=== PATIENT | male | born 1940 | race Caucasian/White ===

== ENCOUNTER → 2016-12-12 | Outpatient (CLI) | payer MEDICARE, OTHER ==
[~2016-12-12] MED LIST: ACET500C PO; AMLO5TAB2 PO; ANUS2.5C2 TOP; ATOR1TAB19 PO; BETA0.0543 EXT; BETA0.0543 TOP; CARV12.5 PO; COUM1TAB17 PO; DIGO0.12 PO; DOCU10CA PO; DOXA1TAB41 PO; FAMO40TA3 PO; FOSI1TAB8 PO; FURO40TA2 PO; GABA-279 PO; ICAPTAB PO; ISOS30TA4 PO; LEVA250T PO; LIDO5DIS36 TD; MAG 64 PO; METF1000 PO; MILKSUS PO; NYST100024 TOP; PERC5TAB6 PO; SITA50TAB PO; SPIR25TA2 PO; TYLE325T5 PO; VESI10TA PO; VESI5TAB PO; WARF-20 PO; ZYLO300T4 PO
--- NOTE | 2016-12-12 13:23 | REP ---
Clinical: Right hip pain. Technique: Axial noncontrast images through the right hip with coronal and sagittal re-formations. Impression: Advanced osteoarthritic degenerative changes include joint space narrowing most pronounced along the superior weightbearing portion of the hip joint with underlying sclerosis and subchondral heterogeneity and cystic changes involving both the acetabulum and femoral head as well as osteophytosis primarily involving the superior margin of the acetabulum. Enthesopathy along the visualized pelvic bones and greater tuberosity of the proximal femur is appreciated. There is no evidence for acute fracture or dislocation and no obvious healed fracture. The surrounding musculotendinous and ligamentous structures demonstrate age-related changes no obvious tendinous calcifications are identified and no obvious bursitis or significant fluid collection noted. Impression: Early advanced osteoarthritic degenerative changes noted. Signed by Brad Padilla MD 12/12/2016 01:15 P
== END ==
LOC: M RAD 12:28
PROVIDERS: ATTEND Orthopaedic Surgery
DX: M16.11 Unilateral primary osteoarthritis, right hip (principal)

== ENCOUNTER → 2017-01-30 | Outpatient (CLI) | payer MEDICARE, OTHER ==
--- NOTE | 2017-01-30 15:01 | REP ---
URINARY TRACT SONOGRAPHY: HISTORY: Followup cyst. Comparison sonography October 20, 2014. 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 Comparison CT study of the abdomen and pelvis is from July 20, 2015. FINDINGS: Scanning at the level of the urinary bladder shows that it is largely empty but otherwise intact. Renal cortical echogenicity pattern is normal bilaterally. There is no evidence of hydronephrosis on either side. The right kidney measures 13.4 x 6.2 x 5.4 cm. Left renal dimensions are 14.2 x 5.6 x 5.9 cm. There is focal cortical thinning at the mid pole level of the right kidney as seen on CT study and prior sonography July 20, 2016 with an area of increased echogenicity representing intervening perinephric fat. This area is unchanged. There is a cyst in the lower pole of the left kidney also noted and also unchanged. This measures 2.1 x 2.1 by 1.7 cm. There are smaller cysts in the cortex of the right kidney as well. There is a left renal cyst at the upper pole measuring 2.0 x 2.0 x 1.5 cm. This is unchanged as well from July 20, 2015. No renal mass lesion is evident on either side. No calculus is seen. IMPRESSION: Bilateral renal cysts, unchanged. Small area of focal cortical scarring right mid kidney, unchanged. Signed by Herbie Torres MD 01/30/2017 05:23 P
== END ==
LOC: M SMT 12:40
PROVIDERS: ATTEND Urology
DX: Q61.00 Congenital renal cyst, unspecified (principal)

== ENCOUNTER → 2018-02-10 | Outpatient (CLI) | payer MEDICARE, OTHER | LOC: M SMT 10:13 | DX: Q61.00 Congenital renal cyst, unspecified (principal); N18.9 Chronic kidney disease, unspecified | CPT/HCPCS: 76770 ==

== ENCOUNTER → 2019-02-04 | Outpatient (CLI) | payer MEDICARE, OTHER ==
[~2019-02-04] MED LIST changes: -AMLO5TAB2 PO; +AMLO5TAB6 PO; -FOSI1TAB8 PO; +FOSI20TA3 PO; +GABA-1171 PO; -GABA-279 PO; -LEVA250T PO; +LEVA250T13 PO; -LIDO5DIS36 TD; +LIDO5DIS41 TD; -METF1000 PO; +METF10004 PO; +MILK120011 PO; -MILKSUS PO; -NYST100024 TOP; +NYST1POW9 TOP; +PERC5TAB12 PO; -PERC5TAB6 PO; +SPIR-10 PO; -SPIR25TA2 PO; -VESI10TA PO; +VESI10TA2 PO; -VESI5TAB PO; +VESI5TAB2 PO; -ZYLO300T4 PO; +ZYLO300T6 PO
--- NOTE | 2019-02-04 16:00 | REP ---
Renal ultrasound: History: Complex renal cyst. Comparison sonography February 10, 2018. Comparison CT study July 20, 2015. Findings: Scanning at the level urinary bladder shows emptying ureteral jets bilaterally on color Doppler interrogation. Visualized bladder bhat are smooth. Calculated bladder volume is 106 mL. Renal cortical echogenicity pattern is increased somewhat bilaterally consistent with chronic medical renal disease. No hydronephrosis is seen. No renal mass lesion is observed. Multiple cysts are noted in each kidney. On the right there are upper and lower pole cysts measuring 1.9, 2.0, 1.1 cm in greatest diameter. The largest cyst on the left measures 3.3 cm in greatest diameter. This is a little larger than on the previous sonogram. There is a focal area of cortical scarring as before in the right mid kidney. Impression: Multiple bilateral renal cysts. Increased echogenicity in the cortex of the kidneys bilaterally consistent with chronic medical renal disease. Focal cortical scarring on the right again noted. Electronically Signed by Herbie Torres MD 02/04/2019 05:15 P
== END ==
LOC: M SMT 10:52
PROVIDERS: ATTEND Nurse Practitioner Family
DX: Q61.00 Congenital renal cyst, unspecified (principal)

== ENCOUNTER → 2020-09-06 | Outpatient (CLI) | payer MEDICARE, OTHER ==
[~2020-09-06] MED LIST changes: +AMLO1TAB24 PO; -AMLO5TAB6 PO; -FOSI20TA3 PO; +FOSI20TA60 PO
[2020-09-06 13:48] LABS: BLOOD UREA NITROGEN 24 MG/DL (7-18); CALCIUM LEVEL 9.3 MG/DL (8.8-10.2); CARBON DIOXIDE LEVEL 26 MEQ/L (21-32); CHLORIDE LEVEL 107 MEQ/L (98-107); CREATININE FOR GFR 1.01 MG/DL (0.70-1.30); GLOMERULAR FILTRATION RATE > 60.0 (>35); GLUCOSE, FASTING 113 MG/DL (70-100); MAGNESIUM LEVEL 1.8 MG/DL (1.8-2.4); SODIUM LEVEL 139 MEQ/L (136-145)
== END ==
LOC: M WUC 10:03
PROVIDERS: ATTEND Physician Assistant
DX: I50.42 Chronic combined systolic (congestive) and diastolic (congestive) heart failure (principal); I48.21 Permanent atrial fibrillation; Z79.01 Long term (current) use of anticoagulants

== ENCOUNTER → 2020-12-07 | Outpatient (CLI) | payer MEDICARE, OTHER ==
[2020-12-07 13:26] LABS: HEMATOCRIT 41.6 % (42.0-52.0); MEAN CORPUSCULAR HEMOGLOBIN 31.7 pg (27.0-33.0); MEAN CORPUSCULAR HGB CONC 31.3 g/dl (32.0-36.5); MEAN CORPUSCULAR VOLUME 101.5 fl (80.0-96.0); PLATELET COUNT, AUTOMATED 160 10^3/uL (150-450); WHITE BLOOD COUNT 8.3 10^3/uL (4.0-10.0)
[2020-12-07 13:56] LABS: ALBUMIN 3.5 GM/DL (3.2-5.2); ALT/SGPT 18 U/L (12-78); BILIRUBIN,TOTAL 0.9 MG/DL (0.2-1.0); BLOOD UREA NITROGEN 21 MG/DL (7-18); CALCIUM LEVEL 9.8 MG/DL (8.8-10.2); CARBON DIOXIDE LEVEL 26 MEQ/L (21-32); CHLORIDE LEVEL 109 MEQ/L (98-107); CHOLESTEROL LEVEL 206 MG/DL (<200); CHOLESTEROL RISK RATIO 3.961 (<5); CREATININE FOR GFR 1.02 MG/DL (0.70-1.30); GLOMERULAR FILTRATION RATE > 60.0 (>35); GLUCOSE, FASTING 144 MG/DL (70-100); HDL CHOLESTEROL 52 MG/DL (>40); LDL CHOLESTEROL 136 MG/DL (<100); MAGNESIUM LEVEL 2.2 MG/DL (1.8-2.4); NON-HDL-C 154 MG/DL; POTASSIUM SERUM 4.3 MEQ/L (3.5-5.1); SODIUM LEVEL 139 MEQ/L (136-145); TOTAL PROTEIN 7.1 GM/DL (6.4-8.2); TRIGLYCERIDES LEVEL 92 MG/DL (<150)
== END ==
LOC: M PLALAB 10:08
PROVIDERS: ATTEND Physician Assistant
DX: E78.2 Mixed hyperlipidemia (principal); I50.42 Chronic combined systolic (congestive) and diastolic (congestive) heart failure; I48.21 Permanent atrial fibrillation

== ENCOUNTER 2021-03-04 17:21 | Emergency (ER) | payer MEDICARE, OTHER ==
[~2021-03-04] VITALS: Ht 182.9 cm; Wt 109.1 kg
[~2021-03-04 17:21] MED LIST changes: +ISOS1TAB35 PO; -ISOS30TA4 PO
[2021-03-04 18:29] LABS: BASO % 0.4 % (0.0-1.0); EOS # 0.2 10^3/uL (0.0-0.5); EOS % 2.2 % (0.0-3.0); HEMATOCRIT 40.8 % (42.0-52.0); HEMOGLOBIN 13.1 g/dl (13.5-17.5); LYMPH # 1.2 10^3/uL (1.5-5.0); LYMPH % 11.9 % (24.0-44.0); MEAN CORPUSCULAR HEMOGLOBIN 31.6 pg (27.0-33.0); MEAN CORPUSCULAR HGB CONC 32.1 g/dl (32.0-36.5); MEAN CORPUSCULAR VOLUME 98.3 fl (80.0-96.0); MONO # 1.4 10^3/uL (0.0-0.8); MONO % 14.1 % (2.0-8.0); NEUTROPHILS # 7.2 10^3/uL (1.5-8.5); NEUTROPHILS % 70.8 % (36.0-66.0); PLATELET COUNT, AUTOMATED 187 10^3/uL (150-450); RED BLOOD COUNT 4.15 10^6/uL (4.30-6.10); WHITE BLOOD COUNT 10.1 10^3/uL (4.0-10.0)
[2021-03-04 18:39] LABS: INR 1.65; PROTHROMBIN TIME 19.9 SECONDS (12.5-14.3)
--- NOTE | 2021-03-04 19:06 | REP ---
INDICATION: abdl pain. COMPARISON: PA and lateral chest dated 01/06/2018. TECHNIQUE: Portable AP chest with the patient upright. FINDINGS: The lung lange are clear. Cardiac size is enlarged and has increased from the prior study. There is a single lead pacemaker, unchanged.. The lynn, mediastinum and skeletal structures are unremarkable. IMPRESSION: Cardiomegaly. Lung lange are clear. Pacemaker. <Electronically signed by Jose M Quijano > 03/04/21 [id number]
[2021-03-04 19:09] LABS: ALBUMIN 3.9 GM/DL (3.2-5.2); ALT/SGPT 18 U/L (12-78); AMYLASE 49 U/L (25-115); BILIRUBIN,DIRECT 0.3 MG/DL (0.0-0.2); BILIRUBIN,TOTAL 0.9 MG/DL (0.2-1.0); BLOOD UREA NITROGEN 36 MG/DL (7-18); CALCIUM LEVEL 9.7 MG/DL (8.8-10.2); CARBON DIOXIDE LEVEL 22 MEQ/L (21-32); CHLORIDE LEVEL 107 MEQ/L (98-107); CK-MB VALUE MASS 5.4 NG/ML (<3.6); CPK CREATINE PHOSPHOKINASE 110 U/L (39-308); CREATININE FOR GFR 1.21 MG/DL (0.70-1.30); DIGOXIN LEVEL 0.9 NG/ML (0.5-2.0); GLOMERULAR FILTRATION RATE > 60.0 (>35); GLUCOSE, FASTING 141 MG/DL (70-100); LIPASE 140 U/L (73-393); MB/CK RELATIVE INDEX 4.91 (< OR =4); NT-PRO BNP 2265 PG/ML (<450); POTASSIUM SERUM 4.3 MEQ/L (3.5-5.1); SODIUM LEVEL 138 MEQ/L (136-145); TOTAL PROTEIN 8.2 GM/DL (6.4-8.2); TROPONIN I 0.03 NG/ML (< 0.10)
[2021-03-04] MEDS ORDERED: ACETAMINOPHEN TAB 650MG DOSE (2X325MG) PO ONE (19:30)
--- NOTE | 2021-03-04 19:49 | REPVR ---
PROCEDURE INFORMATION: Exam: US Scrotum Exam date and time: 03/04/2021 7:08 PM Age: 80 years old Clinical indication: Swelling, testicles or scrotum; Additional info: Testicular swelling TECHNIQUE: Imaging protocol: Real-time ultrasound of the scrotum and contents with color Doppler and image documentation. COMPARISON: No relevant prior studies available. FINDINGS: Right testicle: Right testicle measures 4.7 x 2.1 x 3.3 cm. Microlithiasis. Normal flow. Left testicle: Left testis measures 4.2 x 2 x 2.7 cm. Microlithiasis. Normal flow. Epididymides: Normal. Scrotum: Moderate right varicocele. Other findings: Bilateral non reducible inguinal hernias. IMPRESSION: 1. Moderate right varicocele. 2. Testicular microlithiasis. 3. Bilateral non reducible inguinal hernias. Electronically signed by: Juve Oates On 03/04/2021 19:48:55 PM
[2021-03-04] MEDS ORDERED: BACTRIM 80MG/400MG TAB PO SCH (21:00)
[2021-03-04 21:30] VITALS: BP 155/79
[2021-03-04] MEDS ORDERED: EQ A1CRE3 TOP (21:56)
[2021-03-04] MEDS ORDERED: BACT800T5 PO (21:56)
[2021-03-04] MEDS ORDERED: FURO20TA2 PO (21:56)
--- NOTE | 2021-03-05 06:38 | ECGEPIP ---
[facility] - ED Test Date: 2021-03-04 Pat Name: GABRIEL ALDRICH Department: Room: - Gender: Male Speech Language Assistant: quin : 1940 Requested By: Lane Chambers Order Number: [id number] Reading MD: Lane Chambers Measurements Intervals [place] Rate: 73 P: OR: QRS: 19 QRSD: 108 T: 215 QT: 400 QTc: 440 Interpretive Statements atrial fibrillation Low voltage QRS Cannot rule out Anterior infarct , age undetermined Nonspecific ST T wave changes No prior ECG for comparison Electronically Signed on 03-05-2021 6:37:[address]
--- NOTE | 2021-03-05 06:49 | ED PDOC ---
Post-Departure Follow-Up dr huddleston faxed fomral report of scrotal us for fu meekg Lane Chambers MD Mar 05, 2021 06:49
[2021-03-05] MEDS ORDERED: BACTRIM 80MG/400MG TAB PO ONE (09:00)
== END 2021-03-04 22:23 | disposition home or self-care (01) ==
LOC: M ED 17:21
DX: N39.0 Urinary tract infection, site not specified (principal); L30.4 Erythema intertrigo; R60.9 Edema, unspecified; N49.2 Inflammatory disorders of scrotum; N30.90 Cystitis, unspecified without hematuria; I48.91 Unspecified atrial fibrillation; I51.7 Cardiomegaly; Z95.0 Presence of cardiac pacemaker; I86.1 Scrotal varices; N50.89 Other specified disorders of the male genital organs; K40.20 Bilateral inguinal hernia, without obstruction or gangrene, not specified as recurrent; Z79.899 Other long term (current) drug therapy; Z88.0 Allergy status to penicillin

== ENCOUNTER → 2021-03-21 | Outpatient (CLI) | payer MEDICARE, OTHER ==
[~2021-03-21] MED LIST changes: +BACT800T5 PO; +EQ A1CRE3 TOP; +FURO20TA2 PO; +ISOVUE-300 61% 50ML VIAL As Ordered ONE; +LIDOCAINE 1% MDV 20ML VIAL As Ordered ONE; +TRIAMCINOLONE ACETONIDE SUSP 40 MG/ML VIAL (J3301) As Ordered ONE
--- NOTE | 2021-03-21 16:42 | REP ---
INDICATION: RT HIP OA W/ PAIN. COMPARISON: None. TECHNIQUE: The procedure was performed under the direct supervision of Dr. Torres. The benefits and risks including but not limited to pain infection bleeding and anaphylaxis were explained the patient and informed consent was obtained. The right femoral neck was localized using fluoroscopic guidance. The skin was prepped and draped in a sterile fashion. 1% lidocaine was used as a local anesthetic. Using fluoroscopic guidance a 22 gauge spinal needle was inserted and advanced to the femoral neck. 1 cc of Isovue-300 was injected to verify placement. 6 cc of a solution containing 5 cc of 1% lidocaine and 1 cc of Kenalog 40 mg was injected. The needle was then removed. The patient tolerated the procedure well and there were no immediate complications. Less than 6 seconds of fluoroscopy time was utilized for this procedure. FINDINGS: None IMPRESSION: Fluoro guidance for right hip injection. <Electronically signed by Pj Malone > 03/21/21 [id number] <Electronically signed by Uli Torres > 03/21/21 [id number]
== END ==
LOC: M RADPRO 10:45
PROVIDERS: ATTEND Physician Assistant
DX: M16.11 Unilateral primary osteoarthritis, right hip (principal)
CPT/HCPCS: 20610; 77002; J3301; Q9967

== ENCOUNTER 2021-07-25 12:15 | Inpatient (IN) | payer MEDICARE, OTHER ==
[~2021-07-25] VITALS: Ht 182.9 cm; Wt 99.1 kg
[~2021-07-25 12:15] MED LIST changes: -ISOVUE-300 61% 50ML VIAL As Ordered ONE; -LIDOCAINE 1% MDV 20ML VIAL As Ordered ONE; -TRIAMCINOLONE ACETONIDE SUSP 40 MG/ML VIAL (J3301) As Ordered ONE
[2021-07-25 13:12] LABS: BASO % 0.2 % (0.0-1.0); EOS # 0.2 10^3/uL (0.0-0.5); EOS % 1.4 % (0.0-3.0); HEMATOCRIT 28.2 % (42.0-52.0); HEMOGLOBIN 9.1 g/dl (13.5-17.5); LYMPH % 8.6 % (24.0-44.0); MEAN CORPUSCULAR HEMOGLOBIN 32.3 pg (27.0-33.0); MEAN CORPUSCULAR HGB CONC 32.3 g/dl (32.0-36.5); MONO # 1.3 10^3/uL (0.0-0.8); MONO % 11.7 % (2.0-8.0); NEUTROPHILS # 8.8 10^3/uL (1.5-8.5); NEUTROPHILS % 77.2 % (36.0-66.0); PLATELET COUNT, AUTOMATED 170 10^3/uL (150-450); RED BLOOD COUNT 2.82 10^6/uL (4.30-6.10); WHITE BLOOD COUNT 11.4 10^3/uL (4.0-10.0)
[2021-07-25 13:31] LABS: PROTHROMBIN TIME 62.7 SECONDS (12.7-14.5)
[2021-07-25 13:33] LABS: PARTIAL THROMBOPLASTIN TIME 100.4 SECONDS (25.9-37.0)
[2021-07-25] MEDS ORDERED: NS 1,000 ML IV ONE ×2 (13:40→15:20)
[2021-07-25 13:51] LABS: INR 7.41
[2021-07-25 13:57] LABS: BILIRUBIN,DIRECT 0.5 MG/DL (0.0-0.2); BILIRUBIN,TOTAL 2.1 MG/DL (0.2-1.0); TOTAL PROTEIN 6.8 GM/DL (6.4-8.2)
--- NOTE | 2021-07-25 14:05 | REP ---
INDICATION: left foot pain/bruising. COMPARISON: None. TECHNIQUE: Four views FINDINGS: The bones appear markedly demineralized. Degenerative changes seen throughout the foot. There is a periosteal reaction seen along the mid-diaphysis of the 4th metatarsal. IMPRESSION: The bones are demineralized and there are degenerative changes to such a degree that a subtle fracture could easily be obscured. A periosteal reaction is seen involving the diaphysis of the 4th metatarsal in the etiology of this is uncertain. It might represent healing stress related phenomena. Consider CT. <Electronically signed by Dion Barakat > 07/25/21 [id number]
[2021-07-25] MEDS ORDERED: ISOVUE-370 76% 100ML VIAL As Ordered ONE (14:38)
[2021-07-25 15:11] LABS: CK-MB VALUE MASS 23.6 NG/ML (<3.6); MB/CK RELATIVE INDEX 1.09 (< OR =4); TROPONIN I 0.15 NG/ML (< 0.10)
[2021-07-25] MEDS ORDERED: CIPROFLOXACIN 400 MG in IV 1 EA IV ONE (15:30)
--- NOTE | 2021-07-25 15:51 | REP ---
INDICATION: fall injury; ?head injury; AMS; left chest bruising COMPARISON: 05/27/2015 TECHNIQUE: Axial noncontrast images from the skull base to the thoracic inlet with coronal reformations. This CT examination was performed using the following dose reduction techniques: Automated exposure control, adjustment of mA and/or kv according to the patient's size, and use of iterative reconstruction technique. FINDINGS: Atrophy with periventricular leukomalacia and microvascular ischemic changes are appreciated. The ventricles and sulci are symmetric. Jenkins-white differentiation is maintained. There is no evidence for acute intracranial hemorrhage, mass/mass effect, pathology or infarction. No extra-axial fluid collection. Calvarium is intact. Paranasal sinuses demonstrate suspected chronic opacification involving right frontal, ethmoid, and maxillary sinuses. IMPRESSION: Atrophy and microvascular ischemic changes. No acute intracranial hemorrhage, infarction, or mass/mass effect. Opacification of the right paranasal sinuses. <Electronically signed by Brad Padilla > 07/25/21 [id number]
--- NOTE | 2021-07-25 15:54 | REP ---
INDICATION: fall injury; ?head injury; AMS; left chest bruising COMPARISON: 05/27/2015 TECHNIQUE: Axial noncontrast images from the skull base to the thoracic inlet with coronal and sagittal re-formations This CT examination was performed using the following dose reduction techniques: Automated exposure control, adjustment of mA and/or kv according to the patient's size, and use of iterative reconstruction technique. FINDINGS: Prior anterior fixation at C3-4 again noted. Advanced progressive osteopenia and multilevel degenerative changes include osteophytosis, endplate sclerosis, disc space narrowing, facet hypertrophy as well as partial calcification to the posterior longitudinal ligaments. No acute fracture/compression injury or subluxation identified. Posterior elements and spinous processes appear intact. IMPRESSION: Osteopenia and advanced progressive multilevel degenerative changes. Stable anterior fixation at C3-4. No acute fracture/compression injury or subluxation. <Electronically signed by Brad Padilla > 07/25/21 [id number]
--- NOTE | 2021-07-25 16:00 | REP ---
INDICATION: fall injury; ?head injury; AMS; left chest bruising COMPARISON: None TECHNIQUE: Axial contrast enhanced images from the thoracic inlet to the upper abdomen with coronal and sagittal reformations using 75 ml Isovue 370 intravenous contrast material. This CT examination was performed using the following dose reduction techniques: Automated exposure control, adjustment of mA and/or kv according to the patient's size, and use of iterative reconstruction technique. FINDINGS: Lung lange demonstrate COPD/emphysematous changes and chronic scattered interstitial changes primarily lower lobes. No acute consolidation/contusion, effusion, or pneumothorax. Tracheobronchial tree is patent. No obvious adenopathy. Further evaluation of the mediastinum demonstrates atherosclerotic changes to the thoracic aorta and coronary arteries along with cardiomegaly. No aortic aneurysm/dissection. No pericardial effusion. No mediastinal fluid collection or hematoma to suggest injury. Pacemaker. Osseous structures demonstrate considerable osteopenia and degenerative changes along with old healed left rib fractures. IMPRESSION: Chronic pleuroparenchymal changes. Cardiomegaly. No acute mediastinal or pleuroparenchymal process or trauma/injury <Electronically signed by Brad Padilla > 07/25/21 [id number]
--- NOTE | 2021-07-25 16:08 | REP ---
INDICATION: fall injury; ?head injury; AMS; left chest bruising. COMPARISON: 03/10/2019, 07/20/2015 TECHNIQUE: Axial contrast-enhanced images from the lung bases to the pubic symphysis using 100 cc Isovue 370 intravenous contrast material. Coronal and sagittal reformations obtained. This CT examination was performed using the following dose reduction techniques: Automated exposure control, adjustment of mA and/or kv according to the patient's size, and the use of iterative reconstruction technique. FINDINGS: There is no evidence for solid organ injury. Liver, spleen, pancreas, gallbladder, and bilateral adrenal glands are normal. Kidneys demonstrate age-related cortical atrophic changes, elements of cortical scarring, and simple cysts along with suspected proteinaceous complex cysts. There is a 5 cm complex cyst versus mass in the anterior aspect of the left kidney The enteric system is without obstruction or acute inflammatory process. Sigmoid diverticulosis noted without acute diverticulitis. Moderate fat containing right inguinal hernia noted. Evaluation of the pelvis is limited due to beam hardening artifact from left hip prosthesis although visualized portions of the bladder and prostate gland appear relatively normal/stable. No ascites. No free air. No intraperitoneal or retroperitoneal adenopathy. Abdominal aorta and vasculature appear normal. Musculoskeletal structures are intact and without acute osseous abnormality. IMPRESSION: 1. No evidence for acute trauma/injury. 2. 5 cm suspicious lesion in the left kidney may represent complex cyst versus mass and further investigation is recommended. Consider renal ultrasound. 3. Nonacute findings as noted above. <Electronically signed by Brad Padilla > 07/25/21 [id number]
[2021-07-25] MEDS ORDERED: cefTRIAXone SOD 1 GM in D5W MINI-BAG PLUS 50 ML IV ONE (16:10)
[2021-07-25] MEDS ORDERED: PHYTONADIONE 10MG/ML INJECTION (J3430) SQ ONE (16:10)
[2021-07-25 17:29] LABS: RSV AMPLIFICATION NEGATIVE (NEGATIVE)
[2021-07-25] MEDS ORDERED: SOLI5TAB PO (17:29)
[2021-07-25] MEDS ORDERED: LISI2.5T9 PO (17:29)
[2021-07-25] MEDS ORDERED: CARV3.12 PO (17:29)
[2021-07-25] MEDS ORDERED: AMLO1TAB25 PO (17:29)
[2021-07-25] MEDS ORDERED: ALLO300T2 PO (17:29)
[2021-07-25] MEDS ORDERED: TORS20TA2 PO (17:29)
[2021-07-25] MEDS ORDERED: SPIR-10 PO (17:29)
[2021-07-25] MEDS ORDERED: WARF-23 PO (17:29)
[2021-07-25] MEDS ORDERED: ISOS1TAB35 PO (17:29)
[2021-07-25] MEDS ORDERED: DIGO0.123 PO (17:29)
[2021-07-25] MEDS ORDERED: DOXA2TAB3 PO (17:29)
[2021-07-25] MEDS ORDERED: SITA50TAB PO (17:29)
[2021-07-25] MEDS: HumaLOG INSULIN (NovoLOG) PER UNIT SC SCH ×2 (17:30→21:00)
[2021-07-25] MEDS ORDERED: MED REC COMMENT (17:30)
[2021-07-25] MEDS ORDERED: HOME MED LIST COMPLETE! XX SCH (17:30)
[2021-07-25] MEDS ORDERED: GLUCOSE 4GM CHEW TABLET PO PRN (17:35)
[2021-07-25] MEDS ORDERED: GLUCAGON INJ 1MG VIAL SC PRN (17:35)
[2021-07-25] MEDS ORDERED: DEXTROSE 50% 50 ML SYRINGE IV PRN (17:35)
--- NOTE | 2021-07-25 18:10 | HPEPDOC ---
General Date of Admission 07/25/21 Date of Service: Jul 25, 2021 Chief Complaint The patient is a 81-year-old male admitted with a reason for visit of Syncope. Source: Patient Exam Limitations: No limitations History of Present Illness Patient is 81 years old male with past medical history of chronic kidney disease, hypertension, type 2 diabetes, hyperlipidemia, hypothyroidism, atrial fibrillation, pacemaker presented to hospital with altered mental status. According to his daughter patient was found on the kitchen floor by his neighbor, patient was on the floor for about 2 days. Of note patient was recently treated for UTI 1 month ago in [facility]. His daughter stated when patient had UTI usually he has altered mental status. Also his daughter stated that patient had multiple falls in the past and family decided to stop anticoagulation. In ER patient was found to have supratherapeutic INR of 7.4, he received vitamin K, white blood count of 11.4, hemoglobin 9.1, CPK 2157. UA shows pyuria. Left foot x-ray showed A periosteal reaction is seen involving the diaphysis of the 4th metatarsal in the etiology of this is uncer tain. CT head negative for stroke or bleed. CT abdomen pelvis showed 5 cm suspicious lesion in the left kidney may represent complex cyst versus mass and further investigation is recommended. Consider renal ultrasound. Home Medications Scheduled Amlodipine Besylate (Amlodipine Besylate) 10 Mg Tablet, 10 MG PO DAILY, (Reported) Carvedilol (Carvedilol) 3.125 Mg Tablet, 3.125 MG PO BID, (Reported) Digoxin (Digoxin) 125 Mcg Tablet, 125 MCG PO DAILY, (Reported) Doxazosin Mesylate (Doxazosin) 2 Mg Tablet, 2 MG PO DAILY, (Reported) Isosorbide Mononitrate (Isosorbide Mononitrate ER) 30 Mg Tab.er.24h, 30 MG PO DAILY, (Reported) Lisinopril (Lisinopril) 2.5 Mg Tablet, 2.5 MG PO DAILY, (Reported) Sitagliptin (Januvia) 50 Mg Tablet, 50 MG PO DAILY, (Reported) Solifenacin Succinate (Solifenacin Succinate) 5 Mg Tablet, 5 MG PO DAILY, (Reported) Spironolactone (Spironolactone) 25 Mg Tablet, 12.5 MG PO DAILY, (Reported) Torsemide (Torsemide) 20 Mg Tablet, 30 MG PO DAILY, (Reported) Warfarin Sodium (Warfarin Sodium) 5 Mg Tablet, 2.5 MG PO QPM, (Reported) allopurinoL (allopurinoL) 300 Mg Tablet, 300 MG PO DAILY, (Reported) Miscellaneous Medications [Med Rec Comment] , (Reported) LIST OBTAINED FROM EXTERNAL MED HISTORY, UNABLE TO VERIFY WITH PATIENT Allergies Coded Allergies: Penicillins (Verified Allergy, Unknown, 03/04/21) anaph Past Medical History Medical History CHRONIC KIDNEY DISSEASE HYPERTENSION DIABETES HYPERLIPIDEMIA HYPOTHYROIDISM ATRIAL FIBRILLATION WITH SUPRATHERAPEUTIC INR GOUT UTI 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 GERD DIVERTICULAR DISEASE DEGENERATIVE JOINT DISEASE Depression CONGESTIVE HEART FAILURE, COMPENSATED 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, INTERNAL 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 POLE ANGIOMYLIPOME VERSUS MALIGNANT LESIONS, NEEDS FURTHER FOLLOW UP IMAGING FOOT DROP IN LEFT FOOT = BRACE Surgical History Pacemaker placement Social History * Smoker: Denies Alcohol: Denies Drugs: denies A-FIB/CHADSVASC A-FIB History Current/History of A-Fib/PAF?: Yes Current PO Anticoag Therapy: No Treatment Reason Anticoagulant not given: Supratherapeutic Warfarin Review of Systems Constitutional: Denies: Chills, Fever Eyes: Denies: Pain, Vision change ENT: Denies: Head Aches Skin: Denies: Rash Pulmonary: Denies: Dyspnea Cardiovascular: Denies: Chest Pain Gastrointestinal: Denies: Nausea, Vomiting Genitourinary: Reports: Dysuria Hematologic: Denies: Bruising Endocrine: Denies: Polydipsia, Polyphagia Musculoskeletal: Denies: Neck Pain Neurological: Reports: Confusion; Denies: Weakness, Numbness Psych: Reports: Mood Normal Physical Examination General Exam: Positive: Mild Distress Eye Exam: Positive: PERRLA ENT Exam: Positive: Tongue Midline Neck Exam: Positive: Supple; Negative: JVD Chest Exam: Positive: Clear to auscultation Heart Exam: Positive: Irregular Rhythm Telemetry: Positive: Atrial fibrillation Abdomen Exam: Positive: Normal bowel sounds Extremity Exam: Negative: Clubbing, Cyanosis Skin Exam: Positive: Other skin issue (Multiple bruises and petechiae all over his body) Neuro Exam: Positive: Cranial Nerves 3-12 NL Psych Exam: Negative: Mental status NL Vital Signs Vital Signs Date Time Temp Pulse Resp B/P (MAP) Pulse Ox O2 Delivery O2 Flow Rate FiO2 07/25/21 16:45 98.2 07/25/21 14:52 75 20 150/76 (100) 99 Room Air Laboratory Data Labs 24H Laboratory Tests 2 07/25/21 12:45: Immature Granulocyte % (Auto) 0.9, Neutrophils (%) (Auto) 77.2H, Lymphocytes (%) (Auto) 8.6L, Monocytes (%) (Auto) 11.7H, Eosinophils (%) (Auto) 1.4, Basophils (%) (Auto) 0.2, Neutrophils # (Auto) 8.8H, Lymphocytes # (Auto) 1.0L, Monocytes # (Auto) 1.3H, Eosinophils # (Auto) 0.2, Basophils # (Auto) 0.0, Nucleated Red Blood Cells % (auto) 0.0, Prothrombin Time 62.7H, Prothromb Time International Ratio 7.41*H, Activated Partial Thromboplast Time 100.4H, Total Bilirubin 2.1H, Direct Bilirubin 0.5H, Aspartate Amino Transf (AST/SGOT) 79H, Alanine Aminotransferase (ALT/SGPT) 30, Alkaline Phosphatase 96, Total Creatine Kinase 2157H, Creatine Kinase MB 23.6H, Creatine Kinase MB Relative Index 1.09, Troponin I 0.15H, Total Protein 6.8, Albumin 3.0L, Albumin/Globulin Ratio 0.8 07/25/21 12:48: Digoxin Level 1.4 07/25/21 14:23: Urine Color YELLOW, Urine Appearance CLOUDYH, Urine pH 5.0, Urine Specific [place] 1.013, Urine Protein NEGATIVE, Urine Glucose (UA) NEGATIVE, Urine Ketones NEGATIVE, Urine Blood 1+H, Urine Nitrite NEGATIVE, Urine Bilirubin NEGATIVE, Urine Urobilinogen 0.2, Urine Leukocyte Esterase 3+H, Urine WBC (Auto) TNTCH, Urine RBC (Auto) 2, Urine Hyaline Casts (Auto) 0, Urine Bacteria (Auto) 2+H, Urine Squamous Epithelial Cells 2, Urine Mucus (Auto) SMALL, Urine Sperm (Auto) 07/25/21 16:23: Coronavirus (COVID-19)(PCR) NEGATIVE, Influenza Type A (RT-PCR) NEGATIVE, Influenza Type B (RT-PCR) NEGATIVE, Respiratory Syncytial Virus (PCR) NEGATIVE CBC/BMP Laboratory Tests 07/25/21 12:45 Microbiology Microbiology 07/25/21 Urine Culture, Received Pending Assessment/Plan Patient is 81 years old male with past medical history of chronic kidney disease, hypertension, type 2 diabetes, hyperlipidemia, hypothyroidism, atrial fibrillation, pacemaker presented to hospital with altered mental status. According to his daughter patient was found on the kitchen floor by his neigh bor, patient was on the floor for about 2 days. Of note patient was recently treated for UTI 1 month ago in [facility]. His daughter stated when patient had UTI usually he has altered mental status. Also his daughter stated that patient had multiple falls in the past and family decided to stop anticoagulation. In ER patient was found to have supratherapeutic INR of 7.4, he received vitamin K, white blood count of 11.4, hemoglobin 9.1, CPK 2157. UA shows pyuria. Left foot x-ray showed A periosteal reaction is seen involving the diaphysis of the 4th metatarsal in the etiology of this is uncertain. CT head negative for stroke or bleed. CT abdomen pelvis showed 5 cm suspicious lesion in the left kidney may represent complex cyst versus mass and further investigation is recommended. Consider renal ultrasound. Problems (1) Supratherapeutic INR Status: Acute Problem Text: Secondary to Coumadin His daughter stated that family does not want anticoagulation anymore given multiple history of falls and noncompliance Continue to monitor INR Patient received vitamin K in ER (2) Rhabdomyolysis Status: Acute Problem Text: Secondary to fall Continue IV hydration Continue monitor CPK (3) UTI (urinary tract infection) Status: Acute Problem Text: UA shows pyuria We will start ceftriaxone Await UA (4) Dehydration Status: Acute Problem Text: Continue IV hydration (5) Afib Status: Chronic Problem Text: Anticoagulation therapy stopped Heart rate under control (6) DM (diabetes mellitus) Status: Chronic Problem Text: Diabetes diet Insulin sliding scale (7) HTN (hypertension) Status: Chronic Problem Text: Continue home meds (8) Hypothyroidism Status: Chronic Problem Text: Continue levothyroxine (9) Metabolic encephalopathy Status: Acute Problem Text: secondary to UTI Continue antibiotic treatment (10) Right kidney mass Status: Chronic Problem Text: According to his daughter patient was diagnosed with kidney cancer in [facility] 1 month ago. Due to multiple comorbidities patient was not a candidate for surgery. His daughter stated that family does not want any diagnostic investigation or treatment for kidney cancer Plan / VTE VTE Prophylaxis Ordered?: No VTE Exclusion Pharmacological: Bleeding Risk GILBERTO PEDROZA DO Jul 25, 2021 18:10
[2021-07-25 18:28] LABS: CALCIUM LEVEL 9.5 MG/DL (8.8-10.2); CREATININE FOR GFR 1.52 MG/DL (0.70-1.30); GLOMERULAR FILTRATION RATE 47.1 (>35); POTASSIUM SERUM 4.4 MEQ/L (3.5-5.1)
--- NOTE | 2021-07-25 19:13 | REPVR ---
PROCEDURE INFORMATION: Exam: CT Left Lower Extremity Without Contrast, Foot Exam date and time: 07/25/2021 6:33 PM Age: 81 years old Clinical indication: Fracture. TECHNIQUE: Imaging protocol: CT of the Left lower extremity without contrast was performed. Exam focused on the foot. Radiation optimization: All CT scans at this facility use at least one of these dose optimization techniques: automated exposure control; mA and/or kV adjustment per patient size (includes targeted exams where dose is matched to clinical indication); or iterative reconstruction. COMPARISON: CR Foot, complete LEFT 07/25/2021 1:43 PM (The report from this study was not available for review at the time of this interpretation.) FINDINGS: Limitations: Motion artifact degrades the image quality. Bones/joints: No fracture or dislocation of the left foot is identified allowing for motion artifact. No bony destructive changes are noted. Soft tissues: There is a posterior calcaneal spur at the insertion of the Achilles tendon, which is compatible with a left Achilles enthesopathy. There is fatty atrophy of the muscles of the left foot. Vasculature: There are atherosclerotic calcifications. IMPRESSION: No fracture or dislocation of the left foot identified allowing for motion artifact. Electronically signed by: Bao Grossman On 07/25/2021 19:13:26 PM
[2021-07-25 20:35] VITALS: BP 122/60
[2021-07-25] MEDS: CARVedilol 3.125 MG TAB PO SCH (20:43)
[2021-07-25] MEDS: NS 1,000 ML IV SCH (20:44)
--- NOTE | 2021-07-25 20:54 | ECGEPIP ---
[facility] - ED Test Date: 2021-07-25 Pat Name: GABRIEL ALDRICH Department: Room: - Gender: Male Medical Records Clerk: : 1940 Requested By: HARINDER ESCAMILLA Order Number: [id number] Reading MD: Harinder Verduzco Measurements Intervals [place] Rate: 81 P: 20 CO: 368 QRS: 7 QRSD: 118 T: 220 QT: 364 QTc: 422 Interpretive Statements atrial fibrillation Low voltage QRS Cannot rule out Anterior infarct , age undetermined ST & T wave abnormality, consider inferolateral ischemia Similar to tracing done 03-04-21 Electronically Signed on 07-25-2021 20:54:06 EDT by Harinder Verduzco
[2021-07-26 04:00] VITALS: BP 112/58
[2021-07-26] MEDS: NS 1,000 ML IV SCH (04:35)
[2021-07-26] MEDS: cefTRIAXone SOD 2 GM in D5W MINI-BAG PLUS 50 ML IV SCH (05:38)
[2021-07-26 07:30] VITALS: BP 91/51
[2021-07-26] MEDS: HumaLOG INSULIN (NovoLOG) PER UNIT SC SCH ×4 (07:30→21:00)
[2021-07-26 08:38] LABS: HEMATOCRIT 23.3 % (42.0-52.0); HEMOGLOBIN 7.4 g/dl (13.5-17.5); MEAN CORPUSCULAR HEMOGLOBIN 32.6 pg (27.0-33.0); MEAN CORPUSCULAR HGB CONC 31.8 g/dl (32.0-36.5); MEAN CORPUSCULAR VOLUME 102.6 fl (80.0-96.0); PLATELET COUNT, AUTOMATED 133 10^3/uL (150-450); RED BLOOD COUNT 2.27 10^6/uL (4.30-6.10); WHITE BLOOD COUNT 9.4 10^3/uL (4.0-10.0)
[2021-07-26] MEDS: CARVedilol 3.125 MG TAB PO SCH ×2 (09:00→21:12)
[2021-07-26] MEDS: ISOSORBIDE MON. (IMDUR) 30 MG XR TAB PO SCH (09:00)
[2021-07-26] MEDS: DIGOXIN 0.125 MG TAB PO SCH (09:00)
[2021-07-26] MEDS ORDERED: LISINOPRIL *2.5 MG* TAB PO SCH (09:00)
[2021-07-26 09:21] LABS: ALBUMIN 2.2 GM/DL (3.2-5.2); ALT/SGPT 25 U/L (12-78); BILIRUBIN,TOTAL 1.3 MG/DL (0.2-1.0); BLOOD UREA NITROGEN 47 MG/DL (7-18); CALCIUM LEVEL 8.6 MG/DL (8.8-10.2); CARBON DIOXIDE LEVEL 22 MEQ/L (21-32); CHLORIDE LEVEL 116 MEQ/L (98-107); CPK CREATINE PHOSPHOKINASE 1046 U/L (39-308); CREATININE FOR GFR 0.94 MG/DL (0.70-1.30); GLOMERULAR FILTRATION RATE > 60.0 (>35); GLUCOSE, FASTING 99 MG/DL (70-100); MAGNESIUM LEVEL 2.1 MG/DL (1.8-2.4); POTASSIUM SERUM 3.8 MEQ/L (3.5-5.1); SODIUM LEVEL 140 MEQ/L (136-145); TOTAL PROTEIN 5.8 GM/DL (6.4-8.2); TROPONIN I 0.12 NG/ML (< 0.10)
[2021-07-26 10:35] LABS: PROTHROMBIN TIME 56.1 SECONDS (12.7-14.5)
[2021-07-26 10:37] LABS: INR 6.4
--- NOTE | 2021-07-26 15:39 | IPNPDOC ---
Text Note Date of Service The patient was seen on 07/26/21. NOTE Subjective: No any acute events overnight. Patient stated that he feels better today. He is alert, awake and oriented Objective: GENERAL APPEARANCE: NAD HEENT: no scleral icterus, no JVD, EOMI CARDIOVASCULAR: Irregularly irregular LUNGS: CTA ABDOMEN: soft & not tender w palpation MUSCULOSKELETAL: no cyanosis, no swelling INTEGUMENT: no generalized pallor NEUROLOGICAL: cranial nerve function from 2-12 intact, follows commands, speech not dysarthric Assessment/Plan Patient is 81 years old male with past medical history of chronic kidney disease, hypertension, type 2 diabetes, hyperlipidemia, hypothyroidism, atrial fibrillation, pacemaker presented to hospital with altered mental status. According to his daughter patient was found on the kitchen floor by his neighbor, patient was on the floor for about 2 days. Of note patient was recently treated for UTI 1 month ago in [facility]. His daughter stated when patient had UTI usually he has altered mental status. Also his daughter stated that patient had multiple falls in the past and family decided to stop anticoagulation. In ER patient was found to have supratherapeutic INR of 7.4, he received vitamin K, white blood count of 11.4, hemoglobin 9.1, CPK 2157. UA shows pyuria. Left foot x-ray showed A periosteal reaction is seen involving the diaphysis of the 4th metatarsal in the etiology of this is uncertain. CT head negative for stroke or bleed. CT abdomen pelvis showed 5 cm suspicious lesion in the left kidney may represent complex cyst versus mass and further investigation is recommended. Consider renal ultrasound. Problems (1) Supratherapeutic INR Secondary to Coumadin His daughter stated that family does not want anticoagulation anymore given multiple history of falls and noncompliance INR 6.4 today Patient received 1 dose of vitamin K in ER Continue to monitor (2) Rhabdomyolysis Secondary to fall CPK trended down today (3) UTI (urinary tract infection) UA shows pyuria Continue ceftriaxone day 1 Await UA (4) Dehydration Patient euvolemic. IV fluids stopped (5) Afib Anticoagulation therapy stopped. Family requested to stop anticoagulation indefinitely Heart rate under control (6) DM (diabetes mellitus) Diabetes diet Insulin sliding scale (7) HTN (hypertension) Continue home meds (8) Hypothyroidism Continue levothyroxine (9) Metabolic encephalopathy secondary to UTI Continue antibiotic treatment (10) Right kidney mass According to his daughter patient was diagnosed with kidney cancer in [facility] 1 month ago. Due to multiple comorbidities patient was not a candidate for surgery. His daughter stated that family does not want any diagnostic investigation or treatment for kidney cancer Macrocytic anemia We will check B12, folate, iron panel and stool for occult blood VS,Fishbone, I+O VS, Fishbone, I+O Laboratory Tests 07/26/21 08:18 Vital Signs Date Time Temp Pulse Resp B/P (MAP) Pulse Ox O2 Delivery O2 Flow Rate FiO2 07/26/21 09:00 60 07/26/21 09:00 91/51 07/26/21 07:30 97.6 18 98 Room Air I&O- Last 24 Hours up to 6 AM 07/26/21 06:00 Intake Total 5060 ml Output Total 675 ml Balance 4385 ml GILBERTO PEDROZA DO Jul 26, 2021 15:39
[2021-07-26 16:00] VITALS: BP 105/52
[2021-07-26 16:59] LABS: IRON (FE) 69 UG/DL (65-175); PERCENT SATURATION 56.1 % (19.7-50.0); TOTAL IRON BINDING CAPACITY 123 UG/DL (250-450)
[2021-07-26 17:10] LABS: VITAMIN B12 LEVEL 347 PG/ML
[2021-07-26 17:11] LABS: FOLATE 4.6 NG/ML
[2021-07-26 20:00] VITALS: BP 125/60
[2021-07-27] VITALS: BP 108/53
[2021-07-27 04:00] VITALS: BP 104/56
[2021-07-27] MEDS: cefTRIAXone SOD 2 GM in D5W MINI-BAG PLUS 50 ML IV SCH (05:37)
[2021-07-27 06:48] LABS: INR 2.87; PROTHROMBIN TIME 30.4 SECONDS (12.7-14.5)
[2021-07-27] MEDS: HumaLOG INSULIN (NovoLOG) PER UNIT SC SCH ×4 (07:30→20:51)
[2021-07-27 07:47] LABS: ALBUMIN 2.2 GM/DL (3.2-5.2); ALT/SGPT 26 U/L (12-78); BILIRUBIN,TOTAL 0.9 MG/DL (0.2-1.0); BLOOD UREA NITROGEN 41 MG/DL (7-18); CALCIUM LEVEL 8.3 MG/DL (8.8-10.2); CARBON DIOXIDE LEVEL 22 MEQ/L (21-32); CHLORIDE LEVEL 115 MEQ/L (98-107); CPK CREATINE PHOSPHOKINASE 476 U/L (39-308); CREATININE FOR GFR 0.87 MG/DL (0.70-1.30); GLOMERULAR FILTRATION RATE > 60.0 (>35); GLUCOSE, FASTING 135 MG/DL (70-100); POTASSIUM SERUM 4.3 MEQ/L (3.5-5.1); SODIUM LEVEL 142 MEQ/L (136-145); TOTAL PROTEIN 5.5 GM/DL (6.4-8.2)
[2021-07-27 08:23] VITALS: BP 117/57
[2021-07-27 09:17] LABS: BASO % 0.2 % (0.0-1.0); EOS # 0.3 10^3/uL (0.0-0.5); EOS % 3.7 % (0.0-3.0); HEMATOCRIT 24.5 % (42.0-52.0); HEMOGLOBIN 7.7 g/dl (13.5-17.5); LYMPH % 10.5 % (24.0-44.0); MEAN CORPUSCULAR HEMOGLOBIN 32.2 pg (27.0-33.0); MEAN CORPUSCULAR HGB CONC 31.4 g/dl (32.0-36.5); MEAN CORPUSCULAR VOLUME 102.5 fl (80.0-96.0); MONO # 1.3 10^3/uL (0.0-0.8); MONO % 14.4 % (2.0-8.0); NEUTROPHILS # 6.5 10^3/uL (1.5-8.5); NEUTROPHILS % 70.1 % (36.0-66.0); PLATELET COUNT, AUTOMATED 158 10^3/uL (150-450); RED BLOOD COUNT 2.39 10^6/uL (4.30-6.10); WHITE BLOOD COUNT 9.2 10^3/uL (4.0-10.0)
[2021-07-27] MEDS: ISOSORBIDE MON. (IMDUR) 30 MG XR TAB PO SCH (10:02)
[2021-07-27] MEDS: DIGOXIN 0.125 MG TAB PO SCH (10:03)
[2021-07-27] MEDS: CARVedilol 3.125 MG TAB PO SCH ×2 (10:03→21:00)
[2021-07-27] MEDS ORDERED: SLF 3 ML SYR IV PRN (13:45)
--- NOTE | 2021-07-27 14:02 | IPNPDOC ---
Text Note Date of Service The patient was seen on 07/27/21. NOTE Subjective: No any acute events overnight. Patient told me that he lives alone and he scared to be at home alone Objective: GENERAL APPEARANCE: NAD HEENT: no scleral icterus, no JVD, EOMI CARDIOVASCULAR: Irregularly irregular LUNGS: CTA ABDOMEN: soft & not tender w palpation MUSCULOSKELETAL: no cyanosis, no swelling INTEGUMENT: no generalized pallor NEUROLOGICAL: cranial nerve function from 2-12 intact, follows commands, speech not dysarthric Assessment/Plan Patient is 81 years old male with past medical history of chronic kidney disease, hypertension, type 2 diabetes, hyperlipidemia, hypothyroidism, atrial fibrillation, pacemaker presented to hospital with altered mental status. According to his daughter patient was found on the kitchen floor by his neighbor, patient was on the floor for about 2 days. Of note patient was recently treated for UTI 1 month ago in [facility]. His daughter stated when patient had UTI usually he has altered mental status. Also his daughter stated that patient had multiple falls in the past and family decided to stop anticoagulation. In ER patient was found to have supratherapeutic INR of 7.4, he received vitamin K, white blood count of 11.4, hemoglobin 9.1, CPK 2157. UA shows pyuria. Left foot x-ray showed A periosteal reaction is seen involving the diaphysis of the 4th metatarsal in the etiology of this is uncertain. CT head negative for stroke or bleed. CT abdomen pelvis showed 5 cm suspicious lesion in the left kidney may represent complex cyst versus mass and further investigation is recommended. Consider renal ultrasound. Problems (1) Supratherapeutic INR Secondary to Coumadin His daughter stated that family does not want anticoagulation anymore given multiple history of falls and noncompliance INR 2.8 today Patient received 1 dose of vitamin K in ER Continue to monitor (2) Rhabdomyolysis Secondary to fall CPK trended down today (3) UTI (urinary tract infection) UA shows pyuria. Positive for Klebsiella oxytoca sensitive to ceftriaxone Continue ceftriaxone day 2 (4) Dehydration Patient euvolemic. IV fluids stopped (5) Afib Anticoagulation therapy stopped. Family requested to stop anticoagulation indefinitely Heart rate under control (6) DM (diabetes mellitus) Diabetes diet Insulin sliding scale (7) HTN (hypertension) Continue home meds (8) Hypothyroidism Continue levothyroxine (9) Metabolic encephalopathy Resolved secondary to UTI Continue antibiotic treatment (10) Right kidney mass According to his daughter patient was diagnosed with kidney cancer in [facility] 1 month ago. Due to multiple comorbidities patient was not a candidate for surgery. His daughter stated that family does not want any diagnostic investigation or treatment for kidney cancer Macrocytic anemia B12 in the low level of normal limit, folate within normal limit, iron panel shows low iron, await stool for occult blood We will give iron and B12 p.o. Deconditioning PT/OT Most likely patient will need placement VS,Fishbone, I+O VS, Fishbone, I+O Laboratory Tests 07/27/21 06:21 07/27/21 08:53 Vital Signs Date Time Temp Pulse Resp B/P (MAP) Pulse Ox O2 Delivery O2 Flow Rate FiO2 07/27/21 10:03 78 07/27/21 10:02 117/57 07/27/21 08:23 97.3 18 99 Room Air I&O- Last 24 Hours up to 6 AM 07/27/21 05:59 Intake Total 2020 ml Output Total 400 ml Balance 1620 ml GILBERTO PEDROZA DO Jul 27, 2021 14:02
[2021-07-27] MEDS: SLF 3 ML SYR IV SCH ×2 (14:22→21:07)
[2021-07-27] MEDS ORDERED: TAMSULOSIN 0.4 MG CAP PO ONE (15:40)
[2021-07-27] MEDS: CYANOCOBALAMIN 500 MCG TAB PO SCH (16:23)
[2021-07-27 17:00] VITALS: BP 114/63
[2021-07-27 20:00] VITALS: BP 99/56
[2021-07-27] MEDS: IRON POLYSAC (NIFEREX) 150 MG CAP PO SCH (21:07)
[2021-07-28] VITALS (11 sets, daily range): BP systolic 98–138; BP diastolic 54–86
[2021-07-28 06:00] LABS: BASO % 0.1 % (0.0-1.0); EOS # 0.3 10^3/uL (0.0-0.5); EOS % 3.4 % (0.0-3.0); LYMPH # 1.1 10^3/uL (1.5-5.0); LYMPH % 13.4 % (24.0-44.0); MEAN CORPUSCULAR HEMOGLOBIN 32.7 pg (27.0-33.0); MEAN CORPUSCULAR HGB CONC 31.4 g/dl (32.0-36.5); MONO # 1.3 10^3/uL (0.0-0.8); MONO % 15.3 % (2.0-8.0); NEUTROPHILS # 5.5 10^3/uL (1.5-8.5); NEUTROPHILS % 66.4 % (36.0-66.0); PLATELET COUNT, AUTOMATED 132 10^3/uL (150-450); RED BLOOD COUNT 1.99 10^6/uL (4.30-6.10); WHITE BLOOD COUNT 8.3 10^3/uL (4.0-10.0)
[2021-07-28 06:12] LABS: HEMATOCRIT 20.7 % (42.0-52.0); HEMOGLOBIN 6.5 g/dl (13.5-17.5)
[2021-07-28 06:13] LABS: INR 1.84; PROTHROMBIN TIME 21.6 SECONDS (12.7-14.5)
[2021-07-28 06:25] LABS: ALBUMIN 2.2 GM/DL (3.2-5.2); ALT/SGPT 24 U/L (12-78); BILIRUBIN,TOTAL 0.9 MG/DL (0.2-1.0); BLOOD UREA NITROGEN 35 MG/DL (7-18); CALCIUM LEVEL 8.5 MG/DL (8.8-10.2); CARBON DIOXIDE LEVEL 24 MEQ/L (21-32); CHLORIDE LEVEL 114 MEQ/L (98-107); CREATININE FOR GFR 0.84 MG/DL (0.70-1.30); GLOMERULAR FILTRATION RATE > 60.0 (>35); GLUCOSE, FASTING 112 MG/DL (70-100); MAGNESIUM LEVEL 1.9 MG/DL (1.8-2.4); POTASSIUM SERUM 4.2 MEQ/L (3.5-5.1); SODIUM LEVEL 139 MEQ/L (136-145); TOTAL PROTEIN 5.8 GM/DL (6.4-8.2)
[2021-07-28] MEDS: cefTRIAXone SOD 2 GM in D5W MINI-BAG PLUS 50 ML IV SCH (06:41)
[2021-07-28] MEDS: SLF 3 ML SYR IV SCH ×3 (06:41→22:50)
[2021-07-28] MEDS: HumaLOG INSULIN (NovoLOG) PER UNIT SC SCH ×4 (08:56→21:00)
[2021-07-28] MEDS: TAMSULOSIN 0.4 MG CAP PO SCH (09:01)
[2021-07-28] MEDS: DIGOXIN 0.125 MG TAB PO SCH (09:02)
[2021-07-28] MEDS: CYANOCOBALAMIN 500 MCG TAB PO SCH (09:02)
[2021-07-28] MEDS: CARVedilol 3.125 MG TAB PO SCH ×2 (09:02→21:20)
[2021-07-28] MEDS: IRON POLYSAC (NIFEREX) 150 MG CAP PO SCH ×2 (09:02→21:20)
[2021-07-28] MEDS: ISOSORBIDE MON. (IMDUR) 30 MG XR TAB PO SCH (09:03)
[2021-07-28] MEDS: SPIRONOLACTONE 12.5MG PER 1/2 TABLET PO SCH (09:04)
--- NOTE | 2021-07-28 12:46 | IPNPDOC ---
Text Note Date of Service The patient was seen on 07/28/21. NOTE Subjective: No any acute events overnight. No fever or chills. Patient denied any blood in the stool Objective: GENERAL APPEARANCE: NAD HEENT: no scleral icterus, no JVD, EOMI CARDIOVASCULAR: Irregularly irregular LUNGS: CTA ABDOMEN: soft & not tender w palpation MUSCULOSKELETAL: no cyanosis, no swelling INTEGUMENT: no generalized pallor NEUROLOGICAL: cranial nerve function from 2-12 intact, follows commands, speech not dysarthric Assessment/Plan Patient is 81 years old male with past medical history of chronic kidney disease, hypertension, type 2 diabetes, hyperlipidemia, hypothyroidism, atrial fibrillation, pacemaker presented to hospital with altered mental status. According to his daughter patient was found on the kitchen floor by his neighbor, patient was on the floor for about 2 days. Of note patient was recently treated for UTI 1 month ago in [facility]. His daughter stated when patient had UTI usually he has altered mental status. Also his daughter stated that patient had multiple falls in the past and family decided to stop anticoagulation. In ER patient was found to have supratherapeutic INR of 7.4, he received vitamin K, white blood count of 11.4, hemoglobin 9.1, CPK 2157. UA shows pyuria. Left foot x-ray showed A periosteal reaction is seen involving the diaphysis of the 4th metatarsal in the etiology of this is uncertain. CT head negative for stroke or bleed. CT abdomen pelvis showed 5 cm suspicious lesion in the left kidney may represent complex cyst versus mass and further investigation is recommended. Consider renal ultrasound. Problems (1) Supratherapeutic INR Secondary to Coumadin His daughter stated that family does not want anticoagulation anymore given multiple history of falls and noncompliance Patient received 1 dose of vitamin K in ER Continue to monitor INR 1.8 (2) Rhabdomyolysis Secondary to fall CPK trended down (3) UTI (urinary tract infection) UA shows pyuria. Positive for Klebsiella oxytoca sensitive to ceftriaxone Continue ceftriaxone day 3 (4) Dehydration Patient euvolemic. IV fluids stopped (5) Afib Anticoagulation therapy stopped. Family requested to stop anticoagulation indefinitely Heart rate under control (6) DM (diabetes mellitus) Diabetes diet Insulin sliding scale (7) HTN (hypertension) Continue home meds (8) Hypothyroidism Continue levothyroxine (9) Metabolic encephalopathy Resolved secondary to UTI Continue antibiotic treatment (10) Right kidney mass According to his daughter patient was diagnosed with kidney cancer in [facility] 1 month ago. Due to multiple comorbidities patient was not a candidate for surgery. His daughter stated that family does not want any diagnostic investigation or treatment for kidney cancer Macrocytic anemia/blood loss anemia B12 in the low level of normal limit, folate within normal limit, iron panel shows low iron, await stool for occult blood Continue iron and B12 p.o. Today hemoglobin dropped to 6.5, patient received 2 units of blood. We will check stool for occult blood. Appreciate/agree with surgical consult for possible endoscopy and colonoscopy. Patient has remote history of colon cancer, he stated that around 10 years ago he had the bowel resection surgery, he did not have any chemotherapy or radiation. Most likely it was stage I of colon cancer Continue to monitor H&H Deconditioning PT/OT Most likely patient will need placement VS,Fishbone, I+O VS, Fishbone, I+O Laboratory Tests 07/28/21 05:49 Vital Signs Date Time Temp Pulse Resp B/P (MAP) Pulse Ox O2 Delivery O2 Flow Rate FiO2 07/28/21 12:10 98.0 65 18 121/58 98 Room Air I&O- Last 24 Hours up to 6 AM 07/28/21 06:00 Intake Total 1580 ml Output Total 925 ml Balance 655 ml GILBERTO PEDROZA DO Jul 28, 2021 12:46
[2021-07-28] MEDS: ACETAMINOPHEN TAB 650MG DOSE (2X325MG) PO PRN (16:27)
[2021-07-28 18:32] LABS: HEMATOCRIT 24.9 % (42.0-52.0); HEMOGLOBIN 7.8 g/dl (13.5-17.5)
[2021-07-28 21:52] LABS: HEMATOCRIT 26.5 % (42.0-52.0); HEMOGLOBIN 8.2 g/dl (13.5-17.5)
[2021-07-29 04:00] VITALS: BP 114/63
[2021-07-29 04:15] LABS: BASO % 0.2 % (0.0-1.0); EOS # 0.3 10^3/uL (0.0-0.5); EOS % 3.4 % (0.0-3.0); HEMATOCRIT 26.8 % (42.0-52.0); HEMOGLOBIN 8.5 g/dl (13.5-17.5); LYMPH % 11.8 % (24.0-44.0); MEAN CORPUSCULAR HEMOGLOBIN 31.8 pg (27.0-33.0); MEAN CORPUSCULAR HGB CONC 31.7 g/dl (32.0-36.5); MEAN CORPUSCULAR VOLUME 100.4 fl (80.0-96.0); MONO # 1.3 10^3/uL (0.0-0.8); MONO % 15.8 % (2.0-8.0); NEUTROPHILS # 5.6 10^3/uL (1.5-8.5); NEUTROPHILS % 67.6 % (36.0-66.0); PLATELET COUNT, AUTOMATED 124 10^3/uL (150-450); RED BLOOD COUNT 2.67 10^6/uL (4.30-6.10); WHITE BLOOD COUNT 8.3 10^3/uL (4.0-10.0)
[2021-07-29 04:58] LABS: ALBUMIN 2.4 GM/DL (3.2-5.2); ALT/SGPT 26 U/L (12-78); BILIRUBIN,TOTAL 1.3 MG/DL (0.2-1.0); BLOOD UREA NITROGEN 27 MG/DL (7-18); CALCIUM LEVEL 8.4 MG/DL (8.8-10.2); CARBON DIOXIDE LEVEL 22 MEQ/L (21-32); CHLORIDE LEVEL 115 MEQ/L (98-107); CREATININE FOR GFR 0.85 MG/DL (0.70-1.30); GLOMERULAR FILTRATION RATE > 60.0 (>35); GLUCOSE, FASTING 109 MG/DL (70-100); MAGNESIUM LEVEL 1.8 MG/DL (1.8-2.4); POTASSIUM SERUM 4.3 MEQ/L (3.5-5.1); SODIUM LEVEL 140 MEQ/L (136-145); TOTAL PROTEIN 5.6 GM/DL (6.4-8.2)
[2021-07-29] MEDS: SLF 3 ML SYR IV SCH ×3 (06:03→21:08)
[2021-07-29] MEDS: cefTRIAXone SOD 2 GM in D5W MINI-BAG PLUS 50 ML IV SCH (06:03)
[2021-07-29] MEDS: HumaLOG INSULIN (NovoLOG) PER UNIT SC SCH ×4 (07:30→21:00)
[2021-07-29] MEDS: ISOSORBIDE MON. (IMDUR) 30 MG XR TAB PO SCH (08:40)
[2021-07-29] MEDS: CYANOCOBALAMIN 500 MCG TAB PO SCH (08:40)
[2021-07-29] MEDS: TAMSULOSIN 0.4 MG CAP PO SCH (08:40)
[2021-07-29] MEDS: CARVedilol 3.125 MG TAB PO SCH ×2 (08:42→21:07)
[2021-07-29] MEDS: SPIRONOLACTONE 12.5MG PER 1/2 TABLET PO SCH (08:42)
[2021-07-29] MEDS: IRON POLYSAC (NIFEREX) 150 MG CAP PO SCH ×2 (08:42→21:07)
[2021-07-29] MEDS: DIGOXIN 0.125 MG TAB PO SCH (08:43)
[2021-07-29] MEDS: BISACODYL 5 MG TAB PO SCH (10:02)
--- NOTE | 2021-07-29 10:25 | IPNPDOC ---
Text Note Date of Service The patient was seen on 07/29/21. NOTE Subjective: No any acute events overnight. Patient complains of constipation for 2 days. I talked to his daughter today and brought update involved current condition. His daughter Ethel told me that family would like to do diagnostic investigation about left kidney mass. Objective: GENERAL APPEARANCE: NAD HEENT: no scleral icterus, no JVD, EOMI CARDIOVASCULAR: Irregularly irregular LUNGS: CTA ABDOMEN: soft & not tender w palpation MUSCULOSKELETAL: no cyanosis, no swelling INTEGUMENT: no generalized pallor NEUROLOGICAL: cranial nerve function from 2-12 intact, follows commands, speech not dysarthric Assessment/Plan Patient is 81 years old male with past medical history of chronic kidney disease, hypertension, type 2 diabetes, hyperlipidemia, hypothyroidism, atrial fibrillation, pacemaker presented to hospital with altered mental status. According to his daughter patient was found on the kitchen floor by his neighbor, patient was on the floor for about 2 days. Of note patient was recently treated for UTI 1 month ago in [facility]. His daughter stated when patient had UTI usually he has altered mental status. Also his daughter stated that patient had multiple falls in the past and family decided to stop anticoagulation. In ER patient was found to have supratherapeutic INR of 7.4, he received vitamin K, white blood count of 11.4, hemoglobin 9.1, CPK 2157. UA shows pyuria. Left foot x-ray showed A periosteal reaction is seen involving the diaphysis of the 4th metatarsal in the etiology of this is uncertain. CT head negative for stroke or bleed. CT abdomen pelvis showed 5 cm suspicious lesion in the left kidney may represent complex cyst versus mass and further investigation is recommended. Consider renal ultrasound. Problems (1) Supratherapeutic INR Secondary to Coumadin His daughter stated that family does not want anticoagulation anymore given multiple history of falls and noncompliance Patient received 1 dose of vitamin K in ER Continue to monitor INR (2) Rhabdomyolysis Secondary to fall CPK trended down (3) UTI (urinary tract infection) UA shows pyuria. Positive for Klebsiella oxytoca sensitive to ceftriaxone Continue ceftriaxone day 4 (4) Dehydration Patient euvolemic. IV fluids stopped (5) Afib Anticoagulation therapy stopped. Family requested to stop anticoagulation indefinitely Heart rate under control (6) DM (diabetes mellitus) Diabetes diet Insulin sliding scale (7) HTN (hypertension) Continue home meds (8) Hypothyroidism Continue levothyroxine (9) Metabolic encephalopathy Resolved secondary to UTI Continue antibiotic treatment (10) Right kidney mass According to his daughter patient was diagnosed with kidney cancer in [facility] 1 month ago. Due to multiple comorbidities patient was not a candidate for surgery. Appreciate/agree with urologist consult. Family wants to proceed with diagnostic investigation. Macrocytic anemia/blood loss anemia B12 in the low level of normal limit, folate within normal limit, iron panel shows low iron, await stool for occult blood Continue iron and B12 p.o. Yesterday hemoglobin dropped to 6.5, patient received 2 units of blood. We will check stool for occult blood. Dr. Dinh recommended endoscopy and colonoscopy in the outpatient settings. Hemoglobin stable today Deconditioning PT/OT Most likely patient will need placement Constipation Dulcolax VS,Fishbone, I+O VS, Fishbone, I+O Laboratory Tests 07/28/21 17:49 07/28/21 21:41 07/29/21 03:42 Vital Signs Date Time Temp Pulse Resp B/P (MAP) Pulse Ox O2 Delivery O2 Flow Rate FiO2 07/29/21 08:43 60 07/29/21 08:42 114/63 07/29/21 04:00 97.5 18 99 Room Air I&O- Last 24 Hours up to 6 AM 07/29/21 06:00 Intake Total 2320 ml Output Total 1600 ml Balance 720 ml GILBERTO PEDROZA DO Jul 29, 2021 10:25
[2021-07-29 11:56] LABS: INR 1.38; PROTHROMBIN TIME 17.4 SECONDS (12.7-14.5)
[2021-07-29 12:00] VITALS: BP 128/58
--- NOTE | 2021-07-29 12:30 | CR ---
CONSULTATION DATE: 07/29/2021 REASON FOR CONSULTATION: GI bleed. HISTORY OF PRESENT ILLNESS: The patient is an 81-year-old male with history of chronic kidney disease, hypertension, diabetes, hyperlipidemia, A fib, presented to the hospital with altered mental status after being found down on the floor in his house for about two days. He is currently being treated for a UTI as well as rhabdo. During his hospital stay, his INR was initially 7.4 on admission, currently down to a therapeutic level. He has become slightly anemic during the stay, required two units of blood. However, his hemoglobin has stabilized. He claims that he has had some black stools in the last couple of days, no bright red blood. Nurses report a normal bowel movement last evening that was slightly constipated with just a little bit of red streaks on the outside of it likely secondary to hemorrhoids. He denies any weakness this morning, no nausea or vomiting, no fevers or chills, no abdominal pains of any kind. He has had a previous colonoscopy over ten years ago, also had a bowel resection for colon cancer at that time. PAST MEDICAL HISTORY: 1. Chronic kidney disease. 2. Hypertension. 3. Diabetes. 4. Hyperlipidemia. 5. A fib. 6. Gout. 7. UTI. 8. BPH. 9. GERD. 10. Diverticulosis. 11. Degenerative joint disease. 12. Depression. 13. Congestive heart failure. PAST SURGICAL HISTORY: 1. Pacemaker placement. 2. Colon resection. SOCIAL HISTORY: Denies drug, alcohol or tobacco abuse. FAMILY HISTORY: Noncontributory. ALLERGIES: PENICILLIN. MEDICATIONS: Please see med rec. REVIEW OF SYSTEMS: Pertinent positives and negatives as stated in the HPI. PHYSICAL EXAMINATION: GENERAL: A&O x3, in no acute distress. VITALS: Temperature 97.5, pulse 60, respirations 18, blood pressure 114/63, pulse ox 99% on room air. HEENT: Pupils equally round, reactive to light and accommodation. HEART: S1, S2. Regular rate and rhythm. LUNGS: Clear to auscultation bilaterally. ABDOMEN: Soft, nontender, nondistended. EXTREMITIES: No clubbing, cyanosis or edema. LABORATORY DATA: White count 8.3, hemoglobin 8.5, up from 8.2 last evening, platelets 124. INR was 1.84 yesterday morning. This morning's labs are still pending. Stool for occult blood was negative and UTI, positive for Klebsiella. ASSESSMENT AND PLAN: Patient is an 81-year-old male with possible GI bleed versus anemia secondary to bruising and dilution. The patient is asymptomatic currently and hemoglobin is stable. INR is also stable. No indication for any endoscopy at this time. He may benefit from a lower endoscopy in the near future since he has had a history of colon cancer in the past. Otherwise, no emergent need for it at this time.
--- NOTE | 2021-07-29 12:30 | REP ---
INDICATION: left kidney cancer? COMPARISON: 02/04/2019 TECHNIQUE: Real time karimi scale ultrasound examination using curved array transducer. FINDINGS: Left kidney measures 12.0 x 4.5 x 6.5 cm and demonstrates 5.1 x 4.6 x 4.0 cm upper pole mass with vascularity along with few scattered simple cysts and no evidence for hydronephrosis or nephrolithiasis. Right kidney measures 11.3 x 6.3 x 5.5 cm and demonstrates multiple cysts up to 2.6 cm without hydronephrosis, nephrolithiasis, or mass lesion. Bladder is unremarkable. IMPRESSION: 1. 5.1 cm left upper pole renal mass. In correlation with CT, lesion is most compatible with renal cell carcinoma unless proven otherwise. <Electronically signed by Brad Padilla > 07/29/21 [id number]
--- NOTE | 2021-07-29 14:25 | SMCUROLCON ---
Urology Consultation General Date of Consultation 07/29/21 Reason For Consultation This patient is seen for Dehydratin,Rhabdomyolysis,Uti,Supratherapeutic Inr. History of Present Illness The patient is a [81]-year-old [man] with a past medical history for [multiple medical issues], who was found to have a left renal mass. According to the patient, this has been present for many years and has been watched. He reports a phone conference with his children in the past and a decision to watch it at that time. He denies any flank pain or kidney disease. He does have a h/o UTI's but is feeling better at present. Medications Current Medications Current Medications Medications (Trade) Dose Ordered Sig/Malinda Route PRN Reason Start Time Stop Time Status Last Admin Dose Admin Acetaminophen (Tylenol Tab) 650 mg Q4H PRN PO MILD PAIN or TEMP > 101 07/25/21 17:30 07/28/21 16:27 Amlodipine Besylate (Norvasc) 10 mg DAILY PO 07/26/21 09:00 Hold 07/27/21 10:03 Bisacodyl (Dulcolax Tab) 5 mg DAILY PO 07/29/21 09:00 07/29/21 10:02 Carvedilol (COReg) 3.125 mg BID PO 07/25/21 21:00 07/29/21 08:42 Ceftriaxone Sodium 2 gm/ Dextrose 50 ml @ 100 mls/hr Q24H IV 07/26/21 06:00 07/29/21 06:03 Cyanocobalamin (Vitamin B12) 1,000 mcg DAILY PO 07/27/21 09:00 07/29/21 08:40 Dextrose (Dextrose 50%) 25 ml ASDIRECTED PRN IV SEE LABEL COMMENTS 07/25/21 17:35 Digoxin (Lanoxin) 0.125 mg DAILY PO 07/26/21 09:00 07/28/21 09:02 Glucagon (Glucagon) 1 mg ASDIRECTED PRN SC SEE LABEL COMMENTS 07/25/21 17:35 Glucose (Glucose) 16 GM ASDIRECTED PRN PO SEE LABEL COMMENTS 07/25/21 17:35 Home Med (Home Med List Complete!) ASDIRECTED XX 07/25/21 17:30 07/25/21 17:38 DC Insulin Human Lispro (HumaLOG INSULIN) SEE PROTOCOL TABLE AC SC 07/25/21 17:30 07/29/21 12:16 Insulin Human Lispro (HumaLOG INSULIN) SEE PROTOCOL TABLE QHS SC 07/25/21 21:00 Iron (Niferex) 150 mg BID PO 07/27/21 21:00 07/29/21 08:42 Isosorbide Mononitrate (Imdur) 30 mg DAILY PO 07/26/21 09:00 07/29/21 08:40 Lisinopril (Prinivil) 2.5 mg DAILY PO 07/26/21 09:00 07/26/21 07:47 DC Sodium Chloride 1,000 ml @ 130 mls/hr [id number] IV 07/25/21 18:00 07/26/21 15:36 DC 07/26/21 04:35 Sodium Chloride (Saline Lock Flush) 2 ml ASDIRECTED PRN IV SEE LABEL COMMENTS 07/27/21 13:45 Sodium Chloride (Saline Lock Flush) 2 ml SLF IV 07/27/21 14:00 07/29/21 13:31 Spironolactone (Aldactone) 12.5 mg DAILY PO 07/26/21 09:00 07/29/21 08:42 Tamsulosin HCl (Flomax) 0.8 mg DAILY PO 07/28/21 09:00 07/29/21 08:40 Allergies Allergies: Coded Allergies: Penicillins (Verified Allergy, Unknown, 03/04/21) anaph Physical Examination General Exam: Alert, Cooperative, No Acute Distress Abdomen Exam: Normal Bowel Sounds (There are no appreciable masses or significant tenderness at present) Vital Signs/I&O Vital Signs Date Time Temp Pulse Resp B/P (MAP) Pulse Ox O2 Delivery O2 Flow Rate FiO2 07/29/21 12:00 98.6 60 16 128/58 (81) 100 Room Air I&O- Last 24 Hours up to 6 AM 07/29/21 05:59 Intake Total 2320 ml Output Total 1325 ml Balance 995 ml Laboratory Data 24H Labs Laboratory Tests 2 07/28/21 17:43: Bedside Glucose (Misc Panel) 144H 07/28/21 21:19: Bedside Glucose (Misc Panel) 104 07/29/21 03:42: Immature Granulocyte % (Auto) 1.2, Neutrophils (%) (Auto) 67.6H, Lymphocytes (%) (Auto) 11.8L, Monocytes (%) (Auto) 15.8H, Eosinophils (%) (Auto) 3.4H, Basophils (%) (Auto) 0.2, Neutrophils # (Auto) 5.6, Lymphocytes # (Auto) 1.0L, Monocytes # (Auto) 1.3H, Eosinophils # (Auto) 0.3, Basophils # (Auto) 0.0, Nucleated Red Blood Cells % (auto) 0.4H, Prothrombin Time 17.4H, Prothromb Time International Ratio 1.38, Anion Gap 3L, Glomerular Filtration Rate > 60.0, Calcium Level 8.4L, Magnesium Level 1.8, Total Bilirubin 1.3H, Aspartate Amino Transf (AST/SGOT) 25, Alanine Aminotransferase (ALT/SGPT) 26, Alkaline Phosphatase 81, Total Protein 5.6L, Albumin 2.4L, Albumin/Globulin Ratio 0.8 07/29/21 11:59: Bedside Glucose (Misc Panel) 145H CBC/BMP Laboratory Tests 07/28/21 17:49 07/28/21 21:41 07/29/21 03:42 Microbiology Microbiology 07/28/21 Stool Occult Blood (JEREMIAH) - Final, Complete 07/25/21 Urine Culture - Final, Complete Klebsiella Oxytoca Assessment His CT scan reveals a 5 cm left anterior renal mass without any evidence of metastatic disease. He has some cysts on the normal right kidney. Plan I have discussed with him continued observation vs. surgical intervention at some time, likely a radical nephrectomy. Risks of this procedure were discussed with him in brief. He completely understands the findings and would like to continue close observation at this time. He can arrange for outpatient following up in the Urology clinic or plan for repeat CT in about 6 months. JENNY VYAS MD Jul 29, 2021 14:25
[2021-07-29 15:30] VITALS: BP 118/62
[2021-07-29 22:00] VITALS: BP 116/55
[2021-07-30] MEDS: cefTRIAXone SOD 2 GM in D5W MINI-BAG PLUS 50 ML IV SCH (06:15)
[2021-07-30] MEDS: SLF 3 ML SYR IV SCH ×3 (06:16→21:21)
[2021-07-30 06:57] VITALS: BP 115/58
[2021-07-30 07:08] LABS: BASO % 0.3 % (0.0-1.0); EOS # 0.2 10^3/uL (0.0-0.5); EOS % 2.5 % (0.0-3.0); HEMATOCRIT 26.9 % (42.0-52.0); HEMOGLOBIN 8.3 g/dl (13.5-17.5); LYMPH # 1.3 10^3/uL (1.5-5.0); LYMPH % 15.2 % (24.0-44.0); MEAN CORPUSCULAR HEMOGLOBIN 31.2 pg (27.0-33.0); MEAN CORPUSCULAR HGB CONC 30.9 g/dl (32.0-36.5); MEAN CORPUSCULAR VOLUME 101.1 fl (80.0-96.0); MONO # 1.2 10^3/uL (0.0-0.8); MONO % 14.1 % (2.0-8.0); NEUTROPHILS # 5.8 10^3/uL (1.5-8.5); NEUTROPHILS % 66.5 % (36.0-66.0); PLATELET COUNT, AUTOMATED 149 10^3/uL (150-450); RED BLOOD COUNT 2.66 10^6/uL (4.30-6.10); WHITE BLOOD COUNT 8.7 10^3/uL (4.0-10.0)
[2021-07-30 07:17] LABS: INR 1.4; PROTHROMBIN TIME 17.6 SECONDS (12.7-14.5)
[2021-07-30 07:30] LABS: ALBUMIN 2.3 GM/DL (3.2-5.2); ALT/SGPT 21 U/L (12-78); BILIRUBIN,TOTAL 0.8 MG/DL (0.2-1.0); BLOOD UREA NITROGEN 25 MG/DL (7-18); CALCIUM LEVEL 8.3 MG/DL (8.8-10.2); CARBON DIOXIDE LEVEL 22 MEQ/L (21-32); CHLORIDE LEVEL 111 MEQ/L (98-107); GLOMERULAR FILTRATION RATE > 60.0 (>35); GLUCOSE, FASTING 90 MG/DL (70-100); MAGNESIUM LEVEL 1.8 MG/DL (1.8-2.4); POTASSIUM SERUM 4.4 MEQ/L (3.5-5.1); SODIUM LEVEL 140 MEQ/L (136-145); TOTAL PROTEIN 5.4 GM/DL (6.4-8.2)
[2021-07-30] MEDS: HumaLOG INSULIN (NovoLOG) PER UNIT SC SCH ×4 (07:30→21:00)
[2021-07-30] MEDS: IRON POLYSAC (NIFEREX) 150 MG CAP PO SCH ×2 (08:33→20:55)
[2021-07-30] MEDS: TAMSULOSIN 0.4 MG CAP PO SCH (08:33)
[2021-07-30] MEDS: CYANOCOBALAMIN 500 MCG TAB PO SCH (08:33)
[2021-07-30] MEDS: ISOSORBIDE MON. (IMDUR) 30 MG XR TAB PO SCH (08:34)
[2021-07-30] MEDS: DIGOXIN 0.125 MG TAB PO SCH (08:34)
[2021-07-30] MEDS: SPIRONOLACTONE 12.5MG PER 1/2 TABLET PO SCH (08:35)
[2021-07-30] MEDS: BISACODYL 5 MG TAB PO SCH (08:35)
[2021-07-30] MEDS: CARVedilol 3.125 MG TAB PO SCH ×2 (08:36→20:55)
--- NOTE | 2021-07-30 12:03 | IPNPDOC ---
Text Note Date of Service The patient was seen on 07/30/21. NOTE Subjective: No new acute events overnight. Patient confirmed that he is not interesting in surgical intervention for renal cancer for now Objective: GENERAL APPEARANCE: NAD HEENT: no scleral icterus, no JVD, EOMI CARDIOVASCULAR: Irregularly irregular LUNGS: CTA ABDOMEN: soft & not tender w palpation MUSCULOSKELETAL: no cyanosis, no swelling INTEGUMENT: no generalized pallor NEUROLOGICAL: cranial nerve function from 2-12 intact, follows commands, speech not dysarthric Assessment/Plan Patient is 81 years old male with past medical history of chronic kidney d isease, hypertension, type 2 diabetes, hyperlipidemia, hypothyroidism, atrial fibrillation, pacemaker presented to hospital with altered mental status. According to his daughter patient was found on the kitchen floor by his neighbor, patient was on the floor for about 2 days. Of note patient was r ecently treated for UTI 1 month ago in [facility]. His daughter stated when patient had UTI usually he has altered mental status. Also his daughter stated that patient had multiple falls in the past and family decided to stop anticoagulation. In ER patient was found to have supratherapeutic INR of 7.4, he received vitamin K, white blood count of 11.4, hemoglobin 9.1, CPK 2157. UA shows pyuria. Left foot x-ray showed A periosteal reaction is seen involving the diaphysis of the 4th metatarsal in the etiology of this is uncertain. CT head negative for stroke or bleed. CT abdomen pelvis showed 5 cm suspicious lesion in the left kidney may represent complex cyst versus mass and further investigation is recommended. Consider renal ultrasound. Problems (1) Supratherapeutic INR Secondary to Coumadin His daughter stated that family does not want anticoagulation anymore given multiple history of falls and noncompliance Patient received 1 dose of vitamin K in ER INR today 1.4 (2) Rhabdomyolysis CPK trended down (3) UTI (urinary tract infection) UA shows pyuria. Positive for Klebsiella oxytoca sensitive to ceftriaxone Continue ceftriaxone day 5 (4) Dehydration Patient euvolemic. IV fluids stopped (5) Afib Anticoagulation therapy stopped. Family requested to stop anticoagulation indefinitely Heart rate under control (6) DM (diabetes mellitus) Diabetes diet Insulin sliding scale (7) HTN (hypertension) Continue home meds (8) Hypothyroidism Continue levothyroxine (9) Metabolic encephalopathy Resolved secondary to UTI Continue antibiotic treatment (10) Right kidney mass According to his daughter patient was diagnosed with kidney cancer in [facility] 1 month ago. Patient confirmed that he does not want any surgical intervention for now Macrocytic anemia/blood loss anemia B12 in the low level of normal limit, folate within normal limit, iron panel shows low iron, await stool for occult blood Continue iron and B12 p.o. Dr. Dinh recommended endoscopy and colonoscopy in the outpatient settings. Hemoglobin stable today Deconditioning PT/OT Most likely patient will need placement Constipation Resolved Continue Dulcolax VS,Fishbone, I+O VS, Fishbone, I+O Laboratory Tests 07/30/21 06:25 Vital Signs Date Time Temp Pulse Resp B/P (MAP) Pulse Ox O2 Delivery O2 Flow Rate FiO2 07/30/21 09:54 61 115/55 07/30/21 06:57 97.6 18 99 Room Air I&O- Last 24 Hours up to 6 AM 07/30/21 06:00 Intake Total 1580 ml Output Total 625 ml Balance 955 ml GILBERTO PEDROZA DO Jul 30, 2021 12:03
[2021-07-30 14:00] VITALS: BP 124/62
[2021-07-30 22:00] VITALS: BP 107/63
[2021-07-31] MEDS ORDERED: LevoFLOXacin 500 MG TABLET PO SCH (06:00)
[2021-07-31] MEDS: SLF 3 ML SYR IV SCH ×2 (06:12→15:36)
[2021-07-31 06:14] VITALS: BP 140/65
[2021-07-31 06:33] LABS: BASO % 0.1 % (0.0-1.0); EOS # 0.2 10^3/uL (0.0-0.5); EOS % 2.5 % (0.0-3.0); HEMATOCRIT 27.5 % (42.0-52.0); HEMOGLOBIN 8.5 g/dl (13.5-17.5); LYMPH # 1.3 10^3/uL (1.5-5.0); LYMPH % 14.2 % (24.0-44.0); MEAN CORPUSCULAR HEMOGLOBIN 31.4 pg (27.0-33.0); MEAN CORPUSCULAR HGB CONC 30.9 g/dl (32.0-36.5); MEAN CORPUSCULAR VOLUME 101.5 fl (80.0-96.0); MONO # 1.3 10^3/uL (0.0-0.8); MONO % 15.1 % (2.0-8.0); NEUTROPHILS % 67.1 % (36.0-66.0); PLATELET COUNT, AUTOMATED 153 10^3/uL (150-450); RED BLOOD COUNT 2.71 10^6/uL (4.30-6.10); WHITE BLOOD COUNT 8.9 10^3/uL (4.0-10.0)
[2021-07-31 06:49] LABS: INR 1.27; PROTHROMBIN TIME 16.3 SECONDS (12.7-14.5)
[2021-07-31 07:10] LABS: ALBUMIN 2.3 GM/DL (3.2-5.2); ALT/SGPT 22 U/L (12-78); BILIRUBIN,TOTAL 0.9 MG/DL (0.2-1.0); BLOOD UREA NITROGEN 21 MG/DL (7-18); CALCIUM LEVEL 8.6 MG/DL (8.8-10.2); CARBON DIOXIDE LEVEL 23 MEQ/L (21-32); CHLORIDE LEVEL 112 MEQ/L (98-107); GLOMERULAR FILTRATION RATE > 60.0 (>35); GLUCOSE, FASTING 97 MG/DL (70-100); MAGNESIUM LEVEL 1.8 MG/DL (1.8-2.4); POTASSIUM SERUM 4.7 MEQ/L (3.5-5.1); SODIUM LEVEL 140 MEQ/L (136-145); TOTAL PROTEIN 5.7 GM/DL (6.4-8.2)
[2021-07-31] MEDS: HumaLOG INSULIN (NovoLOG) PER UNIT SC SCH ×2 (07:30→12:00)
[2021-07-31] MEDS: TAMSULOSIN 0.4 MG CAP PO SCH (08:15)
[2021-07-31] MEDS: CYANOCOBALAMIN 500 MCG TAB PO SCH (08:15)
[2021-07-31 08:16] VITALS: BP 98/52
[2021-07-31] MEDS: ISOSORBIDE MON. (IMDUR) 30 MG XR TAB PO SCH (08:16)
[2021-07-31] MEDS: IRON POLYSAC (NIFEREX) 150 MG CAP PO SCH (08:16)
[2021-07-31] MEDS: CARVedilol 3.125 MG TAB PO SCH (08:16)
[2021-07-31] MEDS: BISACODYL 5 MG TAB PO SCH (08:16)
[2021-07-31] MEDS: DIGOXIN 0.125 MG TAB PO SCH (08:17)
[2021-07-31] MEDS: SPIRONOLACTONE 12.5MG PER 1/2 TABLET PO SCH (08:17)
[2021-07-31] MEDS: ACETAMINOPHEN TAB 650MG DOSE (2X325MG) PO PRN (08:22)
[2021-07-31] MEDS ORDERED: AMLO1TAB25 PO (11:14)
[2021-07-31] MEDS ORDERED: LEVO500T3 PO (11:14)
[2021-07-31] MEDS ORDERED: TORS20TA2 PO (11:14)
--- NOTE | 2021-07-31 12:04 | IPNPDOC ---
Text Note Date of Service The patient was seen on 07/31/21. NOTE Subjective: No new acute events overnight. Objective: GENERAL APPEARANCE: NAD HEENT: no scleral icterus, no JVD, EOMI CARDIOVASCULAR: Irregularly irregular LUNGS: CTA ABDOMEN: soft & not tender w palpation MUSCULOSKELETAL: no cyanosis, no swelling INTEGUMENT: no generalized pallor NEUROLOGICAL: cranial nerve function from 2-12 intact, follows commands, speech not dysarthric Assessment/Plan Patient is 81 years old male with past medical history of chronic kidney disease, hypertension, type 2 diabetes, hyperlipidemia, hypothyroidism, atrial fibrillation, pacemaker presented to hospital with altered mental status. According to his daughter patient was found on the kitchen floor by his neighbor, patient was on the floor for about 2 days. Of note patient was recently treated for UTI 1 month ago in [facility]. His daughter stated when patient had UTI usually he has altered mental status. Also his daughter stated that patient had multiple falls in the past and family decided to stop anticoagulation. In ER patient was found to have supratherapeutic INR of 7.4, he received vitamin K, white blood count of 11.4, hemoglobin 9.1, CPK 2157. UA shows pyuria. Left foot x-ray showed A periosteal reaction is seen involving the diaphysis of the 4th metatarsal in the etiology of this is uncertain. CT head negative for stroke or bleed. CT abdomen pelvis showed 5 cm suspicious lesion in the left kidney may represent complex cyst versus mass and further investigation is recommended. Consider renal ultrasound. Problems (1) Supratherapeutic INR Secondary to Coumadin His daughter stated that family does not want anticoagulation anymore given multiple history of falls and noncompliance Patient received 1 dose of vitamin K in ER Resolved (2) Rhabdomyolysis CPK trended down (3) UTI (urinary tract infection) UA shows pyuria. Positive for Klebsiella oxytoca Continue levofloxacin p.o. (4) Dehydration Patient euvolemic. IV fluids stopped (5) Afib Anticoagulation therapy stopped. Family requested to stop anticoagulation inde finitely Heart rate under control (6) DM (diabetes mellitus) Diabetes diet Insulin sliding scale (7) HTN (hypertension) Continue home meds (8) Hypothyroidism Continue levothyroxine (9) Metabolic encephalopathy Resolved secondary to UTI Continue antibiotic treatment (10) Right kidney mass According to his daughter patient was diagnosed with kidney cancer in [facility] 1 month ago. Patient confirmed that he does not want any surgical intervention for now Macrocytic anemia/blood loss anemia B12 in the low level of normal limit, folate within normal limit, iron panel shows low iron, await stool for occult blood Continue iron and B12 p.o. Dr. Dinh recommended endoscopy and colonoscopy in the outpatient settings. Hemoglobin stable today Deconditioning PT/OT Patient will need ARU treatment Constipation Resolved Continue Dulcolax VS,Fishbone, I+O VS, Fishbone, I+O Laboratory Tests 07/31/21 06:14 Vital Signs Date Time Temp Pulse Resp B/P (MAP) Pulse Ox O2 Delivery O2 Flow Rate FiO2 07/31/21 08:17 68 07/31/21 08:16 98/52 07/31/21 06:14 98.0 17 98 Room Air I&O- Last 24 Hours up to 6 AM 07/31/21 06:00 Intake Total 1080 ml Output Total 2800 ml Balance -1720 ml GILBERTO PEDROZA DO Jul 31, 2021 12:04
--- NOTE | 2021-07-31 12:41 | DS.PDOC ---
Discharge Summary General Date of Admission Jul 25, 2021 at 17:28 Date of Discharge 07/31/21 Discharge Summary PROCEDURES PERFORMED DURING STAY: [None]. ADMITTING DIAGNOSES: Supratherapeutic INR Rhabdomyolysis UTI (urinary tract infection) Dehydration Afib DM (diabetes mellitus) HTN (hypertension) Hypothyroidism Metabolic encephalopathy Right kidney mass Macrocytic anemia/blood loss anemia Deconditioning Constipation DISCHARGE DIAGNOSES: Supratherapeutic INR Rhabdomyolysis UTI (urinary tract infection) Dehydration Afib DM (diabetes mellitus) HTN (hypertension) Hypothyroidism Metabolic encephalopathy Right kidney mass Macrocytic anemia/blood loss anemia Deconditioning Constipation COMPLICATIONS/CHIEF COMPLAINT: Dehydratin,Rhabdomyolysis,Uti,Supratherapeutic Inr. HISTORY OF PRESENT ILLNESS: Patient is 81 years old male with past medical history of chronic kidney disease, hypertension, type 2 diabetes, hyperlipidemia, hypothyroidism, atrial fibrillation, pacemaker presented to hospital with altered mental status. According to his daughter patient was found on the kitchen floor by his neighbor, patient was on the floor for about 2 days. Of note patient was recently treated for UTI 1 month ago in [facility]. His daughter stated when patient had UTI usually he has altered mental status. Also his daughter stated that patient had multiple falls in the past and family decided to stop anticoagulation. In ER patient was found to have supratherapeutic INR of 7.4, he received vitamin K, white blood count of 11.4, hemoglobin 9.1, CPK 2157. UA shows pyuria. Left foot x-ray showed A periosteal reaction is seen involving the diaphysis of the 4th metatarsal in the etiology of this is uncertain. CT head negative for stroke or bleed. CT abdomen pelvis showed 5 cm suspicious lesion in the left kidney may represent complex cyst versus mass and further investigation is recommended. Consider renal ultrasound. HOSPITAL COURSE: During the hospital stay the following issue addressed Problems (1) Supratherapeutic INR Secondary to Coumadin His daughter stated that family does not want anticoagulation anymore given multiple history of falls and noncompliance Patient received 1 dose of vitamin K in ER Resolved (2) Rhabdomyolysis CPK trended down (3) UTI (urinary tract infection) UA shows pyuria. Positive for Klebsiella oxytoca Continue levofloxacin p.o. (4) Dehydration Patient euvolemic. IV fluids stopped (5) Afib Anticoagulation therapy stopped. Family requested to stop anticoagulation indefinitely Heart rate under control (6) DM (diabetes mellitus) Diabetes diet Insulin sliding scale (7) HTN (hypertension) Continue home meds (8) Hypothyroidism Continue levothyroxine (9) Metabolic encephalopathy Resolved secondary to UTI Continue antibiotic treatment (10) Right kidney mass According to his daughter patient was diagnosed with kidney cancer in [facility] 1 month ago. Patient confirmed that he does not want any surgical intervention for now Macrocytic anemia/blood loss anemia B12 in the low level of normal limit, folate within normal limit, iron panel shows low iron, await stool for occult blood Continue iron and B12 p.o. Dr. Dinh recommended colonoscopy in the outpatient settings. Hemoglobin stable today Deconditioning PT/OT Patient will need ARU treatment Constipation Resolved Continue Dulcolax DISCHARGE MEDICATIONS: Please see below. ALLERGIES: Please see below. PHYSICAL EXAMINATION ON DISCHARGE: VITAL SIGNS: Please see below. GENERAL APPEARANCE: NAD HEENT: no scleral icterus, no JVD, EOMI CARDIOVASCULAR: Irregularly irregular LUNGS: CTA ABDOMEN: soft & not tender w palpation MUSCULOSKELETAL: no cyanosis, no swelling INTEGUMENT: no generalized pallor NEUROLOGICAL: cranial nerve function from 2-12 intact, follows commands, speech not dysarthric LABORATORY DATA: Please see below. PROGNOSIS: Fair ACTIVITY: [As tolerated]. DIET: Cardiac DISPOSITION: ARU ITEMS TO FOLLOWUP ON ON OUTPATIENT: Follow-up with GI team and PCP DISCHARGE CONDITION: [Stable]. TIME SPENT ON DISCHARGE:40minutes. Vital Signs/I&Os Vital Signs Date Time Temp Pulse Resp B/P (MAP) Pulse Ox O2 Delivery O2 Flow Rate FiO2 07/31/21 08:17 68 07/31/21 08:16 98/52 07/31/21 06:14 98.0 17 98 Room Air I&O- Last 24 Hours up to 6 AM 07/31/21 06:00 Intake Total 1080 ml Output Total 2800 ml Balance -1720 ml Laboratory Data Labs 24H Laboratory Tests 2 07/30/21 17:14: Bedside Glucose (Misc Panel) 103 07/30/21 21:08: Bedside Glucose (Misc Panel) 157H 07/31/21 06:14: Immature Granulocyte % (Auto) 1.0, Neutrophils (%) (Auto) 67.1H, Lymphocytes (%) (Auto) 14.2L, Monocytes (%) (Auto) 15.1H, Eosinophils (%) (Auto) 2.5, Basophils (%) (Auto) 0.1, Neutrophils # (Auto) 6.0, Lymphocytes # (Auto) 1.3L, Monocytes # (Auto) 1.3H, Eosinophils # (Auto) 0.2, Basophils # (Auto) 0.0, Nucleated Red Blood Cells % (auto) 0.0, Prothrombin Time 16.3H, Prothromb Time International Ratio 1.27, Anion Gap 5L, Glomerular Filtration Rate > 60.0, Calcium Level 8.6L, Magnesium Level 1.8, Total Bilirubin 0.9, Aspartate Amino Transf (AST/SGOT) 20, Alanine Aminotransferase (ALT/SGPT) 22, Alkaline Phosphatase 98, Total Protein 5.7L, Albumin 2.3L, Albumin/Globulin Ratio 0.7 07/31/21 12:29: Bedside Glucose (Misc Panel) 115H CBC/BMP Laboratory Tests 07/31/21 06:14 FSBS Laboratory Tests Test 07/30/21 17:14 07/30/21 21:08 07/31/21 12:29 Range/Units Bedside Glucose (Misc Panel) 103 157 115 83-110 MG/DL Microbiology Microbiology 07/28/21 Stool Occult Blood (JEREMIAH) - Final, Complete 07/25/21 Urine Culture - Final, Complete Klebsiella Oxytoca Discharge Medications Scheduled Amlodipine Besylate (Amlodipine Besylate) 10 Mg Tablet, 5 MG PO DAILY Carvedilol (Carvedilol) 3.125 Mg Tablet, 3.125 MG PO BID, (Reported) Digoxin (Digoxin) 125 Mcg Tablet, 125 MCG PO DAILY, (Reported) Doxazosin Mesylate (Doxazosin) 2 Mg Tablet, 2 MG PO DAILY, (Reported) Isosorbide Mononitrate (Isosorbide Mononitrate ER) 30 Mg Tab.er.24h, 30 MG PO DAILY, (Reported) Levofloxacin (Levofloxacin) 500 Mg Tablet, 500 MG PO DAILY@06 Lisinopril (Lisinopril) 2.5 Mg Tablet, 2.5 MG PO DAILY, (Reported) Sitagliptin (Januvia) 50 Mg Tablet, 50 MG PO DAILY, (Reported) Solifenacin Succinate (Solifenacin Succinate) 5 Mg Tablet, 5 MG PO DAILY, (Reported) Torsemide (Torsemide) 20 Mg Tablet, 10 MG PO DAILY allopurinoL (allopurinoL) 300 Mg Tablet, 300 MG PO DAILY, (Reported) Miscellaneous Medications [Med Rec Comment] , (Reported) LIST OBTAINED FROM EXTERNAL MED HISTORY, UNABLE TO VERIFY WITH PATIENT Allergies Coded Allergies: Penicillins (Verified Allergy, Unknown, 03/04/21) GILBERTO Richmond DO Jul 31, 2021 12:41
[2021-07-31] MEDS ORDERED: IRON1TAB2 PO (12:42)
[2021-07-31] MEDS ORDERED: VITA500T40 PO (12:42)
[2021-07-31 14:00] VITALS: BP 114/58
[2021-08-01] MEDS ORDERED: amLODIPine 5 MG TAB PO SCH (09:00)
--- NOTE | 2021-08-02 12:49 | ED PDOC ---
Post-Departure Follow-Up radiology rpeort faxed to Telma Campoverde MD Aug 02, 2021 12:49
== END 2021-07-31 18:22 | DRG 689 ==
LOC: EDBD 12:15 → M ED 12:15 → M ED INP 17:28 → ENRESERV 18:59 → M PCU 20:16 → M MSPAV 07-29 15:22
PROVIDERS: ADMIT Internal Medicine; ATTEND Internal Medicine
DX: N39.0 Urinary tract infection, site not specified (principal); G93.41 Metabolic encephalopathy; M62.82 Rhabdomyolysis; D68.8 Other specified coagulation defects; E86.0 Dehydration; R55 Syncope and collapse; N18.9 Chronic kidney disease, unspecified; I12.9 Hypertensive chronic kidney disease with stage 1 through stage 4 chronic kidney disease, or unspecified chronic kidney disease; Z66 Do not resuscitate; E11.22 Type 2 diabetes mellitus with diabetic chronic kidney disease; E78.5 Hyperlipidemia, unspecified; E03.9 Hypothyroidism, unspecified; I48.91 Unspecified atrial fibrillation; Z95.0 Presence of cardiac pacemaker; Z79.01 Long term (current) use of anticoagulants; Z79.899 Other long term (current) drug therapy; Z88.0 Allergy status to penicillin; M10.9 Gout, unspecified; N40.0 Benign prostatic hyperplasia without lower urinary tract symptoms; K21.9 Gastro-esophageal reflux disease without esophagitis; F32.9 Major depressive disorder, single episode, unspecified; Z20.822 Contact with and (suspected) exposure to COVID-19; D41.02 Neoplasm of uncertain behavior of left kidney; D63.1 Anemia in chronic kidney disease; K59.00 Constipation, unspecified; Z72.3 Lack of physical exercise; B96.1 Klebsiella pneumoniae [K. pneumoniae] as the cause of diseases classified elsewhere

== ENCOUNTER 2021-07-31 13:15 | Inpatient (IN) | payer MEDICARE, OTHER ==
[~2021-07-31] VITALS: Ht 182.9 cm; Wt 96.4 kg
[2021-07-31] MEDS: allopurinoL 300 MG TAB PO SCH (09:00)
[2021-07-31] MEDS: PANTOPRAZOLE 40MG TAB (PROTONIX) PO SCH (09:00)
[~2021-07-31 13:15] MED LIST changes: +ALLO300T2 PO; +AMLO1TAB25 PO; +CARV3.12 PO; +DIGO0.123 PO; +DOXA2TAB3 PO; +IRON1TAB2 PO; +LEVO500T3 PO; +LISI2.5T9 PO; +MED REC COMMENT; +SOLI5TAB PO; +TORS20TA2 PO; +VITA500T40 PO; +WARF-23 PO
[2021-07-31] MEDS ORDERED: BISACODYL 10 MG SUPP PR PRN (15:50)
[2021-07-31] MEDS ORDERED: GLUCAGON INJ 1MG VIAL SC PRN (15:50)
[2021-07-31] MEDS ORDERED: GLUCOSE 4GM CHEW TABLET PO PRN (15:50)
[2021-07-31] MEDS ORDERED: DEXTROSE 50% 50 ML SYRINGE IV PRN (15:50)
--- NOTE | 2021-07-31 15:55 | HPEPDOC ---
Maintenance Chief Note DATE OF ADMISSION: 07-31-21 DATE OF SERVICE: 08-01-21 TIME OF ADMISSION: Please refer to physician's admission order. SOURCE OF ADMISSION INFORMATION: [facility] record and patient CHIEF COMPLAINT: encephalopathy due to sepsis and peripheral polyneuropathy HISTORY OF PRESENT ILLNESS: 81M pmh CKD, HTN, DM2 with peripheral polyneuropathy and foot drop, HLD, colon cancer, Hypothyroidism, Afib with pacemaker, prostate cancer, CHF, who fell down the stairs and presented to [facility] ED on 07-25-21 complaining of weakness and had altered mental status. He was noted to have a supratherapeutic INR and diagnosed with encephalopathy in the setting of sepsis due to UTI and rhabdomyolysis. His Urine culture grew Klebsiella and he was maintained on Ceftriaxone. He was noted to be anemic with a negative FOBT. Imaging did reveal a left renal mass which pe r his family is not new and urology was consulted to review and decision was made not to undergo radical nephrectomy, but to continue to observe and follow- up in outpatient. He had notable weakness in mobility and ADLs when evaluated by therapy and deemed both medically and functionally appropriate for discharge to ARU on 08-01-21. REVIEW OF SYSTEMS: The following is a completed review of systems and has been reviewed. Review of systems otherwise unremarkable. PAIN: Patient self reports no pain EYES: No recent vision changes EARS, NOSE, & THROAT: No throat pain, or dysphagia, or rhinorrhea CARDIOVASCULAR: Denies chest pain or palpitations PULMONARY: Denies shortness of breath GASTROINTESTINAL: Denies constipation/diarrhea GENITOURINARY: +UTI with green MUSCULOSKELETAL: generalized weakness NEUROLOGICAL:+left foot drop and peripheral polyneuropathy, left hand numbness HEMATOLOGICAL: denies easy bruising SKIN: left foot pressure spots PSYCHIATRIC: Unremarkable All other review of systems found to be negative. PAST MEDICAL HISTORY: as per HPI PAST SURGICAL HISTORY: as per HPI ALLERGIES: Please see below. MEDICATIONS: Please see below. SOCIAL HISTORY: no smoking/illicit drugs/etoh DIET:low sodium PHYSICAL EXAMINATION: VITAL SIGNS: Please see below. GENERAL: Pleasant and cooperative. No acute distress. HEENT: PERRL. Extraocular movements intact. Clear conjunctiva CARDIOVASCULAR: Irregular rate and rhythm. No murmurs, rubs, or gallops LUNGS: Clear to auscultation bilaterally. No wheezes. No rhonchi]. ABDOMEN: Soft, nontender, nondistended. Positive bowel sounds. Normal active bowel sounds NEUROLOGICAL: Alert and oriented times three. Cranial nerves II through XII grossly intact. Sensation decreased to light touch in stocking pattern decreased sensation to light touch on left hand D1-D4, D5 intact, +thenar wasting (-) babinksi/clonus bilat EXTREMITIES: 5\5 strength bilateral upper extremities. 5\5 strength right lower extremity. 4/5 strength in left hip flexor/knee extension, 0/5 ankle DF, EHL, PF SKIN: left toes with blanchable erythema, moisture noted between toes LABORATORY DATA: Please see below. IMAGING: Imaging documentation personally reviewed by record FUNCTIONAL STATUS: Premorbid: Independent with all activities of daily life as well as mobility using AFO on the left On Admission: contact guard for bed mobility, functional transfers, ambulation, toileting GOALS: Mod-I for bed mobility, functional transfers, ambulation, toileting, dressing ASSESSMENT:81-year-old M with past medical history of Afib no longer on AC, DM with peripheral polyneuropathy who presents status post sepsis secondary to UTI with encephalopathy PLAN: 1. Rehab- PT/OT advance mobility and ADLs, strengthen/stretch/maintain ROM, patient has AFO on left, but it is home and too big, will likely need set up mechanic stamping machines consult to either adjust or provide new AFO 2. Neuro- peripheral polyneuropathy with left foot drop contributing to mobility impairments -recent encephalopathy due to sepsis, monitor for worsening cognitive function -carpal tunnel syndrome on left- will order splint to be worn at night and steroid cream for iontophoretic effect on median nerve -refer to neurology outpatient for NCS/EMG 3. Cardiac- Afib with PM, off AC due to frequent falls and recent supra- therapeutic INR, cont co-reg and digoxin -CHF- daily weights, fluid restrict, cont diuretics -recent soft BPs on inpatient, will be judicious with BP meds 4. Resp- monitor for infection, incentive spirometry 5.-s/p course of Ceftriaxone, cont Levaquin and Bacid for Klebsiella UTI, d/c Green and start TOV -hx of prostate cancer and enlarged prostate cont - f/u urology on d/c, repeat CT in 6 months to monitor left kidney mass 6. GI- cont f/u surgery for possible repeat colonoscopy given hx of colon cancer, no indication per Dr. Dinh for upper GI scope -protonix for ppx -FOBT negative 7. Endo- hx of DM with peripheral polyneuropathy cont insulin sliding scale 8. DVT ppx- TEDs 9. Pain- tylenol prn 10. Dispo- TBD POST ADMISSION PHYSICIAN EVALUATION: Medical and functional status: Description of medical status, medical assessment: As above. Rehabilitation diagnosis and current and prior cold morbid medical conditions as above. Risk of complications and plans to mitigate them as above. Description of functional status current status is as above. Prior status as above. Status compared to preadmission: There are no clinically significant differences between the patient's current status and the information described on the preadmission screening document. Treatment plan anticipated: Treatment plan is as described above. Required disciplines including physical therapy, occupational therapy, others as noted above. Intensity of services:3 hours a day, 6 days a week. Special considerations: There are no specific special or safety considerations that would likely preclude immediate implementation of an intensive rehabilitation program or subsequently influence the plan of care. ATTESTATION: Considering all the information above, it is my best judgment that this patient requires intensive rehabilitation therapy as described above and an inpatient hospital environment due to the complexity of nursing, medical, and rehabilitation needs required by the patient. Furthermore, this patient can reasonably be expected to participate in an benefit from an inpatient rehabilitation stay with an interdisciplinary team approach to the delivery of rehabilitation care under the direction and supervision of rehabilitation physician. PROGNOSIS: Excellent ESTIMATED LENGTH OF STAY: 10-12 days. PROJECTED DISCHARGE DESTINATION: Home with family support and any durable medical equipment required to increase functional safety and mobility TIME SPENT COUNSELING AND COORDINATING INITIAL CARE: Greater than 70 minutes. Vital Signs Vital Signs Date Time Temp Pulse Resp B/P (MAP) Pulse Ox O2 Delivery O2 Flow Rate FiO2 07/31/21 18:00 97.4 65 18 133/65 (87) 100 Room Air Home Medications Scheduled Amlodipine Besylate (Amlodipine Besylate) 10 Mg Tablet, 5 MG PO DAILY Carvedilol (Carvedilol) 3.125 Mg Tablet, 3.125 MG PO BID, (Reported) Cyanocobalamin (Vitamin B-12) (Vitamin B-12) 500 Mcg Tablet, 1,000 MCG PO DAILY Digoxin (Digoxin) 125 Mcg Tablet, 125 MCG PO DAILY, (Reported) Doxazosin Mesylate (Doxazosin) 2 Mg Tablet, 2 MG PO DAILY, (Reported) Ferrous Sulfate (Iron) 325 Mg Tablet, 1 TAB PO BID Isosorbide Mononitrate (Isosorbide Mononitrate ER) 30 Mg Tab.er.24h, 30 MG PO DAILY, (Reported) Levofloxacin (Levofloxacin) 500 Mg Tablet, 500 MG PO DAILY@06 Lisinopril (Lisinopril) 2.5 Mg Tablet, 2.5 MG PO DAILY, (Reported) Sitagliptin (Januvia) 50 Mg Tablet, 50 MG PO DAILY, (Reported) Solifenacin Succinate (Solifenacin Succinate) 5 Mg Tablet, 5 MG PO DAILY, (Reported) Torsemide (Torsemide) 20 Mg Tablet, 10 MG PO DAILY allopurinoL (allopurinoL) 300 Mg Tablet, 300 MG PO DAILY, (Reported) Allergies Coded Allergies: Penicillins (Verified Allergy, Unknown, 03/04/21) anaph A-FIB/CHADSVASC A-FIB History Current/History of A-Fib/PAF?: Yes Current PO Anticoag Therapy: No YVON COELHO MD Jul 31, 2021 15:55
[2021-07-31] MEDS: REMEDY PHYTOPLEX Z-GUARD PASTE 113GM TUBE (FROM STOREROOM PRODUCT) TOP SCH ×2 (16:00→21:00)
[2021-07-31 18:00] VITALS: BP 133/65
[2021-07-31] MEDS: LACTOBACILLUS ACIDOPHILUS CAP (BACID) PO SCH ×2 (18:00→20:59)
[2021-07-31 20:00] VITALS: BP 132/64
[2021-07-31] MEDS: SENNA 8.6 MG TAB (SENOKOT) PO SCH (20:58)
[2021-07-31] MEDS: DOCUSATE SODIUM 100MG CAPSULE PO SCH (20:58)
[2021-07-31] MEDS: IRON POLYSAC (NIFEREX) 150 MG CAP PO SCH (20:59)
[2021-07-31] MEDS ORDERED: HumaLOG INSULIN (NovoLOG) PER UNIT SC SCH (21:00)
[2021-07-31] MEDS: CARVedilol 3.125 MG TAB PO SCH (21:00)
[2021-08-01] MEDS: ACETAMINOPHEN TAB 650MG DOSE (2X325MG) PO PRN (01:53)
[2021-08-01] MEDS: LevoFLOXacin 500 MG TABLET PO SCH (05:16)
[2021-08-01 06:32] VITALS: BP 130/62
[2021-08-01 07:11] LABS: BASO % 0.3 % (0.0-1.0); EOS # 0.3 10^3/uL (0.0-0.5); EOS % 3.7 % (0.0-3.0); HEMATOCRIT 28.3 % (42.0-52.0); HEMOGLOBIN 8.7 g/dl (13.5-17.5); LYMPH # 1.3 10^3/uL (1.5-5.0); LYMPH % 17.4 % (24.0-44.0); MEAN CORPUSCULAR HEMOGLOBIN 31.9 pg (27.0-33.0); MEAN CORPUSCULAR HGB CONC 30.7 g/dl (32.0-36.5); MEAN CORPUSCULAR VOLUME 103.7 fl (80.0-96.0); MONO # 1.2 10^3/uL (0.0-0.8); MONO % 15.5 % (2.0-8.0); NEUTROPHILS # 4.7 10^3/uL (1.5-8.5); NEUTROPHILS % 61.7 % (36.0-66.0); PLATELET COUNT, AUTOMATED 165 10^3/uL (150-450); RED BLOOD COUNT 2.73 10^6/uL (4.30-6.10); WHITE BLOOD COUNT 7.7 10^3/uL (4.0-10.0)
[2021-08-01] MEDS ORDERED: HumaLOG INSULIN (NovoLOG) PER UNIT SC SCH (07:30)
[2021-08-01 07:37] LABS: ALBUMIN 2.3 GM/DL (3.2-5.2); ALT/SGPT 19 U/L (12-78); BLOOD UREA NITROGEN 19 MG/DL (7-18); CALCIUM LEVEL 8.8 MG/DL (8.8-10.2); CARBON DIOXIDE LEVEL 24 MEQ/L (21-32); CHLORIDE LEVEL 110 MEQ/L (98-107); CREATININE FOR GFR 0.77 MG/DL (0.70-1.30); GLOMERULAR FILTRATION RATE > 60.0 (>35); GLUCOSE, FASTING 91 MG/DL (70-100); POTASSIUM SERUM 4.6 MEQ/L (3.5-5.1); SODIUM LEVEL 139 MEQ/L (136-145); TOTAL PROTEIN 5.5 GM/DL (6.4-8.2)
[2021-08-01] MEDS: LACTOBACILLUS ACIDOPHILUS CAP (BACID) PO SCH ×4 (08:50→21:02)
[2021-08-01] MEDS: PANTOPRAZOLE 40MG TAB (PROTONIX) PO SCH (08:50)
[2021-08-01] MEDS: allopurinoL 300 MG TAB PO SCH (08:50)
[2021-08-01] MEDS: CYANOCOBALAMIN 500 MCG TAB PO SCH (08:51)
[2021-08-01] MEDS: DOCUSATE SODIUM 100MG CAPSULE PO SCH ×2 (08:51→21:02)
[2021-08-01] MEDS: IRON POLYSAC (NIFEREX) 150 MG CAP PO SCH ×2 (08:51→21:02)
[2021-08-01] MEDS: ISOSORBIDE MON. (IMDUR) 30 MG XR TAB PO SCH (08:51)
[2021-08-01] MEDS: TORSEMIDE 10 MG TABLET PO SCH (08:51)
[2021-08-01] MEDS: CARVedilol 3.125 MG TAB PO SCH ×2 (08:52→21:02)
[2021-08-01] MEDS: REMEDY PHYTOPLEX Z-GUARD PASTE 113GM TUBE (FROM STOREROOM PRODUCT) TOP SCH ×3 (08:54→21:00)
[2021-08-01] MEDS: HYDROCORTISONE 2.5% 20GM OINTMENT TOP SCH ×2 (09:00→21:03)
[2021-08-01] MEDS: DIGOXIN 0.125 MG TAB PO SCH (10:04)
[2021-08-01] MEDS ORDERED: GLUCAGON INJ 1MG VIAL SC PRN (11:00)
[2021-08-01] MEDS ORDERED: DEXTROSE 50% 50 ML SYRINGE IV PRN (11:00)
[2021-08-01] MEDS ORDERED: GLUCOSE 4GM CHEW TABLET PO PRN (11:00)
[2021-08-01] MEDS: HumaLOG INSULIN (NovoLOG) PER UNIT SC SCH ×3 (12:07→21:00)
--- NOTE | 2021-08-01 12:46 | IPNPDOC ---
Text Note Date of Service The patient was seen on 08/01/21. NOTE Subjective: Patient seen and examined at bedside. Patient voices no new medical complaints. States his appetite has significantly improved. Objective: Vitals: Reviewed General: NAD, sitting comfortably in bed HEENT: NC/AT, EOMI, poor dentition Chest: lungs CTA B/L Neck: no masses Heart: +S1S2, RRR, systolic murmur Abd: soft, NT, +BS Ext: no edema Skin: no rashes Neuro: no gross focal deficits Psych: AAOx3 A/P: #Afib - not on a/c as per patient and family request - rate controlled # DM -carb consistent diet Insulin sliding scale #HTN Continue home meds #Hypothyroidism Continue levothyroxine # Metabolic encephalopathy Resolved secondary to UTI Continue antibiotic treatment # Right kidney mass According to his daughter patient was diagnosed with kidney cancer in [facility] 1 month ago. Patient confirmed that he does not want any surgical intervention for now #prostate CA #colon CA #Macrocytic anemia/blood loss anemia Continue iron and B12 p.o. Surgery previous previously recs for colonoscopy in the outpatient settings. #Deconditioning - continue with ARU recs PT/OT VS,Fishbone, I+O VS, Fishbone, I+O Laboratory Tests 08/01/21 06:22 Vital Signs Date Time Temp Pulse Resp B/P (MAP) Pulse Ox O2 Delivery O2 Flow Rate FiO2 08/01/21 10:04 56 08/01/21 08:52 123/60 08/01/21 06:32 97.7 18 97 Room Air I&O- Last 24 Hours up to 6 AM 08/01/21 06:00 Intake Total 440 ml Output Total 700 ml Balance -260 ml KRISH GRAYSON MD Aug 01, 2021 11:20
[2021-08-01 14:00] VITALS: BP 162/75
[2021-08-01 20:00] VITALS: BP 157/79
[2021-08-01] MEDS: SENNA 8.6 MG TAB (SENOKOT) PO SCH (21:02)
[2021-08-01] MEDS: TAMSULOSIN 0.4 MG CAP PO SCH (21:02)
[2021-08-02] MEDS: LevoFLOXacin 500 MG TABLET PO SCH (05:19)
[2021-08-02 06:00] VITALS: BP 120/57
[2021-08-02 06:35] LABS: BASO % 0.4 % (0.0-1.0); EOS # 0.3 10^3/uL (0.0-0.5); EOS % 3.9 % (0.0-3.0); HEMATOCRIT 28.1 % (42.0-52.0); HEMOGLOBIN 8.7 g/dl (13.5-17.5); LYMPH # 1.4 10^3/uL (1.5-5.0); LYMPH % 17.9 % (24.0-44.0); MEAN CORPUSCULAR HEMOGLOBIN 31.8 pg (27.0-33.0); MEAN CORPUSCULAR VOLUME 102.6 fl (80.0-96.0); MONO # 1.3 10^3/uL (0.0-0.8); MONO % 15.9 % (2.0-8.0); NEUTROPHILS # 4.9 10^3/uL (1.5-8.5); NEUTROPHILS % 60.6 % (36.0-66.0); PLATELET COUNT, AUTOMATED 165 10^3/uL (150-450); RED BLOOD COUNT 2.74 10^6/uL (4.30-6.10)
[2021-08-02 06:55] LABS: BLOOD UREA NITROGEN 18 MG/DL (7-18); CALCIUM LEVEL 8.9 MG/DL (8.8-10.2); CARBON DIOXIDE LEVEL 24 MEQ/L (21-32); CHLORIDE LEVEL 112 MEQ/L (98-107); CREATININE FOR GFR 0.77 MG/DL (0.70-1.30); GLOMERULAR FILTRATION RATE > 60.0 (>35); GLUCOSE, FASTING 87 MG/DL (70-100); POTASSIUM SERUM 4.3 MEQ/L (3.5-5.1); SODIUM LEVEL 140 MEQ/L (136-145)
[2021-08-02] MEDS: HumaLOG INSULIN (NovoLOG) PER UNIT SC SCH ×4 (07:30→21:00)
[2021-08-02] MEDS: DOCUSATE SODIUM 100MG CAPSULE PO SCH ×2 (10:02→21:43)
[2021-08-02] MEDS: IRON POLYSAC (NIFEREX) 150 MG CAP PO SCH ×2 (10:02→21:43)
[2021-08-02] MEDS: CYANOCOBALAMIN 500 MCG TAB PO SCH (10:02)
[2021-08-02] MEDS: PANTOPRAZOLE 40MG TAB (PROTONIX) PO SCH (10:02)
[2021-08-02] MEDS: DIGOXIN 0.125 MG TAB PO SCH (10:03)
[2021-08-02] MEDS: TORSEMIDE 10 MG TABLET PO SCH (10:03)
[2021-08-02] MEDS: allopurinoL 300 MG TAB PO SCH (10:03)
[2021-08-02] MEDS: ISOSORBIDE MON. (IMDUR) 30 MG XR TAB PO SCH (10:04)
[2021-08-02] MEDS: CARVedilol 3.125 MG TAB PO SCH ×2 (10:04→21:44)
[2021-08-02] MEDS: ACETAMINOPHEN TAB 650MG DOSE (2X325MG) PO PRN (10:04)
[2021-08-02] MEDS: REMEDY PHYTOPLEX Z-GUARD PASTE 113GM TUBE (FROM STOREROOM PRODUCT) TOP SCH ×3 (10:05→21:00)
[2021-08-02] MEDS: HYDROCORTISONE 2.5% 20GM OINTMENT TOP SCH ×2 (10:05→21:45)
[2021-08-02] MEDS: LACTOBACILLUS ACIDOPHILUS CAP (BACID) PO SCH ×4 (10:08→21:43)
[2021-08-02 14:00] VITALS: BP 129/60
--- NOTE | 2021-08-02 14:47 | IPNPDOC ---
PM&R Progress Note DATE OF SERVICE: Aug 02, 2021 [employer] Operator Progress Note Subjective: Patient reporting he has an urge to urinate and a burning sensation when he does urinate, however he is only able to urinate very little. REVIEW OF SYSTEMS: The following is a completed review of systems and has been reviewed. Review of systems otherwise unremarkable. PAIN: Patient self reports no pain EYES: No recent vision changes EARS, NOSE, & THROAT: No throat pain, or dysphagia, or rhinorrhea CARDIOVASCULAR: Denies chest pain or palpitations PULMONARY: Denies shortness of breath GASTROINTESTINAL: Denies constipation/diarrhea GENITOURINARY: +UTI with dysuria MUSCULOSKELETAL: generalized weakness NEUROLOGICAL:+left foot drop and peripheral polyneuropathy, left hand numbness HEMATOLOGICAL: denies easy bruising SKIN: left foot pressure spots PSYCHIATRIC: Unremarkable All other review of systems found to be negative. PHYSICAL EXAMINATION: VITAL SIGNS: Please see below. GENERAL: Pleasant and cooperative. No acute distress. HEENT: PERRL. Extraocular movements intact. Clear conjunctiva CARDIOVASCULAR: Irregular rate and rhythm. No murmurs, rubs, or gallops LUNGS: Clear to auscultation bilaterally. No wheezes. No rhonchi]. ABDOMEN: Soft, nontender, nondistended. Positive bowel sounds. Normal active bowel sounds NEUROLOGICAL: Alert and oriented times three. Cranial nerves II through XII grossly intact. Sensation decreased to light touch in stocking pattern decreased sensation to light touch on left hand D1-D4, D5 intact, +thenar wasting (-) babinksi/clonus bilat EXTREMITIES: 5\5 strength bilateral upper extremities. 5\5 strength right lower extremity. 4/5 strength in left hip flexor/knee extension, 0/5 ankle DF, EHL, PF SKIN: left toes with blanchable erythema, moisture noted between toes ASSESSMENT:81-year-old M with past medical history of Afib no longer on AC, DM with peripheral polyneuropathy who presents status post sepsis secondary to UTI with encephalopathy PLAN: 1. Rehab- PT/OT advance mobility and ADLs, strengthen/stretch/maintain ROM, patient has AFO on left, but it is home and too big, will likely need rn employee health consult to either adjust or provide new AFO 2. Neuro- peripheral polyneuropathy with left foot drop contributing to mobility impairments -recent encephalopathy due to sepsis, monitor for worsening cognitive function -carpal tunnel syndrome on left- will order splint to be worn at night and steroid cream for iontophoretic effect on median nerve -refer to neurology outpatient for NCS/EMG 3. Cardiac- Afib with PM, off AC due to frequent falls and recent supra- therapeutic INR, cont co-reg and digoxin -CHF- daily weights, fluid restrict, cont diuretics -recent soft BPs on inpatient, will be judicious with BP meds 4. Resp- monitor for infection, incentive spirometry 5.-s/p course of Ceftriaxone, cont Levaquin and Bacid for Klebsiella UTI, d/ c'd Menchaca and cont TOV -hx of prostate cancer and enlarged prostate cont flomax, will add finasteride for retention -dysuria in setting of known UTI- will add pyridium - f/u urology on d/c, repeat CT in 6 months to monitor left kidney mass 6. GI- cont f/u surgery for possible repeat colonoscopy given hx of colon cancer, no indication per Dr. Dinh for upper GI scope -protonix for ppx -FOBT negative 7. Endo- hx of DM with peripheral polyneuropathy cont insulin sliding scale 8. DVT ppx- TEDs 9. Pain- tylenol prn 10. Dispo- TBD Allergies Coded Allergies: Penicillins (Verified Allergy, Unknown, 03/04/21) anaph Vital Signs Vital Signs Date Time Temp Pulse Resp B/P (MAP) Pulse Ox O2 Delivery O2 Flow Rate FiO2 08/02/21 10:04 137/59 08/02/21 10:03 58 08/02/21 06:00 97.5 18 99 Room Air Laboratory Data CBC/BMP Laboratory Tests 08/02/21 05:55 Labs 24H Laboratory Tests 2 08/01/21 17:30: Bedside Glucose (Misc Panel) 123H 08/01/21 20:20: Bedside Glucose (Misc Panel) 149H 08/02/21 05:17: Bedside Glucose (Misc Panel) 94 08/02/21 05:55: Immature Granulocyte % (Auto) 1.3, Neutrophils (%) (Auto) 60.6, Lymphocytes (%) (Auto) 17.9L, Monocytes (%) (Auto) 15.9H, Eosinophils (%) (Auto) 3.9H, Basophils (%) (Auto) 0.4, Neutrophils # (Auto) 4.9, Lymphocytes # (Auto) 1.4L, Monocytes # (Auto) 1.3H, Eosinophils # (Auto) 0.3, Basophils # (Auto) 0.0, Nucleated Red Blood Cells % (auto) 0.0, Anion Gap 4L, Glomerular Filtration Rate > 60.0, Calcium Level 8.9 08/02/21 12:06: Bedside Glucose (Misc Panel) 170H Current Medications Current Medications Current Medications Medications (Trade) Dose Ordered Sig/Malinda Route PRN Reason Start Time Stop Time Status Last Admin Dose Admin Acetaminophen (Tylenol Tab) 650 mg Q4HP PRN PO fever/MILD PAIN (PS 1-4) 07/31/21 15:50 08/02/21 10:04 Allopurinol (Zyloprim) 300 mg DAILY PO 07/31/21 09:00 08/02/21 10:03 Bisacodyl (Dulcolax Suppository) 10 mg DAILYPRN PRN [place] CONSTIPATION 07/31/21 15:50 Carvedilol (COReg) 3.125 mg BID PO 07/31/21 21:00 08/02/21 10:04 Cyanocobalamin (Vitamin B12) 1,000 mcg DAILY PO 08/01/21 09:00 08/02/21 10:02 Dextrose (Dextrose 50%) 25 ml ASDIRECTED PRN IV SEE LABEL COMMENTS 07/31/21 15:50 08/01/21 10:59 DC Dextrose (Dextrose 50%) 25 ml ASDIRECTED PRN IV SEE LABEL COMMENTS 08/01/21 11:00 Digoxin (Lanoxin) 0.125 mg DAILY PO 08/01/21 09:00 08/02/21 10:03 Docusate Sodium (Colace) 100 mg BID PO 07/31/21 21:00 08/02/21 10:02 Glucagon (Glucagon) 1 mg ASDIRECTED PRN SC SEE LABEL COMMENTS 07/31/21 15:50 08/01/21 10:59 DC Glucagon (Glucagon) 1 mg ASDIRECTED PRN SC SEE LABEL COMMENTS 08/01/21 11:00 Glucose (Glucose) 16 GM ASDIRECTED PRN PO SEE LABEL COMMENTS 07/31/21 15:50 08/01/21 10:59 DC Glucose (Glucose) 16 GM ASDIRECTED PRN PO SEE LABEL COMMENTS 08/01/21 11:00 Hydrocortisone (Hydrocortisone 2.5% Ointment) left wrist crease BID TOP 08/01/21 09:00 08/02/21 10:05 Insulin Human Lispro (HumaLOG INSULIN) SEE PROTOCOL TABLE AC [place] 08/01/21 12:00 08/02/21 12:32 Insulin Human Lispro (HumaLOG INSULIN) [facility] 07/[facility] 21:00 08/01/21 10:59 DC Insulin Human Lispro (HumaLOG INSULIN) SEE PROTOCOL TABLE QHS [place] 08/01/21 21:00 Insulin Human Lispro (HumaLOG INSULIN) See Protocol Table AC AK 08/01/21 07:30 08/01/21 10:59 DC 08/01/21 08:50 Iron (Niferex) 150 mg BID PO 07/31/21 21:00 08/02/21 10:02 Isosorbide Mononitrate (Imdur) 30 mg DAILY PO 08/01/21 09:00 08/02/21 10:04 Lactobacillus Acidophilus (Bacid) 1 ea WMHS PO 07/31/21 18:00 08/02/21 12:32 Levofloxacin (Levaquin) 500 mg DAILY@06 PO 08/01/21 06:00 08/02/21 05:19 Pantoprazole Sodium (Protonix) 40 mg DAILY PO 07/31/21 09:00 08/02/21 10:02 Senna (Senokot) 1 tab QHS PO 07/31/21 21:00 08/01/21 21:02 Tamsulosin HCl (Flomax) 0.8 mg QHS PO 08/01/21 21:00 08/01/21 21:02 Torsemide (Demadex) 10 mg DAILY PO 08/01/21 09:00 08/02/21 10:03 YVON COELHO MD Aug 02, 2021 14:47
[2021-08-02] MEDS: PHENAZOPYRIDINE 100 MG TAB PO SCH ×2 (18:51→21:43)
[2021-08-02 20:00] VITALS: BP 146/70
[2021-08-02] MEDS: FINASTERIDE 5 MG TAB PO SCH (21:43)
[2021-08-02] MEDS: TAMSULOSIN 0.4 MG CAP PO SCH (21:43)
[2021-08-02] MEDS: SENNA 8.6 MG TAB (SENOKOT) PO SCH (21:43)
[2021-08-03] MEDS ORDERED: LIDOCAINE 2% 5ML JELLY UROJET TOP ONE (02:10)
[2021-08-03] MEDS: ACETAMINOPHEN TAB 650MG DOSE (2X325MG) PO PRN (02:14)
[2021-08-03 05:28] VITALS: BP 120/71
[2021-08-03] MEDS: LevoFLOXacin 500 MG TABLET PO SCH (05:39)
[2021-08-03] MEDS: PHENAZOPYRIDINE 100 MG TAB PO SCH (08:38)
[2021-08-03] MEDS: CYANOCOBALAMIN 500 MCG TAB PO SCH (08:39)
[2021-08-03] MEDS: DOCUSATE SODIUM 100MG CAPSULE PO SCH ×2 (08:39→20:49)
[2021-08-03] MEDS: TORSEMIDE 10 MG TABLET PO SCH (08:39)
[2021-08-03] MEDS: LACTOBACILLUS ACIDOPHILUS CAP (BACID) PO SCH ×4 (08:39→20:50)
[2021-08-03] MEDS: allopurinoL 300 MG TAB PO SCH (08:39)
[2021-08-03] MEDS: PANTOPRAZOLE 40MG TAB (PROTONIX) PO SCH (08:39)
[2021-08-03] MEDS: IRON POLYSAC (NIFEREX) 150 MG CAP PO SCH ×2 (08:39→20:50)
[2021-08-03] MEDS: HumaLOG INSULIN (NovoLOG) PER UNIT SC SCH ×4 (08:40→20:59)
[2021-08-03] MEDS: HYDROCORTISONE 2.5% 20GM OINTMENT TOP SCH ×2 (08:41→20:51)
[2021-08-03] MEDS: REMEDY PHYTOPLEX Z-GUARD PASTE 113GM TUBE (FROM STOREROOM PRODUCT) TOP SCH ×3 (08:41→20:51)
[2021-08-03] MEDS: DIGOXIN 0.125 MG TAB PO SCH (08:44)
[2021-08-03] MEDS: CARVedilol 3.125 MG TAB PO SCH ×2 (08:44→20:50)
[2021-08-03] MEDS: ISOSORBIDE MON. (IMDUR) 30 MG XR TAB PO SCH (08:44)
[2021-08-03 13:06] VITALS: BP 115/57
--- NOTE | 2021-08-03 14:25 | IPNPDOC ---
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 REVIEW OF SYSTEMS: The following is a completed review of systems and has been reviewed. Review of systems otherwise unremarkable. PAIN: Patient self reports no pain EYES: No recent vision changes EARS, NOSE, & THROAT: No throat pain, or dysphagia, or rhinorrhea CARDIOVASCULAR: Denies chest pain or palpitations PULMONARY: Denies shortness of breath GASTROINTESTINAL: Denies constipation/diarrhea GENITOURINARY: +UTI with retention MUSCULOSKELETAL: generalized weakness NEUROLOGICAL:+left foot drop and peripheral polyneuropathy, left hand numbness HEMATOLOGICAL: denies easy bruising SKIN: left foot pressure spots PSYCHIATRIC: Unremarkable All other review of systems found to be negative. PHYSICAL EXAMINATION: VITAL SIGNS: Please see below. GENERAL: Pleasant and cooperative. No acute distress. HEENT: PERRL. Extraocular movements intact. Clear conjunctiva CARDIOVASCULAR: Irregular rate and rhythm. No murmurs, rubs, or gallops LUNGS: Clear to auscultation bilaterally. No wheezes. No rhonchi]. ABDOMEN: Soft, nontender, nondistended. Positive bowel sounds. Normal active bowel sounds NEUROLOGICAL: Alert and oriented times three. Cranial nerves II through XII grossly intact. Sensation decreased to light touch in stocking pattern decreased sensation to light touch on left hand D1-D4, D5 intact, +thenar wasting (-) babinksi/clonus bilat EXTREMITIES: 5\5 strength bilateral upper extremities. 5\5 strength right lower extremity. 4/5 strength in left hip flexor/knee extension, 0/5 ankle DF, EHL, PF SKIN: left toes with blanchable erythema, moisture noted between toes ASSESSMENT:81-year-old M with past medical history of Afib no longer on AC, DM with peripheral polyneuropathy who presents status post sepsis secondary to UTI with encephalopathy PLAN: 1. Rehab- PT/OT advance mobility and ADLs, strengthen/stretch/maintain ROM, patient has AFO on left, but it is home and too big, will likely need agile scrum coach consult to either adjust or provide new AFO 2. Neuro- peripheral polyneuropathy with left foot drop contributing to mobility impairments -recent encephalopathy due to sepsis, monitor for worsening cognitive function -carpal tunnel syndrome on left- will order splint to be worn at night and steroid cream for iontophoretic effect on median nerve -refer to neurology outpatient for NCS/EMG 3. Cardiac- Afib with PM, off AC due to frequent falls and recent supra- therapeutic INR, cont co-reg and digoxin -CHF- daily weights, fluid restrict, cont diuretics -recent soft BPs on inpatient, will be judicious with BP meds 4. Resp- monitor for infection, incentive spirometry -will start flonase, nasal saline drops, claritin for sinuses and debrox 5.-s/p course of Ceftriaxone, cont Levaquin and Bacid for Klebsiella UTI, d/c'd Green however replaced overnight for retention -hx of prostate cancer and enlarged prostate cont flomax, added finasteride for retention, will try TOV again in a few days -dysuria in setting of known UTI- added pyridium, but now that green is back in place, will d/c - f/u urology on d/c, repeat CT in 6 months to monitor left kidney mass 6. GI- cont f/u surgery for possible repeat colonoscopy given hx of colon cancer, no indication per Dr. Dinh for upper GI scope -protonix for ppx -FOBT negative 7. Endo- hx of DM with peripheral polyneuropathy cont insulin sliding scale 8. DVT ppx- TEDs 9. Pain- tylenol prn 10. Dispo- TBD Allergies Coded Allergies: Penicillins (Verified Allergy, Unknown, 03/04/21) anaph Vital Signs Vital Signs Date Time Temp Pulse Resp B/P (MAP) Pulse Ox O2 Delivery O2 Flow Rate FiO2 08/03/21 13:06 97.5 67 18 115/57 (76) 96 Room Air Laboratory Data Labs 24H Laboratory Tests 2 08/02/21 17:10: Bedside Glucose (Misc Panel) 111H 08/02/21 19:59: Bedside Glucose (Misc Panel) 150H 08/03/21 05:19: Bedside Glucose (Misc Panel) 135H 08/03/21 11:29: Bedside Glucose (Misc Panel) 122H Current Medications Current Medications Current Medications Medications (Trade) Dose Ordered Sig/Malinda Route PRN Reason Start Time Stop Time Status Last Admin Dose Admin Acetaminophen (Tylenol Tab) 650 mg Q4HP PRN PO fever/MILD PAIN (PS 1-4) 07/31/21 15:50 08/03/21 02:14 Allopurinol (Zyloprim) 300 mg DAILY PO 07/31/21 09:00 08/03/21 08:39 Bisacodyl (Dulcolax Suppository) 10 mg DAILYPRN PRN [place] CONSTIPATION 07/31/21 15:50 Carvedilol (COReg) 3.125 mg BID PO 07/31/21 21:00 08/03/21 08:44 Cyanocobalamin (Vitamin B12) 1,000 mcg DAILY PO 08/01/21 09:00 08/03/21 08:39 Dextrose (Dextrose 50%) 25 ml ASDIRECTED PRN IV SEE LABEL COMMENTS 07/31/21 15:50 08/01/21 10:59 DC Dextrose (Dextrose 50%) 25 ml ASDIRECTED PRN IV SEE LABEL COMMENTS 08/01/21 11:00 Digoxin (Lanoxin) 0.125 mg DAILY PO 08/01/21 09:00 08/03/21 08:44 Docusate Sodium (Colace) 100 mg BID PO 07/31/21 21:00 08/03/21 08:39 Finasteride (Proscar) 5 mg QHS PO 08/02/21 21:00 08/02/21 21:43 Glucagon (Glucagon) 1 mg ASDIRECTED PRN SC SEE LABEL COMMENTS 07/31/21 15:50 08/01/21 10:59 DC Glucagon (Glucagon) 1 mg ASDIRECTED PRN SC SEE LABEL COMMENTS 08/01/21 11:00 Glucose (Glucose) 16 GM ASDIRECTED PRN PO SEE LABEL COMMENTS 07/31/21 15:50 08/01/21 10:59 DC Glucose (Glucose) 16 GM ASDIRECTED PRN PO SEE LABEL COMMENTS 08/01/21 11:00 Hydrocortisone (Hydrocortisone 2.5% Ointment) left wrist crease BID TOP 08/01/21 09:00 08/03/21 08:41 Insulin Human Lispro (HumaLOG INSULIN) SEE PROTOCOL TABLE AC SC 08/01/21 12:00 08/03/21 12:13 Insulin Human Lispro (HumaLOG INSULIN) SEE PROTOCOL TABLE QHS SC 07/31/21 21:00 08/01/21 10:59 DC Insulin Human Lispro (HumaLOG INSULIN) SEE PROTOCOL TABLE QHS SC 08/01/21 21:00 Insulin Human Lispro (HumaLOG INSULIN) See Protocol Table AC SC 08/01/21 07:30 08/01/21 10:59 DC 08/01/21 08:50 Iron (Niferex) 150 mg BID PO 07/31/21 21:00 08/03/21 08:39 Isosorbide Mononitrate (Imdur) 30 mg DAILY PO 08/01/21 09:00 08/03/21 08:44 Lactobacillus Acidophilus (Bacid) 1 ea WMHS PO 07/31/21 18:00 08/03/21 12:12 Levofloxacin (Levaquin) 500 mg DAILY@06 PO 08/01/21 06:00 08/03/21 05:39 Lidocaine HCl (Lidocaine 2% Urojet) FOR Intermittent CATHETERization Q2HP PRN TOP catheterization 08/02/21 16:20 Pantoprazole Sodium (Protonix) 40 mg DAILY PO 07/31/21 09:00 08/03/21 08:39 Phenazopyridine HCl (Pyridium) 100 mg TID PO 08/02/21 16:15 08/03/21 08:38 Senna (Senokot) 1 tab QHS PO 07/31/21 21:00 08/02/21 21:43 Tamsulosin HCl (Flomax) 0.8 mg QHS PO 08/01/21 21:00 08/02/21 21:43 Torsemide (Demadex) 10 mg DAILY PO 08/01/21 09:00 08/03/21 08:39 YVON COELHO MD Aug 03, 2021 14:25
[2021-08-03] MEDS: MAGNESIUM OXIDE 400MG TAB (MAG-OX) PO SCH ×2 (15:57→20:50)
[2021-08-03] MEDS: SODIUM CHLORIDE NASAL 0.65% SPRAY BTL (OCEAN) SCH ×2 (15:57→20:51)
[2021-08-03] MEDS: LORATADINE 10 MG TAB PO SCH (15:57)
[2021-08-03 20:00] VITALS: BP 133/63
[2021-08-03] MEDS: FINASTERIDE 5 MG TAB PO SCH (20:49)
[2021-08-03] MEDS: SENNA 8.6 MG TAB (SENOKOT) PO SCH (20:50)
[2021-08-03] MEDS: TAMSULOSIN 0.4 MG CAP PO SCH (20:50)
[2021-08-03] MEDS: CARBAMIDE PEROXIDE 6.5% OTIC SOLN 15ML AU SCH (20:51)
[2021-08-04] MEDS: LevoFLOXacin 500 MG TABLET PO SCH (05:17)
[2021-08-04 06:00] VITALS: BP 131/63
[2021-08-04] MEDS: HumaLOG INSULIN (NovoLOG) PER UNIT SC SCH ×4 (07:30→21:00)
[2021-08-04 08:17] LABS: BASO % 0.6 % (0.0-1.0); EOS # 0.3 10^3/uL (0.0-0.5); EOS % 4.2 % (0.0-3.0); HEMATOCRIT 29.3 % (42.0-52.0); HEMOGLOBIN 9.1 g/dl (13.5-17.5); LYMPH # 1.2 10^3/uL (1.5-5.0); LYMPH % 17.3 % (24.0-44.0); MEAN CORPUSCULAR HGB CONC 31.1 g/dl (32.0-36.5); MEAN CORPUSCULAR VOLUME 103.2 fl (80.0-96.0); MONO # 1.1 10^3/uL (0.0-0.8); MONO % 15.5 % (2.0-8.0); NEUTROPHILS # 4.4 10^3/uL (1.5-8.5); NEUTROPHILS % 61.4 % (36.0-66.0); PLATELET COUNT, AUTOMATED 181 10^3/uL (150-450); RED BLOOD COUNT 2.84 10^6/uL (4.30-6.10); WHITE BLOOD COUNT 7.1 10^3/uL (4.0-10.0)
[2021-08-04] MEDS: LACTOBACILLUS ACIDOPHILUS CAP (BACID) PO SCH ×4 (10:14→21:19)
[2021-08-04] MEDS: DOCUSATE SODIUM 100MG CAPSULE PO SCH ×2 (10:14→21:19)
[2021-08-04] MEDS: allopurinoL 300 MG TAB PO SCH (10:14)
[2021-08-04] MEDS: PANTOPRAZOLE 40MG TAB (PROTONIX) PO SCH (10:14)
[2021-08-04] MEDS: MAGNESIUM OXIDE 400MG TAB (MAG-OX) PO SCH ×2 (10:14→21:19)
[2021-08-04] MEDS: DIGOXIN 0.125 MG TAB PO SCH (10:15)
[2021-08-04] MEDS: TORSEMIDE 10 MG TABLET PO SCH (10:15)
[2021-08-04] MEDS: IRON POLYSAC (NIFEREX) 150 MG CAP PO SCH ×2 (10:15→21:21)
[2021-08-04] MEDS: LORATADINE 10 MG TAB PO SCH (10:15)
[2021-08-04] MEDS: CARVedilol 3.125 MG TAB PO SCH ×2 (10:16→21:21)
[2021-08-04] MEDS: CYANOCOBALAMIN 500 MCG TAB PO SCH (10:16)
[2021-08-04] MEDS: ISOSORBIDE MON. (IMDUR) 30 MG XR TAB PO SCH (10:17)
[2021-08-04] MEDS: CARBAMIDE PEROXIDE 6.5% OTIC SOLN 15ML AU SCH ×2 (10:17→21:23)
[2021-08-04] MEDS: HYDROCORTISONE 2.5% 20GM OINTMENT TOP SCH ×2 (10:19→21:24)
[2021-08-04] MEDS: SODIUM CHLORIDE NASAL 0.65% SPRAY BTL (OCEAN) SCH ×3 (10:20→21:23)
[2021-08-04] MEDS: REMEDY PHYTOPLEX Z-GUARD PASTE 113GM TUBE (FROM STOREROOM PRODUCT) TOP SCH ×3 (10:21→21:22)
--- NOTE | 2021-08-04 10:23 | IPNPDOC ---
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 REVIEW OF SYSTEMS: The following is a completed review of systems and has been reviewed. Review of systems otherwise unremarkable. PAIN: Patient self reports no pain EYES: No recent vision changes EARS, NOSE, & THROAT: No throat pain, or dysphagia, or rhinorrhea CARDIOVASCULAR: Denies chest pain or palpitations PULMONARY: Denies shortness of breath GASTROINTESTINAL: Denies constipation/diarrhea GENITOURINARY: +UTI with retention MUSCULOSKELETAL: generalized weakness NEUROLOGICAL:+left foot drop and peripheral polyneuropathy, left hand numbness HEMATOLOGICAL: denies easy bruising SKIN: left foot pressure spots PSYCHIATRIC: Unremarkable All other review of systems found to be negative. PHYSICAL EXAMINATION: VITAL SIGNS: Please see below. GENERAL: Pleasant and cooperative. No acute distress. HEENT: PERRL. Extraocular movements intact. Clear conjunctiva CARDIOVASCULAR: Irregular rate and rhythm. No murmurs, rubs, or gallops LUNGS: Clear to auscultation bilaterally. No wheezes. No rhonchi]. ABDOMEN: Soft, nontender, nondistended. Positive bowel sounds. Normal active bowel sounds NEUROLOGICAL: Alert and oriented times three. Cranial nerves II through XII grossly intact. Sensation decreased to light touch in stocking pattern decreased sensation to light touch on left hand D1-D4, D5 intact, +thenar wasting (-) babinksi/clonus bilat EXTREMITIES: 5\5 strength bilateral upper extremities. 5\5 strength right lower extremity. 4/5 strength in left hip flexor/knee extension, 0/5 ankle DF, EHL, PF SKIN: left toes with blanchable erythema, moisture noted between toes ASSESSMENT:81-year-old M with past medical history of Afib no longer on AC, DM with peripheral polyneuropathy who presents status post sepsis secondary to UTI with encephalopathy PLAN: 1. Rehab- PT/OT advance mobility and ADLs, strengthen/stretch/maintain ROM, patient has AFO on left, but it is home and too big, will likely need behavioral interventionist consult to either adjust or provide new AFO 2. Neuro- peripheral polyneuropathy with left foot drop contributing to mobility impairments -recent encephalopathy due to sepsis, monitor for worsening cognitive function -carpal tunnel syndrome on left- will order splint to be worn at night and steroid cream for iontophoretic effect on median nerve -refer to neurology outpatient for NCS/EMG 3. Cardiac- Afib with PM, off AC due to frequent falls and recent supra- therapeutic INR, cont co-reg and digoxin -CHF- daily weights, fluid restrict, cont diuretics -recent soft BPs on inpatient, will be judicious with BP meds 4. Resp- monitor for infection, incentive spirometry -cont flonase, nasal saline drops, claritin for sinuses and debrox 5.-s/p course of Ceftriaxone, cont Levaquin and Bacid for Klebsiella UTI, d/c'd Green however replaced overnight for retention -hx of prostate cancer and enlarged prostate cont flomax, added finasteride for retention, will try TOV again in a few days -dysuria in setting of known UTI- added pyridium, but now that green is back in place, will d/c - f/u urology on d/c, repeat CT in 6 months to monitor left kidney mass 6. GI- cont f/u surgery for possible repeat colonoscopy given hx of colon c ancer, no indication per Dr. Dinh for upper GI scope -protonix for ppx -FOBT negative 7. Endo- hx of DM with peripheral polyneuropathy cont insulin sliding scale 8. DVT ppx- TEDs 9. Pain- tylenol prn 10. Dispo- TBD Allergies Coded Allergies: Penicillins (Verified Allergy, Unknown, 03/04/21) anaph Vital Signs Vital Signs Date Time Temp Pulse Resp B/P (MAP) Pulse Ox O2 Delivery O2 Flow Rate FiO2 08/04/21 10:17 126/59 08/04/21 10:16 67 08/04/21 06:00 97.4 17 99 Room Air Laboratory Data CBC/BMP Laboratory Tests 08/04/21 08:01 Labs 24H Laboratory Tests 2 08/03/21 11:29: Bedside Glucose (Misc Panel) 122H 08/03/21 16:54: Bedside Glucose (Misc Panel) 148H 08/03/21 19:50: Bedside Glucose (Misc Panel) 192H 08/04/21 05:34: Bedside Glucose (Misc Panel) 95 08/04/21 08:01: Immature Granulocyte % (Auto) 1.0, Neutrophils (%) (Auto) 61.4, Lymphocytes (%) (Auto) 17.3L, Monocytes (%) (Auto) 15.5H, Eosinophils (%) (Auto) 4.2H, Basophils (%) (Auto) 0.6, Neutrophils # (Auto) 4.4, Lymphocytes # (Auto) 1.2L, Monocytes # (Auto) 1.1H, Eosinophils # (Auto) 0.3, Basophils # (Auto) 0.0, Nucleated Red Blood Cells % (auto) 0.0 Current Medications Current Medications Current Medications Medications (Trade) Dose Ordered Sig/Malinda Route PRN Reason Start Time Stop Time Status Last Admin Dose Admin Acetaminophen (Tylenol Tab) 650 mg Q4HP PRN PO fever/MILD PAIN (PS 1-4) 07/31/21 15:50 08/03/21 02:14 Allopurinol (Zyloprim) 300 mg DAILY PO 07/31/21 09:00 08/04/21 10:14 Bisacodyl (Dulcolax Suppository) 10 mg DAILYPRN PRN [place] CONSTIPATION 07/31/21 15:50 Carbamide Peroxide (Debrox) 5 drop BID AU 08/03/21 21:00 08/07/21 09:01 08/04/21 10:17 Carvedilol (COReg) 3.125 mg BID PO 07/31/21 21:00 08/04/21 10:16 Cyanocobalamin (Vitamin B12) 1,000 mcg DAILY PO 08/01/21 09:00 08/04/21 10:16 Dextrose (Dextrose 50%) 25 ml ASDIRECTED PRN IV SEE LABEL COMMENTS 07/31/21 15:50 08/01/21 10:59 DC Dextrose (Dextrose 50%) 25 ml ASDIRECTED PRN IV SEE LABEL COMMENTS 08/01/21 11:00 Digoxin (Lanoxin) 0.125 mg DAILY PO 08/01/21 09:00 08/04/21 10:15 Docusate Sodium (Colace) 100 mg BID PO 07/31/21 21:00 08/04/21 10:14 Finasteride (Proscar) 5 mg QHS PO 08/02/21 21:00 08/03/21 20:49 Glucagon (Glucagon) 1 mg ASDIRECTED PRN SC SEE LABEL COMMENTS 07/31/21 15:50 08/01/21 10:59 DC Glucagon (Glucagon) 1 mg ASDIRECTED PRN SC SEE LABEL COMMENTS 08/01/21 11:00 Glucose (Glucose) 16 GM ASDIRECTED PRN PO SEE LABEL COMMENTS 07/31/21 15:50 08/01/21 10:59 DC Glucose (Glucose) 16 GM ASDIRECTED PRN PO SEE LABEL COMMENTS 08/01/21 11:00 Hydrocortisone (Hydrocortisone 2.5% Ointment) left wrist crease BID TOP 08/01/21 09:00 08/04/21 10:19 Insulin Human Lispro (HumaLOG INSULIN) SEE PROTOCOL TABLE AC NE 08/01/21 12:00 08/03/21 18:34 Insulin Human Lispro (HumaLOG INSULIN) SEE PROTOCOL TABLE QHS [place] 07/31/21 21:00 08/01/21 10:59 DC Insulin Human Lispro (HumaLOG INSULIN) [facility] 08/01[facility] 21:00 Insulin Human Lispro (HumaLOG INSULIN) See Protocol Table AC NE 08/01/21 07:30 08/01/21 10:59 DC 08/01/21 08:50 Iron (Niferex) 150 mg BID PO 07/31/21 21:00 08/04/21 10:15 Isosorbide Mononitrate (Imdur) 30 mg DAILY PO 08/01/21 09:00 08/04/21 10:17 Lactobacillus Acidophilus (Bacid) 1 ea WMHS PO 07/31/21 18:00 08/04/21 10:14 Levofloxacin (Levaquin) 500 mg DAILY@06 PO 08/01/21 06:00 08/04/21 10:21 DC 08/04/21 05:17 Lidocaine HCl (Lidocaine 2% Urojet) FOR Intermittent CATHETERization Q2HP PRN TOP catheterization 08/02/21 16:20 Loratadine (Claritin) 10 mg DAILY PO 08/03/21 09:00 08/04/21 10:15 Magnesium Oxide (Mag-Ox) 400 mg BID PO 08/03/21 09:00 08/04/21 10:14 Pantoprazole Sodium (Protonix) 40 mg DAILY PO 07/31/21 09:00 08/04/21 10:14 Phenazopyridine HCl (Pyridium) 100 mg TID PO 08/02/21 16:15 08/03/21 14:25 DC 08/03/21 08:38 Polyethylene Glycol (Miralax) 1 pkt DAILY PO 08/04/21 10:20 UNV Senna (Senokot) 1 tab QHS PO 07/31/21 21:00 08/03/21 20:50 Sodium Chloride (Early Nasal Flasher) 2 spray TID NA 08/03/21 16:00 08/04/21 10:20 Tamsulosin HCl (Flomax) 0.8 mg QHS PO 08/01/21 21:00 08/03/21 20:50 Torsemide (Demadex) 10 mg DAILY PO 08/01/21 09:00 08/04/21 10:15 YVON COELHO MD Aug 04, 2021 10:23
[2021-08-04 11:39] LABS: BLOOD UREA NITROGEN 21 MG/DL (7-18); CALCIUM LEVEL 8.6 MG/DL (8.8-10.2); CARBON DIOXIDE LEVEL 24 MEQ/L (21-32); CHLORIDE LEVEL 110 MEQ/L (98-107); CREATININE FOR GFR 0.89 MG/DL (0.70-1.30); GLOMERULAR FILTRATION RATE > 60.0 (>35); GLUCOSE, FASTING 140 MG/DL (70-100); POTASSIUM SERUM 3.8 MEQ/L (3.5-5.1); SODIUM LEVEL 140 MEQ/L (136-145)
[2021-08-04] MEDS: MIRALAX *UNIT DOSE* 17GM PACKET PO SCH (13:27)
[2021-08-04 14:00] VITALS: BP 128/78
[2021-08-04 20:00] VITALS: BP 136/63
[2021-08-04] MEDS: SENNA 8.6 MG TAB (SENOKOT) PO SCH (21:19)
[2021-08-04] MEDS: FINASTERIDE 5 MG TAB PO SCH (21:19)
[2021-08-04] MEDS: TAMSULOSIN 0.4 MG CAP PO SCH (21:19)
[2021-08-05 06:00] VITALS: BP 122/59
[2021-08-05] MEDS: MIRALAX *UNIT DOSE* 17GM PACKET PO SCH (08:47)
[2021-08-05] MEDS: DOCUSATE SODIUM 100MG CAPSULE PO SCH ×2 (08:48→21:24)
[2021-08-05] MEDS: HumaLOG INSULIN (NovoLOG) PER UNIT SC SCH ×4 (08:48→21:00)
[2021-08-05] MEDS: IRON POLYSAC (NIFEREX) 150 MG CAP PO SCH ×2 (08:49→21:23)
[2021-08-05] MEDS: LACTOBACILLUS ACIDOPHILUS CAP (BACID) PO SCH ×4 (08:49→21:24)
[2021-08-05] MEDS: LORATADINE 10 MG TAB PO SCH (08:49)
[2021-08-05] MEDS: CYANOCOBALAMIN 500 MCG TAB PO SCH (08:49)
[2021-08-05] MEDS: allopurinoL 300 MG TAB PO SCH (08:49)
[2021-08-05] MEDS: MAGNESIUM OXIDE 400MG TAB (MAG-OX) PO SCH ×2 (08:49→21:24)
[2021-08-05] MEDS: TORSEMIDE 10 MG TABLET PO SCH (08:49)
[2021-08-05] MEDS: PANTOPRAZOLE 40MG TAB (PROTONIX) PO SCH (08:50)
[2021-08-05] MEDS: CARVedilol 3.125 MG TAB PO SCH ×2 (08:50→21:24)
[2021-08-05] MEDS: ISOSORBIDE MON. (IMDUR) 30 MG XR TAB PO SCH (08:50)
[2021-08-05] MEDS: DIGOXIN 0.125 MG TAB PO SCH (08:50)
[2021-08-05] MEDS: HYDROCORTISONE 2.5% 20GM OINTMENT TOP SCH ×2 (08:51→21:27)
[2021-08-05] MEDS: SODIUM CHLORIDE NASAL 0.65% SPRAY BTL (OCEAN) SCH ×3 (08:51→21:27)
[2021-08-05] MEDS: CARBAMIDE PEROXIDE 6.5% OTIC SOLN 15ML AU SCH ×2 (08:51→21:27)
[2021-08-05] MEDS: REMEDY PHYTOPLEX Z-GUARD PASTE 113GM TUBE (FROM STOREROOM PRODUCT) TOP SCH ×3 (08:52→21:25)
[2021-08-05 14:00] VITALS: BP 130/59
[2021-08-05 20:00] VITALS: BP 131/67
[2021-08-05] MEDS: TAMSULOSIN 0.4 MG CAP PO SCH (21:24)
[2021-08-05] MEDS: FINASTERIDE 5 MG TAB PO SCH (21:24)
[2021-08-05] MEDS: SENNA 8.6 MG TAB (SENOKOT) PO SCH (21:26)
[2021-08-06 06:00] VITALS: BP 122/58
[2021-08-06] MEDS: HumaLOG INSULIN (NovoLOG) PER UNIT SC SCH ×4 (07:30→20:56)
[2021-08-06] MEDS: LACTOBACILLUS ACIDOPHILUS CAP (BACID) PO SCH ×4 (08:03→20:57)
[2021-08-06] MEDS: PANTOPRAZOLE 40MG TAB (PROTONIX) PO SCH (08:03)
[2021-08-06] MEDS: LORATADINE 10 MG TAB PO SCH (08:03)
[2021-08-06] MEDS: MAGNESIUM OXIDE 400MG TAB (MAG-OX) PO SCH ×2 (08:03→20:57)
[2021-08-06] MEDS: ISOSORBIDE MON. (IMDUR) 30 MG XR TAB PO SCH (08:04)
[2021-08-06] MEDS: IRON POLYSAC (NIFEREX) 150 MG CAP PO SCH ×2 (08:04→20:57)
[2021-08-06] MEDS: CARVedilol 3.125 MG TAB PO SCH ×2 (08:04→20:57)
[2021-08-06] MEDS: TORSEMIDE 10 MG TABLET PO SCH (08:04)
[2021-08-06] MEDS: allopurinoL 300 MG TAB PO SCH (08:04)
[2021-08-06] MEDS: DOCUSATE SODIUM 100MG CAPSULE PO SCH ×2 (08:04→20:57)
[2021-08-06] MEDS: MIRALAX *UNIT DOSE* 17GM PACKET PO SCH (08:05)
[2021-08-06] MEDS: CYANOCOBALAMIN 500 MCG TAB PO SCH (08:05)
[2021-08-06] MEDS: DIGOXIN 0.125 MG TAB PO SCH (08:05)
[2021-08-06] MEDS: CARBAMIDE PEROXIDE 6.5% OTIC SOLN 15ML AU SCH ×2 (08:06→20:55)
[2021-08-06] MEDS: SODIUM CHLORIDE NASAL 0.65% SPRAY BTL (OCEAN) SCH ×3 (08:06→20:54)
[2021-08-06] MEDS: HYDROCORTISONE 2.5% 20GM OINTMENT TOP SCH ×2 (08:07→20:55)
[2021-08-06] MEDS: REMEDY PHYTOPLEX Z-GUARD PASTE 113GM TUBE (FROM STOREROOM PRODUCT) TOP SCH ×3 (08:07→20:55)
[2021-08-06 14:00] VITALS: BP 131/63
[2021-08-06 20:00] VITALS: BP 120/70
[2021-08-06] MEDS: FINASTERIDE 5 MG TAB PO SCH (20:56)
[2021-08-06] MEDS: SENNA 8.6 MG TAB (SENOKOT) PO SCH (20:57)
[2021-08-06] MEDS: TAMSULOSIN 0.4 MG CAP PO SCH (20:57)
[2021-08-07 06:11] LABS: BASO # 0.1 10^3/uL (0.0-0.2); BASO % 0.7 % (0.0-1.0); EOS # 0.4 10^3/uL (0.0-0.5); EOS % 5.7 % (0.0-3.0); HEMATOCRIT 28.7 % (42.0-52.0); HEMOGLOBIN 8.9 g/dl (13.5-17.5); LYMPH # 1.2 10^3/uL (1.5-5.0); LYMPH % 17.4 % (24.0-44.0); MEAN CORPUSCULAR HEMOGLOBIN 31.9 pg (27.0-33.0); MEAN CORPUSCULAR VOLUME 102.9 fl (80.0-96.0); MONO # 1.2 10^3/uL (0.0-0.8); MONO % 16.8 % (2.0-8.0); NEUTROPHILS # 4.2 10^3/uL (1.5-8.5); NEUTROPHILS % 58.8 % (36.0-66.0); PLATELET COUNT, AUTOMATED 166 10^3/uL (150-450); RED BLOOD COUNT 2.79 10^6/uL (4.30-6.10); WHITE BLOOD COUNT 7.1 10^3/uL (4.0-10.0)
[2021-08-07 06:34] VITALS: BP 124/62
[2021-08-07 06:41] LABS: BLOOD UREA NITROGEN 22 MG/DL (7-18); CALCIUM LEVEL 8.8 MG/DL (8.8-10.2); CARBON DIOXIDE LEVEL 26 MEQ/L (21-32); CHLORIDE LEVEL 107 MEQ/L (98-107); CREATININE FOR GFR 0.78 MG/DL (0.70-1.30); GLOMERULAR FILTRATION RATE > 60.0 (>35); GLUCOSE, FASTING 109 MG/DL (70-100); POTASSIUM SERUM 4.4 MEQ/L (3.5-5.1); SODIUM LEVEL 139 MEQ/L (136-145)
[2021-08-07] MEDS: HumaLOG INSULIN (NovoLOG) PER UNIT SC SCH ×4 (07:30→21:00)
[2021-08-07] MEDS: MIRALAX *UNIT DOSE* 17GM PACKET PO SCH (10:11)
[2021-08-07] MEDS: allopurinoL 300 MG TAB PO SCH (10:11)
[2021-08-07] MEDS: PANTOPRAZOLE 40MG TAB (PROTONIX) PO SCH (10:12)
[2021-08-07] MEDS: DOCUSATE SODIUM 100MG CAPSULE PO SCH ×2 (10:12→20:23)
[2021-08-07] MEDS: LORATADINE 10 MG TAB PO SCH (10:12)
[2021-08-07] MEDS: DIGOXIN 0.125 MG TAB PO SCH (10:12)
[2021-08-07] MEDS: TORSEMIDE 10 MG TABLET PO SCH (10:13)
[2021-08-07] MEDS: ISOSORBIDE MON. (IMDUR) 30 MG XR TAB PO SCH (10:13)
[2021-08-07] MEDS: CARVedilol 3.125 MG TAB PO SCH ×2 (10:13→20:25)
[2021-08-07] MEDS: MAGNESIUM OXIDE 400MG TAB (MAG-OX) PO SCH ×2 (10:14→20:23)
[2021-08-07] MEDS: CYANOCOBALAMIN 500 MCG TAB PO SCH (10:14)
[2021-08-07] MEDS: IRON POLYSAC (NIFEREX) 150 MG CAP PO SCH ×2 (10:14→20:23)
[2021-08-07] MEDS: REMEDY PHYTOPLEX Z-GUARD PASTE 113GM TUBE (FROM STOREROOM PRODUCT) TOP SCH ×3 (10:15→20:26)
[2021-08-07] MEDS: HYDROCORTISONE 2.5% 20GM OINTMENT TOP SCH (10:15)
[2021-08-07] MEDS: SODIUM CHLORIDE NASAL 0.65% SPRAY BTL (OCEAN) SCH ×3 (10:15→20:25)
[2021-08-07] MEDS: CARBAMIDE PEROXIDE 6.5% OTIC SOLN 15ML AU SCH (10:16)
[2021-08-07] MEDS: LACTOBACILLUS ACIDOPHILUS CAP (BACID) PO SCH ×4 (10:18→20:24)
[2021-08-07 14:00] VITALS: BP 130/59
[2021-08-07 20:00] VITALS: BP 138/65
[2021-08-07] MEDS: SENNA 8.6 MG TAB (SENOKOT) PO SCH (20:23)
[2021-08-07] MEDS: ACETAMINOPHEN TAB 650MG DOSE (2X325MG) PO PRN (20:24)
[2021-08-07] MEDS: TAMSULOSIN 0.4 MG CAP PO SCH (20:24)
[2021-08-07] MEDS: FINASTERIDE 5 MG TAB PO SCH (20:24)
[2021-08-08 06:00] VITALS: BP 117/55
[2021-08-08] MEDS: HumaLOG INSULIN (NovoLOG) PER UNIT SC SCH ×4 (09:13→20:18)
[2021-08-08] MEDS: MAGNESIUM OXIDE 400MG TAB (MAG-OX) PO SCH ×2 (09:13→20:27)
[2021-08-08] MEDS: LACTOBACILLUS ACIDOPHILUS CAP (BACID) PO SCH ×4 (09:14→20:27)
[2021-08-08] MEDS: PANTOPRAZOLE 40MG TAB (PROTONIX) PO SCH (09:14)
[2021-08-08] MEDS: IRON POLYSAC (NIFEREX) 150 MG CAP PO SCH ×2 (09:14→20:27)
[2021-08-08] MEDS: TORSEMIDE 10 MG TABLET PO SCH (09:14)
[2021-08-08] MEDS: DOCUSATE SODIUM 100MG CAPSULE PO SCH ×2 (09:14→20:27)
[2021-08-08] MEDS: allopurinoL 300 MG TAB PO SCH (09:14)
[2021-08-08] MEDS: ISOSORBIDE MON. (IMDUR) 30 MG XR TAB PO SCH (09:14)
[2021-08-08] MEDS: CARVedilol 3.125 MG TAB PO SCH ×2 (09:15→20:28)
[2021-08-08] MEDS: LORATADINE 10 MG TAB PO SCH (09:15)
[2021-08-08] MEDS: CYANOCOBALAMIN 500 MCG TAB PO SCH (09:15)
[2021-08-08] MEDS: MIRALAX *UNIT DOSE* 17GM PACKET PO SCH (09:16)
[2021-08-08] MEDS: SODIUM CHLORIDE NASAL 0.65% SPRAY BTL (OCEAN) SCH ×3 (09:16→20:28)
[2021-08-08] MEDS: DIGOXIN 0.125 MG TAB PO SCH (09:16)
[2021-08-08] MEDS: REMEDY PHYTOPLEX Z-GUARD PASTE 113GM TUBE (FROM STOREROOM PRODUCT) TOP SCH ×3 (09:17→20:28)
[2021-08-08 14:00] VITALS: BP 132/62
[2021-08-08 20:00] VITALS: BP 145/72
[2021-08-08] MEDS: TAMSULOSIN 0.4 MG CAP PO SCH (20:26)
[2021-08-08] MEDS: FINASTERIDE 5 MG TAB PO SCH (20:27)
[2021-08-08] MEDS: SENNA 8.6 MG TAB (SENOKOT) PO SCH (20:27)
[2021-08-09 06:00] VITALS: BP 135/69
[2021-08-09] MEDS: HumaLOG INSULIN (NovoLOG) PER UNIT SC SCH ×4 (07:30→21:00)
[2021-08-09 07:58] LABS: BASO # 0.1 10^3/uL (0.0-0.2); BASO % 0.8 % (0.0-1.0); EOS # 0.4 10^3/uL (0.0-0.5); EOS % 6.5 % (0.0-3.0); HEMATOCRIT 30.4 % (42.0-52.0); HEMOGLOBIN 9.3 g/dl (13.5-17.5); LYMPH # 1.2 10^3/uL (1.5-5.0); LYMPH % 18.7 % (24.0-44.0); MEAN CORPUSCULAR HEMOGLOBIN 31.5 pg (27.0-33.0); MEAN CORPUSCULAR HGB CONC 30.6 g/dl (32.0-36.5); MEAN CORPUSCULAR VOLUME 103.1 fl (80.0-96.0); MONO # 1.2 10^3/uL (0.0-0.8); MONO % 17.8 % (2.0-8.0); NEUTROPHILS # 3.6 10^3/uL (1.5-8.5); NEUTROPHILS % 55.6 % (36.0-66.0); PLATELET COUNT, AUTOMATED 186 10^3/uL (150-450); RED BLOOD COUNT 2.95 10^6/uL (4.30-6.10); WHITE BLOOD COUNT 6.5 10^3/uL (4.0-10.0)
[2021-08-09 08:24] LABS: BLOOD UREA NITROGEN 21 MG/DL (7-18); CALCIUM LEVEL 9.1 MG/DL (8.8-10.2); CARBON DIOXIDE LEVEL 28 MEQ/L (21-32); CHLORIDE LEVEL 108 MEQ/L (98-107); CREATININE FOR GFR 0.72 MG/DL (0.70-1.30); GLOMERULAR FILTRATION RATE > 60.0 (>35); GLUCOSE, FASTING 99 MG/DL (70-100); POTASSIUM SERUM 4.2 MEQ/L (3.5-5.1); SODIUM LEVEL 140 MEQ/L (136-145)
[2021-08-09] MEDS: MIRALAX *UNIT DOSE* 17GM PACKET PO SCH (09:04)
[2021-08-09] MEDS: DOCUSATE SODIUM 100MG CAPSULE PO SCH ×2 (09:05→22:01)
[2021-08-09] MEDS: MAGNESIUM OXIDE 400MG TAB (MAG-OX) PO SCH ×2 (09:05→22:01)
[2021-08-09] MEDS: IRON POLYSAC (NIFEREX) 150 MG CAP PO SCH ×2 (09:06→22:01)
[2021-08-09] MEDS: CYANOCOBALAMIN 500 MCG TAB PO SCH (09:06)
[2021-08-09] MEDS: CARVedilol 3.125 MG TAB PO SCH ×2 (09:06→22:02)
[2021-08-09] MEDS: SODIUM CHLORIDE NASAL 0.65% SPRAY BTL (OCEAN) SCH ×3 (09:07→22:04)
[2021-08-09] MEDS: allopurinoL 300 MG TAB PO SCH (09:07)
[2021-08-09] MEDS: LORATADINE 10 MG TAB PO SCH (09:07)
[2021-08-09] MEDS: LACTOBACILLUS ACIDOPHILUS CAP (BACID) PO SCH ×4 (09:07→22:01)
[2021-08-09] MEDS: ISOSORBIDE MON. (IMDUR) 30 MG XR TAB PO SCH (09:07)
[2021-08-09] MEDS: DIGOXIN 0.125 MG TAB PO SCH (09:07)
[2021-08-09] MEDS: PANTOPRAZOLE 40MG TAB (PROTONIX) PO SCH (09:08)
[2021-08-09] MEDS: TORSEMIDE 10 MG TABLET PO SCH (09:08)
[2021-08-09] MEDS: REMEDY PHYTOPLEX Z-GUARD PASTE 113GM TUBE (FROM STOREROOM PRODUCT) TOP SCH ×3 (09:08→22:04)
--- NOTE | 2021-08-09 12:57 | IPNPDOC ---
Text Note Date of Service The patient was seen on 08/09/21. NOTE Subjective: Patient is an 81-year-old male with a PMHx A. fib (s/p PM, not on anticoagulation), CHF, HTN, DM2 w/ Peripheral neuropathy / foot drop, DLP, H ypothyroidism, Colon cancer, Prostate CA , who presented to the emergency room after he had fallen down the stairs on 07/25. Patient was noted to the hospital service for further evaluation and treatment of his confusion. Patient was also found to have a urinary tract infection. Patient was seen and examined at the bedside. Patient denies any chest pain, short of breath, palpitations, nausea, vomiting, abdominal pain or diarrhea. Patient has a Menchaca catheter in place. Objective: Vitals (See below) General: Lying in bed, appears comfortable, AAOx3 HEENT: NC, AT CVS: +S1S2 Lungs: Fair air entry b/l, no evidence of wheezing, rales or rhonchi Abdomen: Soft, nondistended, nontender Extremities: - Edema, - Calf tenderness Assessment and plan: A fib - c/w Carvedilol and Digoxin - As per family request; not on anticoagulation DM - c/w ISS HTN - BP well controlled - c/w Carvedilol, Isosorbide mononitrate and Torsemide Hypothyroidism - c/w levothyroxine s/p Metabolic encephalopathy - likely 2/2 UTI - Completed antibiotic therapy Right kidney mass - Patient reported that he was diagnosed with this one month ago at [facility] - Patient has reported that he does not want any surgical intervention Prostate CA - Will have outpatient follow-up with oncology Colon CA - Will have outpatient follow-up with oncology Macrocytic anemia/blood loss anemia - c/w iron supplementation and Vitamin B12 - Surgery has recommended pursuing colonoscopy as an outpatient Urinary retention - c/w Finasteride and Tamsulosin - c/w [place]chaca catheter - Will have outpatient follow-up with urology Deconditioning - c/w PT and OT as per ARU GI prophylaxis - c/w Protonix DVT prophylaxis - c/w TEDs/Sequentials Disposition: - As per ARU VS,Fishbone, I+O VS, Fishbone, I+O Laboratory Tests 08/09/21 07:01 Vital Signs Date Time Temp Pulse Resp B/P (MAP) Pulse Ox O2 Delivery O2 Flow Rate FiO2 08/09/21 09:07 62 08/09/21 09:06 130/70 08/09/21 06:00 98.4 18 98 Room Air 08/08/21 21:00 2.0 I&O- Last 24 Hours up to 6 AM0 08/09/21 06:00 Intake Total 720 ml Output Total 1750 ml Balance -1030 ml HARPREET LAU MD Aug 09, 2021 12:57
[2021-08-09 14:00] VITALS: BP 134/78
[2021-08-09 20:00] VITALS: BP 135/68
[2021-08-09] MEDS: SENNA 8.6 MG TAB (SENOKOT) PO SCH (22:01)
[2021-08-09] MEDS: TAMSULOSIN 0.4 MG CAP PO SCH (22:01)
[2021-08-09] MEDS: FINASTERIDE 5 MG TAB PO SCH (22:02)
[2021-08-10 06:45] VITALS: BP 121/69
[2021-08-10] MEDS: HumaLOG INSULIN (NovoLOG) PER UNIT SC SCH ×2 (07:30→12:00)
[2021-08-10 08:00] VITALS: BP 177/89
[2021-08-10] MEDS: IRON POLYSAC (NIFEREX) 150 MG CAP PO SCH ×2 (08:46→20:26)
[2021-08-10] MEDS: LACTOBACILLUS ACIDOPHILUS CAP (BACID) PO SCH ×4 (08:47→20:26)
[2021-08-10] MEDS: CYANOCOBALAMIN 500 MCG TAB PO SCH (08:47)
[2021-08-10] MEDS: ISOSORBIDE MON. (IMDUR) 30 MG XR TAB PO SCH (08:48)
[2021-08-10] MEDS: TORSEMIDE 10 MG TABLET PO SCH (08:48)
[2021-08-10] MEDS: allopurinoL 300 MG TAB PO SCH (08:48)
[2021-08-10] MEDS: PANTOPRAZOLE 40MG TAB (PROTONIX) PO SCH (08:48)
[2021-08-10] MEDS: CARVedilol 3.125 MG TAB PO SCH ×2 (08:48→20:27)
[2021-08-10] MEDS: DOCUSATE SODIUM 100MG CAPSULE PO SCH ×2 (08:48→20:26)
[2021-08-10] MEDS: MAGNESIUM OXIDE 400MG TAB (MAG-OX) PO SCH ×2 (08:48→20:27)
[2021-08-10] MEDS: LORATADINE 10 MG TAB PO SCH (08:49)
[2021-08-10] MEDS: DIGOXIN 0.125 MG TAB PO SCH (08:49)
[2021-08-10] MEDS: MIRALAX *UNIT DOSE* 17GM PACKET PO SCH (08:49)
[2021-08-10] MEDS: REMEDY PHYTOPLEX Z-GUARD PASTE 113GM TUBE (FROM STOREROOM PRODUCT) TOP SCH ×3 (08:50→20:26)
[2021-08-10] MEDS: SODIUM CHLORIDE NASAL 0.65% SPRAY BTL (OCEAN) SCH ×3 (08:50→20:28)
[2021-08-10 08:51] VITALS: BP 177/89
[2021-08-10 14:00] VITALS: BP 141/70
--- NOTE | 2021-08-10 15:04 | IPNPDOC ---
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 REVIEW OF SYSTEMS: The following is a completed review of systems and has been reviewed. Review of systems otherwise unremarkable. PAIN: Patient self reports no pain EYES: No recent vision changes EARS, NOSE, & THROAT: No throat pain, or dysphagia, or rhinorrhea CARDIOVASCULAR: Denies chest pain or palpitations PULMONARY: Denies shortness of breath GASTROINTESTINAL: Denies constipation/diarrhea GENITOURINARY: +UTI with retention MUSCULOSKELETAL: generalized weakness NEUROLOGICAL:+left foot drop and peripheral polyneuropathy, left hand numbness HEMATOLOGICAL: denies easy bruising SKIN: left foot pressure spots PSYCHIATRIC: Unremarkable All other review of systems found to be negative. PHYSICAL EXAMINATION: VITAL SIGNS: Please see below. GENERAL: Pleasant and cooperative. No acute distress. HEENT: PERRL. Extraocular movements intact. Clear conjunctiva CARDIOVASCULAR: Irregular rate and rhythm. No murmurs, rubs, or gallops LUNGS: Clear to auscultation bilaterally. No wheezes. No rhonchi]. ABDOMEN: Soft, nontender, nondistended. Positive bowel sounds. Normal active bowel sounds NEUROLOGICAL: Alert and oriented times three. Cranial nerves II through XII grossly intact. Sensation decreased to light touch in stocking pattern decreased sensation to light touch on left hand D1-D4, D5 intact, +thenar wasting (-) babinksi/clonus bilat EXTREMITIES: 5\5 strength bilateral upper extremities. 5\5 strength right lower extremity. 4/5 strength in left hip flexor/knee extension, 0/5 ankle DF, EHL, PF SKIN: left toes with blanchable erythema, moisture noted between toes ASSESSMENT:81-year-old M with past medical history of Afib no longer on AC, DM with peripheral polyneuropathy who presents status post sepsis secondary to UTI with encephalopathy PLAN: 1. Rehab- PT/OT advance mobility and ADLs, strengthen/stretch/maintain ROM, patient has AFO on left, but it is home and too big, will likely need tufter consult to either adjust or provide new AFO 2. Neuro- peripheral polyneuropathy with left foot drop contributing to mobility impairments -recent encephalopathy due to sepsis, monitor for worsening cognitive function -carpal tunnel syndrome on left- will order splint to be worn at night and steroid cream for iontophoretic effect on median nerve -refer to neurology outpatient for NCS/EMG 3. Cardiac- Afib with PM, off AC due to frequent falls and recent supra- therapeutic INR, cont co-reg and digoxin -CHF- daily weights, fluid restrict, cont diuretics -recent soft BPs on inpatient, will be judicious with BP meds 4. Resp- monitor for infection, incentive spirometry -cont flonase, nasal saline drops, claritin for sinuses 5.-s/p course of Ceftriaxone, cont Levaquin and Bacid for Klebsiella UTI -hx of prostate cancer and enlarged prostate cont flomax, added finasteride for retention, will try TOV starting today, d/c green - f/u urology on d/c, repeat CT in 6 months to monitor left kidney mass 6. GI- cont f/u surgery for possible repeat colonoscopy given hx of colon cancer, no indication per Dr. Dinh for upper GI scope -protonix for ppx -FOBT negative 7. Endo- hx of DM with peripheral polyneuropathy cont insulin sliding scale 8. DVT ppx- TEDs 9. Pain- tylenol prn 10. Dispo- TBD Allergies Coded Allergies: Penicillins (Verified Allergy, Unknown, 03/04/21) anaph Vital Signs Vital Signs Date Time Temp Pulse Resp B/P (MAP) Pulse Ox O2 Delivery O2 Flow Rate FiO2 08/10/21 14:00 96.4 75 18 141/70 (93) 97 Room Air 08/08/21 21:00 2.0 Laboratory Data Labs 24H Laboratory Tests 2 08/09/21 16:49: Bedside Glucose (Misc Panel) 102 08/09/21 20:23: Bedside Glucose (Misc Panel) 171H 08/10/21 06:23: Bedside Glucose (Misc Panel) 99 08/10/21 12:08: Bedside Glucose (Misc Panel) 135H Current Medications Current Medications Current Medications Medications (Trade) Dose Ordered Sig/Malinda Route PRN Reason Start Time Stop Time Status Last Admin Dose Admin Acetaminophen (Tylenol Tab) 650 mg Q4HP PRN PO fever/MILD PAIN (PS 1-4) 07/31/21 15:50 08/07/21 20:24 Allopurinol (Zyloprim) 300 mg DAILY PO 07/31/21 09:00 08/10/21 08:48 Bisacodyl (Dulcolax Suppository) 10 mg DAILYPRN PRN [place] CONSTIPATION 07/31/21 15:50 Carbamide Peroxide (Debrox) 5 drop BID AU 08/03/21 21:00 08/07/21 09:01 DC 08/07/21 10:16 Carvedilol (COReg) 3.125 mg BID PO 07/31/21 21:00 08/10/21 08:48 Cyanocobalamin (Vitamin B12) 1,000 mcg DAILY PO 08/01/21 09:00 08/10/21 08:47 Dextrose (Dextrose 50%) 25 ml ASDIRECTED PRN IV SEE LABEL COMMENTS 07/31/21 15:50 08/01/21 10:59 DC Dextrose (Dextrose 50%) 25 ml ASDIRECTED PRN IV SEE LABEL COMMENTS 08/01/21 11:00 Digoxin (Lanoxin) 0.125 mg DAILY PO 08/01/21 09:00 08/10/21 08:49 Docusate Sodium (Colace) 100 mg BID PO 07/31/21 21:00 08/10/21 08:48 Finasteride (Proscar) 5 mg QHS PO 08/02/21 21:00 08/09/21 22:02 Glucagon (Glucagon) 1 mg ASDIRECTED PRN SC SEE LABEL COMMENTS 07/31/21 15:50 08/01/21 10:59 DC Glucagon (Glucagon) 1 mg ASDIRECTED PRN SC SEE LABEL COMMENTS 08/01/21 11:00 Glucose (Glucose) 16 GM ASDIRECTED PRN PO SEE LABEL COMMENTS 07/31/21 15:50 08/01/21 10:59 DC Glucose (Glucose) 16 GM ASDIRECTED PRN PO SEE LABEL COMMENTS 08/01/21 11:00 Hydralazine HCl (Apresoline) 25 mg Q6H PO 08/10/21 14:50 UNV Hydrocortisone (Hydrocortisone 2.5% Ointment) left wrist crease BID TOP 08/01/21 09:00 08/07/21 12:18 DC 08/07/21 10:15 Insulin Human Lispro (HumaLOG INSULIN) SEE PROTOCOL TABLE AC SC 08/01/21 12:00 08/10/21 14:54 DC 08/09/21 17:21 Insulin Human Lispro (HumaLOG INSULIN) SEE PROTOCOL TABLE QHS SC 07/31/21 21:00 08/01/21 10:59 DC Insulin Human Lispro (HumaLOG INSULIN) SEE PROTOCOL TABLE QHS [place] 08/01/21 21:00 08/10/21 14:54 DC Insulin Human Lispro (HumaLOG INSULIN) See Protocol Table AC [place] 08/01/21 07:30 08/01/21 10:59 DC 08/01/21 08:50 Iron (Niferex) 150 mg BID PO 07/31/21 21:00 08/10/21 08:46 Isosorbide Mononitrate (Imdur) 30 mg DAILY PO 08/01/21 09:00 08/10/21 14:50 DC 08/10/21 08:48 Isosorbide Mononitrate (Imdur) 60 mg DAILY PO 08/11/21 09:00 UNV Lactobacillus Acidophilus (Bacid) 1 ea WMHS PO 07/31/21 18:00 08/10/21 12:21 Levofloxacin (Levaquin) 500 mg DAILY@06 PO 08/01/21 06:00 08/04/21 10:21 DC 08/04/21 05:17 Lidocaine HCl (Lidocaine 2% Urojet) FOR Intermittent CATHETERization Q2HP PRN TOP catheterization 08/02/21 16:20 Loratadine (Claritin) 10 mg DAILY PO 08/03/21 09:00 08/10/21 14:50 DC 08/10/21 08:49 Magnesium Oxide (Mag-Ox) 400 mg BID PO 08/03/21 09:00 08/10/21 08:48 Pantoprazole Sodium (Protonix) 40 mg DAILY PO 07/31/21 09:00 08/10/21 08:48 Phenazopyridine HCl (Pyridium) 100 mg TID PO 08/02/21 16:15 08/03/21 14:25 DC 08/03/21 08:38 Polyethylene Glycol (Miralax) 1 pkt DAILY PO 08/04/21 10:20 08/10/21 08:49 Senna (Senokot) 1 tab QHS PO 07/31/21 21:00 08/09/21 22:01 Sodium Chloride ([place] Nasal [place]) 2 spray TID NA 08/03/21 16:00 08/10/21 08:50 Tamsulosin HCl (Flomax) 0.8 mg QHS PO 08/01/21 21:00 08/09/21 22:01 Torsemide (Demadex) 10 mg DAILY PO 08/01/21 09:00 08/10/21 08:48 YVON COELHO MD Aug 10, 2021 15:04
--- NOTE | 2021-08-10 15:05 | IPNPDOC ---
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 REVIEW OF SYSTEMS: The following is a completed review of systems and has been reviewed. Review of systems otherwise unremarkable. PAIN: Patient self reports no pain EYES: No recent vision changes EARS, NOSE, & THROAT: No throat pain, or dysphagia, or rhinorrhea CARDIOVASCULAR: Denies chest pain or palpitations PULMONARY: Denies shortness of breath GASTROINTESTINAL: Denies constipation/diarrhea GENITOURINARY: +UTI with retention (resolved) MUSCULOSKELETAL: generalized weakness NEUROLOGICAL:+left foot drop and peripheral polyneuropathy, left hand numbness HEMATOLOGICAL: denies easy bruising SKIN: left foot pressure spots PSYCHIATRIC: Unremarkable All other review of systems found to be negative. PHYSICAL EXAMINATION: VITAL SIGNS: Please see below. GENERAL: Pleasant and cooperative. No acute distress. HEENT: PERRL. Extraocular movements intact. Clear conjunctiva CARDIOVASCULAR: Irregular rate and rhythm. No murmurs, rubs, or gallops LUNGS: Clear to auscultation bilaterally. No wheezes. No rhonchi]. ABDOMEN: Soft, nontender, nondistended. Positive bowel sounds. Normal active bowel sounds NEUROLOGICAL: Alert and oriented times three. Cranial nerves II through XII grossly intact. Sensation decreased to light touch in stocking pattern decreased sensation to light touch on left hand D1-D4, D5 intact, +thenar wasting (-) babinksi/clonus bilat EXTREMITIES: 5\5 strength bilateral upper extremities. 5\5 strength right lower extremity. 4/5 strength in left hip flexor/knee extension, 0/5 ankle DF, EHL, PF SKIN: left toes with blanchable erythema, moisture noted between toes ASSESSMENT:81-year-old M with past medical history of Afib no longer on AC, DM with peripheral polyneuropathy who presents status post sepsis secondary to UTI with encephalopathy PLAN: 1. Rehab- PT/OT advance mobility and ADLs, strengthen/stretch/maintain ROM, patient has AFO on left, but it is home and too big, will likely need strike operations officer consult to either adjust or provide new AFO 2. Neuro- peripheral polyneuropathy with left foot drop contributing to mobility impairments -recent encephalopathy due to sepsis, monitor for worsening cognitive function -carpal tunnel syndrome on left- will order splint to be worn at night and steroid cream for iontophoretic effect on median nerve -refer to neurology outpatient for NCS/EMG 3. Cardiac- Afib with PM, off AC due to frequent falls and recent supra- therapeutic INR, cont co-reg and digoxin -CHF- daily weights, fluid restrict, cont diuretics -recent soft BPs on inpatient, will be judicious with BP meds 4. Resp- monitor for infection, incentive spirometry -cont flonase, nasal saline drops, claritin for sinuses 5.-s/p course of Ceftriaxone, cont Levaquin and Bacid for Klebsiella UTI -hx of prostate cancer and enlarged prostate cont flomax, added finasteride for retention, green d/c''d 08-09, patient voiding well so far - f/u urology on d/c, repeat CT in 6 months to monitor left kidney mass 6. GI- cont f/u surgery for possible repeat colonoscopy given hx of colon cancer, no indication per Dr. Dinh for upper GI scope -protonix for ppx -FOBT negative 7. Endo- hx of DM with peripheral polyneuropathy cont insulin sliding scale 8. DVT ppx- TEDs 9. Pain- tylenol prn 10. Dispo- TBD Allergies Coded Allergies: Penicillins (Verified Allergy, Unknown, 03/04/21) anaph Vital Signs Vital Signs Date Time Temp Pulse Resp B/P (MAP) Pulse Ox O2 Delivery O2 Flow Rate FiO2 08/10/21 14:00 96.4 75 18 141/70 (93) 97 Room Air 08/08/21 21:00 2.0 Laboratory Data Labs 24H Laboratory Tests 2 08/09/21 16:49: Bedside Glucose (Misc Panel) 102 08/09/21 20:23: Bedside Glucose (Misc Panel) 171H 08/10/21 06:23: Bedside Glucose (Misc Panel) 99 08/10/21 12:08: Bedside Glucose (Misc Panel) 135H Current Medications Current Medications Current Medications Medications (Trade) Dose Ordered Sig/Malinda Route PRN Reason Start Time Stop Time Status Last Admin Dose Admin Acetaminophen (Tylenol Tab) 650 mg Q4HP PRN PO fever/MILD PAIN (PS 1-4) 07/31/21 15:50 08/07/21 20:24 Allopurinol (Zyloprim) 300 mg DAILY PO 07/31/21 09:00 08/10/21 08:48 Bisacodyl (Dulcolax Suppository) 10 mg DAILYPRN PRN [place] CONSTIPATION 07/31/21 15:50 Carbamide Peroxide (Debrox) 5 drop BID AU 08/03/21 21:00 08/07/21 09:01 DC 08/07/21 10:16 Carvedilol (COReg) 3.125 mg BID PO 07/31/21 21:00 08/10/21 08:48 Cyanocobalamin (Vitamin B12) 1,000 mcg DAILY PO 08/01/21 09:00 08/10/21 08:47 Dextrose (Dextrose 50%) 25 ml ASDIRECTED PRN IV SEE LABEL COMMENTS 07/31/21 15:50 08/01/21 10:59 DC Dextrose (Dextrose 50%) 25 ml ASDIRECTED PRN IV SEE LABEL COMMENTS 08/01/21 11:00 Digoxin (Lanoxin) 0.125 mg DAILY PO 08/01/21 09:00 08/10/21 08:49 Docusate Sodium (Colace) 100 mg BID PO 07/31/21 21:00 08/10/21 08:48 Finasteride (Proscar) 5 mg QHS PO 08/02/21 21:00 08/09/21 22:02 Glucagon (Glucagon) 1 mg ASDIRECTED PRN SC SEE LABEL COMMENTS 07/31/21 15:50 08/01/21 10:59 DC Glucagon (Glucagon) 1 mg ASDIRECTED PRN SC SEE LABEL COMMENTS 08/01/21 11:00 Glucose (Glucose) 16 GM ASDIRECTED PRN PO SEE LABEL COMMENTS 07/31/21 15:50 08/01/21 10:59 DC Glucose (Glucose) 16 GM ASDIRECTED PRN PO SEE LABEL COMMENTS 08/01/21 11:00 Hydralazine HCl (Apresoline) 25 mg Q6H PO 08/10/21 14:50 UNV Hydrocortisone (Hydrocortisone 2.5% Ointment) left wrist crease BID TOP 08/01/21 09:00 08/07/21 12:18 DC 08/07/21 10:15 Insulin Human Lispro (HumaLOG INSULIN) SEE PROTOCOL TABLE AC SC 08/01/21 12:00 08/10/21 14:54 DC 08/09/21 17:21 Insulin Human Lispro (HumaLOG INSULIN) SEE PROTOCOL TABLE QHS SC 07/31/21 21:00 08/01/21 10:59 DC Insulin Human Lispro (HumaLOG INSULIN) SEE PROTOCOL TABLE QHS SC 08/01/21 21:00 08/10/21 14:54 DC Insulin Human Lispro (HumaLOG INSULIN) See Protocol Table AC SC 08/01/21 07:30 08/01/21 10:59 DC 08/01/21 08:50 Iron (Niferex) 150 mg BID PO 07/31/21 21:00 08/10/21 08:46 Isosorbide Mononitrate (Imdur) 30 mg DAILY PO 08/01/21 09:00 08/10/21 14:50 DC 08/10/21 08:48 Isosorbide Mononitrate (Imdur) 60 mg DAILY PO 08/11/21 09:00 UNV Lactobacillus Acidophilus (Bacid) 1 ea WMHS PO 07/31/21 18:00 08/10/21 12:21 Levofloxacin (Levaquin) 500 mg DAILY@06 PO 08/01/21 06:00 08/04/21 10:21 DC 08/04/21 05:17 Lidocaine HCl (Lidocaine 2% Urojet) FOR Intermittent CATHETERization Q2HP PRN TOP catheterization 08/02/21 16:20 Loratadine (Claritin) 10 mg DAILY PO 08/03/21 09:00 08/10/21 14:50 DC 08/10/21 08:49 Magnesium Oxide (Mag-Ox) 400 mg BID PO 08/03/21 09:00 08/10/21 08:48 Pantoprazole Sodium (Protonix) 40 mg DAILY PO 07/31/21 09:00 08/10/21 08:48 Phenazopyridine HCl (Pyridium) 100 mg TID PO 08/02/21 16:15 08/03/21 14:25 DC 08/03/21 08:38 Polyethylene Glycol (Miralax) 1 pkt DAILY PO 08/04/21 10:20 08/10/21 08:49 Senna (Senokot) 1 tab QHS PO 07/31/21 21:00 08/09/21 22:01 Sodium Chloride ([place] Nasal [place]) 2 spray TID NA 08/03/21 16:00 08/10/21 08:50 Tamsulosin HCl (Flomax) 0.8 mg QHS PO 08/01/21 21:00 08/09/21 22:01 Torsemide (Demadex) 10 mg DAILY PO 08/01/21 09:00 08/10/21 08:48 YVON COELHO MD Aug 10, 2021 15:05
[2021-08-10 17:09] VITALS: BP 140/76
[2021-08-10] MEDS: **hydrALAZINE HCL** 25 MG TAB PO SCH (17:14)
[2021-08-10 20:08] VITALS: BP 130/80
[2021-08-10] MEDS: TAMSULOSIN 0.4 MG CAP PO SCH (20:26)
[2021-08-10] MEDS: SENNA 8.6 MG TAB (SENOKOT) PO SCH (20:26)
[2021-08-10] MEDS: FINASTERIDE 5 MG TAB PO SCH (20:26)
[2021-08-10] MEDS: ACETAMINOPHEN TAB 650MG DOSE (2X325MG) PO PRN (20:27)
[2021-08-11] MEDS: **hydrALAZINE HCL** 25 MG TAB PO SCH ×2 (00:15→05:27)
[2021-08-11] MEDS: ACETAMINOPHEN TAB 650MG DOSE (2X325MG) PO PRN (00:16)
[2021-08-11] MEDS: LIDOCAINE 2% 5ML JELLY UROJET TOP PRN ×3 (01:12→21:07)
[2021-08-11 06:24] VITALS: BP 130/60
[2021-08-11] MEDS ORDERED: NYSTATIN 100,000 UNITS/GM TOPICAL PWD 15 GM TOP SCH (09:00)
[2021-08-11] MEDS: IRON POLYSAC (NIFEREX) 150 MG CAP PO SCH ×2 (10:13→20:56)
[2021-08-11] MEDS: allopurinoL 300 MG TAB PO SCH (10:14)
[2021-08-11] MEDS: CARVedilol 3.125 MG TAB PO SCH ×2 (10:14→20:57)
[2021-08-11] MEDS: MAGNESIUM OXIDE 400MG TAB (MAG-OX) PO SCH ×2 (10:14→20:56)
[2021-08-11] MEDS: LACTOBACILLUS ACIDOPHILUS CAP (BACID) PO SCH ×4 (10:14→20:56)
[2021-08-11] MEDS: DOCUSATE SODIUM 100MG CAPSULE PO SCH ×2 (10:14→20:56)
[2021-08-11] MEDS: CYANOCOBALAMIN 500 MCG TAB PO SCH (10:14)
[2021-08-11] MEDS: PANTOPRAZOLE 40MG TAB (PROTONIX) PO SCH (10:14)
[2021-08-11] MEDS: DIGOXIN 0.125 MG TAB PO SCH (10:15)
[2021-08-11] MEDS: ISOSORBIDE MON. (IMDUR) 30 MG XR TAB PO SCH (10:15)
[2021-08-11] MEDS: MIRALAX *UNIT DOSE* 17GM PACKET PO SCH (10:16)
[2021-08-11] MEDS: SODIUM CHLORIDE NASAL 0.65% SPRAY BTL (OCEAN) SCH ×3 (10:16→20:58)
[2021-08-11] MEDS: TORSEMIDE 10 MG TABLET PO SCH (10:16)
[2021-08-11 10:26] LABS: BASO % 0.6 % (0.0-1.0); EOS # 0.4 10^3/uL (0.0-0.5); EOS % 5.8 % (0.0-3.0); HEMATOCRIT 33.7 % (42.0-52.0); HEMOGLOBIN 10.4 g/dl (13.5-17.5); LYMPH # 1.2 10^3/uL (1.5-5.0); LYMPH % 17.4 % (24.0-44.0); MEAN CORPUSCULAR HEMOGLOBIN 31.7 pg (27.0-33.0); MEAN CORPUSCULAR HGB CONC 30.9 g/dl (32.0-36.5); MEAN CORPUSCULAR VOLUME 102.7 fl (80.0-96.0); MONO # 1.2 10^3/uL (0.0-0.8); MONO % 16.9 % (2.0-8.0); NEUTROPHILS % 58.3 % (36.0-66.0); PLATELET COUNT, AUTOMATED 225 10^3/uL (150-450); RED BLOOD COUNT 3.28 10^6/uL (4.30-6.10); WHITE BLOOD COUNT 6.9 10^3/uL (4.0-10.0)
[2021-08-11 11:04] LABS: BLOOD UREA NITROGEN 22 MG/DL (7-18); CALCIUM LEVEL 9.4 MG/DL (8.8-10.2); CARBON DIOXIDE LEVEL 26 MEQ/L (21-32); CHLORIDE LEVEL 107 MEQ/L (98-107); CREATININE FOR GFR 0.85 MG/DL (0.70-1.30); GLOMERULAR FILTRATION RATE > 60.0 (>35); GLUCOSE, FASTING 111 MG/DL (70-100); POTASSIUM SERUM 4.2 MEQ/L (3.5-5.1); SODIUM LEVEL 139 MEQ/L (136-145)
--- NOTE | 2021-08-11 12:59 | IPNPDOC ---
PM&R Progress Note DATE OF SERVICE: Aug 11, 2021 Transplant Rn Progress Note Subjective: Patient upset today because he had to be catheterized overnight and has had pain in his penis. He is agreeable to a trial of gabapentin and an additional m edication to help with his prostate. REVIEW OF SYSTEMS: The following is a completed review of systems and has been reviewed. Review of systems otherwise unremarkable. PAIN: Patient self reports no pain EYES: No recent vision changes EARS, NOSE, & THROAT: No throat pain, or dysphagia, or rhinorrhea CARDIOVASCULAR: Denies chest pain or palpitations PULMONARY: Denies shortness of breath GASTROINTESTINAL: Denies constipation/diarrhea GENITOURINARY: +UTI with retention (intermittent) MUSCULOSKELETAL: generalized weakness NEUROLOGICAL:+left foot drop and peripheral polyneuropathy, left hand numbness HEMATOLOGICAL: denies easy bruising SKIN: left foot pressure spots PSYCHIATRIC: Unremarkable All other review of systems found to be negative. PHYSICAL EXAMINATION: VITAL SIGNS: Please see below. GENERAL: Pleasant and cooperative. No acute distress. HEENT: PERRL. Extraocular movements intact. Clear conjunctiva CARDIOVASCULAR: Irregular rate and rhythm. No murmurs, rubs, or gallops LUNGS: Clear to auscultation bilaterally. No wheezes. No rhonchi]. ABDOMEN: Soft, nontender, nondistended. Positive bowel sounds. Normal active bowel sounds NEUROLOGICAL: Alert and oriented times three. Cranial nerves II through XII grossly intact. Sensation decreased to light touch in stocking pattern decreased sensation to light touch on left hand D1-D4, D5 intact, +thenar wasting (-) babinksi/clonus bilat EXTREMITIES: 5\5 strength bilateral upper extremities. 5\5 strength right lower extremity. 4/5 strength in left hip flexor/knee extension, 0/5 ankle DF, EHL, PF SKIN: left toes with blanchable erythema, moisture noted between toes ASSESSMENT:81-year-old M with past medical history of Afib no longer on AC, DM with peripheral polyneuropathy who presents status post sepsis secondary to UTI with encephalopathy PLAN: 1. Rehab- PT/OT advance mobility and ADLs, strengthen/stretch/maintain ROM, patient has AFO on left, but it is home and too big, will likely need maintenance shop welder consult to either adjust or provide new AFO 2. Neuro- peripheral polyneuropathy with left foot drop contributing to mobility impairments -recent encephalopathy due to sepsis, monitor for worsening cognitive function -carpal tunnel syndrome on left- will order splint to be worn at night and steroid cream for iontophoretic effect on median nerve -refer to neurology outpatient for NCS/EMG 3. Cardiac- Afib with PM, off AC due to frequent falls and recent supra- therapeutic INR, cont co-reg and digoxin -CHF- daily weights, fluid restrict, cont diuretics -elevated BPs, have adjusted Imdur dosing 4. Resp- monitor for infection, incentive spirometry -cont flonase, nasal saline drops, claritin for sinuses 5.-s/p course of Ceftriaxone, cont Levaquin and Bacid for Klebsiella UTI -hx of prostate cancer and enlarged prostate cont flomax, added finasteride for retention, green d/c''d 08-09, was voiding well but had episode of retention overnight with penile pain, will start gabapentin and pyridium for pain, and add terazosin 1mg qhs to see if this helps with retention, Ucx ordered overnight will await results - f/u urology on d/c, repeat CT in 6 months to monitor left kidney mass 6. GI- cont f/u surgery for possible repeat colonoscopy given hx of colon cancer, no indication per Dr. Dinh for upper GI scope -protonix for ppx -FOBT negative 7. Endo- hx of DM with peripheral polyneuropathy cont insulin sliding scale 8. DVT ppx- TEDs 9. Pain- tylenol prn 10. Dispo- TBD Allergies Coded Allergies: Penicillins (Verified Allergy, Unknown, 03/04/21) anaph Vital Signs Vital Signs Date Time Temp Pulse Resp B/P (MAP) Pulse Ox O2 Delivery O2 Flow Rate FiO2 08/11/21 10:15 68 08/11/21 10:14 136/66 08/11/21 06:24 97.8 18 99 Room Air 08/08/21 21:00 2.0 Laboratory Data CBC/BMP Laboratory Tests 08/11/21 09:59 Labs 24H Laboratory Tests 2 08/10/21 16:54: Bedside Glucose (Misc Panel) 165H 08/10/21 20:47: Bedside Glucose (Misc Panel) 166H 08/11/21 01:16: Urine Color YELLOW, Urine Appearance CLEAR, Urine pH 5.0, Urine Specific [place] 1.012, Urine Protein 1+H, Urine Glucose (UA) NEGATIVE, Urine Ketones NEGATIVE, Urine Blood 1+H, Urine Nitrite NEGATIVE, Urine Bilirubin NEGATIVE, Urine Urobilinogen 0.2, Urine Leukocyte Esterase TRACEH, Urine WBC (Auto) 14H, Urine RBC (Auto) 3, Urine Hyaline Casts (Auto) 0, Urine Bacteria (Auto) NEGATIVE, Urine Squamous Epithelial Cells 0, Urine Sperm (Auto) 08/11/21 05:39: Bedside Glucose (Misc Panel) 116H 08/11/21 09:59: Immature Granulocyte % (Auto) 1.0, Neutrophils (%) (Auto) 58.3, Lymphocytes (%) (Auto) 17.4L, Monocytes (%) (Auto) 16.9H, Eosinophils (%) (Auto) 5.8H, Basophils (%) (Auto) 0.6, Neutrophils # (Auto) 4.0, Lymphocytes # (Auto) 1.2L, Monocytes # (Auto) 1.2H, Eosinophils # (Auto) 0.4, Basophils # (Auto) 0.0, Nucleated Red Blood Cells % (auto) 0.0, Anion Gap 6L, Glomerular Filtration Rate > 60.0, Calcium Level 9.4 Microbiology Microbiology 08/11/21 Urine Culture, Received Pending Current Medications Current Medications Current Medications Medications (Trade) Dose Ordered Sig/Malinda Route PRN Reason Start Time Stop Time Status Last Admin Dose Admin Acetaminophen (Tylenol Tab) 650 mg Q4HP PRN PO fever/MILD PAIN (PS 1-4) 07/31/21 15:50 08/11/21 00:16 Allopurinol (Zyloprim) 300 mg DAILY PO 07/31/21 09:00 08/11/21 10:14 Bisacodyl (Dulcolax Suppository) 10 mg DAILYPRN PRN [place] CONSTIPATION 07/31/21 15:50 Carbamide Peroxide (Debrox) 5 drop BID AU 08/03/21 21:00 08/07/21 09:01 DC 08/07/21 10:16 Carvedilol (COReg) 3.125 mg BID PO 07/31/21 21:00 08/11/21 10:14 Cyanocobalamin (Vitamin B12) 1,000 mcg DAILY PO 08/01/21 09:00 08/11/21 10:14 Dextrose (Dextrose 50%) 25 ml ASDIRECTED PRN IV SEE LABEL COMMENTS 07/31/21 15:50 08/01/21 10:59 DC Dextrose (Dextrose 50%) 25 ml ASDIRECTED PRN IV SEE LABEL COMMENTS 08/01/21 11:00 Digoxin (Lanoxin) 0.125 mg DAILY PO 08/01/21 09:00 08/11/21 10:15 Docusate Sodium (Colace) 100 mg BID PO 07/31/21 21:00 08/11/21 10:14 Finasteride (Proscar) 5 mg QHS PO 08/02/21 21:00 08/10/21 20:26 Gabapentin (Neurontin) 100 mg TID PO 08/11/21 11:45 Glucagon (Glucagon) 1 mg ASDIRECTED PRN SC SEE LABEL COMMENTS 07/31/21 15:50 08/01/21 10:59 DC Glucagon (Glucagon) 1 mg ASDIRECTED PRN SC SEE LABEL COMMENTS 08/01/21 11:00 Glucose (Glucose) 16 GM ASDIRECTED PRN PO SEE LABEL COMMENTS 07/31/21 15:50 08/01/21 10:59 DC Glucose (Glucose) 16 GM ASDIRECTED PRN PO SEE LABEL COMMENTS 08/01/21 11:00 Hydralazine HCl (Apresoline) 25 mg Q6H PO 08/10/21 18:00 08/11/21 12:37 DC 08/11/21 00:15 Hydrocortisone (Hydrocortisone 2.5% Ointment) left wrist crease BID TOP 08/01/21 09:00 08/07/21 12:18 DC 08/07/21 10:15 Insulin Human Lispro (HumaLOG INSULIN) SEE PROTOCOL TABLE AC [place] 08/01/21 12:00 08/10/21 14:54 DC 08/09/21 17:21 Insulin Human Lispro (HumaLOG INSULIN) SEE PROTOCOL TABLE QHS [place] 07/31/21 21:00 08/01/21 10:59 DC Insulin Human Lispro (HumaLOG INSULIN) [facility] 21:00 08/10/21 14:54 DC Insulin Human Lispro (HumaLOG INSULIN) See Protocol Table AC [place] 08/01/21 07:30 08/01/21 10:59 DC 08/01/21 08:50 Iron (Niferex) 150 mg BID PO 07/31/21 21:00 08/11/21 10:13 Isosorbide Mononitrate (Imdur) 30 mg DAILY PO 08/01/21 09:00 08/10/21 14:50 DC 08/10/21 08:48 Isosorbide Mononitrate (Imdur) 60 mg DAILY PO 08/11/21 09:00 08/11/21 10:15 Lactobacillus Acidophilus (Bacid) 1 ea WMHS PO 07/31/21 18:00 08/11/21 12:28 Levofloxacin (Levaquin) 500 mg DAILY@06 PO 08/01/21 06:00 08/04/21 10:21 DC 08/04/21 05:17 Lidocaine HCl (Lidocaine 2% Urojet) FOR Intermittent CATHETERization Q2HP PRN TOP catheterization 08/02/21 16:20 08/11/21 01:12 Loratadine (Claritin) 10 mg DAILY PO 08/03/21 09:00 08/10/21 14:50 DC 08/10/21 08:49 Magnesium Oxide (Mag-Ox) 400 mg BID PO 08/03/21 09:00 08/11/21 10:14 Nystatin (Mycostatin Powder, Nystop) groin/testicles BID TOP 08/11/21 09:00 Pantoprazole Sodium (Protonix) 40 mg DAILY PO 07/31/21 09:00 08/11/21 10:14 Phenazopyridine HCl (Pyridium) 100 mg TID PO 08/02/21 16:15 08/03/21 14:25 DC 08/03/21 08:38 Phenazopyridine HCl (Pyridium) 100 mg TID PO 08/11/21 16:00 08/13/21 09:01 Polyethylene Glycol (Miralax) 1 pkt DAILY PO 08/04/21 10:20 08/11/21 10:16 Senna (Senokot) 1 tab QHS PO 07/31/21 21:00 08/10/21 20:26 Sodium Chloride ([place] Nasal [place]) 2 spray TID NA 08/03/21 16:00 08/11/21 10:16 Tamsulosin HCl (Flomax) 0.8 mg QHS PO 08/01/21 21:00 08/10/21 20:26 Terazosin HCl (Hytrin) 1 mg QHS PO 08/11/21 21:00 Torsemide (Demadex) 10 mg DAILY PO 08/01/21 09:00 08/11/21 10:16 YVON COELHO MD Aug 11, 2021 12:59
[2021-08-11] MEDS: GABAPENTIN 100 MG CAP PO SCH ×3 (13:40→20:56)
[2021-08-11] MEDS: REMEDY PHYTOPLEX Z-GUARD PASTE 113GM TUBE (FROM STOREROOM PRODUCT) TOP SCH ×3 (13:42→20:58)
[2021-08-11] MEDS ORDERED: FLUCONAZOLE 50MG TABLET PO ONE (16:00)
[2021-08-11] MEDS: PHENAZOPYRIDINE 100 MG TAB PO SCH ×2 (17:36→20:56)
[2021-08-11] MEDS: NYSTATIN 100,000 UNITS/GM TOPICAL PWD 15 GM TOP SCH ×2 (17:37→20:57)
[2021-08-11 20:00] VITALS: BP 136/64
[2021-08-11] MEDS: FINASTERIDE 5 MG TAB PO SCH (20:56)
[2021-08-11] MEDS: TAMSULOSIN 0.4 MG CAP PO SCH (20:56)
[2021-08-11] MEDS: SENNA 8.6 MG TAB (SENOKOT) PO SCH (20:56)
[2021-08-11] MEDS: TERAZOSIN 1 MG CAP PO SCH (20:57)
[2021-08-12 06:24] VITALS: BP 152/68
[2021-08-12] MEDS: MIRALAX *UNIT DOSE* 17GM PACKET PO SCH (09:41)
[2021-08-12] MEDS: allopurinoL 300 MG TAB PO SCH (09:42)
[2021-08-12] MEDS: CYANOCOBALAMIN 500 MCG TAB PO SCH (09:42)
[2021-08-12] MEDS: PANTOPRAZOLE 40MG TAB (PROTONIX) PO SCH (09:42)
[2021-08-12] MEDS: DOCUSATE SODIUM 100MG CAPSULE PO SCH ×2 (09:42→20:36)
[2021-08-12] MEDS: LACTOBACILLUS ACIDOPHILUS CAP (BACID) PO SCH ×4 (09:42→20:37)
[2021-08-12] MEDS: TORSEMIDE 10 MG TABLET PO SCH (09:42)
[2021-08-12] MEDS: MAGNESIUM OXIDE 400MG TAB (MAG-OX) PO SCH ×2 (09:42→20:37)
[2021-08-12] MEDS: GABAPENTIN 100 MG CAP PO SCH ×3 (09:43→20:36)
[2021-08-12] MEDS: IRON POLYSAC (NIFEREX) 150 MG CAP PO SCH ×2 (09:43→20:36)
[2021-08-12] MEDS: PHENAZOPYRIDINE 100 MG TAB PO SCH ×3 (09:43→20:36)
[2021-08-12] MEDS: DIGOXIN 0.125 MG TAB PO SCH (09:46)
[2021-08-12] MEDS: CARVedilol 3.125 MG TAB PO SCH ×2 (09:47→20:37)
[2021-08-12] MEDS: ISOSORBIDE MON. (IMDUR) 30 MG XR TAB PO SCH (09:47)
[2021-08-12] MEDS: NYSTATIN 100,000 UNITS/GM TOPICAL PWD 15 GM TOP SCH ×3 (09:49→20:38)
[2021-08-12] MEDS: SODIUM CHLORIDE NASAL 0.65% SPRAY BTL (OCEAN) SCH ×3 (09:49→20:38)
[2021-08-12] MEDS: REMEDY PHYTOPLEX Z-GUARD PASTE 113GM TUBE (FROM STOREROOM PRODUCT) TOP SCH ×3 (09:49→20:38)
[2021-08-12] MEDS: ACETAMINOPHEN TAB 650MG DOSE (2X325MG) PO PRN (12:50)
[2021-08-12 14:00] VITALS: BP 141/73
[2021-08-12 20:00] VITALS: BP 115/69
[2021-08-12] MEDS: SENNA 8.6 MG TAB (SENOKOT) PO SCH (20:36)
[2021-08-12] MEDS: TERAZOSIN 1 MG CAP PO SCH (20:36)
[2021-08-12] MEDS: FINASTERIDE 5 MG TAB PO SCH (20:37)
[2021-08-12] MEDS: TAMSULOSIN 0.4 MG CAP PO SCH (20:37)
[2021-08-13 06:00] VITALS: BP 134/62
[2021-08-13] MEDS: IRON POLYSAC (NIFEREX) 150 MG CAP PO SCH ×2 (07:47→20:21)
[2021-08-13] MEDS: CYANOCOBALAMIN 500 MCG TAB PO SCH (07:47)
[2021-08-13] MEDS: MIRALAX *UNIT DOSE* 17GM PACKET PO SCH (07:47)
[2021-08-13] MEDS: TORSEMIDE 10 MG TABLET PO SCH (07:48)
[2021-08-13] MEDS: allopurinoL 300 MG TAB PO SCH (07:48)
[2021-08-13] MEDS: MAGNESIUM OXIDE 400MG TAB (MAG-OX) PO SCH ×2 (07:48→20:23)
[2021-08-13] MEDS: LACTOBACILLUS ACIDOPHILUS CAP (BACID) PO SCH ×4 (07:48→20:23)
[2021-08-13] MEDS: PANTOPRAZOLE 40MG TAB (PROTONIX) PO SCH (07:48)
[2021-08-13] MEDS: GABAPENTIN 100 MG CAP PO SCH ×3 (07:48→20:22)
[2021-08-13] MEDS: PHENAZOPYRIDINE 100 MG TAB PO SCH (07:48)
[2021-08-13] MEDS: DOCUSATE SODIUM 100MG CAPSULE PO SCH ×2 (07:48→20:22)
[2021-08-13] MEDS: DIGOXIN 0.125 MG TAB PO SCH (07:49)
[2021-08-13] MEDS: ACETAMINOPHEN TAB 650MG DOSE (2X325MG) PO PRN (07:49)
[2021-08-13] MEDS: ISOSORBIDE MON. (IMDUR) 30 MG XR TAB PO SCH (07:50)
[2021-08-13] MEDS: CARVedilol 3.125 MG TAB PO SCH ×2 (07:50→20:22)
[2021-08-13] MEDS: REMEDY PHYTOPLEX Z-GUARD PASTE 113GM TUBE (FROM STOREROOM PRODUCT) TOP SCH ×3 (07:51→20:23)
[2021-08-13] MEDS: SODIUM CHLORIDE NASAL 0.65% SPRAY BTL (OCEAN) SCH ×3 (07:51→20:23)
[2021-08-13] MEDS: NYSTATIN 100,000 UNITS/GM TOPICAL PWD 15 GM TOP SCH ×3 (07:51→20:23)
[2021-08-13 14:00] VITALS: BP 138/66
[2021-08-13 20:00] VITALS: BP 157/71
[2021-08-13] MEDS: TERAZOSIN 1 MG CAP PO SCH (20:22)
[2021-08-13] MEDS: SENNA 8.6 MG TAB (SENOKOT) PO SCH (20:22)
[2021-08-13] MEDS: FINASTERIDE 5 MG TAB PO SCH (20:23)
[2021-08-13] MEDS: TAMSULOSIN 0.4 MG CAP PO SCH (20:24)
[2021-08-14 06:18] VITALS: BP 128/76
[2021-08-14] MEDS: MIRALAX *UNIT DOSE* 17GM PACKET PO SCH (07:38)
[2021-08-14] MEDS: IRON POLYSAC (NIFEREX) 150 MG CAP PO SCH ×2 (07:39→20:54)
[2021-08-14] MEDS: DOCUSATE SODIUM 100MG CAPSULE PO SCH ×2 (07:39→20:55)
[2021-08-14] MEDS: LACTOBACILLUS ACIDOPHILUS CAP (BACID) PO SCH ×4 (07:39→20:55)
[2021-08-14] MEDS: CYANOCOBALAMIN 500 MCG TAB PO SCH (07:39)
[2021-08-14] MEDS: PANTOPRAZOLE 40MG TAB (PROTONIX) PO SCH (07:39)
[2021-08-14] MEDS: MAGNESIUM OXIDE 400MG TAB (MAG-OX) PO SCH ×2 (07:40→20:55)
[2021-08-14] MEDS: GABAPENTIN 100 MG CAP PO SCH ×3 (07:40→20:54)
[2021-08-14] MEDS: ISOSORBIDE MON. (IMDUR) 30 MG XR TAB PO SCH (07:40)
[2021-08-14] MEDS: allopurinoL 300 MG TAB PO SCH (07:40)
[2021-08-14] MEDS: CARVedilol 3.125 MG TAB PO SCH ×2 (07:41→20:55)
[2021-08-14] MEDS: REMEDY PHYTOPLEX Z-GUARD PASTE 113GM TUBE (FROM STOREROOM PRODUCT) TOP SCH ×3 (07:41→20:56)
[2021-08-14] MEDS: DIGOXIN 0.125 MG TAB PO SCH (07:41)
[2021-08-14] MEDS: SODIUM CHLORIDE NASAL 0.65% SPRAY BTL (OCEAN) SCH ×3 (07:42→20:54)
[2021-08-14] MEDS: NYSTATIN 100,000 UNITS/GM TOPICAL PWD 15 GM TOP SCH ×3 (07:42→20:54)
[2021-08-14] MEDS: ACETAMINOPHEN TAB 650MG DOSE (2X325MG) PO PRN (07:42)
[2021-08-14] MEDS: TORSEMIDE 10 MG TABLET PO SCH (07:43)
[2021-08-14 09:01] LABS: BASO % 0.4 % (0.0-1.0); EOS # 0.4 10^3/uL (0.0-0.5); EOS % 5.2 % (0.0-3.0); HEMATOCRIT 31.8 % (42.0-52.0); HEMOGLOBIN 9.7 g/dl (13.5-17.5); LYMPH % 14.5 % (24.0-44.0); MEAN CORPUSCULAR HEMOGLOBIN 31.9 pg (27.0-33.0); MEAN CORPUSCULAR HGB CONC 30.5 g/dl (32.0-36.5); MEAN CORPUSCULAR VOLUME 104.6 fl (80.0-96.0); MONO # 1.1 10^3/uL (0.0-0.8); MONO % 15.3 % (2.0-8.0); NEUTROPHILS # 4.5 10^3/uL (1.5-8.5); NEUTROPHILS % 63.5 % (36.0-66.0); PLATELET COUNT, AUTOMATED 195 10^3/uL (150-450); RED BLOOD COUNT 3.04 10^6/uL (4.30-6.10); WHITE BLOOD COUNT 7.1 10^3/uL (4.0-10.0)
[2021-08-14 09:27] LABS: BLOOD UREA NITROGEN 21 MG/DL (7-18); CALCIUM LEVEL 8.9 MG/DL (8.8-10.2); CARBON DIOXIDE LEVEL 26 MEQ/L (21-32); CHLORIDE LEVEL 105 MEQ/L (98-107); GLOMERULAR FILTRATION RATE > 60.0 (>35); GLUCOSE, FASTING 181 MG/DL (70-100); SODIUM LEVEL 138 MEQ/L (136-145)
--- NOTE | 2021-08-14 09:51 | IPNPDOC ---
PM&R Progress Note DATE OF SERVICE: Aug 14, 2021 Systems Security Consultant Progress Note Subjective: Patient seen in his room reporting he has the urge to urinate and has been having leaking around the catheter. he still reports a burning/discomfort in his penis. He is in agreement to start learning hwo to maneuver the catheter bag in order to safely go home and that he might still need the catheter at home for a period of time. REVIEW OF SYSTEMS: The following is a completed review of systems and has been reviewed. Review of systems otherwise unremarkable. PAIN: Patient self reports no pain EYES: No recent vision changes EARS, NOSE, & THROAT: No throat pain, or dysphagia, or rhinorrhea CARDIOVASCULAR: Denies chest pain or palpitations PULMONARY: Denies shortness of breath GASTROINTESTINAL: Denies constipation/diarrhea GENITOURINARY: +UTI with retention (intermittent) MUSCULOSKELETAL: generalized weakness NEUROLOGICAL:+left foot drop and peripheral polyneuropathy, left hand numbness HEMATOLOGICAL: denies easy bruising SKIN: left foot pressure spots PSYCHIATRIC: Unremarkable All other review of systems found to be negative. PHYSICAL EXAMINATION: VITAL SIGNS: Please see below. GENERAL: Pleasant and cooperative. No acute distress. HEENT: PERRL. Extraocular movements intact. Clear conjunctiva CARDIOVASCULAR: Irregular rate and rhythm. No murmurs, rubs, or gallops LUNGS: Clear to auscultation bilaterally. No wheezes. No rhonchi]. ABDOMEN: Soft, nontender, nondistended. Positive bowel sounds. Normal active bowel sounds NEUROLOGICAL: Alert and oriented times three. Cranial nerves II through XII grossly intact. Sensation decreased to light touch in stocking pattern decreased sensation to light touch on left hand D1-D4, D5 intact, +thenar wasting (-) babinksi/clonus bilat EXTREMITIES: 5\5 strength bilateral upper extremities. 5\5 strength right lower extremity. 4/5 strength in left hip flexor/knee extension, 0/5 ankle DF, EHL, PF SKIN: left toes with blanchable erythema, moisture noted between toes ASSESSMENT:81-year-old M with past medical history of Afib no longer on AC, DM with peripheral polyneuropathy who presents status post sepsis secondary to UTI with encephalopathy PLAN: 1. Rehab- PT/OT advance mobility and ADLs, strengthen/stretch/maintain ROM, patient has AFO on left, but it is home and too big, will likely need pharmacy technician instructor consult to either adjust or provide new AFO 2. Neuro- peripheral polyneuropathy with left foot drop contributing to mobility impairments -recent encephalopathy due to sepsis, monitor for worsening cognitive function -carpal tunnel syndrome on left- will order splint to be worn at night and steroid cream for iontophoretic effect on median nerve -refer to neurology outpatient for NCS/EMG 3. Cardiac- Afib with PM, off AC due to frequent falls and recent supra- therapeutic INR, cont co-reg and digoxin -CHF- daily weights, fluid restrict, cont diuretics -elevated BPs, have adjusted Imdur dosing 4. Resp- monitor for infection, incentive spirometry -cont flonase, nasal saline drops, claritin for sinuses 5.-s/p course of Ceftriaxone and Levaquin for Klebsiella UTI, patient unfortunately has had persistent dysuria and retention with 2 failed voiding trials (patient had green removed 08/01 and replaced 08/03, removed on 08/09 and was able to void with intermittent retention and dysuria/penile pain green replaced on 08/11 when one time dose of fluconazole was given and nystatin powder- to groin started for what looked like a fungal infection) -hx of prostate cancer cont Flomax, finasteride, terazosin for now, will consult urology to assist with retention and now leaking around current catheter -repeat Ucx growing E faecalis resistant to Levaquin- will consult Dr. Winter to see how to proceed - f/u urology on d/c, repeat CT in 6 months to monitor left kidney mass 6. GI- cont f/u surgery for possible repeat colonoscopy given hx of colon cancer, no indication per Dr. Dinh for upper GI scope -protonix for ppx -FOBT negative 7. Endo- hx of DM with peripheral polyneuropathy cont insulin sliding scale 8. DVT ppx- TEDs 9. Pain- tylenol prn 10. Dispo- TBD Allergies Coded Allergies: Penicillins (Verified Allergy, Unknown, 03/04/21) anaph Vital Signs Vital Signs Date Time Temp Pulse Resp B/P (MAP) Pulse Ox O2 Delivery O2 Flow Rate FiO2 08/14/21 07:41 69 08/14/21 07:41 128/76 08/14/21 06:18 97.9 18 98 Room Air 08/13/21 22:40 2.0 Laboratory Data CBC/BMP Laboratory Tests 08/14/21 08:43 Labs 24H Laboratory Tests 2 08/13/21 16:45: Bedside Glucose (Misc Panel) 206H 08/14/21 05:29: Bedside Glucose (Misc Panel) 142H 08/14/21 08:43: Immature Granulocyte % (Auto) 1.1, Neutrophils (%) (Auto) 63.5, Lymphocytes (%) (Auto) 14.5L, Monocytes (%) (Auto) 15.3H, Eosinophils (%) (Auto) 5.2H, Basophils (%) (Auto) 0.4, Neutrophils # (Auto) 4.5, Lymphocytes # (Auto) 1.0L, Monocytes # (Auto) 1.1H, Eosinophils # (Auto) 0.4, Basophils # (Auto) 0.0, Nucleated Red Blood Cells % (auto) 0.0, Anion Gap 7L, Glomerular Filtration Rate > 60.0, Calcium Level 8.9 Microbiology Microbiology 08/11/21 Urine Culture - Final, Complete Enterococcus Faecalis Current Medications Current Medications Current Medications Medications (Trade) Dose Ordered Sig/Malinda Route PRN Reason Start Time Stop Time Status Last Admin Dose Admin Acetaminophen (Tylenol Tab) 650 mg Q4HP PRN PO fever/MILD PAIN (PS 1-4) 07/31/21 15:50 08/14/21 07:42 Allopurinol (Zyloprim) 300 mg DAILY PO 07/31/21 09:00 08/14/21 07:40 Bisacodyl (Dulcolax Suppository) 10 mg DAILYPRN PRN [place] CONSTIPATION 07/31/21 15:50 Carbamide Peroxide (Debrox) 5 drop BID AU 08/03/21 21:00 08/07/21 09:01 DC 08/07/21 10:16 Carvedilol (COReg) 3.125 mg BID PO 07/31/21 21:00 08/14/21 07:41 Cyanocobalamin (Vitamin B12) 1,000 mcg DAILY PO 08/01/21 09:00 08/14/21 07:39 Dextrose (Dextrose 50%) 25 ml ASDIRECTED PRN IV SEE LABEL COMMENTS 07/31/21 15:50 08/01/21 10:59 DC Dextrose (Dextrose 50%) 25 ml ASDIRECTED PRN IV SEE LABEL COMMENTS 08/01/21 11:00 Digoxin (Lanoxin) 0.125 mg DAILY PO 08/01/21 09:00 08/14/21 07:41 Docusate Sodium (Colace) 100 mg BID PO 07/31/21 21:00 08/14/21 07:39 Finasteride (Proscar) 5 mg QHS PO 08/02/21 21:00 08/13/21 20:23 Gabapentin (Neurontin) 100 mg TID PO 08/11/21 11:45 08/14/21 07:40 Glucagon (Glucagon) 1 mg ASDIRECTED PRN SC SEE LABEL COMMENTS 07/31/21 15:50 08/01/21 10:59 DC Glucagon (Glucagon) 1 mg ASDIRECTED PRN SC SEE LABEL COMMENTS 08/01/21 11:00 Glucose (Glucose) 16 GM ASDIRECTED PRN PO SEE LABEL COMMENTS 07/31/21 15:50 08/01/21 10:59 DC Glucose (Glucose) 16 GM ASDIRECTED PRN PO SEE LABEL COMMENTS 08/01/21 11:00 Hydralazine HCl (Apresoline) 25 mg Q6H PO 08/10/21 18:00 08/11/21 12:37 DC 08/11/21 00:15 Hydrocortisone (Hydrocortisone 2.5% Ointment) left wrist crease BID TOP 08/01/21 09:00 08/07/21 12:18 DC 08/07/21 10:15 Insulin Human Lispro (HumaLOG INSULIN) SEE PROTOCOL TABLE AC [place] 08/01/21 12:00 08/10/21 14:54 DC 08/09/21 17:21 Insulin Human Lispro (HumaLOG INSULIN) SEE PROTOCOL TABLE QHS [place] 07/31/21 21:00 08/01/21 10:59 DC Insulin Human Lispro (HumaLOG INSULIN) [facility] 08/[facility]/21 21:00 08/10/21 14:54 DC Insulin Human Lispro (HumaLOG INSULIN) See Protocol Table AC [place] 08/01/21 07:30 08/01/21 10:59 DC 08/01/21 08:50 Iron (Niferex) 150 mg BID PO 07/31/21 21:00 08/14/21 07:39 Isosorbide Mononitrate (Imdur) 30 mg DAILY PO 08/01/21 09:00 08/10/21 14:50 DC 08/10/21 08:48 Isosorbide Mononitrate (Imdur) 60 mg DAILY PO 08/11/21 09:00 08/14/21 07:40 Lactobacillus Acidophilus (Bacid) 1 ea WMHS PO 07/31/21 18:00 08/14/21 07:39 Levofloxacin (Levaquin) 500 mg DAILY@06 PO 08/01/21 06:00 08/04/21 10:21 DC 08/04/21 05:17 Lidocaine HCl (Lidocaine 2% Urojet) FOR Intermittent CATHETERization Q2HP PRN TOP catheterization 08/02/21 16:20 08/11/21 21:07 Loratadine (Claritin) 10 mg DAILY PO 08/03/21 09:00 08/10/21 14:50 DC 08/10/21 08:49 Magnesium Oxide (Mag-Ox) 400 mg BID PO 08/03/21 09:00 08/14/21 07:40 Nystatin (Mycostatin Powder, Nystop) groin/testicles BID TOP 08/11/21 09:00 08/11/21 13:41 DC Nystatin (Mycostatin Powder, Nystop) groin/testicles TID TOP 08/11/21 16:00 08/14/21 07:42 Pantoprazole Sodium (Protonix) 40 mg DAILY PO 07/31/21 09:00 08/14/21 07:39 Phenazopyridine HCl (Pyridium) 100 mg TID PO 08/02/21 16:15 08/03/21 14:25 DC 08/03/21 08:38 Phenazopyridine HCl (Pyridium) 100 mg TID PO 08/11/21 16:00 08/13/21 09:01 DC 08/13/21 07:48 Polyethylene Glycol (Miralax) 1 pkt DAILY PO 08/04/21 10:20 08/14/21 07:38 Senna (Senokot) 1 tab QHS PO 07/31/21 21:00 08/13/21 20:22 Sodium Chloride ([place] Nasal [place]) 2 spray TID NA 08/03/21 16:00 08/14/21 07:42 Tamsulosin HCl (Flomax) 0.8 mg QHS PO 08/01/21 21:00 08/13/21 20:24 Terazosin HCl (Hytrin) 1 mg QHS PO 08/11/21 21:00 08/13/21 20:22 Torsemide (Demadex) 10 mg DAILY PO 08/01/21 09:00 08/14/21 07:43 YVON COELHO MD Aug 14, 2021 09:51
[2021-08-14 14:00] VITALS: BP 141/76
[2021-08-14 20:00] VITALS: BP 160/77
[2021-08-14] MEDS: TERAZOSIN 1 MG CAP PO SCH (20:54)
[2021-08-14] MEDS: TAMSULOSIN 0.4 MG CAP PO SCH (20:54)
[2021-08-14] MEDS: SENNA 8.6 MG TAB (SENOKOT) PO SCH (20:54)
[2021-08-14] MEDS: FLUCONAZOLE 100 MG TAB PO SCH (20:55)
[2021-08-14] MEDS: FINASTERIDE 5 MG TAB PO SCH (20:55)
[2021-08-15 06:00] VITALS: BP 125/67
--- NOTE | 2021-08-15 07:12 | SMCUROLCON ---
Urology Consultation General Date of Consultation 08/15/21 Reason For Consultation This patient is seen for Neuro Other. History of Present Illness asked to see re retention, catheter, leakage Past Medical History Medical History htn ckd dm2 colon ca hld hypothyroidism afib prostate ca chf Surgical Hstory pacer Family History Family History not pertinent to pt's situation Social History * Smoker: non-smoker Medications Current Medications Current Medications Medications (Trade) Dose Ordered Sig/Malinda Route PRN Reason Start Time Stop Time Status Last Admin Dose Admin Acetaminophen (Tylenol Tab) 650 mg Q4HP PRN PO fever/MILD PAIN (PS 1-4) 07/31/21 15:50 08/14/21 07:42 Allopurinol (Zyloprim) 300 mg DAILY PO 07/31/21 09:00 08/14/21 07:40 Bisacodyl (Dulcolax Suppository) 10 mg DAILYPRN PRN [place] CONSTIPATION 07/31/21 15:50 Carbamide Peroxide (Debrox) 5 drop BID AU 08/03/21 21:00 08/07/21 09:01 DC 08/07/21 10:16 Carvedilol (COReg) 3.125 mg BID PO 07/31/21 21:00 08/14/21 20:55 Cyanocobalamin (Vitamin B12) 1,000 mcg DAILY PO 08/01/21 09:00 08/14/21 07:39 Dextrose (Dextrose 50%) 25 ml ASDIRECTED PRN IV SEE LABEL COMMENTS 07/31/21 15:50 08/01/21 10:59 DC Dextrose (Dextrose 50%) 25 ml ASDIRECTED PRN IV SEE LABEL COMMENTS 08/01/21 11:00 Digoxin (Lanoxin) 0.125 mg DAILY PO 08/01/21 09:00 08/14/21 07:41 Docusate Sodium (Colace) 100 mg BID PO 07/31/21 21:00 08/14/21 20:55 Finasteride (Proscar) 5 mg QHS PO 08/02/21 21:00 08/14/21 20:55 Fluconazole (Diflucan Tablet) 100 mg QHS PO 08/14/21 21:00 08/21/21 20:59 08/14/21 20:55 Gabapentin (Neurontin) 100 mg TID PO 08/11/21 11:45 08/14/21 20:54 Glucagon (Glucagon) 1 mg ASDIRECTED PRN SC SEE LABEL COMMENTS 07/31/21 15:50 08/01/21 10:59 DC Glucagon (Glucagon) 1 mg ASDIRECTED PRN SC SEE LABEL COMMENTS 08/01/21 11:00 Glucose (Glucose) 16 GM ASDIRECTED PRN PO SEE LABEL COMMENTS 07/31/21 15:50 08/01/21 10:59 DC Glucose (Glucose) 16 GM ASDIRECTED PRN PO SEE LABEL COMMENTS 08/01/21 11:00 Hydralazine HCl (Apresoline) 25 mg Q6H PO 08/10/21 18:00 08/11/21 12:37 DC 08/11/21 00:15 Hydrocortisone (Hydrocortisone 2.5% Ointment) left wrist crease BID TOP 08/01/21 09:00 08/07/21 12:18 DC 08/07/21 10:15 Insulin Human Lispro (HumaLOG INSULIN) SEE PROTOCOL TABLE AC [place] 08/01/21 12:00 08/10/21 14:54 DC 08/09/21 17:21 Insulin Human Lispro (HumaLOG INSULIN) [facility] 07/[facility] 21:00 08/01/21 10:59 DC Insulin Human Lispro (HumaLOG INSULIN) [facility] 21:00 08/10/21 14:54 DC Insulin Human Lispro (HumaLOG INSULIN) See Protocol Table [facility] 08/01/21 07:30 08/01/21 10:59 DC 08/01/21 08:50 Iron (Niferex) 150 mg BID PO 07/31/21 21:00 08/14/21 20:54 Isosorbide Mononitrate (Imdur) 30 mg DAILY PO 08/01/21 09:00 08/10/21 14:50 DC 08/10/21 08:48 Isosorbide Mononitrate (Imdur) 60 mg DAILY PO 08/11/21 09:00 08/14/21 07:40 Lactobacillus Acidophilus (Bacid) 1 ea WMHS PO 07/31/21 18:00 08/14/21 20:55 Levofloxacin (Levaquin) 500 mg DAILY@06 PO 08/01/21 06:00 08/04/21 10:21 DC 08/04/21 05:17 Lidocaine HCl (Lidocaine 2% Urojet) FOR Intermittent CATHETERization Q2HP PRN TOP catheterization 08/02/21 16:20 08/11/21 21:07 Loratadine (Claritin) 10 mg DAILY PO 08/03/21 09:00 08/10/21 14:50 DC 08/10/21 08:49 Magnesium Oxide (Mag-Ox) 400 mg BID PO 08/03/21 09:00 08/14/21 20:55 Nystatin (Mycostatin Powder, Nystop) groin/testicles BID TOP 08/11/21 09:00 08/11/21 13:41 DC Nystatin (Mycostatin Powder, Nystop) groin/testicles TID TOP 08/11/21 16:00 08/14/21 20:54 Pantoprazole Sodium (Protonix) 40 mg DAILY PO 07/31/21 09:00 08/14/21 07:39 Phenazopyridine HCl (Pyridium) 100 mg TID PO 08/02/21 16:15 08/03/21 14:25 DC 08/03/21 08:38 Phenazopyridine HCl (Pyridium) 100 mg TID PO 08/11/21 16:00 08/13/21 09:01 DC 08/13/21 07:48 Polyethylene Glycol (Miralax) 1 pkt DAILY PO 08/04/21 10:20 08/14/21 07:38 Senna (Senokot) 1 tab QHS PO 07/31/21 21:00 08/14/21 20:54 Sodium Chloride ([place] Nasal [place]) 2 spray TID NA 08/03/21 16:00 08/14/21 20:54 Tamsulosin HCl (Flomax) 0.8 mg QHS PO 08/01/21 21:00 08/14/21 20:54 Terazosin HCl (Hytrin) 1 mg QHS PO 08/11/21 21:00 08/14/21 20:54 Torsemide (Demadex) 10 mg DAILY PO 08/01/21 09:00 08/14/21 07:43 Allergies Allergies: Coded Allergies: Penicillins (Verified Allergy, Unknown, 03/04/21) anaph Review of Systems General: Denies: Night Sweats Constitutional: Reports: Weakness Eyes: Denies: Vision change ENT: Reports: Ear Pain Skin: Denies: Lesions Pulmonary: Denies: Cough Cardiovascular: Denies Chest Pain Gastrointestinal: Denies: Abdominal Pain Genitourinary: Reports: Other Symptoms (catheter) Hematologic: Denies: Bleeding Excessively Endocrine: Denies: Polyphagia Musculoskeletal: Denies: Back Pain Neurological: Reports: Other Symptoms (foot drop) Psych: Denies: Anxiety Physical Examination General Exam: No Acute Distress EYE EXAM: Conjunctiva & lids normal ENT EXAM: Mucous membr. moist/pink Neck Exam: Supple Chest Exam: Normal air movement Heart Exam: Irregular Rhythm Abdomen Exam: Soft; No: Tenderness Male Exam: Normal Genital Exam Extremity Exam: No: Cyanosis Skin Exam: No: Nl turgor and temperature Neuro Exam: No: Normal Speech Psych Exam: No: Mood NL Vital Signs/I&O Vital Signs Date Time Temp Pulse Resp B/P (MAP) Pulse Ox O2 Delivery O2 Flow Rate FiO2 08/15/21 06:00 98.0 71 19 125/67 (86) 98 Room Air 08/13/21 22:40 2.0 l I&O- Last 24 Hours up to 6 AM 08/15/21 06:00 Intake Total 1155 ml Output Total 1600 ml Balance -445 ml Laboratory Data 24H Labs Laboratory Tests 2 08/14/21 08:43: Immature Granulocyte % (Auto) 1.1, Neutrophils (%) (Auto) 63.5, Lymphocytes (%) (Auto) 14.5L, Monocytes (%) (Auto) 15.3H, Eosinophils (%) (Auto) 5.2H, Basophils (%) (Auto) 0.4, Neutrophils # (Auto) 4.5, Lymphocytes # (Auto) 1.0L, Monocytes # (Auto) 1.1H, Eosinophils # (Auto) 0.4, Basophils # (Auto) 0.0, Nucleated Red Blood Cells % (auto) 0.0, Anion Gap 7L, Glomerular Filtration Rate > 60.0, Calcium Level 8.9 08/14/21 16:33: Bedside Glucose (Misc Panel) 140H 08/15/21 05:50: Bedside Glucose (Misc Panel) 134H CBC/BMP Laboratory Tests 08/14/21 08:43 Microbiology Microbiology 08/11/21 Urine Culture - Final, Complete Enterococcus Faecalis Assessment H/o prostate cancer s/p radiation many years ago. Urinary retention. Catheter in place now. Creatinine normal. Ct shows left renal mass c/w malignancy, no hydronephrosis and prostate with radiation markers. Meds include finasteride, tamsulosin and terazosin. Urine cx Enterococcus. On no antibiotic currently. Spasms with subsequent leakage around catheter. Voiding trial before discharge from rehab or discharge with catheter and voiding trial as outpt. Cystoscopy needed. Stay on bph meds. Uti needs treatment. Oxybutynin for bladder spasms. All d/w pt. Thank you. [phone] GABRIEL HARPER MD Aug 15, 2021 07:12
[2021-08-15] MEDS ORDERED: HOME MED LIST COMPLETE! XX SCH (07:35)
--- NOTE | 2021-08-15 08:16 | CR ---
CONSULTATION DATE: 08/14/2021 REASON FOR CONSULTATION: Asked to consult by Dr. Ida Thurman for evaluating urinary tract infection and dysuria. HISTORY OF PRESENT ILLNESS: Mr. Sanabria is an 81-year-old gentleman with a history of chronic kidney disease, hypertension, diabetes, peripheral neuropathy with foot drop, who was admitted to [facility] with encephalopathy and sepsis from urinary tract infection. The patient initially had Klebsiella urinary tract infection (UTI) treated with ceftriaxone from 07/25 until 07/30. Course was finished with levofloxacin from 07/31 to 08/04. The patient received 10 days of antibiotic and had an attempt for removal of his [place] catheter, but the patient continued complaining of dysuria and itching in the groin area and burning at the tip of the penis. He received one dose of fluconazole on 08/11 and nystatin ointment in the groin area where he had a macerated rash. Urine culture was repeated and it had 4000 Enterococcus faecalis and 14 white cells. He has had no fevers or chills. No nausea, vomiting or diarrhea. He continues to progress with physical therapy. The patient has had multiple cysts on his kidney and a mass had been evaluated in the past. He had decided not to undergo a nephrectomy and just be observed urology. The patient was seen in consultation by nephrology this admission as well. PAST MEDICAL HISTORY: Chronic kidney disease, hypertension, diabetes, peripheral neuropathy, foot drop, hyperlipidemia, history of colon cancer, history of prostate cancer, hypothyroidism, atrial fibrillation with pacemaker, congestive heart failure. PAST SURGICAL HISTORY: Colon cancer with colostomy. SOCIAL HISTORY: He does not smoke, drink or use drugs. He lives at home. ALLERGIES: PENICILLIN. MEDICATIONS: Terazosin 1 mg by mouth every night at bedtime, nystatin to the groin three times a day, gabapentin 100 mg by mouth three times a day, Isordil 60 mg by mouth daily, MiraLax one packet by mouth daily, Magnesium oxide 400 mg twice a day, Proscar 5 mg by mouth every night at bedtime, Flomax 0.8 mg by mouth every night at bedtime, Lidoderm patch as needed where the catheter is, torsemide 10 mg by mouth daily, digoxin 0.125 mg daily, vitamin B12 1000 mcg by mouth daily, iron 150 mg by mouth twice a day, Coreg 3.125 mg by mouth twice a day, senna one tablet by mouth every night at bedtime, Colace 100 mg by mouth twice a day, probiotics one tablet by mouth with meals, allopurinol 300 mg by mouth daily, pantoprazole 40 mg by mouth daily. LABORATORY DATA: White count 7.1, hemoglobin 9.7, hematocrit 31.8, MCV 104, platelets 195, 62% neutrophils, 15% lymphocytes, sodium 138, potassium 4, chloride 105, bicarbonate 26, BUN 21, creatinine 0.9, glucose 181, calcium 8.9. Urinalysis has trace leukocyte esterase, 14 white cells, +1 blood. Negative nitrite. MICRO: Urine culture had E. faecalis resistant to ciprofloxacin, tetracycline, only 4000 colony forming units. IMAGING STUDY: Renal ultrasound done on 07/29 showed multiple renal cysts and 5.1 x 4.6 x 4 cm left kidney mass with vascularity along with simple cyst. No hydronephrosis, no nephrolithiasis and right kidney has multiple cysts as well. The concern is that the renal mass is a renal cell carcinoma.. PHYSICAL EXAMINATION: Pleasant, elderly gentleman, in no acute distress. Temperature is 98.8, pulse 70, respirations 15, blood pressure 141/76, O2 saturation 100% on room air. Heart: Normal S1, S2 distant, no murmurs, rubs or gallops. Lungs are clear. No wheezes, rales or rhonchi. Abdomen: Obese, soft, nontender. No hepatosplenomegaly. Extremities: No clubbing, cyanosis or edema. He has decreased sensation to light touch on neurologic examination in lower extremities. Skin: He has macerations in both groin area with redness and the tip of his penis, the glans is erythematous. IMPRESSION: This is an 81-year-old gentleman with a history of prostate cancer, benign prostatic hypertrophy (BPH) on full dose therapy for BPH with Proscar, Flomax, has been treated for Klebsiella urinary tract infection. The patient continues with problems with urinary retention in the setting of mucocutaneous candidiasis. The patient complains of mostly irritation at the tip of the penis and not really burning on urination except at the tip. I suspect this is more related candidiasis and not related to the Enterococcus faecalis that grew no the urine culture. His urinalysis had only 14 white cells. PLAN: Do not treat the Enterococcus faecalis. The patient only received one dose of fluconazole on 09/10, suggest treating him with 100 mg daily for seven days and then give him another trial of voiding , hopefully can discontinue the [place]. Urology will be seeing him again in follow up today. MTDD
[2021-08-15] MEDS: MAGNESIUM OXIDE 400MG TAB (MAG-OX) PO SCH ×2 (08:31→22:04)
[2021-08-15] MEDS: LACTOBACILLUS ACIDOPHILUS CAP (BACID) PO SCH ×4 (08:32→22:04)
[2021-08-15] MEDS: ISOSORBIDE MON. (IMDUR) 30 MG XR TAB PO SCH (08:32)
[2021-08-15] MEDS: DOCUSATE SODIUM 100MG CAPSULE PO SCH ×2 (08:32→22:06)
[2021-08-15] MEDS: PANTOPRAZOLE 40MG TAB (PROTONIX) PO SCH (08:32)
[2021-08-15] MEDS: IRON POLYSAC (NIFEREX) 150 MG CAP PO SCH ×2 (08:32→22:04)
[2021-08-15] MEDS: DIGOXIN 0.125 MG TAB PO SCH (08:33)
[2021-08-15] MEDS: GABAPENTIN 100 MG CAP PO SCH ×3 (08:33→22:04)
[2021-08-15] MEDS: allopurinoL 300 MG TAB PO SCH (08:33)
[2021-08-15] MEDS: TORSEMIDE 10 MG TABLET PO SCH (08:33)
[2021-08-15] MEDS: CYANOCOBALAMIN 500 MCG TAB PO SCH (08:33)
[2021-08-15] MEDS: CARVedilol 3.125 MG TAB PO SCH ×2 (08:33→22:04)
[2021-08-15] MEDS: MIRALAX *UNIT DOSE* 17GM PACKET PO SCH (08:33)
[2021-08-15] MEDS: REMEDY PHYTOPLEX Z-GUARD PASTE 113GM TUBE (FROM STOREROOM PRODUCT) TOP SCH ×3 (08:34→22:06)
[2021-08-15] MEDS: SODIUM CHLORIDE NASAL 0.65% SPRAY BTL (OCEAN) SCH ×3 (08:35→22:05)
[2021-08-15] MEDS: NYSTATIN 100,000 UNITS/GM TOPICAL PWD 15 GM TOP SCH ×3 (08:35→22:05)
[2021-08-15] MEDS: oxyBUTYnin 5 MG TAB PO SCH ×2 (08:44→22:03)
--- NOTE | 2021-08-15 09:41 | IPNPDOC ---
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 He was asked if he wanted to go home from here and he said yes, the barreirs to discharge were explained to him and he was encouraged to work on more safety haseeb reness with therapy. When asked if he would be open to going to short term rehab he said he would give it some thought. REVIEW OF SYSTEMS: The following is a completed review of systems and has been reviewed. Review of systems otherwise unremarkable. PAIN: Patient self reports no pain EYES: No recent vision changes EARS, NOSE, & THROAT: No throat pain, or dysphagia, or rhinorrhea CARDIOVASCULAR: Denies chest pain or palpitations PULMONARY: Denies shortness of breath GASTROINTESTINAL: Denies constipation/diarrhea GENITOURINARY: +UTI with retention (intermittent) MUSCULOSKELETAL: generalized weakness NEUROLOGICAL:+left foot drop and peripheral polyneuropathy, left hand numbness HEMATOLOGICAL: denies easy bruising SKIN: left foot pressure spots PSYCHIATRIC: Unremarkable All other review of systems found to be negative. PHYSICAL EXAMINATION: VITAL SIGNS: Please see below. GENERAL: Pleasant and cooperative. No acute distress. HEENT: PERRL. Extraocular movements intact. Clear conjunctiva CARDIOVASCULAR: Irregular rate and rhythm. No murmurs, rubs, or gallops LUNGS: Clear to auscultation bilaterally. No wheezes. No rhonchi]. ABDOMEN: Soft, nontender, nondistended. Positive bowel sounds. Normal active bowel sounds NEUROLOGICAL: Alert and oriented times three. Cranial nerves II through XII grossly intact. Sensation decreased to light touch in stocking pattern decreased sensation to light touch on left hand D1-D4, D5 intact, +thenar wasting (-) babinksi/clonus bilat EXTREMITIES: 5\5 strength bilateral upper extremities. 5\5 strength right lower extremity. 4/5 strength in left hip flexor/knee extension, 0/5 ankle DF, EHL, PF SKIN: left toes with blanchable erythema, moisture noted between toes ASSESSMENT:81-year-old M with past medical history of Afib no longer on AC, DM with peripheral polyneuropathy who presents status post sepsis secondary to UTI with encephalopathy PLAN: 1. Rehab- PT/OT advance mobility and ADLs, strengthen/stretch/maintain ROM, patient has AFO on left, but it is home and too big, will likely need natural remedy consultant consult to either adjust or provide new AFO 2. Neuro- peripheral polyneuropathy with left foot drop contributing to mobility impairments -recent encephalopathy due to sepsis, monitor for worsening cognitive function -carpal tunnel syndrome on left- cont splint to be worn at night and steroid cream for iontophoretic effect on median nerve -refer to neurology outpatient for NCS/EMG 3. Cardiac- Afib with PM, off AC due to frequent falls and recent supra-therapeutic INR, cont co-reg and digoxin -CHF- daily weights, fluid restrict, cont diuretics -elevated BPs, have adjusted Imdur dosing- improved 4. Resp- monitor for infection, incentive spirometry -cont flonase, nasal saline drops, claritin for sinuses 5.-s/p course of Ceftriaxone and Levaquin for Klebsiella UTI, patient unfortunately has had persistent dysuria and retention with 2 failed voiding trials (patient had green removed 08/01 and replaced 08/03, removed on 08/09 and was able to void with intermittent retention and dysuria/penile pain green replaced on 08/11 when one time dose of fluconazole was given and nystatin powder- to groin started for what looked like a fungal infection)- Dr Winter consulted for E faecalis Ucx and she believes symptoms are due to fungal infection, Fluconazole started again for 7 day course, given low number of cells, E faecalis not thought to be causing infection at this time -urology recs appreciated as well, patient started on oxybutynin, will consider TOV again prior to dc, otherwise patient can do this as outpatient with close urology f/u, he will need cystoscopy as well -hx of prostate cancer cont Flomax, finasteride, terazosin - f/u urology on d/c, repeat CT in 6 months to monitor left kidney mass 6. GI- cont f/u surgery for possible repeat colonoscopy given hx of colon cancer, no indication per Dr. Dinh for upper GI scope -protonix for ppx -FOBT negative 7. Endo- hx of DM with peripheral polyneuropathy cont insulin sliding scale 8. DVT ppx- TEDs 9. Pain- tylenol prn 10. Dispo- TBD Allergies Coded Allergies: Penicillins (Verified Allergy, Unknown, 03/04/21) anaph Vital Signs Vital Signs Date Time Temp Pulse Resp B/P (MAP) Pulse Ox O2 Delivery O2 Flow Rate FiO2 08/15/21 08:33 78 08/15/21 08:32 128/67 08/15/21 06:00 98.0 19 98 Room Air 08/13/21 22:40 2.0 Laboratory Data Labs 24H Laboratory Tests 2 08/14/21 16:33: Bedside Glucose (Misc Panel) 140H 08/15/21 05:50: Bedside Glucose (Misc Panel) 134H Microbiology Microbiology 08/11/21 Urine Culture - Final, Complete Enterococcus Faecalis Current Medications Current Medications Current Medications Medications (Trade) Dose Ordered Sig/Malinda Route PRN Reason Start Time Stop Time Status Last Admin Dose Admin Acetaminophen (Tylenol Tab) 650 mg Q4HP PRN PO fever/MILD PAIN (PS 1-4) 07/31/21 15:50 08/14/21 07:42 Allopurinol (Zyloprim) 300 mg DAILY PO 07/31/21 09:00 08/15/21 08:33 Bisacodyl (Dulcolax Suppository) 10 mg DAILYPRN PRN [place] CONSTIPATION 07/31/21 15:50 Carbamide Peroxide (Debrox) 5 drop BID AU 08/03/21 21:00 08/07/21 09:01 DC 08/07/21 10:16 Carvedilol (COReg) 3.125 mg BID PO 07/31/21 21:00 08/15/21 08:33 Cyanocobalamin (Vitamin B12) 1,000 mcg DAILY PO 08/01/21 09:00 08/15/21 08:33 Dextrose (Dextrose 50%) 25 ml ASDIRECTED PRN IV SEE LABEL COMMENTS 07/31/21 15:50 08/01/21 10:59 DC Dextrose (Dextrose 50%) 25 ml ASDIRECTED PRN IV SEE LABEL COMMENTS 08/01/21 11:00 Digoxin (Lanoxin) 0.125 mg DAILY PO 08/01/21 09:00 08/15/21 08:33 Docusate Sodium (Colace) 100 mg BID PO 07/31/21 21:00 08/15/21 08:32 Finasteride (Proscar) 5 mg QHS PO 08/02/21 21:00 08/14/21 20:55 Fluconazole (Diflucan Tablet) 100 mg QHS PO 08/14/21 21:00 08/21/21 20:59 08/14/21 20:55 Gabapentin (Neurontin) 100 mg TID PO 08/11/21 11:45 08/15/21 08:33 Glucagon (Glucagon) 1 mg ASDIRECTED PRN SC SEE LABEL COMMENTS 07/31/21 15:50 08/01/21 10:59 DC Glucagon (Glucagon) 1 mg ASDIRECTED PRN SC SEE LABEL COMMENTS 08/01/21 11:00 Glucose (Glucose) 16 GM ASDIRECTED PRN PO SEE LABEL COMMENTS 07/31/21 15:50 08/01/21 10:59 DC Glucose (Glucose) 16 GM ASDIRECTED PRN PO SEE LABEL COMMENTS 08/01/21 11:00 Home Med (Home Med List Complete!) ASDIRECTED XX 08/15/21 07:35 08/15/21 07:36 DC Hydralazine HCl (Apresoline) 25 mg Q6H PO 08/10/21 18:00 08/11/21 12:37 DC 08/11/21 00:15 Hydrocortisone (Hydrocortisone 2.5% Ointment) left wrist crease BID TOP 08/01/21 09:00 08/07/21 12:18 DC 08/07/21 10:15 Insulin Human Lispro (HumaLOG INSULIN) SEE PROTOCOL TABLE AC [place] 08/01/21 12:00 08/10/21 14:54 DC 08/09/21 17:21 Insulin Human Lispro ([facility]LOG [facility]ULIN) [facility] 21:00 08/01/21 10:59 DC Insulin Human Lispro (HumaLOG INSULIN) [facility] 21:00 08/10/21 14:54 DC Insulin Human Lispro (HumaLOG INSULIN) See Protocol Table AC [place] 08/01/21 07:30 08/01/21 10:59 DC 08/01/21 08:50 Iron (Niferex) 150 mg BID PO 07/31/21 21:00 08/15/21 08:32 Isosorbide Mononitrate (Imdur) 30 mg DAILY PO 08/01/21 09:00 08/10/21 14:50 DC 08/10/21 08:48 Isosorbide Mononitrate (Imdur) 60 mg DAILY PO 08/11/21 09:00 08/15/21 08:32 Lactobacillus Acidophilus (Bacid) 1 ea WMHS PO 07/31/21 18:00 08/15/21 08:32 Levofloxacin (Levaquin) 500 mg DAILY@06 PO 08/01/21 06:00 08/04/21 10:21 DC 08/04/21 05:17 Lidocaine HCl (Lidocaine 2% Urojet) FOR Intermittent CATHETERization Q2HP PRN TOP catheterization 08/02/21 16:20 08/11/21 21:07 Loratadine (Claritin) 10 mg DAILY PO 08/03/21 09:00 08/10/21 14:50 DC 08/10/21 08:49 Magnesium Oxide (Mag-Ox) 400 mg BID PO 08/03/21 09:00 08/15/21 08:31 Nystatin (Mycostatin Powder, Nystop) groin/testicles BID TOP 08/11/21 09:00 08/11/21 13:41 DC Nystatin (Mycostatin Powder, Nystop) groin/testicles TID TOP 08/11/21 16:00 08/15/21 08:35 Oxybutynin Chloride (Ditropan) 5 mg BID PO 08/15/21 09:00 08/15/21 08:44 Pantoprazole Sodium (Protonix) 40 mg DAILY PO 07/31/21 09:00 08/15/21 08:32 Phenazopyridine HCl (Pyridium) 100 mg TID PO 08/02/21 16:15 08/03/21 14:25 DC 08/03/21 08:38 Phenazopyridine HCl (Pyridium) 100 mg TID PO 08/11/21 16:00 08/13/21 09:01 DC 08/13/21 07:48 Polyethylene Glycol (Miralax) 1 pkt DAILY PO 08/04/21 10:20 08/14/21 07:38 Senna (Senokot) 1 tab QHS PO 07/31/21 21:00 08/14/21 20:54 Sodium Chloride ([place] Nasal [place]) 2 spray TID NA 08/03/21 16:00 08/15/21 08:35 Tamsulosin HCl (Flomax) 0.8 mg QHS PO 08/01/21 21:00 08/14/21 20:54 Terazosin HCl (Hytrin) 1 mg QHS PO 08/11/21 21:00 08/14/21 20:54 Torsemide (Demadex) 10 mg DAILY PO 08/01/21 09:00 08/15/21 08:33 YVON COELHO MD Aug 15, 2021 09:41
[2021-08-15 14:00] VITALS: BP 120/70
[2021-08-15 22:00] VITALS: BP 143/63
[2021-08-15] MEDS: TERAZOSIN 1 MG CAP PO SCH (22:02)
[2021-08-15] MEDS: TAMSULOSIN 0.4 MG CAP PO SCH (22:03)
[2021-08-15] MEDS: SENNA 8.6 MG TAB (SENOKOT) PO SCH (22:04)
[2021-08-15] MEDS: FINASTERIDE 5 MG TAB PO SCH (22:05)
[2021-08-15] MEDS: FLUCONAZOLE 100 MG TAB PO SCH (22:05)
[2021-08-16 06:00] VITALS: BP 139/72
[2021-08-16] MEDS: TORSEMIDE 10 MG TABLET PO SCH (07:33)
[2021-08-16] MEDS: DIGOXIN 0.125 MG TAB PO SCH (07:34)
[2021-08-16] MEDS: CYANOCOBALAMIN 500 MCG TAB PO SCH (07:34)
[2021-08-16] MEDS: DOCUSATE SODIUM 100MG CAPSULE PO SCH ×2 (07:34→20:58)
[2021-08-16] MEDS: allopurinoL 300 MG TAB PO SCH (07:34)
[2021-08-16] MEDS: PANTOPRAZOLE 40MG TAB (PROTONIX) PO SCH (07:35)
[2021-08-16] MEDS: MAGNESIUM OXIDE 400MG TAB (MAG-OX) PO SCH ×2 (07:35→20:58)
[2021-08-16] MEDS: LACTOBACILLUS ACIDOPHILUS CAP (BACID) PO SCH ×4 (07:35→20:58)
[2021-08-16] MEDS: ISOSORBIDE MON. (IMDUR) 30 MG XR TAB PO SCH (07:35)
[2021-08-16] MEDS: IRON POLYSAC (NIFEREX) 150 MG CAP PO SCH ×2 (07:36→20:58)
[2021-08-16] MEDS: GABAPENTIN 100 MG CAP PO SCH ×3 (07:36→20:58)
[2021-08-16] MEDS: oxyBUTYnin 5 MG TAB PO SCH ×2 (07:36→20:58)
[2021-08-16] MEDS: CARVedilol 3.125 MG TAB PO SCH ×2 (07:36→20:59)
[2021-08-16] MEDS: MIRALAX *UNIT DOSE* 17GM PACKET PO SCH (07:37)
[2021-08-16] MEDS: SODIUM CHLORIDE NASAL 0.65% SPRAY BTL (OCEAN) SCH ×3 (07:40→20:59)
[2021-08-16] MEDS: REMEDY PHYTOPLEX Z-GUARD PASTE 113GM TUBE (FROM STOREROOM PRODUCT) TOP SCH ×3 (07:41→20:59)
[2021-08-16] MEDS: NYSTATIN 100,000 UNITS/GM TOPICAL PWD 15 GM TOP SCH ×3 (07:41→21:00)
--- NOTE | 2021-08-16 09:40 | IPNPDOC ---
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 he is agreeable to going to short term rehab. REVIEW OF SYSTEMS: The following is a completed review of systems and has been reviewed. Review of systems otherwise unremarkable. PAIN: Patient self reports no pain EYES: No recent vision changes EARS, NOSE, & THROAT: No throat pain, or dysphagia, or rhinorrhea CARDIOVASCULAR: Denies chest pain or palpitations PULMONARY: Denies shortness of breath GASTROINTESTINAL: Denies constipation/diarrhea GENITOURINARY: +UTI with retention (intermittent) MUSCULOSKELETAL: generalized weakness NEUROLOGICAL:+left foot drop and peripheral polyneuropathy, left hand numbness HEMATOLOGICAL: denies easy bruising SKIN: left foot pressure spots PSYCHIATRIC: Unremarkable All other review of systems found to be negative. PHYSICAL EXAMINATION: VITAL SIGNS: Please see below. GENERAL: Pleasant and cooperative. No acute distress. HEENT: PERRL. Extraocular movements intact. Clear conjunctiva CARDIOVASCULAR: Irregular rate and rhythm. No murmurs, rubs, or gallops LUNGS: Clear to auscultation bilaterally. No wheezes. No rhonchi]. ABDOMEN: Soft, nontender, nondistended. Positive bowel sounds. Normal active bowel sounds NEUROLOGICAL: Alert and oriented times three. Cranial nerves II through XII grossly intact. Sensation decreased to light touch in stocking pattern decreased sensation to light touch on left hand D1-D4, D5 intact, +thenar wasting (-) babinksi/clonus bilat EXTREMITIES: 5\5 strength bilateral upper extremities. 5\5 strength right lower extremity. 4/5 strength in left hip flexor/knee extension, 0/5 ankle DF, EHL, PF SKIN: left toes with blanchable erythema, moisture noted between toes ASSESSMENT:81-year-old M with past medical history of Afib no longer on AC, DM with peripheral polyneuropathy who presents status post sepsis secondary to UTI with encephalopathy PLAN: 1. Rehab- PT/OT advance mobility and ADLs, strengthen/stretch/maintain ROM, patient has AFO on left, ambulating with RW 2. Neuro- peripheral polyneuropathy with left foot drop contributing to mobility impairments -recent encephalopathy due to sepsis, monitor for worsening cognitive function -carpal tunnel syndrome on left- cont splint to be worn at night and steroid cream for iontophoretic effect on median nerve -refer to neurology outpatient for NCS/EMG 3. Cardiac- Afib with PM, off AC due to frequent falls and recent supra- therapeutic INR, cont co-reg and digoxin -CHF- daily weights, fluid restrict, cont diuretics -elevated BPs, have adjusted Imdur dosing- improved 4. Resp- monitor for infection, incentive spirometry -cont flonase, nasal saline drops, claritin for sinuses 5.-s/p course of Ceftriaxone and Levaquin for Klebsiella UTI, patient unfortunately has had persistent dysuria and retention with 2 failed voiding trials (patient had green removed 08/01 and replaced 08/03, removed on 08/09 and was able to void with intermittent retention and dysuria/penile pain green replaced on 08/11 when one time dose of fluconazole was given and nystatin powder- to groin started for what looked like a fungal infection)- Dr Winter consulted for E faecalis Ucx and she believes symptoms are due to fungal infection, Fluconazole started again for 7 day course, given low number of cells, E faecalis not thought to be causing infection at this time -urology recs appreciated as well, patient started on oxybutynin, will consider TOV again prior to dc, otherwise patient can do this as outpatient with close urology f/u, he will need cystoscopy as well -hx of prostate cancer cont Flomax, finasteride, terazosin - f/u urology on d/c, repeat CT in 6 months to monitor left kidney mass 6. GI- cont f/u surgery for possible repeat colonoscopy given hx of colon cancer, no indication per Dr. Dinh for upper GI scope -protonix for ppx -FOBT negative 7. Endo- hx of DM with peripheral polyneuropathy cont insulin sliding scale 8. DVT ppx- TEDs 9. Pain- tylenol prn 10. Dispo- TBD Allergies Coded Allergies: Penicillins (Verified Allergy, Unknown, 03/04/21) anaph Vital Signs Vital Signs Date Time Temp Pulse Resp B/P (MAP) Pulse Ox O2 Delivery O2 Flow Rate FiO2 08/16/21 07:35 132/70 08/16/21 07:34 72 08/16/21 06:00 97.6 18 95 Room Air 08/13/21 22:40 2.0 Laboratory Data Labs 24H Laboratory Tests 2 08/15/21 11:33: Bedside Glucose (Misc Panel) 125H 08/15/21 16:57: Bedside Glucose (Misc Panel) 158H 08/16/21 05:10: Bedside Glucose (Misc Panel) 103 Microbiology Microbiology 08/11/21 Urine Culture - Final, Complete Enterococcus Faecalis Current Medications Current Medications Current Medications Medications (Trade) Dose Ordered Sig/Malinda Route PRN Reason Start Time Stop Time Status Last Admin Dose Admin Acetaminophen (Tylenol Tab) 650 mg Q4HP PRN PO fever/MILD PAIN (PS 1-4) 07/31/21 15:50 08/14/21 07:42 Allopurinol (Zyloprim) 300 mg DAILY PO 07/31/21 09:00 08/16/21 07:34 Bisacodyl (Dulcolax Suppository) 10 mg DAILYPRN PRN [place] CONSTIPATION 07/31/21 15:50 Carbamide Peroxide (Debrox) 5 drop BID AU 08/03/21 21:00 08/07/21 09:01 DC 08/07/21 10:16 Carvedilol (COReg) 3.125 mg BID PO 07/31/21 21:00 08/16/21 07:36 Cyanocobalamin (Vitamin B12) 1,000 mcg DAILY PO 08/01/21 09:00 08/16/21 07:34 Dextrose (Dextrose 50%) 25 ml ASDIRECTED PRN IV SEE LABEL COMMENTS 07/31/21 15:50 08/01/21 10:59 DC Dextrose (Dextrose 50%) 25 ml ASDIRECTED PRN IV SEE LABEL COMMENTS 08/01/21 11:00 Digoxin (Lanoxin) 0.125 mg DAILY PO 08/01/21 09:00 08/16/21 07:34 Docusate Sodium (Colace) 100 mg BID PO 07/31/21 21:00 08/16/21 07:34 Finasteride (Proscar) 5 mg QHS PO 08/02/21 21:00 08/15/21 22:05 Fluconazole (Diflucan Tablet) 100 mg QHS PO 08/14/21 21:00 08/21/21 20:59 08/15/21 22:05 Gabapentin (Neurontin) 100 mg TID PO 08/11/21 11:45 08/16/21 07:36 Glucagon (Glucagon) 1 mg ASDIRECTED PRN SC SEE LABEL COMMENTS 07/31/21 15:50 08/01/21 10:59 DC Glucagon (Glucagon) 1 mg ASDIRECTED PRN SC SEE LABEL COMMENTS 08/01/21 11:00 Glucose (Glucose) 16 GM ASDIRECTED PRN PO SEE LABEL COMMENTS 07/31/21 15:50 08/01/21 10:59 DC Glucose (Glucose) 16 GM ASDIRECTED PRN PO SEE LABEL COMMENTS 08/01/21 11:00 Home Med (Home Med List Complete!) ASDIRECTED XX 08/15/21 07:35 08/15/21 07:36 DC Hydralazine HCl (Apresoline) 25 mg Q6H PO 08/10/21 18:00 08/11/21 12:37 DC 08/11/21 00:15 Hydrocortisone (Hydrocortisone 2.5% Ointment) left wrist crease BID TOP 08/01/21 09:00 08/07/21 12:18 DC 08/07/21 10:15 Insulin Human Lispro (HumaLOG INSULIN) SEE PROTOCOL TABLE AC [place] 08/01/21 12:00 08/10/21 14:54 DC 08/09/21 17:21 Insulin Human Lispro (HumaLOG [facility]ULIN) [facility] 07/[facility] 21:00 08/01/21 10:59 DC Insulin Human Lispro (HumaLOG INSULIN) [facility] 08/01[facility] 21:00 08/10/21 14:54 DC Insulin Human Lispro (HumaLOG INSULIN) See Protocol Table AC [place] 08/01/21 07:30 08/01/21 10:59 DC 08/01/21 08:50 Iron (Niferex) 150 mg BID PO 07/31/21 21:00 08/16/21 07:36 Isosorbide Mononitrate (Imdur) 30 mg DAILY PO 08/01/21 09:00 08/10/21 14:50 DC 08/10/21 08:48 Isosorbide Mononitrate (Imdur) 60 mg DAILY PO 08/11/21 09:00 08/16/21 07:35 Lactobacillus Acidophilus (Bacid) 1 ea WMHS PO 07/31/21 18:00 08/16/21 07:35 Levofloxacin (Levaquin) 500 mg DAILY@06 PO 08/01/21 06:00 08/04/21 10:21 DC 08/04/21 05:17 Lidocaine HCl (Lidocaine 2% Urojet) FOR Intermittent CATHETERization Q2HP PRN TOP catheterization 08/02/21 16:20 08/11/21 21:07 Loratadine (Claritin) 10 mg DAILY PO 08/03/21 09:00 08/10/21 14:50 DC 08/10/21 08:49 Magnesium Oxide (Mag-Ox) 400 mg BID PO 08/03/21 09:00 08/16/21 07:35 Nystatin (Mycostatin Powder, Nystop) groin/testicles BID TOP 08/11/21 09:00 08/11/21 13:41 DC Nystatin (Mycostatin Powder, Nystop) groin/testicles TID TOP 08/11/21 16:00 08/16/21 07:41 Oxybutynin Chloride (Ditropan) 5 mg BID PO 08/15/21 09:00 08/16/21 07:36 Pantoprazole Sodium (Protonix) 40 mg DAILY PO 07/31/21 09:00 08/16/21 07:35 Phenazopyridine HCl (Pyridium) 100 mg TID PO 08/02/21 16:15 08/03/21 14:25 DC 08/03/21 08:38 Phenazopyridine HCl (Pyridium) 100 mg TID PO 08/11/21 16:00 08/13/21 09:01 DC 08/13/21 07:48 Polyethylene Glycol (Miralax) 1 pkt DAILY PO 08/04/21 10:20 08/14/21 07:38 Senna (Senokot) 1 tab QHS PO 07/31/21 21:00 08/15/21 22:04 Sodium Chloride ([place] Nasal [place]) 2 spray TID NA 08/03/21 16:00 08/16/21 07:40 Tamsulosin HCl (Flomax) 0.8 mg QHS PO 08/01/21 21:00 08/15/21 22:03 Terazosin HCl (Hytrin) 1 mg QHS PO 08/11/21 21:00 08/15/21 22:02 Torsemide (Demadex) 10 mg DAILY PO 08/01/21 09:00 08/16/21 07:33 YVON COELHO MD Aug 16, 2021 09:40
[2021-08-16 14:00] VITALS: BP 136/72
[2021-08-16 15:17] LABS: BASO % 0.5 % (0.0-1.0); EOS # 0.4 10^3/uL (0.0-0.5); EOS % 5.2 % (0.0-3.0); HEMATOCRIT 30.3 % (42.0-52.0); HEMOGLOBIN 9.2 g/dl (13.5-17.5); LYMPH # 1.3 10^3/uL (1.5-5.0); LYMPH % 15.5 % (24.0-44.0); MEAN CORPUSCULAR HEMOGLOBIN 31.1 pg (27.0-33.0); MEAN CORPUSCULAR HGB CONC 30.4 g/dl (32.0-36.5); MEAN CORPUSCULAR VOLUME 102.4 fl (80.0-96.0); MONO # 1.4 10^3/uL (0.0-0.8); MONO % 16.8 % (2.0-8.0); NEUTROPHILS # 4.9 10^3/uL (1.5-8.5); NEUTROPHILS % 60.6 % (36.0-66.0); PLATELET COUNT, AUTOMATED 188 10^3/uL (150-450); RED BLOOD COUNT 2.96 10^6/uL (4.30-6.10); WHITE BLOOD COUNT 8.1 10^3/uL (4.0-10.0)
[2021-08-16 15:36] LABS: BLOOD UREA NITROGEN 24 MG/DL (7-18); CALCIUM LEVEL 9.1 MG/DL (8.8-10.2); CARBON DIOXIDE LEVEL 25 MEQ/L (21-32); CHLORIDE LEVEL 104 MEQ/L (98-107); CREATININE FOR GFR 0.94 MG/DL (0.70-1.30); GLOMERULAR FILTRATION RATE > 60.0 (>35); GLUCOSE, FASTING 155 MG/DL (70-100); SODIUM LEVEL 139 MEQ/L (136-145)
[2021-08-16 20:00] VITALS: BP 127/59
[2021-08-16] MEDS: TERAZOSIN 1 MG CAP PO SCH (20:58)
[2021-08-16] MEDS: FINASTERIDE 5 MG TAB PO SCH (20:58)
[2021-08-16] MEDS: SENNA 8.6 MG TAB (SENOKOT) PO SCH (20:58)
[2021-08-16] MEDS: FLUCONAZOLE 100 MG TAB PO SCH (20:59)
[2021-08-16] MEDS: TAMSULOSIN 0.4 MG CAP PO SCH (20:59)
[2021-08-17 06:00] VITALS: BP 147/70
[2021-08-17] MEDS: MIRALAX *UNIT DOSE* 17GM PACKET PO SCH (09:00)
[2021-08-17] MEDS: DOCUSATE SODIUM 100MG CAPSULE PO SCH ×2 (09:00→20:49)
[2021-08-17] MEDS: MAGNESIUM OXIDE 400MG TAB (MAG-OX) PO SCH ×2 (10:49→20:50)
[2021-08-17] MEDS: PANTOPRAZOLE 40MG TAB (PROTONIX) PO SCH (10:49)
[2021-08-17] MEDS: CYANOCOBALAMIN 500 MCG TAB PO SCH (10:49)
[2021-08-17] MEDS: LACTOBACILLUS ACIDOPHILUS CAP (BACID) PO SCH ×4 (10:49→20:49)
[2021-08-17] MEDS: oxyBUTYnin 5 MG TAB PO SCH ×2 (10:49→20:49)
[2021-08-17] MEDS: GABAPENTIN 100 MG CAP PO SCH ×3 (10:49→20:49)
[2021-08-17] MEDS: IRON POLYSAC (NIFEREX) 150 MG CAP PO SCH ×2 (10:49→20:50)
[2021-08-17] MEDS: allopurinoL 300 MG TAB PO SCH (10:49)
[2021-08-17] MEDS: ISOSORBIDE MON. (IMDUR) 30 MG XR TAB PO SCH (10:51)
[2021-08-17] MEDS: TORSEMIDE 10 MG TABLET PO SCH (10:51)
[2021-08-17] MEDS: CARVedilol 3.125 MG TAB PO SCH ×2 (10:52→20:50)
[2021-08-17] MEDS: DIGOXIN 0.125 MG TAB PO SCH (10:52)
[2021-08-17] MEDS: REMEDY PHYTOPLEX Z-GUARD PASTE 113GM TUBE (FROM STOREROOM PRODUCT) TOP SCH ×3 (10:53→20:51)
[2021-08-17] MEDS: NYSTATIN 100,000 UNITS/GM TOPICAL PWD 15 GM TOP SCH ×3 (10:53→20:51)
[2021-08-17] MEDS: SODIUM CHLORIDE NASAL 0.65% SPRAY BTL (OCEAN) SCH ×3 (10:54→20:50)
[2021-08-17 14:00] VITALS: BP 141/79
[2021-08-17 20:00] VITALS: BP 127/63
[2021-08-17] MEDS: FLUCONAZOLE 100 MG TAB PO SCH (20:49)
[2021-08-17] MEDS: SENNA 8.6 MG TAB (SENOKOT) PO SCH (20:49)
[2021-08-17] MEDS: FINASTERIDE 5 MG TAB PO SCH (20:49)
[2021-08-17] MEDS: TAMSULOSIN 0.4 MG CAP PO SCH (20:50)
[2021-08-17] MEDS: TERAZOSIN 1 MG CAP PO SCH (20:50)
[2021-08-18 06:00] VITALS: BP 143/80
[2021-08-18 06:40] LABS: BASO % 0.4 % (0.0-1.0); EOS # 0.4 10^3/uL (0.0-0.5); EOS % 5.6 % (0.0-3.0); HEMATOCRIT 29.7 % (42.0-52.0); HEMOGLOBIN 9.2 g/dl (13.5-17.5); LYMPH # 1.1 10^3/uL (1.5-5.0); LYMPH % 14.7 % (24.0-44.0); MEAN CORPUSCULAR HEMOGLOBIN 31.6 pg (27.0-33.0); MEAN CORPUSCULAR VOLUME 102.1 fl (80.0-96.0); MONO # 1.4 10^3/uL (0.0-0.8); MONO % 18.6 % (2.0-8.0); NEUTROPHILS # 4.3 10^3/uL (1.5-8.5); NEUTROPHILS % 59.5 % (36.0-66.0); PLATELET COUNT, AUTOMATED 181 10^3/uL (150-450); RED BLOOD COUNT 2.91 10^6/uL (4.30-6.10); WHITE BLOOD COUNT 7.3 10^3/uL (4.0-10.0)
[2021-08-18 07:08] LABS: BLOOD UREA NITROGEN 24 MG/DL (7-18); CARBON DIOXIDE LEVEL 27 MEQ/L (21-32); CHLORIDE LEVEL 107 MEQ/L (98-107); CREATININE FOR GFR 0.81 MG/DL (0.70-1.30); GLOMERULAR FILTRATION RATE > 60.0 (>35); GLUCOSE, FASTING 111 MG/DL (70-100); POTASSIUM SERUM 4.2 MEQ/L (3.5-5.1); SODIUM LEVEL 139 MEQ/L (136-145)
[2021-08-18] MEDS: MIRALAX *UNIT DOSE* 17GM PACKET PO SCH (09:00)
[2021-08-18] MEDS: DOCUSATE SODIUM 100MG CAPSULE PO SCH ×2 (09:00→21:07)
[2021-08-18] MEDS: TORSEMIDE 10 MG TABLET PO SCH (10:27)
[2021-08-18] MEDS: PANTOPRAZOLE 40MG TAB (PROTONIX) PO SCH (10:27)
[2021-08-18] MEDS: allopurinoL 300 MG TAB PO SCH (10:27)
[2021-08-18] MEDS: MAGNESIUM OXIDE 400MG TAB (MAG-OX) PO SCH ×2 (10:27→21:07)
[2021-08-18] MEDS: oxyBUTYnin 5 MG TAB PO SCH ×2 (10:27→21:08)
[2021-08-18] MEDS: IRON POLYSAC (NIFEREX) 150 MG CAP PO SCH ×2 (10:28→21:07)
[2021-08-18] MEDS: GABAPENTIN 100 MG CAP PO SCH ×3 (10:28→21:06)
[2021-08-18] MEDS: CYANOCOBALAMIN 500 MCG TAB PO SCH (10:28)
[2021-08-18] MEDS: LACTOBACILLUS ACIDOPHILUS CAP (BACID) PO SCH ×4 (10:28→21:07)
[2021-08-18] MEDS: SODIUM CHLORIDE NASAL 0.65% SPRAY BTL (OCEAN) SCH ×3 (10:29→21:08)
[2021-08-18] MEDS: NYSTATIN 100,000 UNITS/GM TOPICAL PWD 15 GM TOP SCH ×3 (10:29→21:09)
[2021-08-18] MEDS: REMEDY PHYTOPLEX Z-GUARD PASTE 113GM TUBE (FROM STOREROOM PRODUCT) TOP SCH ×3 (10:30→21:09)
[2021-08-18] MEDS: DIGOXIN 0.125 MG TAB PO SCH (10:32)
[2021-08-18] MEDS: CARVedilol 3.125 MG TAB PO SCH ×2 (10:33→21:07)
[2021-08-18] MEDS: ISOSORBIDE MON. (IMDUR) 30 MG XR TAB PO SCH (10:33)
--- NOTE | 2021-08-18 13:09 | IPNPDOC ---
PM&R Progress Note DATE OF SERVICE: Aug 18, 2021 [employer] Progress Note Subjective: Patient stating his right leg is cramping again and he is agreeable to a trial of muscle relaxant. He endorses a cough that is intermittent. but a little worse today. REVIEW OF SYSTEMS: The following is a completed review of systems and has been reviewed. Review of systems otherwise unremarkable. PAIN: Patient self reports no pain EYES: No recent vision changes EARS, NOSE, & THROAT: No throat pain, or dysphagia, or rhinorrhea CARDIOVASCULAR: Denies chest pain or palpitations PULMONARY: Denies shortness of breath GASTROINTESTINAL: Denies constipation/diarrhea GENITOURINARY: +UTI with retention (intermittent) MUSCULOSKELETAL: generalized weakness NEUROLOGICAL:+left foot drop and peripheral polyneuropathy, left hand numbness HEMATOLOGICAL: denies easy bruising SKIN: left foot pressure spots PSYCHIATRIC: Unremarkable All other review of systems found to be negative. PHYSICAL EXAMINATION: VITAL SIGNS: Please see below. GENERAL: Pleasant and cooperative. No acute distress. HEENT: PERRL. Extraocular movements intact. Clear conjunctiva CARDIOVASCULAR: Irregular rate and rhythm. No murmurs, rubs, or gallops LUNGS: Clear to auscultation bilaterally. No wheezes. No rhonchi]. ABDOMEN: Soft, nontender, nondistended. Positive bowel sounds. Normal active bowel sounds NEUROLOGICAL: Alert and oriented times three. Cranial nerves II through XII grossly intact. Sensation decreased to light touch in stocking pattern decreased sensation to light touch on left hand D1-D4, D5 intact, +thenar wasting (-) babinksi/clonus bilat EXTREMITIES: 5\5 strength bilateral upper extremities. 5\5 strength right lower extremity. 4/5 strength in left hip flexor/knee extension, 0/5 ankle DF, EHL, PF SKIN: left toes with blanchable erythema, moisture noted between toes ASSESSMENT:81-year-old M with past medical history of Afib no longer on AC, DM with peripheral polyneuropathy who presents status post sepsis secondary to UTI with encephalopathy PLAN: 1. Rehab- PT/OT advance mobility and ADLs, strengthen/stretch/maintain ROM, patient has AFO on left, ambulating with RW 2. Neuro- peripheral polyneuropathy with left foot drop contributing to mobility impairments -recent encephalopathy due to sepsis, monitor for worsening cognitive function -carpal tunnel syndrome on left- cont splint to be worn at night -refer to neurology outpatient for NCS/EMG 3. Cardiac- Afib with PM, off AC due to frequent falls and recent supra- therapeutic INR, cont co-reg and digoxin -CHF- daily weights, fluid restrict, cont diuretics -elevated BPs, have adjusted Imdur dosing- improved 4. Resp- monitor for infection, incentive spirometry -cont flonase, nasal saline drops, claritin for sinuses -will order CXR given mild cough, starting mucinex 5.-s/p course of Ceftriaxone and Levaquin for Klebsiella UTI, patient un fortunately has had persistent dysuria and retention with 2 failed voiding trials (patient had green removed 08/01 and replaced 08/03, removed on 08/09 and was able to void with intermittent retention and dysuria/penile pain green replaced on 08/11 when one time dose of fluconazole was given and nystatin powder- to groin started for what looked like a fungal infection)- Dr Winter consulted for E faecalis Ucx and she believes symptoms are due to fungal infection, Fluconazole started again for 7 day course, given low number of cells, E faecalis not thought to be causing infection at this time -urology recs appreciated as well, patient started on oxybutynin, will consider TOV again prior to dc, otherwise patient can do this as outpatient with close urology f/u, he will need cystoscopy as well -hx of prostate cancer cont Flomax, finasteride, terazosin - f/u urology on d/c, repeat CT in 6 months to monitor left kidney mass 6. GI- cont f/u surgery for possible repeat colonoscopy given hx of colon c reina, tom indication per Dr. Dinh for upper GI scope -protonix for ppx -FOBT negative 7. Endo- hx of DM with peripheral polyneuropathy cont insulin sliding scale 8. DVT ppx- TEDs 9. Pain- tylenol prn -right groin/hip flexor spasms (chronic)- cont magnesium and will start baclofen 10. Dispo- TBD Allergies Coded Allergies: Penicillins (Verified Allergy, Unknown, 03/04/21) anaph Vital Signs Vital Signs Date Time Temp Pulse Resp B/P (MAP) Pulse Ox O2 Delivery O2 Flow Rate FiO2 08/18/21 10:33 83 140/67 08/18/21 06:00 98.3 19 99 Room Air 08/17/21 23:14 2.0 Laboratory Data CBC/BMP Laboratory Tests 08/18/21 05:52 Labs 24H Laboratory Tests 2 08/17/21 16:27: Bedside Glucose (Misc Panel) 134H 08/18/21 05:52: Immature Granulocyte % (Auto) 1.2, Neutrophils (%) (Auto) 59.5, Lymphocytes (%) (Auto) 14.7L, Monocytes (%) (Auto) 18.6H, Eosinophils (%) (Auto) 5.6H, Basophils (%) (Auto) 0.4, Neutrophils # (Auto) 4.3, Lymphocytes # (Auto) 1.1L, Monocytes # (Auto) 1.4H, Eosinophils # (Auto) 0.4, Basophils # (Auto) 0.0, Nucleated Red Blood Cells % (auto) 0.0, Anion Gap 5L, Glomerular Filtration Rate > 60.0, Calcium Level 9.0 08/18/21 06:29: Bedside Glucose (Misc Panel) 122H Microbiology Microbiology 08/11/21 Urine Culture - Final, Complete Enterococcus Faecalis Current Medications Current Medications Current Medications Medications (Trade) Dose Ordered Sig/Malinda Route PRN Reason Start Time Stop Time Status Last Admin Dose Admin Acetaminophen (Tylenol Tab) 650 mg Q4HP PRN PO fever/MILD PAIN (PS 1-4) 07/31/21 15:50 08/14/21 07:42 Allopurinol (Zyloprim) 300 mg DAILY PO 07/31/21 09:00 08/18/21 10:27 Bisacodyl (Dulcolax Suppository) 10 mg DAILYPRN PRN [place] CONSTIPATION 07/31/21 15:50 Carbamide Peroxide (Debrox) 5 drop BID AU 08/03/21 21:00 08/07/21 09:01 DC 08/07/21 10:16 Carvedilol (COReg) 3.125 mg BID PO 07/31/21 21:00 08/18/21 10:33 Cyanocobalamin (Vitamin B12) 1,000 mcg DAILY PO 08/01/21 09:00 08/18/21 10:28 Dextrose (Dextrose 50%) 25 ml ASDIRECTED PRN IV SEE LABEL COMMENTS 07/31/21 15:50 08/01/21 10:59 DC Dextrose (Dextrose 50%) 25 ml ASDIRECTED PRN IV SEE LABEL COMMENTS 08/01/21 11:00 Digoxin (Lanoxin) 0.125 mg DAILY PO 08/01/21 09:00 08/18/21 10:32 Docusate Sodium (Colace) 100 mg BID PO 07/31/21 21:00 08/17/21 20:49 Finasteride (Proscar) 5 mg QHS PO 08/02/21 21:00 08/17/21 20:49 Fluconazole (Diflucan Tablet) 100 mg QHS PO 08/14/21 21:00 08/21/21 20:59 08/17/21 20:49 Gabapentin (Neurontin) 100 mg TID PO 08/11/21 11:45 08/18/21 10:28 Glucagon (Glucagon) 1 mg ASDIRECTED PRN SC SEE LABEL COMMENTS 07/31/21 15:50 08/01/21 10:59 DC Glucagon (Glucagon) 1 mg ASDIRECTED PRN SC SEE LABEL COMMENTS 08/01/21 11:00 Glucose (Glucose) 16 GM ASDIRECTED PRN PO SEE LABEL COMMENTS 07/31/21 15:50 08/01/21 10:59 DC Glucose (Glucose) 16 GM ASDIRECTED PRN PO SEE LABEL COMMENTS 08/01/21 11:00 Home Med (Home Med List Complete!) ASDIRECTED XX 08/15/21 07:35 08/15/21 07:36 DC Hydralazine HCl (Apresoline) 25 mg Q6H PO 08/10/21 18:00 08/11/21 12:37 DC 08/11/21 00:15 Hydrocortisone (Hydrocortisone 2.5% Ointment) left wrist crease BID TOP 08/01/21 09:00 08/07/21 12:18 DC 08/07/21 10:15 Insulin Human Lispro (HumaLOG INSULIN) SEE PROTOCOL TABLE AC SC 08/01/21 12:00 08/10/21 14:54 DC 08/09/21 17:21 Insulin Human Lispro (HumaLOG INSULIN) SEE PROTOCOL TABLE QHS SC 07/31/21 21:00 08/01/21 10:59 DC Insulin Human Lispro (HumaLOG INSULIN) SEE PROTOCOL TABLE QHS SC 08/01/21 21:00 08/10/21 14:54 DC Insulin Human Lispro (HumaLOG INSULIN) See Protocol Table AC SC 08/01/21 07:30 08/01/21 10:59 DC 08/01/21 08:50 Iron (Niferex) 150 mg BID PO 07/31/21 21:00 08/18/21 10:28 Isosorbide Mononitrate (Imdur) 30 mg DAILY PO 08/01/21 09:00 08/10/21 14:50 DC 08/10/21 08:48 Isosorbide Mononitrate (Imdur) 60 mg DAILY PO 08/11/21 09:00 08/18/21 10:33 Lactobacillus Acidophilus (Bacid) 1 ea WMHS PO 07/31/21 18:00 08/18/21 12:56 Levofloxacin (Levaquin) 500 mg DAILY@06 PO 08/01/21 06:00 08/04/21 10:21 DC 08/04/21 05:17 Lidocaine HCl (Lidocaine 2% Urojet) FOR Intermittent CATHETERization Q2HP PRN TOP catheterization 08/02/21 16:20 08/11/21 21:07 Loratadine (Claritin) 10 mg DAILY PO 08/03/21 09:00 08/10/21 14:50 DC 08/10/21 08:49 Magnesium Oxide (Mag-Ox) 400 mg BID PO 08/03/21 09:00 08/18/21 10:27 Nystatin (Mycostatin Powder, Nystop) groin/testicles BID TOP 08/11/21 09:00 08/11/21 13:41 DC Nystatin (Mycostatin Powder, Nystop) groin/testicles TID TOP 08/11/21 16:00 08/18/21 10:29 Oxybutynin Chloride (Ditropan) 5 mg BID PO 08/15/21 09:00 08/18/21 10:27 Pantoprazole Sodium (Protonix) 40 mg DAILY PO 07/31/21 09:00 08/18/21 10:27 Phenazopyridine HCl (Pyridium) 100 mg TID PO 08/02/21 16:15 08/03/21 14:25 DC 08/03/21 08:38 Phenazopyridine HCl (Pyridium) 100 mg TID PO 08/11/21 16:00 08/13/21 09:01 DC 08/13/21 07:48 Polyethylene Glycol (Miralax) 1 pkt DAILY PO 08/04/21 10:20 08/14/21 07:38 Senna (Senokot) 1 tab QHS PO 07/31/21 21:00 08/17/21 20:49 Sodium Chloride ([place] Nasal [place]) 2 spray TID NA 08/03/21 16:00 08/18/21 10:29 Tamsulosin HCl (Flomax) 0.8 mg QHS PO 08/01/21 21:00 08/17/21 20:50 Terazosin HCl (Hytrin) 1 mg QHS PO 08/11/21 21:00 08/17/21 20:50 Torsemide (Demadex) 10 mg DAILY PO 08/01/21 09:00 08/18/21 10:27 YVON COELHO MD Aug 18, 2021 13:09
[2021-08-18 14:00] VITALS: BP 123/56
[2021-08-18] MEDS ORDERED: BACLOFEN 5MG PER 1/2 TABLET PO ONE (15:40)
[2021-08-18] MEDS ORDERED: BACLOFEN 5MG PER 1/2 TABLET GT PRN (15:40)
[2021-08-18 20:00] VITALS: BP 135/72
[2021-08-18] MEDS: TERAZOSIN 1 MG CAP PO SCH (21:06)
[2021-08-18] MEDS: COMBIVENT RESPIMAT 100-20MCG INHALER 4GM INH SCH (21:06)
[2021-08-18] MEDS: TAMSULOSIN 0.4 MG CAP PO SCH (21:07)
[2021-08-18] MEDS: FLUCONAZOLE 100 MG TAB PO SCH (21:08)
[2021-08-18] MEDS: guaiFENesin ER 600 MG TAB PO SCH (21:08)
[2021-08-18] MEDS: FINASTERIDE 5 MG TAB PO SCH (21:08)
[2021-08-18] MEDS: SENNA 8.6 MG TAB (SENOKOT) PO SCH (21:08)
[2021-08-19 05:46] VITALS: BP 164/85
[2021-08-19] MEDS: COMBIVENT RESPIMAT 100-20MCG INHALER 4GM INH SCH ×3 (07:08→18:09)
[2021-08-19] MEDS: DOCUSATE SODIUM 100MG CAPSULE PO SCH ×2 (08:27→20:47)
[2021-08-19] MEDS: IRON POLYSAC (NIFEREX) 150 MG CAP PO SCH ×2 (08:27→20:46)
[2021-08-19] MEDS: ISOSORBIDE MON. (IMDUR) 30 MG XR TAB PO SCH (08:27)
[2021-08-19] MEDS: allopurinoL 300 MG TAB PO SCH (08:27)
[2021-08-19] MEDS: LACTOBACILLUS ACIDOPHILUS CAP (BACID) PO SCH ×4 (08:28→20:46)
[2021-08-19] MEDS: CARVedilol 3.125 MG TAB PO SCH ×2 (08:28→20:46)
[2021-08-19] MEDS: MAGNESIUM OXIDE 400MG TAB (MAG-OX) PO SCH ×2 (08:28→21:01)
[2021-08-19] MEDS: DIGOXIN 0.125 MG TAB PO SCH (08:28)
[2021-08-19] MEDS: CYANOCOBALAMIN 500 MCG TAB PO SCH (08:29)
[2021-08-19] MEDS: oxyBUTYnin 5 MG TAB PO SCH ×2 (08:29→20:46)
[2021-08-19] MEDS: GABAPENTIN 100 MG CAP PO SCH ×3 (08:29→20:46)
[2021-08-19] MEDS: TORSEMIDE 10 MG TABLET PO SCH (08:29)
[2021-08-19] MEDS: PANTOPRAZOLE 40MG TAB (PROTONIX) PO SCH (08:29)
[2021-08-19] MEDS: SODIUM CHLORIDE NASAL 0.65% SPRAY BTL (OCEAN) SCH ×3 (08:29→20:47)
[2021-08-19] MEDS: REMEDY PHYTOPLEX Z-GUARD PASTE 113GM TUBE (FROM STOREROOM PRODUCT) TOP SCH ×3 (08:30→20:47)
[2021-08-19] MEDS: NYSTATIN 100,000 UNITS/GM TOPICAL PWD 15 GM TOP SCH ×3 (08:30→20:47)
[2021-08-19] MEDS: MIRALAX *UNIT DOSE* 17GM PACKET PO SCH (08:30)
[2021-08-19] MEDS: guaiFENesin ER 600 MG TAB PO SCH ×2 (08:31→20:37)
--- NOTE | 2021-08-19 09:11 | REP ---
INDICATION: cough r/o infiltrate. COMPARISON: 03/04/2021 the latest prior a portable exam TECHNIQUE: PA and lateral FINDINGS: There is global cardiomegaly status quo. The single chamber bipolar pacemaker devices unchanged. There is mild pulmonary vascular redistribution and a slight increase in the interstitial markings throughout the lung lange. The pleural angles are sharp. The osseous structures stable. IMPRESSION: Cardiomegaly and mild interstitial edema. <Electronically signed by Dion Barakat > 08/19/21 0932
[2021-08-19] MEDS ORDERED: TORSEMIDE 10 MG TABLET PO ONE (13:00)
[2021-08-19 14:00] VITALS: BP 154/79
[2021-08-19 20:00] VITALS: BP 159/84
[2021-08-19] MEDS: FINASTERIDE 5 MG TAB PO SCH (20:37)
[2021-08-19] MEDS: FLUCONAZOLE 100 MG TAB PO SCH (20:37)
[2021-08-19] MEDS: TAMSULOSIN 0.4 MG CAP PO SCH (20:38)
[2021-08-19] MEDS: TERAZOSIN 1 MG CAP PO SCH (20:46)
[2021-08-19] MEDS: SENNA 8.6 MG TAB (SENOKOT) PO SCH (20:46)
[2021-08-20 05:05] VITALS: BP 158/79
[2021-08-20] MEDS: COMBIVENT RESPIMAT 100-20MCG INHALER 4GM INH SCH ×3 (08:07→20:02)
[2021-08-20] MEDS: PANTOPRAZOLE 40MG TAB (PROTONIX) PO SCH (08:08)
[2021-08-20] MEDS: TORSEMIDE 10 MG TABLET PO SCH (08:08)
[2021-08-20] MEDS: guaiFENesin ER 600 MG TAB PO SCH ×2 (08:08→20:49)
[2021-08-20] MEDS: GABAPENTIN 100 MG CAP PO SCH ×3 (08:09→20:49)
[2021-08-20] MEDS: ISOSORBIDE MON. (IMDUR) 30 MG XR TAB PO SCH (08:09)
[2021-08-20] MEDS: MAGNESIUM OXIDE 400MG TAB (MAG-OX) PO SCH ×2 (08:09→20:49)
[2021-08-20] MEDS: DIGOXIN 0.125 MG TAB PO SCH (08:09)
[2021-08-20] MEDS: LACTOBACILLUS ACIDOPHILUS CAP (BACID) PO SCH ×4 (08:09→20:49)
[2021-08-20] MEDS: oxyBUTYnin 5 MG TAB PO SCH ×2 (08:10→20:49)
[2021-08-20] MEDS: MIRALAX *UNIT DOSE* 17GM PACKET PO SCH (08:10)
[2021-08-20] MEDS: CYANOCOBALAMIN 500 MCG TAB PO SCH (08:10)
[2021-08-20] MEDS: IRON POLYSAC (NIFEREX) 150 MG CAP PO SCH ×2 (08:10→20:49)
[2021-08-20] MEDS: allopurinoL 300 MG TAB PO SCH (08:10)
[2021-08-20] MEDS: DOCUSATE SODIUM 100MG CAPSULE PO SCH ×2 (08:10→20:49)
[2021-08-20] MEDS: CARVedilol 3.125 MG TAB PO SCH ×2 (08:10→20:50)
[2021-08-20] MEDS: SODIUM CHLORIDE NASAL 0.65% SPRAY BTL (OCEAN) SCH ×3 (08:14→20:51)
[2021-08-20] MEDS: NYSTATIN 100,000 UNITS/GM TOPICAL PWD 15 GM TOP SCH ×3 (08:15→20:52)
[2021-08-20] MEDS: REMEDY PHYTOPLEX Z-GUARD PASTE 113GM TUBE (FROM STOREROOM PRODUCT) TOP SCH ×3 (08:15→20:52)
[2021-08-20 14:00] VITALS: BP 123/64
[2021-08-20 20:00] VITALS: BP 124/58
[2021-08-20] MEDS: FLUCONAZOLE 100 MG TAB PO SCH (20:49)
[2021-08-20] MEDS: FINASTERIDE 5 MG TAB PO SCH (20:49)
[2021-08-20] MEDS: SENNA 8.6 MG TAB (SENOKOT) PO SCH (20:49)
[2021-08-20] MEDS: TERAZOSIN 1 MG CAP PO SCH (20:54)
[2021-08-20] MEDS: TAMSULOSIN 0.4 MG CAP PO SCH (20:54)
[2021-08-21 06:06] LABS: BASO % 0.5 % (0.0-1.0); EOS # 0.5 10^3/uL (0.0-0.5); EOS % 5.7 % (0.0-3.0); HEMATOCRIT 32.4 % (42.0-52.0); HEMOGLOBIN 9.9 g/dl (13.5-17.5); LYMPH # 1.5 10^3/uL (1.5-5.0); MEAN CORPUSCULAR HEMOGLOBIN 30.8 pg (27.0-33.0); MEAN CORPUSCULAR HGB CONC 30.6 g/dl (32.0-36.5); MEAN CORPUSCULAR VOLUME 100.9 fl (80.0-96.0); MONO # 1.5 10^3/uL (0.0-0.8); MONO % 17.2 % (2.0-8.0); NEUTROPHILS % 58.4 % (36.0-66.0); PLATELET COUNT, AUTOMATED 178 10^3/uL (150-450); RED BLOOD COUNT 3.21 10^6/uL (4.30-6.10); WHITE BLOOD COUNT 8.6 10^3/uL (4.0-10.0)
[2021-08-21 06:30] LABS: BLOOD UREA NITROGEN 23 MG/DL (7-18); CALCIUM LEVEL 9.2 MG/DL (8.8-10.2); CARBON DIOXIDE LEVEL 30 MEQ/L (21-32); CHLORIDE LEVEL 102 MEQ/L (98-107); GLOMERULAR FILTRATION RATE > 60.0 (>35); GLUCOSE, FASTING 116 MG/DL (70-100); POTASSIUM SERUM 3.9 MEQ/L (3.5-5.1); SODIUM LEVEL 140 MEQ/L (136-145)
[2021-08-21 06:39] VITALS: BP 143/85
[2021-08-21] MEDS: COMBIVENT RESPIMAT 100-20MCG INHALER 4GM INH SCH ×3 (08:00→17:43)
[2021-08-21] MEDS: LACTOBACILLUS ACIDOPHILUS CAP (BACID) PO SCH ×4 (08:15→21:31)
[2021-08-21] MEDS: GABAPENTIN 100 MG CAP PO SCH ×3 (08:15→21:31)
[2021-08-21] MEDS: MIRALAX *UNIT DOSE* 17GM PACKET PO SCH (08:16)
[2021-08-21] MEDS: DOCUSATE SODIUM 100MG CAPSULE PO SCH ×2 (08:16→21:30)
[2021-08-21] MEDS: guaiFENesin ER 600 MG TAB PO SCH ×2 (08:16→21:31)
[2021-08-21] MEDS: TORSEMIDE 10 MG TABLET PO SCH (08:16)
[2021-08-21] MEDS: ISOSORBIDE MON. (IMDUR) 30 MG XR TAB PO SCH (08:16)
[2021-08-21] MEDS: CYANOCOBALAMIN 500 MCG TAB PO SCH (08:16)
[2021-08-21] MEDS: allopurinoL 300 MG TAB PO SCH (08:16)
[2021-08-21] MEDS: IRON POLYSAC (NIFEREX) 150 MG CAP PO SCH ×2 (08:16→21:30)
[2021-08-21] MEDS: oxyBUTYnin 5 MG TAB PO SCH (08:16)
[2021-08-21] MEDS: SODIUM CHLORIDE NASAL 0.65% SPRAY BTL (OCEAN) SCH ×3 (08:17→21:31)
[2021-08-21] MEDS: MAGNESIUM OXIDE 400MG TAB (MAG-OX) PO SCH ×2 (08:17→21:30)
[2021-08-21] MEDS: PANTOPRAZOLE 40MG TAB (PROTONIX) PO SCH (08:17)
[2021-08-21] MEDS: REMEDY PHYTOPLEX Z-GUARD PASTE 113GM TUBE (FROM STOREROOM PRODUCT) TOP SCH ×3 (08:17→21:32)
[2021-08-21] MEDS: CARVedilol 3.125 MG TAB PO SCH ×2 (08:17→21:30)
[2021-08-21] MEDS: DIGOXIN 0.125 MG TAB PO SCH (08:17)
[2021-08-21] MEDS: NYSTATIN 100,000 UNITS/GM TOPICAL PWD 15 GM TOP SCH ×3 (08:18→21:32)
--- NOTE | 2021-08-21 10:41 | IPNPDOC ---
PM&R Progress Note DATE OF SERVICE: Aug 21, 2021 [employer] Progress Note Subjective: Patient reporting dry mouth and his right leg is spasming again, but he forgot he was able to order baclofen if he needed it. He thinks the dose he got on Saturday helped. He has still some burning at the tip of his penis, but says it is better since the nurse applied nystatin powder to the tip. REVIEW OF SYSTEMS: The following is a completed review of systems and has been reviewed. Review of systems otherwise unremarkable. PAIN: Patient self reports no pain EYES: No recent vision changes EARS, NOSE, & THROAT: No throat pain, or dysphagia, or rhinorrhea CARDIOVASCULAR: Denies chest pain or palpitations PULMONARY: Denies shortness of breath GASTROINTESTINAL: Denies constipation/diarrhea GENITOURINARY: +retention MUSCULOSKELETAL: generalized weakness NEUROLOGICAL:+left foot drop and peripheral polyneuropathy, left hand numbness HEMATOLOGICAL: denies easy bruising SKIN: left foot pressure spots PSYCHIATRIC: Unremarkable All other review of systems found to be negative. PHYSICAL EXAMINATION: VITAL SIGNS: Please see below. GENERAL: Pleasant and cooperative. No acute distress. HEENT: PERRL. Extraocular movements intact. Clear conjunctiva CARDIOVASCULAR: Irregular rate and rhythm. No murmurs, rubs, or gallops LUNGS: Clear to auscultation bilaterally. No wheezes. No rhonchi]. ABDOMEN: Soft, nontender, nondistended. Positive bowel sounds. Normal active bowel sounds NEUROLOGICAL: Alert and oriented times three. Cranial nerves II through XII grossly intact. Sensation decreased to light touch in stocking pattern decreased sensation to light touch on left hand D1-D4, D5 intact, +thenar wasting (-) babinksi/clonus bilat EXTREMITIES: 5\5 strength bilateral upper extremities. 5\5 strength right lower extremity. 4/5 strength in left hip flexor/knee extension, 0/5 ankle DF, EHL, PF SKIN: left toes with blanchable erythema, moisture noted between toes ASSESSMENT:81-year-old M with past medical history of Afib no longer on AC, DM with peripheral polyneuropathy who presents status post sepsis secondary to UTI with encephalopathy PLAN: 1. Rehab- PT/OT advance mobility and ADLs, strengthen/stretch/maintain ROM, patient has AFO on left, ambulating with RW 2. Neuro- peripheral polyneuropathy with left foot drop contributing to mobility impairments -recent encephalopathy due to sepsis, monitor for worsening cognitive function -carpal tunnel syndrome on left- cont splint to be worn at night -refer to neurology outpatient for NCS/EMG 3. Cardiac- Afib with PM, off AC due to frequent falls and recent supra- therapeutic INR, cont co-reg and digoxin -CHF- daily weights, fluid restrict, cont diuretics -elevated BPs, have adjusted Imdur dosing- improved 4. Resp- monitor for infection, incentive spirometry -cont flonase, nasal saline drops, claritin for sinuses -will order CXR given mild cough, starting mucinex 5.-s/p course of Ceftriaxone and Levaquin for Klebsiella UTI, patient unfortunately has had persistent dysuria and retention with 2 failed voiding trials (patient had green removed 08/01 and replaced 08/03, removed on 08/09 and was able to void with intermittent retention and dysuria/penile pain green replaced on 08/11 when one time dose of fluconazole was given and nystatin powder- to groin started for what looked like a fungal infection)- Dr Winter consulted for E faecalis Ucx and she believes symptoms are due to fungal infection, Fluconazole started again for 7 day course and will extend to 14 days total after discussion with Dr. Winter given persistent penile irritation -urology recs appreciated as well, patient started on oxybutynin however he has considerably dry mouth and his urinary symptoms seem to be isolated to the tip of the penis and less likely due to OAB, will trial off oxybutynin and cont to assess - will consider TOV again prior to dc, otherwise patient can do this as outpatient with close urology f/u, he will need cystoscopy as well -hx of prostate cancer cont Flomax, finasteride, terazosin - f/u urology on d/c, repeat CT in 6 months to monitor left kidney mass 6. GI- cont f/u surgery for possible repeat colonoscopy given hx of colon canc er, no indication per Dr. Dinh for upper GI scope -protonix for ppx -FOBT negative 7. Endo- hx of DM with peripheral polyneuropathy cont insulin sliding scale 8. DVT ppx- TEDs 9. Pain- tylenol prn -right groin/hip flexor spasms (chronic)- cont magnesium and will cont baclofen, will schedule it daily 10. Dispo- TBD Allergies Coded Allergies: Penicillins (Verified Allergy, Unknown, 03/04/21) anaph Vital Signs Vital Signs Date Time Temp Pulse Resp B/P (MAP) Pulse Ox O2 Delivery O2 Flow Rate FiO2 08/21/21 08:17 71 08/21/21 08:17 143/85 08/21/21 06:39 98.4 18 92 Room Air 08/20/21 19:30 2.0 Laboratory Data CBC/BMP Laboratory Tests 08/21/21 05:21 Labs 24H Laboratory Tests 2 08/20/21 17:06: Bedside Glucose (Misc Panel) 138H 08/21/21 05:21: Immature Granulocyte % (Auto) 1.2, Neutrophils (%) (Auto) 58.4, Lymphocytes (%) (Auto) 17.0L, Monocytes (%) (Auto) 17.2H, Eosinophils (%) (Auto) 5.7H, Basophils (%) (Auto) 0.5, Neutrophils # (Auto) 5.0, Lymphocytes # (Auto) 1.5, Monocytes # (Auto) 1.5H, Eosinophils # (Auto) 0.5, Basophils # (Auto) 0.0, Nucleated Red Blood Cells % (auto) 0.0, Anion Gap 8, Glomerular Filtration Rate > 60.0, Calcium Level 9.2 08/21/21 05:29: Bedside Glucose (Misc Panel) 122H Microbiology Microbiology 08/11/21 Urine Culture - Final, Complete Enterococcus Faecalis Current Medications Current Medications Current Medications Medications (Trade) Dose Ordered Sig/Malinda Route PRN Reason Start Time Stop Time Status Last Admin Dose Admin Acetaminophen (Tylenol Tab) 650 mg Q4HP PRN PO fever/MILD PAIN (PS 1-4) 07/31/21 15:50 08/14/21 07:42 Albuterol/ Ipratropium (Combivent Respimat 100-20mcg) 1 puff RTID INH 08/18/21 20:00 08/20/21 20:02 Allopurinol (Zyloprim) 300 mg DAILY PO 07/31/21 09:00 08/21/21 08:16 Baclofen (Lioresal) 5 mg TIDP PRN GT leg spasm 08/18/21 15:40 Bisacodyl (Dulcolax Suppository) 10 mg DAILYPRN PRN [place] CONSTIPATION 07/31/21 15:50 Carbamide Peroxide (Debrox) 5 drop BID AU 08/03/21 21:00 08/07/21 09:01 DC 08/07/21 10:16 Carvedilol (COReg) 3.125 mg BID PO 07/31/21 21:00 08/21/21 08:17 Cyanocobalamin (Vitamin B12) 1,000 mcg DAILY PO 08/01/21 09:00 08/21/21 08:16 Dextrose (Dextrose 50%) 25 ml ASDIRECTED PRN IV SEE LABEL COMMENTS 07/31/21 15:50 08/01/21 10:59 DC Dextrose (Dextrose 50%) 25 ml ASDIRECTED PRN IV SEE LABEL COMMENTS 08/01/21 11:00 Digoxin (Lanoxin) 0.125 mg DAILY PO 08/01/21 09:00 08/21/21 08:17 Docusate Sodium (Colace) 100 mg BID PO 07/31/21 21:00 08/21/21 08:16 Finasteride (Proscar) 5 mg QHS PO 08/02/21 21:00 08/20/21 20:49 Fluconazole (Diflucan Tablet) 100 mg QHS PO 08/14/21 21:00 08/21/21 20:59 08/20/21 20:49 Gabapentin (Neurontin) 100 mg TID PO 08/11/21 11:45 08/21/21 08:15 Glucagon (Glucagon) 1 mg ASDIRECTED PRN SC SEE LABEL COMMENTS 07/31/21 15:50 08/01/21 10:59 DC Glucagon (Glucagon) 1 mg ASDIRECTED PRN SC SEE LABEL COMMENTS 08/01/21 11:00 Glucose (Glucose) 16 GM ASDIRECTED PRN PO SEE LABEL COMMENTS 07/31/21 15:50 08/01/21 10:59 DC Glucose (Glucose) 16 GM ASDIRECTED PRN PO SEE LABEL COMMENTS 08/01/21 11:00 Guaifenesin (Mucinex Tab Er) 600 mg BID PO 08/18/21 21:00 08/21/21 08:16 Home Med (Home Med List Complete!) ASDIRECTED XX 08/15/21 07:35 08/15/21 07:36 DC Hydralazine HCl (Apresoline) 25 mg Q6H PO 08/10/21 18:00 08/11/21 12:37 DC 08/11/21 00:15 Hydrocortisone (Hydrocortisone 2.5% Ointment) left wrist crease BID TOP 08/01/21 09:00 08/07/21 12:18 DC 08/07/21 10:15 Insulin Human Lispro (HumaLOG INSULIN) SEE PROTOCOL TABLE AC MT 08/01/21 12:00 08/10/21 14:54 DC 08/09/21 17:21 Insulin Human Lispro (HumaLOG INSULIN) SEE PROTOCOL TABLE QHS MT 07/31/21 21:00 08/01/21 10:59 DC Insulin Human Lispro (HumaLOG INSULIN) SEE [facility]OCOL [facility] 08/01/21 21:00 08/10/21 14:54 DC Insulin Human Lispro (HumaLOG INSULIN) See Protocol Table AC MT 08/01/21 07:30 08/01/21 10:59 DC 08/01/21 08:50 Iron (Niferex) 150 mg BID PO 07/31/21 21:00 08/21/21 08:16 Isosorbide Mononitrate (Imdur) 30 mg DAILY PO 08/01/21 09:00 08/10/21 14:50 DC 08/10/21 08:48 Isosorbide Mononitrate (Imdur) 60 mg DAILY PO 08/11/21 09:00 08/21/21 08:16 Lactobacillus Acidophilus (Bacid) 1 ea WMHS PO 07/31/21 18:00 08/21/21 08:15 Levofloxacin (Levaquin) 500 mg DAILY@06 PO 08/01/21 06:00 08/04/21 10:21 DC 08/04/21 05:17 Lidocaine HCl (Lidocaine 2% Urojet) FOR Intermittent CATHETERization Q2HP PRN TOP catheterization 08/02/21 16:20 08/11/21 21:07 Loratadine (Claritin) 10 mg DAILY PO 08/03/21 09:00 08/10/21 14:50 DC 08/10/21 08:49 Magnesium Oxide (Mag-Ox) 400 mg BID PO 08/03/21 09:00 08/21/21 08:17 Nystatin (Mycostatin Powder, Nystop) groin/testicles BID TOP 08/11/21 09:00 08/11/21 13:41 DC Nystatin (Mycostatin Powder, Nystop) groin/testicles TID TOP 08/11/21 16:00 08/21/21 08:18 Oxybutynin Chloride (Ditropan) 5 mg BID PO 08/15/21 09:00 08/21/21 08:16 Pantoprazole Sodium (Protonix) 40 mg DAILY PO 07/31/21 09:00 08/21/21 08:17 Phenazopyridine HCl (Pyridium) 100 mg TID PO 08/02/21 16:15 08/03/21 14:25 DC 08/03/21 08:38 Phenazopyridine HCl (Pyridium) 100 mg TID PO 08/11/21 16:00 08/13/21 09:01 DC 08/13/21 07:48 Polyethylene Glycol (Miralax) 1 pkt DAILY PO 08/04/21 10:20 08/21/21 08:16 Senna (Senokot) 1 tab QHS PO 07/31/21 21:00 08/20/21 20:49 Sodium Chloride ([place] Nasal [place]) 2 spray TID NA 08/03/21 16:00 08/21/21 08:17 Tamsulosin HCl (Flomax) 0.8 mg QHS PO 08/01/21 21:00 08/20/21 20:54 Terazosin HCl (Hytrin) 1 mg QHS PO 08/11/21 21:00 08/20/21 20:54 Torsemide (Demadex) 10 mg DAILY PO 08/01/21 09:00 08/19/21 12:39 DC 08/19/21 08:29 Torsemide (Demadex) 20 mg DAILY PO 08/20/21 09:00 08/21/21 08:16 YVON COELHO MD Aug 21, 2021 10:41
[2021-08-21 14:00] VITALS: BP 119/67
[2021-08-21 20:00] VITALS: BP 132/70
[2021-08-21] MEDS: FINASTERIDE 5 MG TAB PO SCH (21:30)
[2021-08-21] MEDS: FLUCONAZOLE 100 MG TAB PO SCH (21:30)
[2021-08-21] MEDS: TAMSULOSIN 0.4 MG CAP PO SCH (21:31)
[2021-08-21] MEDS: TERAZOSIN 1 MG CAP PO SCH (21:31)
[2021-08-21] MEDS: SENNA 8.6 MG TAB (SENOKOT) PO SCH (21:31)
[2021-08-22 06:00] VITALS: BP 133/62
[2021-08-22] MEDS: COMBIVENT RESPIMAT 100-20MCG INHALER 4GM INH SCH ×3 (07:53→20:13)
[2021-08-22] MEDS: guaiFENesin ER 600 MG TAB PO SCH ×2 (09:30→21:15)
[2021-08-22] MEDS: MAGNESIUM OXIDE 400MG TAB (MAG-OX) PO SCH ×2 (09:31→21:14)
[2021-08-22] MEDS: IRON POLYSAC (NIFEREX) 150 MG CAP PO SCH ×2 (09:31→21:15)
[2021-08-22] MEDS: TORSEMIDE 10 MG TABLET PO SCH (09:31)
[2021-08-22] MEDS: PANTOPRAZOLE 40MG TAB (PROTONIX) PO SCH (09:31)
[2021-08-22] MEDS: DOCUSATE SODIUM 100MG CAPSULE PO SCH ×2 (09:31→21:14)
[2021-08-22] MEDS: CYANOCOBALAMIN 500 MCG TAB PO SCH (09:31)
[2021-08-22] MEDS: LACTOBACILLUS ACIDOPHILUS CAP (BACID) PO SCH ×4 (09:31→21:14)
[2021-08-22] MEDS: allopurinoL 300 MG TAB PO SCH (09:31)
[2021-08-22] MEDS: GABAPENTIN 100 MG CAP PO SCH ×3 (09:31→21:15)
[2021-08-22] MEDS: CARVedilol 3.125 MG TAB PO SCH ×2 (09:32→21:15)
[2021-08-22] MEDS: MIRALAX *UNIT DOSE* 17GM PACKET PO SCH (09:32)
[2021-08-22] MEDS: BACLOFEN 5MG PER 1/2 TABLET PO SCH (09:32)
[2021-08-22] MEDS: DIGOXIN 0.125 MG TAB PO SCH (09:32)
[2021-08-22] MEDS: ACETAMINOPHEN TAB 650MG DOSE (2X325MG) PO PRN (09:33)
[2021-08-22] MEDS: ISOSORBIDE MON. (IMDUR) 30 MG XR TAB PO SCH (09:33)
[2021-08-22] MEDS: NYSTATIN 100,000 UNITS/GM TOPICAL PWD 15 GM TOP SCH ×3 (09:34→21:20)
[2021-08-22] MEDS: SODIUM CHLORIDE NASAL 0.65% SPRAY BTL (OCEAN) SCH ×3 (09:34→21:20)
[2021-08-22] MEDS: REMEDY PHYTOPLEX Z-GUARD PASTE 113GM TUBE (FROM STOREROOM PRODUCT) TOP SCH ×3 (09:34→21:00)
[2021-08-22 14:00] VITALS: BP 125/74
--- NOTE | 2021-08-22 19:45 | IPN ---
PROGRESS NOTE DATE: 08/22/2021 Mr. Sanabria still has a [place] catheter. He is currently day #8 of 10 of fluconazole. He still complains of some burning at the tip of his penis with some erythema. The rash in the groin has markedly improved. There is no erythema in the groin area. He has had no fever or chills. No nausea, vomiting, or diarrhea. Urine is clear. IMPRESSION: 1. Mucocutaneous candidiasis, day #8 out of 10 of fluconazole. 2. Urinary retention, felt to be related to urinary tract infection (UTI) and candidiasis. Finished treatment for UTI and currently on Diflucan. 3. Enterococcus (E) faecalis on urine culture was 4000 pathogens and was felt to be a contaminant and was not treated. PLAN: Discontinue Diflucan in a couple days after 10-day treatment. Continue with topical azoles, such as miconazole or clotrimazole around the tip of the penis and groin area. If patient has persistent symptoms for another couple weeks. Infectious disease signing off.
[2021-08-22 20:00] VITALS: BP 148/78
[2021-08-22] MEDS: SENNA 8.6 MG TAB (SENOKOT) PO SCH (21:14)
[2021-08-22] MEDS: FINASTERIDE 5 MG TAB PO SCH (21:15)
[2021-08-22] MEDS: TERAZOSIN 1 MG CAP PO SCH (21:15)
[2021-08-22] MEDS: TAMSULOSIN 0.4 MG CAP PO SCH (21:15)
[2021-08-22] MEDS: FLUCONAZOLE 100 MG TAB PO SCH (21:15)
[2021-08-23 06:00] VITALS: BP 147/68
[2021-08-23 07:51] LABS: BASO # 0.1 10^3/uL (0.0-0.2); BASO % 0.6 % (0.0-1.0); EOS # 0.5 10^3/uL (0.0-0.5); EOS % 5.9 % (0.0-3.0); HEMATOCRIT 32.5 % (42.0-52.0); LYMPH # 1.3 10^3/uL (1.5-5.0); LYMPH % 15.9 % (24.0-44.0); MEAN CORPUSCULAR HEMOGLOBIN 31.3 pg (27.0-33.0); MEAN CORPUSCULAR HGB CONC 30.8 g/dl (32.0-36.5); MEAN CORPUSCULAR VOLUME 101.6 fl (80.0-96.0); MONO # 1.5 10^3/uL (0.0-0.8); MONO % 17.5 % (2.0-8.0); PLATELET COUNT, AUTOMATED 191 10^3/uL (150-450); WHITE BLOOD COUNT 8.4 10^3/uL (4.0-10.0)
[2021-08-23] MEDS: COMBIVENT RESPIMAT 100-20MCG INHALER 4GM INH SCH ×3 (08:00→20:00)
[2021-08-23 08:14] LABS: BLOOD UREA NITROGEN 30 MG/DL (7-18); CALCIUM LEVEL 9.5 MG/DL (8.8-10.2); CARBON DIOXIDE LEVEL 29 MEQ/L (21-32); CHLORIDE LEVEL 103 MEQ/L (98-107); CREATININE FOR GFR 0.98 MG/DL (0.70-1.30); GLOMERULAR FILTRATION RATE > 60.0 (>35); GLUCOSE, FASTING 114 MG/DL (70-100); POTASSIUM SERUM 4.1 MEQ/L (3.5-5.1); SODIUM LEVEL 139 MEQ/L (136-145)
[2021-08-23] MEDS: LACTOBACILLUS ACIDOPHILUS CAP (BACID) PO SCH ×4 (08:47→21:02)
[2021-08-23] MEDS: IRON POLYSAC (NIFEREX) 150 MG CAP PO SCH ×2 (08:47→21:03)
[2021-08-23] MEDS: CYANOCOBALAMIN 500 MCG TAB PO SCH (08:47)
[2021-08-23] MEDS: DOCUSATE SODIUM 100MG CAPSULE PO SCH ×2 (08:47→21:02)
[2021-08-23] MEDS: MIRALAX *UNIT DOSE* 17GM PACKET PO SCH (08:47)
[2021-08-23] MEDS: guaiFENesin ER 600 MG TAB PO SCH ×2 (08:47→21:02)
[2021-08-23] MEDS: PANTOPRAZOLE 40MG TAB (PROTONIX) PO SCH (08:47)
[2021-08-23] MEDS: allopurinoL 300 MG TAB PO SCH (08:47)
[2021-08-23] MEDS: TORSEMIDE 10 MG TABLET PO SCH (08:48)
[2021-08-23] MEDS: DIGOXIN 0.125 MG TAB PO SCH (08:48)
[2021-08-23] MEDS: BACLOFEN 5MG PER 1/2 TABLET PO SCH (08:48)
[2021-08-23] MEDS: MAGNESIUM OXIDE 400MG TAB (MAG-OX) PO SCH ×2 (08:48→21:02)
[2021-08-23] MEDS: GABAPENTIN 100 MG CAP PO SCH ×3 (08:48→21:02)
[2021-08-23] MEDS: CARVedilol 3.125 MG TAB PO SCH ×2 (08:49→21:03)
[2021-08-23] MEDS: ISOSORBIDE MON. (IMDUR) 30 MG XR TAB PO SCH (08:49)
[2021-08-23] MEDS: NYSTATIN 100,000 UNITS/GM TOPICAL PWD 15 GM TOP SCH ×3 (08:50→21:04)
[2021-08-23] MEDS: SODIUM CHLORIDE NASAL 0.65% SPRAY BTL (OCEAN) SCH ×3 (08:50→21:03)
[2021-08-23] MEDS: REMEDY PHYTOPLEX Z-GUARD PASTE 113GM TUBE (FROM STOREROOM PRODUCT) TOP SCH ×3 (08:50→21:04)
--- NOTE | 2021-08-23 11:57 | IPNPDOC ---
PM&R Progress Note DATE OF SERVICE: Aug 22, 2021 [employer] Progress Note Subjective: Patient reporting he feels ok, but has still has some mild irritation at the tip of his penis, nurse was bedside and educated him on importance of keeping this area clean. Patient was encouraged to do a voiding trial today. REVIEW OF SYSTEMS: The following is a completed review of systems and has been reviewed. Review of systems otherwise unremarkable. PAIN: Patient self reports no pain EYES: No recent vision changes EARS, NOSE, & THROAT: No throat pain, or dysphagia, or rhinorrhea CARDIOVASCULAR: Denies chest pain or palpitations PULMONARY: Denies shortness of breath GASTROINTESTINAL: Denies constipation/diarrhea GENITOURINARY: +retention MUSCULOSKELETAL: generalized weakness NEUROLOGICAL:+left foot drop and peripheral polyneuropathy, left hand numbness HEMATOLOGICAL: denies easy bruising SKIN: left foot pressure spots PSYCHIATRIC: Unremarkable All other review of systems found to be negative. PHYSICAL EXAMINATION: VITAL SIGNS: Please see below. GENERAL: Pleasant and cooperative. No acute distress. HEENT: PERRL. Extraocular movements intact. Clear conjunctiva CARDIOVASCULAR: Irregular rate and rhythm. No murmurs, rubs, or gallops LUNGS: Clear to auscultation bilaterally. No wheezes. No rhonchi]. ABDOMEN: Soft, nontender, nondistended. Positive bowel sounds. Normal active bowel sounds NEUROLOGICAL: Alert and oriented times three. Cranial nerves II through XII grossly intact. Sensation decreased to light touch in stocking pattern decreased sensation to light touch on left hand D1-D4, D5 intact, +thenar wasting (-) babinksi/clonus bilat EXTREMITIES: 5\5 strength bilateral upper extremities. 5\5 strength right lower extremity. 4/5 strength in left hip flexor/knee extension, 0/5 ankle DF, EHL, PF SKIN: groin region with no erythema ASSESSMENT:81-year-old M with past medical history of Afib no longer on AC, DM with peripheral polyneuropathy who presents status post sepsis secondary to UTI with encephalopathy PLAN: 1. Rehab- PT/OT advance mobility and ADLs, strengthen/stretch/maintain ROM, patient has AFO on left, ambulating with RW 2. Neuro- peripheral polyneuropathy with left foot drop contributing to mobility impairments -recent encephalopathy due to sepsis, monitor for worsening cognitive function -carpal tunnel syndrome on left- cont splint to be worn at night -refer to neurology outpatient for NCS/EMG 3. Cardiac- Afib with PM, off AC due to frequent falls and recent supra- therapeutic INR, cont co-reg and digoxin -CHF- daily weights, fluid restrict, cont diuretics -elevated BPs, have adjusted Imdur dosing- improved 4. Resp- monitor for infection, incentive spirometry -cont flonase, nasal saline drops, claritin for sinuses -will order CXR given mild cough, starting mucinex 5.-s/p course of Ceftriaxone and Levaquin for Klebsiella UTI, patient un fortunately has had persistent dysuria and retention with 2 failed voiding trials (patient had green removed 08/01 and replaced 08/03, removed on 08/09 and was able to void with intermittent retention and dysuria/penile pain green replaced on 08/11 when one time dose of fluconazole was given and nystatin powder- to groin started for what looked like a fungal infection)- Dr Winter consulted for E faecalis Ucx and she believes symptoms are due to fungal infection, Fluconazole started again for 7 day course and will extend to 14 days total after discussion with Dr. Winter given persistent penile irritation- groin erythema much improved -urology recs appreciated as well, patient started on oxybutynin however he had considerably dry mouth and his urinary symptoms seem to be isolated to the tip of the penis and less likely due to OAB, cont to trial off oxybutynin and cont to assess- plan to d/c green today - f/u urologyas outpatient, he will need cystoscopy -hx of prostate cancer cont Flomax, finasteride, terazosin - f/u urology on d/c, repeat CT in 6 months to monitor left kidney mass 6. GI- cont f/u surgery for possible repeat colonoscopy given hx of colon cancer, no indication per Dr. Dinh for upper GI scope -protonix for ppx -FOBT negative 7. Endo- hx of DM with peripheral polyneuropathy cont insulin sliding scale 8. DVT ppx- TEDs 9. Pain- tylenol prn -right groin/hip flexor spasms (chronic)- cont magnesium and will cont baclofen, will schedule it daily 10. Dispo- TBD Allergies Coded Allergies: Penicillins (Verified Allergy, Unknown, 03/04/21) anaph Vital Signs Vital Signs Date Time Temp Pulse Resp B/P (MAP) Pulse Ox O2 Delivery O2 Flow Rate FiO2 08/23/21 09:00 2.0 08/23/21 08:49 68 145/62 08/23/21 06:00 98.3 17 93 Room Air Laboratory Data CBC/BMP Laboratory Tests 08/23/21 06:59 Labs 24H Laboratory Tests 2 08/22/21 16:59: Bedside Glucose (Misc Panel) 157H 08/23/21 06:59: Immature Granulocyte % (Auto) 1.1, Neutrophils (%) (Auto) 59.0, Lymphocytes (%) (Auto) 15.9L, Monocytes (%) (Auto) 17.5H, Eosinophils (%) (Auto) 5.9H, Basophils (%) (Auto) 0.6, Neutrophils # (Auto) 5.0, Lymphocytes # (Auto) 1.3L, Monocytes # (Auto) 1.5H, Eosinophils # (Auto) 0.5, Basophils # (Auto) 0.1, Nucleated Red Blood Cells % (auto) 0.0, Anion Gap 7L, Glomerular Filtration Rate > 60.0, Calcium Level 9.5 Current Medications Current Medications Current Medications Medications (Trade) Dose Ordered Sig/Malinda Route PRN Reason Start Time Stop Time Status Last Admin Dose Admin Acetaminophen (Tylenol Tab) 650 mg Q4HP PRN PO fever/MILD PAIN (PS 1-4) 07/31/21 15:50 08/22/21 09:33 Albuterol/ Ipratropium (Combivent Respimat 100-20mcg) 1 puff RTID INH 08/18/21 20:00 08/22/21 20:13 Allopurinol (Zyloprim) 300 mg DAILY PO 07/31/21 09:00 08/23/21 08:47 Baclofen (Lioresal) 5 mg DAILY PO 08/22/21 09:00 08/23/21 08:48 Baclofen (Lioresal) 5 mg TIDP PRN GT leg spasm 08/18/21 15:40 08/21/21 14:47 DC 08/21/21 14:28 Bisacodyl (Dulcolax Suppository) 10 mg DAILYPRN PRN [place] CONSTIPATION 07/31/21 15:50 Carbamide Peroxide (Debrox) 5 drop BID AU 08/03/21 21:00 08/07/21 09:01 DC 08/07/21 10:16 Carvedilol (COReg) 3.125 mg BID PO 07/31/21 21:00 08/23/21 08:49 Cyanocobalamin (Vitamin B12) 1,000 mcg DAILY PO 08/01/21 09:00 08/23/21 08:47 Dextrose (Dextrose 50%) 25 ml ASDIRECTED PRN IV SEE LABEL COMMENTS 07/31/21 15:50 08/01/21 10:59 DC Dextrose (Dextrose 50%) 25 ml ASDIRECTED PRN IV SEE LABEL COMMENTS 08/01/21 11:00 Digoxin (Lanoxin) 0.125 mg DAILY PO 08/01/21 09:00 08/23/21 08:48 Docusate Sodium (Colace) 100 mg BID PO 07/31/21 21:00 08/23/21 08:47 Finasteride (Proscar) 5 mg QHS PO 08/02/21 21:00 08/22/21 21:15 Fluconazole (Diflucan Tablet) 100 mg QHS PO 08/14/21 21:00 08/27/21 23:59 08/22/21 21:15 Gabapentin (Neurontin) 100 mg TID PO 08/11/21 11:45 08/23/21 08:48 Glucagon (Glucagon) 1 mg ASDIRECTED PRN SC SEE LABEL COMMENTS 07/31/21 15:50 08/01/21 10:59 DC Glucagon (Glucagon) 1 mg ASDIRECTED PRN SC SEE LABEL COMMENTS 08/01/21 11:00 Glucose (Glucose) 16 GM ASDIRECTED PRN PO SEE LABEL COMMENTS 07/31/21 15:50 08/01/21 10:59 DC Glucose (Glucose) 16 GM ASDIRECTED PRN PO SEE LABEL COMMENTS 08/01/21 11:00 Guaifenesin (Mucinex Tab Er) 600 mg BID PO 08/18/21 21:00 08/23/21 08:47 Home Med (Home Med List Complete!) ASDIRECTED XX 08/15/21 07:35 08/15/21 07:36 DC Hydralazine HCl (Apresoline) 25 mg Q6H PO 08/10/21 18:00 08/11/21 12:37 DC 08/11/21 00:15 Hydrocortisone (Hydrocortisone 2.5% Ointment) left wrist crease BID TOP 08/01/21 09:00 08/07/21 12:18 DC 08/07/21 10:15 Insulin Human Lispro (HumaLOG INSULIN) SEE PROTOCOL TABLE AC [place] 08/01/21 12:00 08/10/21 14:54 DC 08/09/21 17:21 Insulin Human Lispro (H[facility]LOG [facility]ULIN) [facility] 07/[facility] 21:00 08/01/21 10:59 DC Insulin Human Lispro (HumaLOG INSULIN) [facility] 08/01/21 21:00 08/10/21 14:54 DC Insulin Human Lispro (HumaLOG INSULIN) See Protocol Table AC [place] 08/01/21 07:30 08/01/21 10:59 DC 08/01/21 08:50 Iron (Niferex) 150 mg BID PO 07/31/21 21:00 08/23/21 08:47 Isosorbide Mononitrate (Imdur) 30 mg DAILY PO 08/01/21 09:00 08/10/21 14:50 DC 08/10/21 08:48 Isosorbide Mononitrate (Imdur) 60 mg DAILY PO 08/11/21 09:00 08/23/21 08:49 Lactobacillus Acidophilus (Bacid) 1 ea WMHS PO 07/31/21 18:00 08/23/21 08:47 Levofloxacin (Levaquin) 500 mg DAILY@06 PO 08/01/21 06:00 08/04/21 10:21 DC 08/04/21 05:17 Lidocaine HCl (Lidocaine 2% Urojet) FOR Intermittent CATHETERization Q2HP PRN TOP catheterization 08/02/21 16:20 08/11/21 21:07 Loratadine (Claritin) 10 mg DAILY PO 08/03/21 09:00 08/10/21 14:50 DC 08/10/21 08:49 Magnesium Oxide (Mag-Ox) 400 mg BID PO 08/03/21 09:00 08/23/21 08:48 Nystatin (Mycostatin Powder, Nystop) groin/testicles BID TOP 08/11/21 09:00 08/11/21 13:41 DC Nystatin (Mycostatin Powder, Nystop) groin/testicles TID TOP 08/11/21 16:00 08/23/21 08:50 Oxybutynin Chloride (Ditropan) 5 mg BID PO 08/15/21 09:00 08/21/21 14:47 DC 08/21/21 08:16 Pantoprazole Sodium (Protonix) 40 mg DAILY PO 07/31/21 09:00 08/23/21 08:47 Phenazopyridine HCl (Pyridium) 100 mg TID PO 08/02/21 16:15 08/03/21 14:25 DC 08/03/21 08:38 Phenazopyridine HCl (Pyridium) 100 mg TID PO 08/11/21 16:00 08/13/21 09:01 DC 08/13/21 07:48 Polyethylene Glycol (Miralax) 1 pkt DAILY PO 08/04/21 10:20 08/23/21 08:47 Senna (Senokot) 1 tab QHS PO 07/31/21 21:00 08/22/21 21:14 Sodium Chloride ([place] Nasal [place]) 2 spray TID NA 08/03/21 16:00 08/23/21 08:50 Tamsulosin HCl (Flomax) 0.8 mg QHS PO 08/01/21 21:00 08/22/21 21:15 Terazosin HCl (Hytrin) 1 mg QHS PO 08/11/21 21:00 08/22/21 21:15 Torsemide (Demadex) 10 mg DAILY PO 08/01/21 09:00 08/19/21 12:39 DC 08/19/21 08:29 Torsemide (Demadex) 20 mg DAILY PO 08/20/21 09:00 08/23/21 08:48 YVON COELHO MD Aug 23, 2021 11:57
--- NOTE | 2021-08-23 11:57 | IPNPDOC ---
PM&R Progress Note DATE OF SERVICE: Aug 23, 2021 [employer] Progress Note Subjective: Patient seen walking in therapy stating he still has an intermittent cough that is rarely productive and he was wondering if he needed another chest X-ray. REVIEW OF SYSTEMS: The following is a completed review of systems and has been reviewed. Review of systems otherwise unremarkable. PAIN: Patient self reports no pain EYES: No recent vision changes EARS, NOSE, & THROAT: No throat pain, or dysphagia, or rhinorrhea CARDIOVASCULAR: Denies chest pain or palpitations PULMONARY: Denies shortness of breath, intermittent cough GASTROINTESTINAL: Denies constipation/diarrhea GENITOURINARY: +retention (resolved) MUSCULOSKELETAL: generalized weakness NEUROLOGICAL:+left foot drop and peripheral polyneuropathy, left hand numbness HEMATOLOGICAL: denies easy bruising SKIN: left foot pressure spots PSYCHIATRIC: Unremarkable All other review of systems found to be negative. PHYSICAL EXAMINATION: VITAL SIGNS: Please see below. GENERAL: Pleasant and cooperative. No acute distress. HEENT: PERRL. Extraocular movements intact. Clear conjunctiva CARDIOVASCULAR: Irregular rate and rhythm. No murmurs, rubs, or gallops LUNGS: Clear to auscultation bilaterally. No wheezes. No rhonchi ABDOMEN: Soft, nontender, nondistended. Positive bowel sounds. Normal active bowel sounds NEUROLOGICAL: Alert and oriented times three. Cranial nerves II through XII gr ossly intact. Sensation decreased to light touch in stocking pattern decreased sensation to light touch on left hand D1-D4, D5 intact, +thenar wasting (-) babinksi/clonus bilat EXTREMITIES: 5\5 strength bilateral upper extremities. 5\5 strength right lower extremity. 4/5 strength in left hip flexor/knee extension, 0/5 ankle DF, EHL, PF SKIN: groin region with no erythema ASSESSMENT:81-year-old M with past medical history of Afib no longer on AC, DM with peripheral polyneuropathy who presents status post sepsis secondary to UTI with encephalopathy PLAN: 1. Rehab- PT/OT advance mobility and ADLs, strengthen/stretch/maintain ROM, patient has AFO on left, ambulating with RW 2. Neuro- peripheral polyneuropathy with left foot drop contributing to mobility impairments -recent encephalopathy due to sepsis, monitor for worsening cognitive function -carpal tunnel syndrome on left- cont splint to be worn at night -refer to neurology outpatient for NCS/EMG 3. Cardiac- Afib with PM, off AC due to frequent falls and recent supra- therapeutic INR, cont co-reg and digoxin -CHF- daily weights, fluid restrict, cont diuretics -elevated BPs, have adjusted Imdur dosing- improved 4. Resp- monitor for infection, incentive spirometry -cont flonase, nasal saline drops, claritin for sinuses -will order CXR given mild cough, starting mucinex 5.-s/p course of Ceftriaxone and Levaquin for Klebsiella UTI, patient unfortunately has had persistent dysuria and retention with 2 failed voiding trials (patient had green removed 08/01 and replaced 08/03, removed on 08/09 and was able to void with intermittent retention and dysuria/penile pain green replaced on 08/11 when one time dose of fluconazole was given and nystatin powder- to groin started for what looked like a fungal infection)- Dr Winter consulted for E faecalis Ucx and she believes symptoms are due to fungal infection, Fluconazole started again for 7 day course and will extend to 14 days total after discussion with Dr. Winter given persistent penile irritation- groin erythema much improved -urology recs appreciated as well, patient started on oxybutynin however he had considerably dry mouth and his urinary symptoms seem to be isolated to the tip of the penis and less likely due to OAB, cont to trial off oxybutynin and cont to assess- green d/c'd 08-22-21, patient is now voiding well - f/u urology as outpatient, he will need cystoscopy -hx of prostate cancer cont Flomax, finasteride, terazosin - f/u urology on d/c, repeat CT in 6 months to monitor left kidney mass 6. GI- cont f/u surgery for possible repeat colonoscopy given hx of colon cancer, no indication per Dr. Dinh for upper GI scope -protonix for ppx -FOBT negative 7. Endo- hx of DM with peripheral polyneuropathy cont insulin sliding scale 8. DVT ppx- TEDs 9. Pain- tylenol prn -right groin/hip flexor spasms (chronic)- cont magnesium and will cont baclofen 10. Dispo- TBD Allergies Coded Allergies: Penicillins (Verified Allergy, Unknown, 03/04/21) anaph Vital Signs Vital Signs Date Time Temp Pulse Resp B/P (MAP) Pulse Ox O2 Delivery O2 Flow Rate FiO2 08/23/21 09:00 2.0 08/23/21 08:49 68 145/62 08/23/21 06:00 98.3 17 93 Room Air Laboratory Data CBC/BMP Laboratory Tests 08/23/21 06:59 Labs 24H Laboratory Tests 2 08/22/21 16:59: Bedside Glucose (Misc Panel) 157H 08/23/21 06:59: Immature Granulocyte % (Auto) 1.1, Neutrophils (%) (Auto) 59.0, Lymphocytes (%) (Auto) 15.9L, Monocytes (%) (Auto) 17.5H, Eosinophils (%) (Auto) 5.9H, Basophils (%) (Auto) 0.6, Neutrophils # (Auto) 5.0, Lymphocytes # (Auto) 1.3L, Monocytes # (Auto) 1.5H, Eosinophils # (Auto) 0.5, Basophils # (Auto) 0.1, Nucleated Red Blood Cells % (auto) 0.0, Anion Gap 7L, Glomerular Filtration Rate > 60.0, Calcium Level 9.5 Current Medications Current Medications Current Medications Medications (Trade) Dose Ordered Sig/Malinda Route PRN Reason Start Time Stop Time Status Last Admin Dose Admin Acetaminophen (Tylenol Tab) 650 mg Q4HP PRN PO fever/MILD PAIN (PS 1-4) 07/31/21 15:50 08/22/21 09:33 Albuterol/ Ipratropium (Combivent Respimat 100-20mcg) 1 puff RTID INH 08/18/21 20:00 08/22/21 20:13 Allopurinol (Zyloprim) 300 mg DAILY PO 07/31/21 09:00 08/23/21 08:47 Baclofen (Lioresal) 5 mg DAILY PO 08/22/21 09:00 08/23/21 08:48 Baclofen (Lioresal) 5 mg TIDP PRN GT leg spasm 08/18/21 15:40 08/21/21 14:47 DC 08/21/21 14:28 Bisacodyl (Dulcolax Suppository) 10 mg DAILYPRN PRN [place] CONSTIPATION 07/31/21 15:50 Carbamide Peroxide (Debrox) 5 drop BID AU 08/03/21 21:00 08/07/21 09:01 DC 08/07/21 10:16 Carvedilol (COReg) 3.125 mg BID PO 07/31/21 21:00 08/23/21 08:49 Cyanocobalamin (Vitamin B12) 1,000 mcg DAILY PO 08/01/21 09:00 08/23/21 08:47 Dextrose (Dextrose 50%) 25 ml ASDIRECTED PRN IV SEE LABEL COMMENTS 07/31/21 15:50 08/01/21 10:59 DC Dextrose (Dextrose 50%) 25 ml ASDIRECTED PRN IV SEE LABEL COMMENTS 08/01/21 11:00 Digoxin (Lanoxin) 0.125 mg DAILY PO 08/01/21 09:00 08/23/21 08:48 Docusate Sodium (Colace) 100 mg BID PO 07/31/21 21:00 08/23/21 08:47 Finasteride (Proscar) 5 mg QHS PO 08/02/21 21:00 08/22/21 21:15 Fluconazole (Diflucan Tablet) 100 mg QHS PO 08/14/21 21:00 08/27/21 23:59 08/22/21 21:15 Gabapentin (Neurontin) 100 mg TID PO 08/11/21 11:45 08/23/21 08:48 Glucagon (Glucagon) 1 mg ASDIRECTED PRN SC SEE LABEL COMMENTS 07/31/21 15:50 08/01/21 10:59 DC Glucagon (Glucagon) 1 mg ASDIRECTED PRN SC SEE LABEL COMMENTS 08/01/21 11:00 Glucose (Glucose) 16 GM ASDIRECTED PRN PO SEE LABEL COMMENTS 07/31/21 15:50 08/01/21 10:59 DC Glucose (Glucose) 16 GM ASDIRECTED PRN PO SEE LABEL COMMENTS 08/01/21 11:00 Guaifenesin (Mucinex Tab Er) 600 mg BID PO 08/18/21 21:00 08/23/21 08:47 Home Med (Home Med List Complete!) ASDIRECTED XX 08/15/21 07:35 08/15/21 07:36 DC Hydralazine HCl (Apresoline) 25 mg Q6H PO 08/10/21 18:00 08/11/21 12:37 DC 08/11/21 00:15 Hydrocortisone (Hydrocortisone 2.5% Ointment) left wrist crease BID TOP 08/01/21 09:00 08/07/21 12:18 DC 08/07/21 10:15 Insulin Human Lispro (HumaLOG INSULIN) SEE PROTOCOL TABLE AC [place] 08/01/21 12:00 08/10/21 14:54 DC 08/09/21 17:21 Insulin Human Lispro (HumaLOG INSULIN) [facility] 07/31/21 21:00 08/01/21 10:59 DC Insulin Human Lispro (HumaLOG INSULIN) SEE [facility]OCOL [facility] 08/01/21 21:00 08/10/21 14:54 DC Insulin Human Lispro (HumaLOG INSULIN) See Protocol Table AC [place] 08/01/21 07:30 08/01/21 10:59 DC 08/01/21 08:50 Iron (Niferex) 150 mg BID PO 07/31/21 21:00 08/23/21 08:47 Isosorbide Mononitrate (Imdur) 30 mg DAILY PO 08/01/21 09:00 08/10/21 14:50 DC 08/10/21 08:48 Isosorbide Mononitrate (Imdur) 60 mg DAILY PO 08/11/21 09:00 08/23/21 08:49 Lactobacillus Acidophilus (Bacid) 1 ea WMHS PO 07/31/21 18:00 08/23/21 08:47 Levofloxacin (Levaquin) 500 mg DAILY@06 PO 08/01/21 06:00 08/04/21 10:21 DC 08/04/21 05:17 Lidocaine HCl (Lidocaine 2% Urojet) FOR Intermittent CATHETERization Q2HP PRN TOP catheterization 08/02/21 16:20 08/11/21 21:07 Loratadine (Claritin) 10 mg DAILY PO 08/03/21 09:00 08/10/21 14:50 DC 08/10/21 08:49 Magnesium Oxide (Mag-Ox) 400 mg BID PO 08/03/21 09:00 08/23/21 08:48 Nystatin (Mycostatin Powder, Nystop) groin/testicles BID TOP 08/11/21 09:00 08/11/21 13:41 DC Nystatin (Mycostatin Powder, Nystop) groin/testicles TID TOP 08/11/21 16:00 08/23/21 08:50 Oxybutynin Chloride (Ditropan) 5 mg BID PO 08/15/21 09:00 08/21/21 14:47 DC 08/21/21 08:16 Pantoprazole Sodium (Protonix) 40 mg DAILY PO 07/31/21 09:00 08/23/21 08:47 Phenazopyridine HCl (Pyridium) 100 mg TID PO 08/02/21 16:15 08/03/21 14:25 DC 08/03/21 08:38 Phenazopyridine HCl (Pyridium) 100 mg TID PO 08/11/21 16:00 08/13/21 09:01 DC 08/13/21 07:48 Polyethylene Glycol (Miralax) 1 pkt DAILY PO 08/04/21 10:20 08/23/21 08:47 Senna (Senokot) 1 tab QHS PO 07/31/21 21:00 08/22/21 21:14 Sodium Chloride ([place] Nasal [place]) 2 spray TID NA 08/03/21 16:00 08/23/21 08:50 Tamsulosin HCl (Flomax) 0.8 mg QHS PO 08/01/21 21:00 08/22/21 21:15 Terazosin HCl (Hytrin) 1 mg QHS PO 08/11/21 21:00 08/22/21 21:15 Torsemide (Demadex) 10 mg DAILY PO 08/01/21 09:00 08/19/21 12:39 DC 08/19/21 08:29 Torsemide (Demadex) 20 mg DAILY PO 08/20/21 09:00 08/23/21 08:48 YVON COELHO MD Aug 23, 2021 11:57
[2021-08-23 14:00] VITALS: BP 124/74
[2021-08-23 20:00] VITALS: BP 131/75
[2021-08-23] MEDS: TERAZOSIN 1 MG CAP PO SCH (21:02)
[2021-08-23] MEDS: SENNA 8.6 MG TAB (SENOKOT) PO SCH (21:03)
[2021-08-23] MEDS: TAMSULOSIN 0.4 MG CAP PO SCH (21:03)
[2021-08-23] MEDS: FLUCONAZOLE 100 MG TAB PO SCH (21:03)
[2021-08-23] MEDS: FINASTERIDE 5 MG TAB PO SCH (21:03)
[2021-08-24 06:00] VITALS: BP 127/58
[2021-08-24] MEDS: COMBIVENT RESPIMAT 100-20MCG INHALER 4GM INH SCH ×3 (08:00→20:00)
[2021-08-24] MEDS: MIRALAX *UNIT DOSE* 17GM PACKET PO SCH (08:37)
[2021-08-24] MEDS: MAGNESIUM OXIDE 400MG TAB (MAG-OX) PO SCH ×2 (08:38→21:18)
[2021-08-24] MEDS: PANTOPRAZOLE 40MG TAB (PROTONIX) PO SCH (08:38)
[2021-08-24] MEDS: GABAPENTIN 100 MG CAP PO SCH ×3 (08:38→21:17)
[2021-08-24] MEDS: CYANOCOBALAMIN 500 MCG TAB PO SCH (08:38)
[2021-08-24] MEDS: IRON POLYSAC (NIFEREX) 150 MG CAP PO SCH ×2 (08:38→21:17)
[2021-08-24] MEDS: BACLOFEN 5MG PER 1/2 TABLET PO SCH (08:38)
[2021-08-24] MEDS: LACTOBACILLUS ACIDOPHILUS CAP (BACID) PO SCH ×4 (08:38→21:17)
[2021-08-24] MEDS: guaiFENesin ER 600 MG TAB PO SCH ×2 (08:38→21:17)
[2021-08-24] MEDS: DOCUSATE SODIUM 100MG CAPSULE PO SCH ×2 (08:38→21:18)
[2021-08-24] MEDS: allopurinoL 300 MG TAB PO SCH (08:39)
[2021-08-24] MEDS: SODIUM CHLORIDE NASAL 0.65% SPRAY BTL (OCEAN) SCH ×3 (08:39→21:19)
[2021-08-24] MEDS: NYSTATIN 100,000 UNITS/GM TOPICAL PWD 15 GM TOP SCH ×3 (08:39→21:19)
[2021-08-24] MEDS: REMEDY PHYTOPLEX Z-GUARD PASTE 113GM TUBE (FROM STOREROOM PRODUCT) TOP SCH ×3 (08:39→21:19)
[2021-08-24] MEDS: TORSEMIDE 10 MG TABLET PO SCH (08:40)
[2021-08-24] MEDS: CARVedilol 3.125 MG TAB PO SCH ×2 (08:40→21:18)
[2021-08-24] MEDS: DIGOXIN 0.125 MG TAB PO SCH (08:40)
[2021-08-24] MEDS: ISOSORBIDE MON. (IMDUR) 30 MG XR TAB PO SCH (08:41)
--- NOTE | 2021-08-24 09:33 | IPNPDOC ---
PM&R Progress Note DATE OF SERVICE: Aug 24, 2021 Flume Worker Progress Note Subjective: Patient seen in his room stating his cough is better and was told the Xray was negative for pneumonia. He has no complaints at this time, but is wodnering where he will go to from [facility]. REVIEW OF SYSTEMS: The following is a completed review of systems and has been reviewed. Review of systems otherwise unremarkable. PAIN: Patient self reports no pain EYES: No recent vision changes EARS, NOSE, & THROAT: No throat pain, or dysphagia, or rhinorrhea CARDIOVASCULAR: Denies chest pain or palpitations PULMONARY: Denies shortness of breath GASTROINTESTINAL: Denies constipation/diarrhea GENITOURINARY: no retention MUSCULOSKELETAL: generalized weakness NEUROLOGICAL:+left foot drop and peripheral polyneuropathy, left hand numbness HEMATOLOGICAL: denies easy bruising SKIN: left foot pressure spots PSYCHIATRIC: Unremarkable All other review of systems found to be negative. PHYSICAL EXAMINATION: VITAL SIGNS: Please see below. GENERAL: Pleasant and cooperative. No acute distress. HEENT: PERRL. Extraocular movements intact. Clear conjunctiva CARDIOVASCULAR: Irregular rate and rhythm. No murmurs, rubs, or gallops LUNGS: Clear to auscultation bilaterally. No wheezes. No rhonchi. ABDOMEN: Soft, nontender, nondistended. Positive bowel sounds. Normal active bowel sounds NEUROLOGICAL: Alert and oriented times three. Cranial nerves II through XII grossly intact. Sensation decreased to light touch in stocking pattern decreased sensation to light touch on left hand D1-D4, D5 intact, +thenar wasting (-) babinksi/clonus bilat EXTREMITIES: 5\5 strength bilateral upper extremities. 5\5 strength right lower extremity. 4/5 strength in left hip flexor/knee extension, 0/5 ankle DF, EHL, PF SKIN: groin region with no erythema ASSESSMENT:81-year-old M with past medical history of Afib no longer on AC, DM with peripheral polyneuropathy who presents status post sepsis secondary to UTI with encephalopathy PLAN: 1. Rehab- PT/OT advance mobility and ADLs, strengthen/stretch/maintain ROM, patient has AFO on left, ambulating with RW 2. Neuro- peripheral polyneuropathy with left foot drop contributing to mobility impairments -recent encephalopathy due to sepsis, monitor for worsening cognitive function -carpal tunnel syndrome on left- cont splint to be worn at night -refer to neurology outpatient for NCS/EMG 3. Cardiac- Afib with PM, off AC due to frequent falls and recent supra- therapeutic INR, cont co-reg and digoxin -CHF- daily weights, fluid restrict, cont diuretics -elevated BPs, have adjusted Imdur dosing- improved 4. Resp- monitor for infection, incentive spirometry -cont flonase, nasal saline drops, claritin for sinuses - CXR 08-24-2 negative fo rinfiltrate, patient afebrile, no leucocytosis, cont mucinex 5.-s/p course of Ceftriaxone and Levaquin for Klebsiella UTI, patient unfortunately has had persistent dysuria and retention with 2 failed voiding t rials (patient had green removed 08/01 and replaced 08/03, removed on 08/09 and was able to void with intermittent retention and dysuria/penile pain green replaced on 08/11 when one time dose of fluconazole was given and nystatin powder- to groin started for what looked like a fungal infection)- Dr Winter consulted for E faecalis Ucx and she believes symptoms are due to fungal infection, Fluconazole started again for 7 day course and will extend to 14 days total after discussion with Dr. Winter given persistent penile irritation- groin erythema much improved -urology recs appreciated as well, patient started on oxybutynin however he had considerably dry mouth and his urinary symptoms seem to be isolated to the tip of the penis and less likely due to OAB, cont to trial off oxybutynin and cont to assess- plan to d/c green today - f/u urology as outpatient, he will need cystoscopy -hx of prostate cancer cont Flomax, finasteride, terazosin - f/u urology on d/c, repeat CT in 6 months to monitor left kidney mass 6. GI- cont f/u surgery for possible repeat colonoscopy given hx of colon cancer, no indication per Dr. Dinh for upper GI scope -protonix for ppx -FOBT negative 7. Endo- hx of DM with peripheral polyneuropathy cont insulin sliding scale 8. DVT ppx- TEDs 9. Pain- tylenol prn -right groin/hip flexor spasms (chronic)- cont magnesium and will cont baclofen, will schedule it daily 10. Dispo- TBD Allergies Coded Allergies: Penicillins (Verified Allergy, Unknown, 03/04/21) anaph Vital Signs Vital Signs Date Time Temp Pulse Resp B/P (MAP) Pulse Ox O2 Delivery O2 Flow Rate FiO2 08/24/21 08:40 68 08/24/21 08:40 132/68 08/24/21 06:00 98.0 19 97 Room Air 08/23/21 21:00 2.0 Laboratory Data Labs 24H Laboratory Tests 2 08/23/21 16:54: Bedside Glucose (Misc Panel) 207H 08/24/21 05:44: Bedside Glucose (Misc Panel) 121H Current Medications Current Medications Current Medications Medications (Trade) Dose Ordered Sig/Malinda Route PRN Reason Start Time Stop Time Status Last Admin Dose Admin Acetaminophen (Tylenol Tab) 650 mg Q4HP PRN PO fever/MILD PAIN (PS 1-4) 07/31/21 15:50 08/22/21 09:33 Albuterol/ Ipratropium (Combivent Respimat 100-20mcg) 1 puff RTID INH 08/18/21 20:00 08/23/21 14:07 Allopurinol (Zyloprim) 300 mg DAILY PO 07/31/21 09:00 08/24/21 08:39 Baclofen (Lioresal) 5 mg DAILY PO 08/22/21 09:00 08/24/21 08:38 Baclofen (Lioresal) 5 mg TIDP PRN GT leg spasm 08/18/21 15:40 08/21/21 14:47 DC 08/21/21 14:28 Bisacodyl (Dulcolax Suppository) 10 mg DAILYPRN PRN [place] CONSTIPATION 07/31/21 15:50 Carbamide Peroxide (Debrox) 5 drop BID AU 08/03/21 21:00 08/07/21 09:01 DC 08/07/21 10:16 Carvedilol (COReg) 3.125 mg BID PO 07/31/21 21:00 08/24/21 08:40 Cyanocobalamin (Vitamin B12) 1,000 mcg DAILY PO 08/01/21 09:00 08/24/21 08:38 Dextrose (Dextrose 50%) 25 ml ASDIRECTED PRN IV SEE LABEL COMMENTS 07/31/21 15:50 08/01/21 10:59 DC Dextrose (Dextrose 50%) 25 ml ASDIRECTED PRN IV SEE LABEL COMMENTS 08/01/21 11:00 Digoxin (Lanoxin) 0.125 mg DAILY PO 08/01/21 09:00 08/24/21 08:40 Docusate Sodium (Colace) 100 mg BID PO 07/31/21 21:00 08/24/21 08:38 Finasteride (Proscar) 5 mg QHS PO 08/02/21 21:00 08/23/21 21:03 Fluconazole (Diflucan Tablet) 100 mg QHS PO 08/14/21 21:00 08/27/21 23:59 08/23/21 21:03 Gabapentin (Neurontin) 100 mg TID PO 08/11/21 11:45 08/24/21 08:38 Glucagon (Glucagon) 1 mg ASDIRECTED PRN SC SEE LABEL COMMENTS 07/31/21 15:50 08/01/21 10:59 DC Glucagon (Glucagon) 1 mg ASDIRECTED PRN SC SEE LABEL COMMENTS 08/01/21 11:00 Glucose (Glucose) 16 GM ASDIRECTED PRN PO SEE LABEL COMMENTS 07/31/21 15:50 08/01/21 10:59 DC Glucose (Glucose) 16 GM ASDIRECTED PRN PO SEE LABEL COMMENTS 08/01/21 11:00 Guaifenesin (Mucinex Tab Er) 600 mg BID PO 08/18/21 21:00 08/24/21 08:38 Home Med (Home Med List Complete!) ASDIRECTED XX 08/15/21 07:35 08/15/21 07:36 DC Hydralazine HCl (Apresoline) 25 mg Q6H PO 08/10/21 18:00 08/11/21 12:37 DC 08/11/21 00:15 Hydrocortisone (Hydrocortisone 2.5% Ointment) left wrist crease BID TOP 08/01/21 09:00 08/07/21 12:18 DC 08/07/21 10:15 Insulin Human Lispro (HumaLOG INSULIN) SEE PROTOCOL TABLE AC SC 08/01/21 12:00 08/10/21 14:54 DC 08/09/21 17:21 Insulin Human Lispro (HumaLOG INSULIN) SEE PROTOCOL TABLE QHS SC 07/31/21 21:00 08/01/21 10:59 DC Insulin Human Lispro (HumaLOG INSULIN) SEE PROTOCOL TABLE QHS SC 08/01/21 21:00 08/10/21 14:54 DC Insulin Human Lispro (HumaLOG INSULIN) See Protocol Table AC SC 08/01/21 07:30 08/01/21 10:59 DC 08/01/21 08:50 Iron (Niferex) 150 mg BID PO 07/31/21 21:00 08/24/21 08:38 Isosorbide Mononitrate (Imdur) 30 mg DAILY PO 08/01/21 09:00 08/10/21 14:50 DC 08/10/21 08:48 Isosorbide Mononitrate (Imdur) 60 mg DAILY PO 08/11/21 09:00 08/24/21 08:41 Lactobacillus Acidophilus (Bacid) 1 ea WMHS PO 07/31/21 18:00 08/24/21 08:38 Levofloxacin (Levaquin) 500 mg DAILY@06 PO 08/01/21 06:00 08/04/21 10:21 DC 08/04/21 05:17 Lidocaine HCl (Lidocaine 2% Urojet) FOR Intermittent CATHETERization Q2HP PRN TOP catheterization 08/02/21 16:20 08/11/21 21:07 Loratadine (Claritin) 10 mg DAILY PO 08/03/21 09:00 08/10/21 14:50 DC 08/10/21 08:49 Magnesium Oxide (Mag-Ox) 400 mg BID PO 08/03/21 09:00 08/24/21 08:38 Nystatin (Mycostatin Powder, Nystop) groin/testicles BID TOP 08/11/21 09:00 08/11/21 13:41 DC Nystatin (Mycostatin Powder, Nystop) groin/testicles TID TOP 08/11/21 16:00 08/24/21 08:39 Oxybutynin Chloride (Ditropan) 5 mg BID PO 08/15/21 09:00 08/21/21 14:47 DC 08/21/21 08:16 Pantoprazole Sodium (Protonix) 40 mg DAILY PO 07/31/21 09:00 08/24/21 08:38 Phenazopyridine HCl (Pyridium) 100 mg TID PO 08/02/21 16:15 08/03/21 14:25 DC 08/03/21 08:38 Phenazopyridine HCl (Pyridium) 100 mg TID PO 08/11/21 16:00 08/13/21 09:01 DC 08/13/21 07:48 Polyethylene Glycol (Miralax) 1 pkt DAILY PO 08/04/21 10:20 08/24/21 08:37 Senna (Senokot) 1 tab QHS PO 07/31/21 21:00 08/23/21 21:03 Sodium Chloride ([place] Nasal [place]) 2 spray TID NA 08/03/21 16:00 08/23/21 21:03 Tamsulosin HCl (Flomax) 0.8 mg QHS PO 08/01/21 21:00 08/23/21 21:03 Terazosin HCl (Hytrin) 1 mg QHS PO 08/11/21 21:00 08/23/21 21:02 Torsemide (Demadex) 10 mg DAILY PO 08/01/21 09:00 08/19/21 12:39 DC 08/19/21 08:29 Torsemide (Demadex) 20 mg DAILY PO 08/20/21 09:00 08/24/21 08:40 YVON COELHO MD Aug 24, 2021 09:33
--- NOTE | 2021-08-24 10:50 | REP ---
INDICATION: r/o infiltrate COMPARISON: 01/06/2018 and 08/19/2021. TECHNIQUE: PA/Lateral FINDINGS: Lungs: Clear, no infiltrate. There is mild chronic interstitial prominence inferiorly bilaterally. Heart: Mildly enlarged. Mediastinum: There is mild calcification of the thoracic aorta. The mediastinal silhouette is unchanged. Pleural angles: Unremarkable.. Bones and soft tissues: There are mild degenerative changes of the spine without compression deformity. Single lead pacemaker is again noted. IMPRESSION: No acute pulmonary disease. Cardiomegaly. <Electronically signed by Jose M Jenkins > 08/24/21 1042
[2021-08-24 20:00] VITALS: BP 144/71
[2021-08-24] MEDS: SENNA 8.6 MG TAB (SENOKOT) PO SCH (21:17)
[2021-08-24] MEDS: TERAZOSIN 1 MG CAP PO SCH (21:17)
[2021-08-24] MEDS: TAMSULOSIN 0.4 MG CAP PO SCH (21:18)
[2021-08-24] MEDS: FINASTERIDE 5 MG TAB PO SCH (21:18)
[2021-08-24] MEDS: FLUCONAZOLE 100 MG TAB PO SCH (21:18)
[2021-08-25 06:00] VITALS: BP 122/68
[2021-08-25 07:57] LABS: BASO # 0.1 10^3/uL (0.0-0.2); BASO % 0.7 % (0.0-1.0); EOS # 0.5 10^3/uL (0.0-0.5); EOS % 5.8 % (0.0-3.0); HEMATOCRIT 34.6 % (42.0-52.0); HEMOGLOBIN 10.7 g/dl (13.5-17.5); LYMPH # 1.4 10^3/uL (1.5-5.0); LYMPH % 15.9 % (24.0-44.0); MEAN CORPUSCULAR HEMOGLOBIN 31.4 pg (27.0-33.0); MEAN CORPUSCULAR HGB CONC 30.9 g/dl (32.0-36.5); MEAN CORPUSCULAR VOLUME 101.5 fl (80.0-96.0); MONO # 1.5 10^3/uL (0.0-0.8); NEUTROPHILS # 5.2 10^3/uL (1.5-8.5); NEUTROPHILS % 59.1 % (36.0-66.0); PLATELET COUNT, AUTOMATED 184 10^3/uL (150-450); RED BLOOD COUNT 3.41 10^6/uL (4.30-6.10); WHITE BLOOD COUNT 8.7 10^3/uL (4.0-10.0)
[2021-08-25] MEDS: COMBIVENT RESPIMAT 100-20MCG INHALER 4GM INH SCH ×3 (08:00→20:00)
[2021-08-25 08:11] LABS: BLOOD UREA NITROGEN 31 MG/DL (7-18); CALCIUM LEVEL 9.5 MG/DL (8.8-10.2); CARBON DIOXIDE LEVEL 29 MEQ/L (21-32); CHLORIDE LEVEL 100 MEQ/L (98-107); CREATININE FOR GFR 1.04 MG/DL (0.70-1.30); GLOMERULAR FILTRATION RATE > 60.0 (>35); GLUCOSE, FASTING 125 MG/DL (70-100); POTASSIUM SERUM 3.9 MEQ/L (3.5-5.1); SODIUM LEVEL 139 MEQ/L (136-145)
[2021-08-25] MEDS: GABAPENTIN 100 MG CAP PO SCH ×3 (09:00→20:28)
[2021-08-25] MEDS: guaiFENesin ER 600 MG TAB PO SCH ×2 (09:00→20:28)
[2021-08-25] MEDS: LACTOBACILLUS ACIDOPHILUS CAP (BACID) PO SCH ×4 (09:00→20:28)
[2021-08-25] MEDS: PANTOPRAZOLE 40MG TAB (PROTONIX) PO SCH (09:00)
[2021-08-25] MEDS: BACLOFEN 5MG PER 1/2 TABLET PO SCH (09:00)
[2021-08-25] MEDS: MIRALAX *UNIT DOSE* 17GM PACKET PO SCH (09:00)
[2021-08-25] MEDS: allopurinoL 300 MG TAB PO SCH (09:00)
[2021-08-25] MEDS: DOCUSATE SODIUM 100MG CAPSULE PO SCH ×2 (09:00→20:27)
[2021-08-25] MEDS: MAGNESIUM OXIDE 400MG TAB (MAG-OX) PO SCH ×2 (09:01→20:28)
[2021-08-25] MEDS: IRON POLYSAC (NIFEREX) 150 MG CAP PO SCH ×2 (09:01→20:27)
[2021-08-25] MEDS: ISOSORBIDE MON. (IMDUR) 30 MG XR TAB PO SCH (09:02)
[2021-08-25] MEDS: CARVedilol 3.125 MG TAB PO SCH ×2 (09:03→20:27)
[2021-08-25] MEDS: DIGOXIN 0.125 MG TAB PO SCH (09:03)
[2021-08-25] MEDS: TORSEMIDE 10 MG TABLET PO SCH (09:03)
[2021-08-25] MEDS: CYANOCOBALAMIN 500 MCG TAB PO SCH (09:03)
[2021-08-25] MEDS: NYSTATIN 100,000 UNITS/GM TOPICAL PWD 15 GM TOP SCH ×3 (09:04→20:29)
[2021-08-25] MEDS: REMEDY PHYTOPLEX Z-GUARD PASTE 113GM TUBE (FROM STOREROOM PRODUCT) TOP SCH ×3 (09:04→20:28)
[2021-08-25] MEDS: SODIUM CHLORIDE NASAL 0.65% SPRAY BTL (OCEAN) SCH ×3 (09:04→20:28)
--- NOTE | 2021-08-25 11:31 | IPNPDOC ---
PM&R Progress Note DATE OF SERVICE: Aug 25, 2021 Phlebotomist Supervisor/Instructor Progress Note Subjective: Patient seen in his room with no complaints. He is waiting for a short term rehab bed to open up, but continues to get stronger in therapy. REVIEW OF SYSTEMS: The following is a completed review of systems and has been reviewed. Review of systems otherwise unremarkable. PAIN: Patient self reports no pain EYES: No recent vision changes EARS, NOSE, & THROAT: No throat pain, or dysphagia, or rhinorrhea CARDIOVASCULAR: Denies chest pain or palpitations PULMONARY: Denies shortness of breath GASTROINTESTINAL: Denies constipation/diarrhea GENITOURINARY: no retention MUSCULOSKELETAL: generalized weakness NEUROLOGICAL:+left foot drop and peripheral polyneuropathy, left hand numbness HEMATOLOGICAL: denies easy bruising SKIN: left foot pressure spots PSYCHIATRIC: Unremarkable All other review of systems found to be negative. PHYSICAL EXAMINATION: VITAL SIGNS: Please see below. GENERAL: Pleasant and cooperative. No acute distress. HEENT: PERRL. Extraocular movements intact. Clear conjunctiva CARDIOVASCULAR: Irregular rate and rhythm. No murmurs, rubs, or gallops LUNGS: Clear to auscultation bilaterally. No wheezes. No rhonchi. ABDOMEN: Soft, nontender, nondistended. Positive bowel sounds. Normal active bowel sounds NEUROLOGICAL: Alert and oriented times three. Cranial nerves II through XII grossly intact. Sensation decreased to light touch in stocking pattern decreased sensation to light touch on left hand D1-D4, D5 intact, +thenar wa sting (-) babinksi/clonus bilat EXTREMITIES: 5\5 strength bilateral upper extremities. 5\5 strength right lower extremity. 4/5 strength in left hip flexor/knee extension, 0/5 ankle DF, EHL, PF SKIN: groin region with no erythema ASSESSMENT:81-year-old M with past medical history of Afib no longer on AC, DM with peripheral polyneuropathy who presents status post sepsis secondary to UTI with encephalopathy PLAN: 1. Rehab- PT/OT advance mobility and ADLs, strengthen/stretch/maintain ROM, patient has AFO on left, ambulating further with RW 2. Neuro- peripheral polyneuropathy with left foot drop contributing to mobility impairments -recent encephalopathy due to sepsis, monitor for worsening cognitive function -carpal tunnel syndrome on left- cont splint to be worn at night -refer to neurology outpatient for NCS/EMG 3. Cardiac- Afib with PM, off AC due to frequent falls and recent supra- therapeutic INR, cont co-reg and digoxin -CHF- daily weights, fluid restrict, cont diuretics -elevated BPs, have adjusted Imdur dosing- improved 4. Resp- monitor for infection, incentive spirometry -cont flonase, nasal saline drops, claritin for sinuses - CXR 08-24-2 negative fo rinfiltrate, patient afebrile, no leucocytosis, cont mucinex 5.-s/p course of Ceftriaxone and Levaquin for Klebsiella UTI, patient unfortunately has had persistent dysuria and retention with 2 failed voiding trials (patient had green removed 08/01 and replaced 08/03, removed on 08/09 and was able to void with intermittent retention and dysuria/penile pain green replaced on 08/11 when one time dose of fluconazole was given and nystatin powder- to groin started for what looked like a fungal infection)- Dr Winter consulted for E faecalis Ucx and she believes symptoms are due to fungal infection, Fluconazole started again for 7 day course and will extend to 14 days total after discussion with Dr. Winter given persistent penile irritation- groin erythema much improved -urology recs appreciated as well, patient started on oxybutynin however he had considerably dry mouth and his urinary symptoms seem to be isolated to the tip of the penis and less likely due to OAB, cont to trial off oxybutynin and cont to assess- green d/c and patient is voiding well - f/u urology as outpatient, he will need cystoscopy -hx of prostate cancer cont Flomax, finasteride, terazosin - f/u urology on d/c, repeat CT in 6 months to monitor left kidney mass 6. GI- cont f/u surgery for possible repeat colonoscopy given hx of colon cancer, no indication per Dr. Dinh for upper GI scope -protonix for ppx -FOBT negative 7. Endo- hx of DM with peripheral polyneuropathy cont insulin sliding scale 8. DVT ppx- TEDs 9. Pain- tylenol prn -right groin/hip flexor spasms (chronic)- cont magnesium and baclofen, improved 10. Dispo- TBD Allergies Coded Allergies: Penicillins (Verified Allergy, Unknown, 03/04/21) anaph Vital Signs Vital Signs Date Time Temp Pulse Resp B/P (MAP) Pulse Ox O2 Delivery O2 Flow Rate FiO2 08/25/21 09:03 68 08/25/21 09:02 115/64 08/25/21 06:00 98.7 19 96 Room Air 08/24/21 20:00 2.0 Laboratory Data CBC/BMP Laboratory Tests 08/25/21 07:09 Labs 24H Laboratory Tests 2 08/24/21 16:48: Bedside Glucose (Misc Panel) 169H 08/25/21 05:24: Bedside Glucose (Misc Panel) 133H 08/25/21 07:09: Immature Granulocyte % (Auto) 1.5, Neutrophils (%) (Auto) 59.1, Lymphocytes (%) (Auto) 15.9L, Monocytes (%) (Auto) 17.0H, Eosinophils (%) (Auto) 5.8H, Basophils (%) (Auto) 0.7, Neutrophils # (Auto) 5.2, Lymphocytes # (Auto) 1.4L, Monocytes # (Auto) 1.5H, Eosinophils # (Auto) 0.5, Basophils # (Auto) 0.1, Nucleated Red Blood Cells % (auto) 0.0, Anion Gap 10, Glomerular Filtration Rate > 60.0, Calcium Level 9.5 Current Medications Current Medications Current Medications Medications (Trade) Dose Ordered Sig/Malinda Route PRN Reason Start Time Stop Time Status Last Admin Dose Admin Acetaminophen (Tylenol Tab) 650 mg Q4HP PRN PO fever/MILD PAIN (PS 1-4) 07/31/21 15:50 08/22/21 09:33 Albuterol/ Ipratropium (Combivent Respimat 100-20mcg) 1 puff RTID INH 08/18/21 20:00 08/23/21 14:07 Allopurinol (Zyloprim) 300 mg DAILY PO 07/31/21 09:00 08/25/21 09:00 Baclofen (Lioresal) 5 mg DAILY PO 08/22/21 09:00 08/25/21 09:00 Baclofen (Lioresal) 5 mg TIDP PRN GT leg spasm 08/18/21 15:40 08/21/21 14:47 DC 08/21/21 14:28 Bisacodyl (Dulcolax Suppository) 10 mg DAILYPRN PRN [place] CONSTIPATION 07/31/21 15:50 Carbamide Peroxide (Debrox) 5 drop BID AU 08/03/21 21:00 08/07/21 09:01 DC 08/07/21 10:16 Carvedilol (COReg) 3.125 mg BID PO 07/31/21 21:00 08/25/21 09:03 Cyanocobalamin (Vitamin B12) 1,000 mcg DAILY PO 08/01/21 09:00 08/25/21 09:03 Dextrose (Dextrose 50%) 25 ml ASDIRECTED PRN IV SEE LABEL COMMENTS 07/31/21 15:50 08/01/21 10:59 DC Dextrose (Dextrose 50%) 25 ml ASDIRECTED PRN IV SEE LABEL COMMENTS 08/01/21 11:00 Digoxin (Lanoxin) 0.125 mg DAILY PO 08/01/21 09:00 08/25/21 09:03 Docusate Sodium (Colace) 100 mg BID PO 07/31/21 21:00 08/25/21 09:00 Finasteride (Proscar) 5 mg QHS PO 08/02/21 21:00 08/24/21 21:18 Fluconazole (Diflucan Tablet) 100 mg QHS PO 08/14/21 21:00 08/27/21 23:59 08/24/21 21:18 Gabapentin (Neurontin) 100 mg TID PO 08/11/21 11:45 08/25/21 09:00 Glucagon (Glucagon) 1 mg ASDIRECTED PRN SC SEE LABEL COMMENTS 07/31/21 15:50 08/01/21 10:59 DC Glucagon (Glucagon) 1 mg ASDIRECTED PRN SC SEE LABEL COMMENTS 08/01/21 11:00 Glucose (Glucose) 16 GM ASDIRECTED PRN PO SEE LABEL COMMENTS 07/31/21 15:50 08/01/21 10:59 DC Glucose (Glucose) 16 GM ASDIRECTED PRN PO SEE LABEL COMMENTS 08/01/21 11:00 Guaifenesin (Mucinex Tab Er) 600 mg BID PO 08/18/21 21:00 08/25/21 09:00 Home Med (Home Med List Complete!) ASDIRECTED XX 08/15/21 07:35 08/15/21 07:36 DC Hydralazine HCl (Apresoline) 25 mg Q6H PO 08/10/21 18:00 08/11/21 12:37 DC 08/11/21 00:15 Hydrocortisone (Hydrocortisone 2.5% Ointment) left wrist crease BID TOP 08/01/21 09:00 08/07/21 12:18 DC 08/07/21 10:15 Insulin Human Lispro (HumaLOG INSULIN) SEE PROTOCOL TABLE AC PA 08/01/21 12:00 08/10/21 14:54 DC 08/09/21 17:21 Insulin Human Lispro (HumaLOG INSULIN) SEE PROTOCOL TABLE QHS PA 07/31/21 21:00 08/01/21 10:59 DC Insulin Human Lispro (HumaLOG INSULIN) [facility] 08/01/21 21:00 08/10/21 14:54 DC Insulin Human Lispro (HumaLOG INSULIN) See Protocol Table AC PA 08/01/21 07:30 08/01/21 10:59 DC 08/01/21 08:50 Iron (Niferex) 150 mg BID PO 07/31/21 21:00 08/25/21 09:01 Isosorbide Mononitrate (Imdur) 30 mg DAILY PO 08/01/21 09:00 08/10/21 14:50 DC 08/10/21 08:48 Isosorbide Mononitrate (Imdur) 60 mg DAILY PO 08/11/21 09:00 08/25/21 09:02 Lactobacillus Acidophilus (Bacid) 1 ea WMHS PO 07/31/21 18:00 08/25/21 09:00 Levofloxacin (Levaquin) 500 mg DAILY@06 PO 08/01/21 06:00 08/04/21 10:21 DC 08/04/21 05:17 Lidocaine HCl (Lidocaine 2% Urojet) FOR Intermittent CATHETERization Q2HP PRN TOP catheterization 08/02/21 16:20 08/11/21 21:07 Loratadine (Claritin) 10 mg DAILY PO 08/03/21 09:00 08/10/21 14:50 DC 08/10/21 08:49 Magnesium Oxide (Mag-Ox) 400 mg BID PO 08/03/21 09:00 08/25/21 09:01 Nystatin (Mycostatin Powder, Nystop) groin/testicles BID TOP 08/11/21 09:00 08/11/21 13:41 DC Nystatin (Mycostatin Powder, Nystop) groin/testicles TID TOP 08/11/21 16:00 08/25/21 09:04 Oxybutynin Chloride (Ditropan) 5 mg BID PO 08/15/21 09:00 08/21/21 14:47 DC 08/21/21 08:16 Pantoprazole Sodium (Protonix) 40 mg DAILY PO 07/31/21 09:00 08/25/21 09:00 Phenazopyridine HCl (Pyridium) 100 mg TID PO 08/02/21 16:15 08/03/21 14:25 DC 08/03/21 08:38 Phenazopyridine HCl (Pyridium) 100 mg TID PO 08/11/21 16:00 08/13/21 09:01 DC 08/13/21 07:48 Polyethylene Glycol (Miralax) 1 pkt DAILY PO 08/04/21 10:20 08/24/21 08:37 Senna (Senokot) 1 tab QHS PO 07/31/21 21:00 08/24/21 21:17 Sodium Chloride ([place] Nasal [place]) 2 spray TID NA 08/03/21 16:00 08/25/21 09:04 Tamsulosin HCl (Flomax) 0.8 mg QHS PO 08/01/21 21:00 08/24/21 21:18 Terazosin HCl (Hytrin) 1 mg QHS PO 08/11/21 21:00 08/24/21 21:17 Torsemide (Demadex) 10 mg DAILY PO 08/01/21 09:00 08/19/21 12:39 DC 08/19/21 08:29 Torsemide (Demadex) 20 mg DAILY PO 08/20/21 09:00 08/25/21 09:03 YVON COELHO MD Aug 25, 2021 11:31
[2021-08-25 14:00] VITALS: BP 126/67
[2021-08-25 20:00] VITALS: BP 130/68
[2021-08-25] MEDS: TAMSULOSIN 0.4 MG CAP PO SCH (20:26)
[2021-08-25] MEDS: SENNA 8.6 MG TAB (SENOKOT) PO SCH (20:26)
[2021-08-25] MEDS: FINASTERIDE 5 MG TAB PO SCH (20:26)
[2021-08-25] MEDS: TERAZOSIN 1 MG CAP PO SCH (20:27)
[2021-08-25] MEDS: FLUCONAZOLE 100 MG TAB PO SCH (20:28)
[2021-08-26 06:00] VITALS: BP 143/79
[2021-08-26] MEDS: COMBIVENT RESPIMAT 100-20MCG INHALER 4GM INH SCH ×3 (08:00→20:00)
[2021-08-26] MEDS: BACLOFEN 5MG PER 1/2 TABLET PO SCH (09:25)
[2021-08-26] MEDS: MIRALAX *UNIT DOSE* 17GM PACKET PO SCH (09:25)
[2021-08-26] MEDS: allopurinoL 300 MG TAB PO SCH (09:26)
[2021-08-26] MEDS: LACTOBACILLUS ACIDOPHILUS CAP (BACID) PO SCH ×4 (09:26→20:24)
[2021-08-26] MEDS: IRON POLYSAC (NIFEREX) 150 MG CAP PO SCH ×2 (09:26→20:26)
[2021-08-26] MEDS: DOCUSATE SODIUM 100MG CAPSULE PO SCH ×2 (09:26→20:24)
[2021-08-26] MEDS: MAGNESIUM OXIDE 400MG TAB (MAG-OX) PO SCH ×2 (09:26→20:27)
[2021-08-26] MEDS: TORSEMIDE 10 MG TABLET PO SCH (09:26)
[2021-08-26] MEDS: guaiFENesin ER 600 MG TAB PO SCH ×2 (09:26→20:28)
[2021-08-26] MEDS: GABAPENTIN 100 MG CAP PO SCH ×3 (09:26→20:28)
[2021-08-26] MEDS: CYANOCOBALAMIN 500 MCG TAB PO SCH (09:26)
[2021-08-26] MEDS: PANTOPRAZOLE 40MG TAB (PROTONIX) PO SCH (09:26)
[2021-08-26] MEDS: DIGOXIN 0.125 MG TAB PO SCH (09:27)
[2021-08-26] MEDS: CARVedilol 3.125 MG TAB PO SCH ×2 (09:27→20:25)
[2021-08-26] MEDS: ISOSORBIDE MON. (IMDUR) 30 MG XR TAB PO SCH (09:27)
[2021-08-26] MEDS: SODIUM CHLORIDE NASAL 0.65% SPRAY BTL (OCEAN) SCH ×3 (09:29→20:29)
[2021-08-26] MEDS: REMEDY PHYTOPLEX Z-GUARD PASTE 113GM TUBE (FROM STOREROOM PRODUCT) TOP SCH ×3 (09:29→20:30)
[2021-08-26] MEDS: NYSTATIN 100,000 UNITS/GM TOPICAL PWD 15 GM TOP SCH ×3 (09:30→20:30)
[2021-08-26 14:00] VITALS: BP 132/74
[2021-08-26 20:00] VITALS: BP 144/74
[2021-08-26] MEDS: TERAZOSIN 1 MG CAP PO SCH (20:26)
[2021-08-26] MEDS: SENNA 8.6 MG TAB (SENOKOT) PO SCH (20:27)
[2021-08-26] MEDS: TAMSULOSIN 0.4 MG CAP PO SCH (20:27)
[2021-08-26] MEDS: ACETAMINOPHEN TAB 650MG DOSE (2X325MG) PO PRN (20:27)
[2021-08-26] MEDS: FLUCONAZOLE 100 MG TAB PO SCH (20:28)
[2021-08-26] MEDS: FINASTERIDE 5 MG TAB PO SCH (20:28)
[2021-08-27 06:16] VITALS: BP 144/71
[2021-08-27] MEDS: COMBIVENT RESPIMAT 100-20MCG INHALER 4GM INH SCH ×3 (07:51→20:00)
[2021-08-27] MEDS: GABAPENTIN 100 MG CAP PO SCH ×3 (08:39→20:13)
[2021-08-27] MEDS: guaiFENesin ER 600 MG TAB PO SCH ×2 (08:39→20:13)
[2021-08-27] MEDS: MAGNESIUM OXIDE 400MG TAB (MAG-OX) PO SCH ×2 (08:39→20:20)
[2021-08-27] MEDS: allopurinoL 300 MG TAB PO SCH (08:39)
[2021-08-27] MEDS: BACLOFEN 5MG PER 1/2 TABLET PO SCH (08:39)
[2021-08-27] MEDS: LACTOBACILLUS ACIDOPHILUS CAP (BACID) PO SCH ×4 (08:39→20:13)
[2021-08-27] MEDS: IRON POLYSAC (NIFEREX) 150 MG CAP PO SCH ×2 (08:39→20:14)
[2021-08-27] MEDS: PANTOPRAZOLE 40MG TAB (PROTONIX) PO SCH (08:39)
[2021-08-27] MEDS: DOCUSATE SODIUM 100MG CAPSULE PO SCH ×2 (08:40→20:14)
[2021-08-27] MEDS: MIRALAX *UNIT DOSE* 17GM PACKET PO SCH (08:40)
[2021-08-27] MEDS: CYANOCOBALAMIN 500 MCG TAB PO SCH (08:40)
[2021-08-27] MEDS: DIGOXIN 0.125 MG TAB PO SCH (08:41)
[2021-08-27] MEDS: ISOSORBIDE MON. (IMDUR) 30 MG XR TAB PO SCH (08:41)
[2021-08-27] MEDS: CARVedilol 3.125 MG TAB PO SCH ×2 (08:41→20:13)
[2021-08-27] MEDS: TORSEMIDE 10 MG TABLET PO SCH (08:41)
[2021-08-27] MEDS: REMEDY PHYTOPLEX Z-GUARD PASTE 113GM TUBE (FROM STOREROOM PRODUCT) TOP SCH ×3 (08:42→20:15)
[2021-08-27] MEDS: SODIUM CHLORIDE NASAL 0.65% SPRAY BTL (OCEAN) SCH ×3 (08:42→20:15)
[2021-08-27] MEDS: NYSTATIN 100,000 UNITS/GM TOPICAL PWD 15 GM TOP SCH ×3 (08:42→20:15)
[2021-08-27 14:00] VITALS: BP 125/66
[2021-08-27 20:00] VITALS: BP 141/79
[2021-08-27] MEDS: FLUCONAZOLE 100 MG TAB PO SCH (20:14)
[2021-08-27] MEDS: SENNA 8.6 MG TAB (SENOKOT) PO SCH (20:14)
[2021-08-27] MEDS: TAMSULOSIN 0.4 MG CAP PO SCH (20:14)
[2021-08-27] MEDS: FINASTERIDE 5 MG TAB PO SCH (20:14)
[2021-08-27] MEDS: TERAZOSIN 1 MG CAP PO SCH (20:18)
[2021-08-28 06:00] VITALS: BP 140/75
[2021-08-28] MEDS: COMBIVENT RESPIMAT 100-20MCG INHALER 4GM INH SCH ×3 (08:00→20:00)
[2021-08-28] MEDS: BACLOFEN 5MG PER 1/2 TABLET PO SCH (08:28)
[2021-08-28] MEDS: DIGOXIN 0.125 MG TAB PO SCH (08:28)
[2021-08-28] MEDS: ISOSORBIDE MON. (IMDUR) 30 MG XR TAB PO SCH (08:28)
[2021-08-28] MEDS: IRON POLYSAC (NIFEREX) 150 MG CAP PO SCH ×2 (08:28→20:48)
[2021-08-28] MEDS: GABAPENTIN 100 MG CAP PO SCH ×3 (08:28→20:49)
[2021-08-28] MEDS: MAGNESIUM OXIDE 400MG TAB (MAG-OX) PO SCH ×2 (08:29→20:49)
[2021-08-28] MEDS: TORSEMIDE 10 MG TABLET PO SCH (08:29)
[2021-08-28] MEDS: PANTOPRAZOLE 40MG TAB (PROTONIX) PO SCH (08:29)
[2021-08-28] MEDS: DOCUSATE SODIUM 100MG CAPSULE PO SCH ×2 (08:29→20:49)
[2021-08-28] MEDS: CARVedilol 3.125 MG TAB PO SCH ×2 (08:29→20:49)
[2021-08-28] MEDS: MIRALAX *UNIT DOSE* 17GM PACKET PO SCH (08:29)
[2021-08-28] MEDS: CYANOCOBALAMIN 500 MCG TAB PO SCH (08:29)
[2021-08-28] MEDS: guaiFENesin ER 600 MG TAB PO SCH ×2 (08:29→20:49)
[2021-08-28] MEDS: LACTOBACILLUS ACIDOPHILUS CAP (BACID) PO SCH ×4 (08:29→20:49)
[2021-08-28] MEDS: allopurinoL 300 MG TAB PO SCH (08:29)
[2021-08-28] MEDS: REMEDY PHYTOPLEX Z-GUARD PASTE 113GM TUBE (FROM STOREROOM PRODUCT) TOP SCH ×3 (08:30→20:51)
[2021-08-28] MEDS: SODIUM CHLORIDE NASAL 0.65% SPRAY BTL (OCEAN) SCH ×3 (08:30→20:52)
[2021-08-28] MEDS: NYSTATIN 100,000 UNITS/GM TOPICAL PWD 15 GM TOP SCH ×3 (08:34→20:50)
[2021-08-28] MEDS: ACETAMINOPHEN TAB 650MG DOSE (2X325MG) PO PRN ×2 (09:14→20:50)
[2021-08-28 10:59] LABS: BASO # 0.1 10^3/uL (0.0-0.2); BASO % 0.8 % (0.0-1.0); EOS # 0.5 10^3/uL (0.0-0.5); EOS % 5.1 % (0.0-3.0); HEMATOCRIT 36.4 % (42.0-52.0); HEMOGLOBIN 11.1 g/dl (13.5-17.5); LYMPH # 1.4 10^3/uL (1.5-5.0); LYMPH % 14.8 % (24.0-44.0); MEAN CORPUSCULAR HEMOGLOBIN 31.1 pg (27.0-33.0); MEAN CORPUSCULAR HGB CONC 30.5 g/dl (32.0-36.5); MONO # 1.3 10^3/uL (0.0-0.8); MONO % 13.9 % (2.0-8.0); NEUTROPHILS # 5.9 10^3/uL (1.5-8.5); NEUTROPHILS % 63.8 % (36.0-66.0); PLATELET COUNT, AUTOMATED 185 10^3/uL (150-450); RED BLOOD COUNT 3.57 10^6/uL (4.30-6.10); WHITE BLOOD COUNT 9.3 10^3/uL (4.0-10.0)
[2021-08-28 11:56] LABS: BLOOD UREA NITROGEN 30 MG/DL (7-18); CALCIUM LEVEL 9.7 MG/DL (8.8-10.2); CARBON DIOXIDE LEVEL 27 MEQ/L (21-32); CHLORIDE LEVEL 102 MEQ/L (98-107); CREATININE FOR GFR 1.05 MG/DL (0.70-1.30); GLOMERULAR FILTRATION RATE > 60.0 (>35); GLUCOSE, FASTING 225 MG/DL (70-100); SODIUM LEVEL 136 MEQ/L (136-145)
[2021-08-28 14:00] VITALS: BP 139/87
[2021-08-28 20:00] VITALS: BP 141/75
[2021-08-28] MEDS: TERAZOSIN 1 MG CAP PO SCH (20:48)
[2021-08-28] MEDS: FINASTERIDE 5 MG TAB PO SCH (20:49)
[2021-08-28] MEDS: TAMSULOSIN 0.4 MG CAP PO SCH (20:49)
[2021-08-28] MEDS: SENNA 8.6 MG TAB (SENOKOT) PO SCH (20:50)
[2021-08-29 06:00] VITALS: BP 121/71
[2021-08-29] MEDS: DOCUSATE SODIUM 100MG CAPSULE PO SCH ×2 (07:38→21:03)
[2021-08-29] MEDS: TORSEMIDE 10 MG TABLET PO SCH (07:38)
[2021-08-29] MEDS: DIGOXIN 0.125 MG TAB PO SCH (07:38)
[2021-08-29] MEDS: CYANOCOBALAMIN 500 MCG TAB PO SCH (07:39)
[2021-08-29] MEDS: guaiFENesin ER 600 MG TAB PO SCH ×2 (07:39→21:03)
[2021-08-29] MEDS: GABAPENTIN 100 MG CAP PO SCH ×3 (07:39→21:03)
[2021-08-29] MEDS: PANTOPRAZOLE 40MG TAB (PROTONIX) PO SCH (07:40)
[2021-08-29] MEDS: MAGNESIUM OXIDE 400MG TAB (MAG-OX) PO SCH ×2 (07:40→21:03)
[2021-08-29] MEDS: BACLOFEN 5MG PER 1/2 TABLET PO SCH (07:40)
[2021-08-29] MEDS: ISOSORBIDE MON. (IMDUR) 30 MG XR TAB PO SCH (07:40)
[2021-08-29] MEDS: LACTOBACILLUS ACIDOPHILUS CAP (BACID) PO SCH ×4 (07:40→21:32)
[2021-08-29] MEDS: IRON POLYSAC (NIFEREX) 150 MG CAP PO SCH ×2 (07:41→21:03)
[2021-08-29] MEDS: CARVedilol 3.125 MG TAB PO SCH ×2 (07:41→21:04)
[2021-08-29] MEDS: allopurinoL 300 MG TAB PO SCH (07:41)
[2021-08-29] MEDS: ACETAMINOPHEN TAB 650MG DOSE (2X325MG) PO PRN (07:47)
[2021-08-29] MEDS: MIRALAX *UNIT DOSE* 17GM PACKET PO SCH (07:48)
[2021-08-29] MEDS: NYSTATIN 100,000 UNITS/GM TOPICAL PWD 15 GM TOP SCH ×3 (07:54→21:05)
[2021-08-29] MEDS: SODIUM CHLORIDE NASAL 0.65% SPRAY BTL (OCEAN) SCH ×3 (07:54→21:04)
[2021-08-29] MEDS: REMEDY PHYTOPLEX Z-GUARD PASTE 113GM TUBE (FROM STOREROOM PRODUCT) TOP SCH ×3 (07:55→21:07)
[2021-08-29] MEDS: COMBIVENT RESPIMAT 100-20MCG INHALER 4GM INH SCH ×3 (08:00→20:00)
--- NOTE | 2021-08-29 12:51 | IPNPDOC ---
PM&R Progress Note DATE OF SERVICE: Aug 29, 2021 Film Reader Progress Note Subjective: Patient stating the irritation at the tip of his penis is beginning to return. REVIEW OF SYSTEMS: The following is a completed review of systems and has been reviewed. Review of systems otherwise unremarkable. PAIN: Patient self reports no pain EYES: No recent vision changes EARS, NOSE, & THROAT: No throat pain, or dysphagia, or rhinorrhea CARDIOVASCULAR: Denies chest pain or palpitations PULMONARY: Denies shortness of breath GASTROINTESTINAL: Denies constipation/diarrhea GENITOURINARY: no retention MUSCULOSKELETAL: generalized weakness NEUROLOGICAL:+left foot drop and peripheral polyneuropathy, left hand numbness HEMATOLOGICAL: denies easy bruising SKIN: left foot pressure spots PSYCHIATRIC: Unremarkable All other review of systems found to be negative. PHYSICAL EXAMINATION: VITAL SIGNS: Please see below. GENERAL: Pleasant and cooperative. No acute distress. HEENT: PERRL. Extraocular movements intact. Clear conjunctiva CARDIOVASCULAR: Irregular rate and rhythm. No murmurs, rubs, or gallops LUNGS: Clear to auscultation bilaterally. No wheezes. No rhonchi. ABDOMEN: Soft, nontender, nondistended. Positive bowel sounds. Normal active bowel sounds NEUROLOGICAL: Alert and oriented times three. Cranial nerves II through XII grossly intact. Sensation decreased to light touch in stocking pattern decreased sensation to light touch on left hand D1-D4, D5 intact, +thenar wasting (-) babinksi/clonus bilat EXTREMITIES: 5\\5 strength bilateral upper extremities. 5\\5 strength right lower extremity. 4/5 strength in left hip flexor/knee extension, 0/5 ankle DF, EHL, PF SKIN: groin region with no erythema ASSESSMENT:81-year-old M with past medical history of Afib no longer on AC, DM with peripheral polyneuropathy who presents status post sepsis secondary to UTI with encephalopathy PLAN: 1. Rehab- PT/OT advance mobility and ADLs, strengthen/stretch/maintain ROM, patient has AFO on left, ambulating further with RW, room privileges 2. Neuro- peripheral polyneuropathy with left foot drop contributing to mobility impairments -recent encephalopathy due to sepsis, monitor for worsening cognitive function -carpal tunnel syndrome on left- cont splint to be worn at night -refer to neurology outpatient for NCS/EMG 3. Cardiac- Afib with PM, off AC due to frequent falls and recent supra- therapeutic INR, cont co-reg and digoxin -CHF- daily weights, fluid restrict, cont diuretics -elevated BPs, have adjusted Imdur dosing- improved 4. Resp- monitor for infection, incentive spirometry -cont flonase, nasal saline drops, claritin for sinuses - CXR 08-24-2 negative fo rinfiltrate, patient afebrile, no leucocytosis, cont mucinex 5.-s/p course of Ceftriaxone and Levaquin for Klebsiella UTI, patient unfortunately has had persistent dysuria and retention with 2 failed voiding trials (patient had green removed 08/01 and replaced 08/03, removed on 08/09 and was able to void with intermittent retention and dysuria/penile pain green replaced on 08/11 when one time dose of fluconazole was given and nystatin powder- to groin started for what looked like a fungal infection)- Dr Winter consulted for E faecalis Ucx and she believes symptoms are due to fungal infection, Fluconazole started again for 7 day course extended to 14 days total after discussion with Dr. Winter given persistent penile irritation- groin erythema much improved, will consider suppressive fluconazole treatment is irritation persists -urology recs appreciated as well, patient started on oxybutynin however he had considerably dry mouth and his urinary symptoms seem to be isolated to the tip of the penis and less likely due to OAB, cont to trial off oxybutynin and cont to assess- green d/c and patient is voiding well - f/u urology as outpatient, he will need cystoscopy -hx of prostate cancer cont Flomax, finasteride, terazosin - f/u urology on d/c, repeat CT in 6 months to monitor left kidney mass 6. GI- cont f/u surgery for possible repeat colonoscopy given hx of colon cancer, no indication per Dr. Dinh for upper GI scope -protonix for ppx -FOBT negative 7. Endo- hx of DM with peripheral polyneuropathy cont insulin sliding scale 8. DVT ppx- TEDs 9. Pain- tylenol prn -right groin/hip flexor spasms (chronic)- cont magnesium and baclofen, improved 10. Dispo- patient at this time is too high level for STR, applications had been sent out some time ago and due to staffing shortages in the area, no STR beds have been made available- at this point he is either safe to go home with recovery operator helper who can assist with medications and check in on him twice a day as he is a high fall risk and given his ongoing urinary symptoms is high risk for repeat infection causing him to get weaker. Patient has estranged relationship with his children and they are unable to provide him ongoing help at home, but have been very concerned and helpful in submitting an application to [facility] for assisted living which is underway. Patient has on multiple occasions stated he does not want to go to [facility] because he feels it is too expensive and doesn't want to waste his money on it, but agrees it would be a safe option for him, and does admit that he does have the money for it, but that it is a matter of principle to not spend his money on things he thinks are wasteful. He has been encouraged on many occasions to hire help in the home and to work this out with his family if need be, but he has not done this. The safest option at this time is assisted living at the [place], we will move forward with this plan. His daughter and son are aware (I spoke with son at length today on the phone to move forward with the application and securing a bed). Patient can always refuse to go and has been told he has the option to refuse, but given his reticence to make decisions for himself and execute a plan for a safe discharge on his own a nd despite multiple offers for assistance from our team, I feel the best option is to get him a bed at the [facility] and hope he agrees to go on day of discharge. Of note, he has made statements such as " I guess I am going to the [place]" so seems to be coming to slowly becoming adjusted to this plan. Allergies Coded Allergies: Penicillins (Verified Allergy, Unknown, 03/04/21) anaph Vital Signs Vital Signs Date Time Temp Pulse Resp B/P (MAP) Pulse Ox O2 Delivery O2 Flow Rate FiO2 08/29/21 07:40 120/68 08/29/21 07:38 70 08/29/21 06:00 97.9 18 94 Room Air 08/24/21 20:00 2.0 Laboratory Data Labs 24H Laboratory Tests 2 08/28/21 17:23: Bedside Glucose (Misc Panel) 144H 08/29/21 05:12: Bedside Glucose (Misc Panel) 142H Current Medications Current Medications Current Medications Medications (Trade) Dose Ordered Sig/Malinda Route PRN Reason Start Time Stop Time Status Last Admin Dose Admin Acetaminophen (Tylenol Tab) 650 mg Q4HP PRN PO fever/MILD PAIN (PS 1-4) 07/31/21 15:50 08/29/21 07:47 Albuterol/ Ipratropium (Combivent Respimat 100-20mcg) 1 puff RTID INH 08/18/21 20:00 08/23/21 14:07 Allopurinol (Zyloprim) 300 mg DAILY PO 07/31/21 09:00 08/29/21 07:41 Baclofen (Lioresal) 5 mg DAILY PO 08/22/21 09:00 08/29/21 07:40 Baclofen (Lioresal) 5 mg TIDP PRN GT leg spasm 08/18/21 15:40 08/21/21 14:47 DC 08/21/21 14:28 Bisacodyl (Dulcolax Suppository) 10 mg DAILYPRN PRN [place] CONSTIPATION 07/31/21 15:50 Carbamide Peroxide (Debrox) 5 drop BID AU 08/03/21 21:00 08/07/21 09:01 DC 08/07/21 10:16 Carvedilol (COReg) 3.125 mg BID PO 07/31/21 21:00 08/29/21 07:41 Cyanocobalamin (Vitamin B12) 1,000 mcg DAILY PO 08/01/21 09:00 08/29/21 07:39 Dextrose (Dextrose 50%) 25 ml ASDIRECTED PRN IV SEE LABEL COMMENTS 07/31/21 15:50 08/01/21 10:59 DC Dextrose (Dextrose 50%) 25 ml ASDIRECTED PRN IV SEE LABEL COMMENTS 08/01/21 11:00 Digoxin (Lanoxin) 0.125 mg DAILY PO 08/01/21 09:00 08/29/21 07:38 Docusate Sodium (Colace) 100 mg BID PO 07/31/21 21:00 08/29/21 07:38 Finasteride (Proscar) 5 mg QHS PO 08/02/21 21:00 08/28/21 20:49 Fluconazole (Diflucan Tablet) 100 mg QHS PO 08/14/21 21:00 08/27/21 23:59 DC 08/27/21 20:14 Gabapentin (Neurontin) 100 mg TID PO 08/11/21 11:45 08/29/21 07:39 Glucagon (Glucagon) 1 mg ASDIRECTED PRN SC SEE LABEL COMMENTS 07/31/21 15:50 08/01/21 10:59 DC Glucagon (Glucagon) 1 mg ASDIRECTED PRN SC SEE LABEL COMMENTS 08/01/21 11:00 Glucose (Glucose) 16 GM ASDIRECTED PRN PO SEE LABEL COMMENTS 07/31/21 15:50 08/01/21 10:59 DC Glucose (Glucose) 16 GM ASDIRECTED PRN PO SEE LABEL COMMENTS 08/01/21 11:00 Guaifenesin (Mucinex Tab Er) 600 mg BID PO 08/18/21 21:00 08/29/21 07:39 Home Med (Home Med List Complete!) ASDIRECTED XX 08/15/21 07:35 08/15/21 07:36 DC Hydralazine HCl (Apresoline) 25 mg Q6H PO 08/10/21 18:00 08/11/21 12:37 DC 08/11/21 00:15 Hydrocortisone (Hydrocortisone 2.5% Ointment) left wrist crease BID TOP 08/01/21 09:00 08/07/21 12:18 DC 08/07/21 10:15 Insulin Human Lispro (HumaLOG INSULIN) SEE PROTOCOL TABLE AC [place] 08/01/21 12:00 08/10/21 14:54 DC 08/09/21 17:21 Insulin Human Lispro (HumaLOG INSULIN) [facility] 07/[facility] 21:00 08/01/21 10:59 DC Insulin Human Lispro (HumaLOG INSULIN) [facility] 21:00 08/10/21 14:54 DC Insulin Human Lispro (HumaLOG INSULIN) See Protocol Table AC ID 08/01/21 07:30 08/01/21 10:59 DC 08/01/21 08:50 Iron (Niferex) 150 mg BID PO 07/31/21 21:00 08/29/21 07:41 Isosorbide Mononitrate (Imdur) 30 mg DAILY PO 08/01/21 09:00 08/10/21 14:50 DC 08/10/21 08:48 Isosorbide Mononitrate (Imdur) 60 mg DAILY PO 08/11/21 09:00 08/29/21 07:40 Lactobacillus Acidophilus (Bacid) 1 ea WMHS PO 07/31/21 18:00 08/29/21 11:17 Levofloxacin (Levaquin) 500 mg DAILY@06 PO 08/01/21 06:00 08/04/21 10:21 DC 08/04/21 05:17 Lidocaine HCl (Lidocaine 2% Urojet) FOR Intermittent CATHETERization Q2HP PRN TOP catheterization 08/02/21 16:20 08/11/21 21:07 Loratadine (Claritin) 10 mg DAILY PO 08/03/21 09:00 08/10/21 14:50 DC 08/10/21 08:49 Magnesium Oxide (Mag-Ox) 400 mg BID PO 08/03/21 09:00 08/29/21 07:40 Nystatin (Mycostatin Powder, Nystop) groin/testicles BID TOP 08/11/21 09:00 08/11/21 13:41 DC Nystatin (Mycostatin Powder, Nystop) groin/testicles TID TOP 08/11/21 16:00 08/29/21 07:54 Oxybutynin Chloride (Ditropan) 5 mg BID PO 08/15/21 09:00 08/21/21 14:47 DC 08/21/21 08:16 Pantoprazole Sodium (Protonix) 40 mg DAILY PO 07/31/21 09:00 08/29/21 07:40 Phenazopyridine HCl (Pyridium) 100 mg TID PO 08/02/21 16:15 08/03/21 14:25 DC 08/03/21 08:38 Phenazopyridine HCl (Pyridium) 100 mg TID PO 08/11/21 16:00 08/13/21 09:01 DC 08/13/21 07:48 Polyethylene Glycol (Miralax) 1 pkt DAILY PO 08/04/21 10:20 08/29/21 07:48 Senna (Senokot) 1 tab QHS PO 07/31/21 21:00 08/28/21 20:50 Sodium Chloride (Major Nasal [place]) 2 spray TID NA 08/03/21 16:00 08/29/21 07:54 Tamsulosin HCl (Flomax) 0.8 mg QHS PO 08/01/21 21:00 08/28/21 20:49 Terazosin HCl (Hytrin) 1 mg QHS PO 08/11/21 21:00 08/28/21 20:48 Torsemide (Demadex) 10 mg DAILY PO 08/01/21 09:00 08/19/21 12:39 DC 08/19/21 08:29 Torsemide (Demadex) 20 mg DAILY PO 08/20/21 09:00 08/29/21 07:38 YVON COELHO MD Aug 29, 2021 12:51
--- NOTE | 2021-08-29 12:51 | IPNPDOC ---
PM&R Progress Note DATE OF SERVICE: Aug 28, 2021 Grocery Carrier Progress Note Subjective: Patient seen in his room stating he feels ready for room privileges. REVIEW OF SYSTEMS: The following is a completed review of systems and has been reviewed. Review of systems otherwise unremarkable. PAIN: Patient self reports no pain EYES: No recent vision changes EARS, NOSE, & THROAT: No throat pain, or dysphagia, or rhinorrhea CARDIOVASCULAR: Denies chest pain or palpitations PULMONARY: Denies shortness of breath GASTROINTESTINAL: Denies constipation/diarrhea GENITOURINARY: no retention MUSCULOSKELETAL: generalized weakness NEUROLOGICAL:+left foot drop and peripheral polyneuropathy, left hand numbness HEMATOLOGICAL: denies easy bruising SKIN: left foot pressure spots PSYCHIATRIC: Unremarkable All other review of systems found to be negative. PHYSICAL EXAMINATION: VITAL SIGNS: Please see below. GENERAL: Pleasant and cooperative. No acute distress. HEENT: PERRL. Extraocular movements intact. Clear conjunctiva CARDIOVASCULAR: Irregular rate and rhythm. No murmurs, rubs, or gallops LUNGS: Clear to auscultation bilaterally. No wheezes. No rhonchi. ABDOMEN: Soft, nontender, nondistended. Positive bowel sounds. Normal active bowel sounds NEUROLOGICAL: Alert and oriented times three. Cranial nerves II through XII grossly intact. Sensation decreased to light touch in stocking pattern decreased sensation to light touch on left hand D1-D4, D5 intact, +thenar wasting (-) babinksi/clonus bilat EXTREMITIES: 5\5 strength bilateral upper extremities. 5\5 strength right lower extremity. 4/5 strength in left hip flexor/knee extension, 0/5 ankle DF, EHL, PF SKIN: groin region with no erythema ASSESSMENT:81-year-old M with past medical history of Afib no longer on AC, DM with peripheral polyneuropathy who presents status post sepsis secondary to UTI with encephalopathy PLAN: 1. Rehab- PT/OT advance mobility and ADLs, strengthen/stretch/maintain ROM, patient has AFO on left, ambulating further with , room privileges 2. Neuro- peripheral polyneuropathy with left foot drop contributing to mobility impairments -recent encephalopathy due to sepsis, monitor for worsening cognitive function -carpal tunnel syndrome on left- cont splint to be worn at night -refer to neurology outpatient for NCS/EMG 3. Cardiac- Afib with PM, off AC due to frequent falls and recent supra- therapeutic INR, cont co-reg and digoxin -CHF- daily weights, fluid restrict, cont diuretics -elevated BPs, have adjusted Imdur dosing- improved 4. Resp- monitor for infection, incentive spirometry -cont flonase, nasal saline drops, claritin for sinuses - CXR 08-24-2 negative fo rinfiltrate, patient afebrile, no leucocytosis, cont mucinex 5.-s/p course of Ceftriaxone and Levaquin for Klebsiella UTI, patient unfortunately has had persistent dysuria and retention with 2 failed voiding trials (patient had green removed 08/01 and replaced 08/03, removed on 08/09 and was able to void with intermittent retention and dysuria/penile pain green replaced on 08/11 when one time dose of fluconazole was given and nystatin powder- to groin started for what looked like a fungal infection)- Dr Winter consulted for E faecalis Ucx and she believes symptoms are due to fungal infection, Fluconazole started again for 7 day course and will extend to 14 days total after discussion with Dr. Winter given persistent penile irritation- groin erythema much improved -urology recs appreciated as well, patient started on oxybutynin however he had considerably dry mouth and his urinary symptoms seem to be isolated to the tip of the penis and less likely due to OAB, cont to trial off oxybutynin and cont to assess- green d/c and patient is voiding well - f/u urology as outpatient, he will need cystoscopy -hx of prostate cancer cont Flomax, finasteride, terazosin - f/u urology on d/c, repeat CT in 6 months to monitor left kidney mass 6. GI- cont f/u surgery for possible repeat colonoscopy given hx of colon cancer, no indication per Dr. Dinh for upper GI scope -protonix for ppx -FOBT negative 7. Endo- hx of DM with peripheral polyneuropathy cont insulin sliding scale 8. DVT ppx- TEDs 9. Pain- tylenol prn -right groin/hip flexor spasms (chronic)- cont magnesium and baclofen, improved 10. Dispo- TBD Allergies Coded Allergies: Penicillins (Verified Allergy, Unknown, 03/04/21) anaph Vital Signs Vital Signs Date Time Temp Pulse Resp B/P (MAP) Pulse Ox O2 Delivery O2 Flow Rate FiO2 08/29/21 07:40 120/68 08/29/21 07:38 70 08/29/21 06:00 97.9 18 94 Room Air 08/24/21 20:00 2.0 Laboratory Data Labs 24H Laboratory Tests 2 08/28/21 17:23: Bedside Glucose (Misc Panel) 144H 08/29/21 05:12: Bedside Glucose (Misc Panel) 142H Current Medications Current Medications Current Medications Medications (Trade) Dose Ordered Sig/Malinda Route PRN Reason Start Time Stop Time Status Last Admin Dose Admin Acetaminophen (Tylenol Tab) 650 mg Q4HP PRN PO fever/MILD PAIN (PS 1-4) 07/31/21 15:50 08/29/21 07:47 Albuterol/ Ipratropium (Combivent Respimat 100-20mcg) 1 puff RTID INH 08/18/21 20:00 08/23/21 14:07 Allopurinol (Zyloprim) 300 mg DAILY PO 07/31/21 09:00 08/29/21 07:41 Baclofen (Lioresal) 5 mg DAILY PO 08/22/21 09:00 08/29/21 07:40 Baclofen (Lioresal) 5 mg TIDP PRN GT leg spasm 08/18/21 15:40 08/21/21 14:47 DC 08/21/21 14:28 Bisacodyl (Dulcolax Suppository) 10 mg DAILYPRN PRN [place] CONSTIPATION 07/31/21 15:50 Carbamide Peroxide (Debrox) 5 drop BID AU 08/03/21 21:00 08/07/21 09:01 DC 08/07/21 10:16 Carvedilol (COReg) 3.125 mg BID PO 07/31/21 21:00 08/29/21 07:41 Cyanocobalamin (Vitamin B12) 1,000 mcg DAILY PO 08/01/21 09:00 08/29/21 07:39 Dextrose (Dextrose 50%) 25 ml ASDIRECTED PRN IV SEE LABEL COMMENTS 07/31/21 15:50 08/01/21 10:59 DC Dextrose (Dextrose 50%) 25 ml ASDIRECTED PRN IV SEE LABEL COMMENTS 08/01/21 11:00 Digoxin (Lanoxin) 0.125 mg DAILY PO 08/01/21 09:00 08/29/21 07:38 Docusate Sodium (Colace) 100 mg BID PO 07/31/21 21:00 08/29/21 07:38 Finasteride (Proscar) 5 mg QHS PO 08/02/21 21:00 08/28/21 20:49 Fluconazole (Diflucan Tablet) 100 mg QHS PO 08/14/21 21:00 08/27/21 23:59 DC 08/27/21 20:14 Gabapentin (Neurontin) 100 mg TID PO 08/11/21 11:45 08/29/21 07:39 Glucagon (Glucagon) 1 mg ASDIRECTED PRN SC SEE LABEL COMMENTS 07/31/21 15:50 08/01/21 10:59 DC Glucagon (Glucagon) 1 mg ASDIRECTED PRN SC SEE LABEL COMMENTS 08/01/21 11:00 Glucose (Glucose) 16 GM ASDIRECTED PRN PO SEE LABEL COMMENTS 07/31/21 15:50 08/01/21 10:59 DC Glucose (Glucose) 16 GM ASDIRECTED PRN PO SEE LABEL COMMENTS 08/01/21 11:00 Guaifenesin (Mucinex Tab Er) 600 mg BID PO 08/18/21 21:00 08/29/21 07:39 Home Med (Home Med List Complete!) ASDIRECTED XX 08/15/21 07:35 08/15/21 07:36 DC Hydralazine HCl (Apresoline) 25 mg Q6H PO 08/10/21 18:00 08/11/21 12:37 DC 08/11/21 00:15 Hydrocortisone (Hydrocortisone 2.5% Ointment) left wrist crease BID TOP 08/01/21 09:00 08/07/21 12:18 DC 08/07/21 10:15 Insulin Human Lispro (HumaLOG INSULIN) SEE PROTOCOL TABLE AC [place] 08/01/21 12:00 08/10/21 14:54 DC 08/09/21 17:21 Insulin Human Lispro (HumaLOG INSULIN) SEE PROTOCOL TABLE QHS [place] 07/31/21 21:00 08/01/21 10:59 DC Insulin Human Lispro (HumaLOG INSULIN) SEE PROTOCOL TABLE QHS [place] 08/01/21 21:00 08/10/21 14:54 DC Insulin Human Lispro (HumaLOG INSULIN) See Protocol Table AC SC 08/01/21 07:30 08/01/21 10:59 DC 08/01/21 08:50 Iron (Niferex) 150 mg BID PO 07/31/21 21:00 08/29/21 07:41 Isosorbide Mononitrate (Imdur) 30 mg DAILY PO 08/01/21 09:00 08/10/21 14:50 DC 08/10/21 08:48 Isosorbide Mononitrate (Imdur) 60 mg DAILY PO 08/11/21 09:00 08/29/21 07:40 Lactobacillus Acidophilus (Bacid) 1 ea WMHS PO 07/31/21 18:00 08/29/21 11:17 Levofloxacin (Levaquin) 500 mg DAILY@06 PO 08/01/21 06:00 08/04/21 10:21 DC 08/04/21 05:17 Lidocaine HCl (Lidocaine 2% Urojet) FOR Intermittent CATHETERization Q2HP PRN TOP catheterization 08/02/21 16:20 08/11/21 21:07 Loratadine (Claritin) 10 mg DAILY PO 08/03/21 09:00 08/10/21 14:50 DC 08/10/21 08:49 Magnesium Oxide (Mag-Ox) 400 mg BID PO 08/03/21 09:00 08/29/21 07:40 Nystatin (Mycostatin Powder, Nystop) groin/testicles BID TOP 08/11/21 09:00 08/11/21 13:41 DC Nystatin (Mycostatin Powder, Nystop) groin/testicles TID TOP 08/11/21 16:00 08/29/21 07:54 Oxybutynin Chloride (Ditropan) 5 mg BID PO 08/15/21 09:00 08/21/21 14:47 DC 08/21/21 08:16 Pantoprazole Sodium (Protonix) 40 mg DAILY PO 07/31/21 09:00 08/29/21 07:40 Phenazopyridine HCl (Pyridium) 100 mg TID PO 08/02/21 16:15 08/03/21 14:25 DC 08/03/21 08:38 Phenazopyridine HCl (Pyridium) 100 mg TID PO 08/11/21 16:00 08/13/21 09:01 DC 08/13/21 07:48 Polyethylene Glycol (Miralax) 1 pkt DAILY PO 08/04/21 10:20 08/29/21 07:48 Senna (Senokot) 1 tab QHS PO 07/31/21 21:00 08/28/21 20:50 Sodium Chloride ([place] Nasal [place]) 2 spray TID NA 08/03/21 16:00 08/29/21 07:54 Tamsulosin HCl (Flomax) 0.8 mg QHS PO 08/01/21 21:00 08/28/21 20:49 Terazosin HCl (Hytrin) 1 mg QHS PO 08/11/21 21:00 08/28/21 20:48 Torsemide (Demadex) 10 mg DAILY PO 08/01/21 09:00 08/19/21 12:39 DC 08/19/21 08:29 Torsemide (Demadex) 20 mg DAILY PO 08/20/21 09:00 08/29/21 07:38 YVON COELHO MD Aug 29, 2021 12:51
[2021-08-29 14:58] VITALS: BP 130/70
[2021-08-29 21:03] VITALS: BP 158/73
[2021-08-29] MEDS: TERAZOSIN 1 MG CAP PO SCH (21:03)
[2021-08-29] MEDS: TAMSULOSIN 0.4 MG CAP PO SCH (21:03)
[2021-08-29] MEDS: SENNA 8.6 MG TAB (SENOKOT) PO SCH (21:04)
[2021-08-29] MEDS: FINASTERIDE 5 MG TAB PO SCH (21:04)
[2021-08-30 06:00] VITALS: BP 137/74
[2021-08-30 06:48] LABS: BASO # 0.1 10^3/uL (0.0-0.2); BASO % 0.8 % (0.0-1.0); EOS # 0.6 10^3/uL (0.0-0.5); EOS % 5.9 % (0.0-3.0); HEMATOCRIT 35.9 % (42.0-52.0); LYMPH # 1.5 10^3/uL (1.5-5.0); LYMPH % 16.2 % (24.0-44.0); MEAN CORPUSCULAR HEMOGLOBIN 31.1 pg (27.0-33.0); MEAN CORPUSCULAR HGB CONC 30.6 g/dl (32.0-36.5); MEAN CORPUSCULAR VOLUME 101.4 fl (80.0-96.0); MONO % 16.5 % (2.0-8.0); NEUTROPHILS # 5.5 10^3/uL (1.5-8.5); NEUTROPHILS % 59.1 % (36.0-66.0); PLATELET COUNT, AUTOMATED 174 10^3/uL (150-450); RED BLOOD COUNT 3.54 10^6/uL (4.30-6.10); WHITE BLOOD COUNT 9.3 10^3/uL (4.0-10.0)
[2021-08-30 07:14] LABS: BLOOD UREA NITROGEN 33 MG/DL (7-18); CALCIUM LEVEL 9.6 MG/DL (8.8-10.2); CARBON DIOXIDE LEVEL 29 MEQ/L (21-32); CHLORIDE LEVEL 103 MEQ/L (98-107); CREATININE FOR GFR 1.03 MG/DL (0.70-1.30); GLOMERULAR FILTRATION RATE > 60.0 (>35); GLUCOSE, FASTING 135 MG/DL (70-100); POTASSIUM SERUM 4.2 MEQ/L (3.5-5.1); SODIUM LEVEL 141 MEQ/L (136-145)
[2021-08-30] MEDS: COMBIVENT RESPIMAT 100-20MCG INHALER 4GM INH SCH ×3 (07:31→20:00)
[2021-08-30 08:04] LABS: MONO # 1.5 10^3/uL (0.0-0.8)
[2021-08-30] MEDS ORDERED: FLUCONAZOLE 50MG TABLET PO SCH (09:00)
[2021-08-30] MEDS: PANTOPRAZOLE 40MG TAB (PROTONIX) PO SCH (10:00)
[2021-08-30] MEDS: allopurinoL 300 MG TAB PO SCH (10:01)
[2021-08-30] MEDS: IRON POLYSAC (NIFEREX) 150 MG CAP PO SCH ×2 (10:01→20:58)
[2021-08-30] MEDS: ISOSORBIDE MON. (IMDUR) 30 MG XR TAB PO SCH (10:02)
[2021-08-30] MEDS: MIRALAX *UNIT DOSE* 17GM PACKET PO SCH (10:03)
[2021-08-30] MEDS: TORSEMIDE 10 MG TABLET PO SCH (10:04)
[2021-08-30] MEDS: LACTOBACILLUS ACIDOPHILUS CAP (BACID) PO SCH ×4 (10:04→20:58)
[2021-08-30] MEDS: GABAPENTIN 100 MG CAP PO SCH ×3 (10:04→20:57)
[2021-08-30] MEDS: guaiFENesin ER 600 MG TAB PO SCH ×2 (10:04→20:57)
[2021-08-30] MEDS: DOCUSATE SODIUM 100MG CAPSULE PO SCH ×2 (10:04→20:57)
[2021-08-30] MEDS: CYANOCOBALAMIN 500 MCG TAB PO SCH (10:04)
[2021-08-30] MEDS: MAGNESIUM OXIDE 400MG TAB (MAG-OX) PO SCH ×2 (10:04→20:58)
[2021-08-30] MEDS: DIGOXIN 0.125 MG TAB PO SCH (10:05)
[2021-08-30] MEDS: CARVedilol 3.125 MG TAB PO SCH ×2 (10:05→20:58)
[2021-08-30] MEDS: BACLOFEN 5MG PER 1/2 TABLET PO SCH (10:05)
[2021-08-30] MEDS: REMEDY PHYTOPLEX Z-GUARD PASTE 113GM TUBE (FROM STOREROOM PRODUCT) TOP SCH ×3 (10:08→20:59)
[2021-08-30] MEDS: SODIUM CHLORIDE NASAL 0.65% SPRAY BTL (OCEAN) SCH ×3 (10:08→21:00)
[2021-08-30] MEDS: NYSTATIN 100,000 UNITS/GM TOPICAL PWD 15 GM TOP SCH ×3 (10:08→21:00)
[2021-08-30 12:23] LABS: ALBUMIN 2.7 GM/DL (3.2-5.2); ALT/SGPT 17 U/L (12-78); BILIRUBIN,DIRECT 0.1 MG/DL (0.0-0.2); BILIRUBIN,TOTAL 0.5 MG/DL (0.2-1.0); TOTAL PROTEIN 6.7 GM/DL (6.4-8.2)
[2021-08-30 14:00] VITALS: BP 153/74
[2021-08-30] MEDS ORDERED: TUBERCULIN PPD 5 UNITS/0.1 ML ID ONE (16:00)
[2021-08-30 20:00] VITALS: BP 141/74
[2021-08-30] MEDS: TAMSULOSIN 0.4 MG CAP PO SCH (20:57)
[2021-08-30] MEDS: TERAZOSIN 1 MG CAP PO SCH (20:58)
[2021-08-30] MEDS: SENNA 8.6 MG TAB (SENOKOT) PO SCH (20:58)
[2021-08-30] MEDS: FINASTERIDE 5 MG TAB PO SCH (20:59)
[2021-08-31 06:00] VITALS: BP 167/95
[2021-08-31 06:32] VITALS: BP 150/78
[2021-08-31] MEDS: DOCUSATE SODIUM 100MG CAPSULE PO SCH ×2 (09:00→21:46)
[2021-08-31] MEDS: MIRALAX *UNIT DOSE* 17GM PACKET PO SCH (09:00)
[2021-08-31] MEDS: PANTOPRAZOLE 40MG TAB (PROTONIX) PO SCH (10:01)
[2021-08-31] MEDS: BACLOFEN 5MG PER 1/2 TABLET PO SCH (10:01)
[2021-08-31] MEDS: guaiFENesin ER 600 MG TAB PO SCH ×2 (10:02→21:47)
[2021-08-31] MEDS: GABAPENTIN 100 MG CAP PO SCH ×3 (10:02→21:48)
[2021-08-31] MEDS: MAGNESIUM OXIDE 400MG TAB (MAG-OX) PO SCH ×2 (10:02→21:46)
[2021-08-31] MEDS: CYANOCOBALAMIN 500 MCG TAB PO SCH (10:02)
[2021-08-31] MEDS: allopurinoL 300 MG TAB PO SCH (10:02)
[2021-08-31] MEDS: IRON POLYSAC (NIFEREX) 150 MG CAP PO SCH ×2 (10:02→21:47)
[2021-08-31] MEDS: ISOSORBIDE MON. (IMDUR) 30 MG XR TAB PO SCH (10:03)
[2021-08-31] MEDS: DIGOXIN 0.125 MG TAB PO SCH (10:03)
[2021-08-31] MEDS: REMEDY PHYTOPLEX Z-GUARD PASTE 113GM TUBE (FROM STOREROOM PRODUCT) TOP SCH ×3 (10:04→21:48)
[2021-08-31] MEDS: CARVedilol 3.125 MG TAB PO SCH ×2 (10:04→21:47)
[2021-08-31] MEDS: NYSTATIN 100,000 UNITS/GM TOPICAL PWD 15 GM TOP SCH ×3 (10:04→21:47)
[2021-08-31] MEDS: SODIUM CHLORIDE NASAL 0.65% SPRAY BTL (OCEAN) SCH ×3 (10:05→21:47)
[2021-08-31] MEDS: TORSEMIDE 10 MG TABLET PO SCH (10:06)
[2021-08-31] MEDS: LACTOBACILLUS ACIDOPHILUS CAP (BACID) PO SCH ×4 (10:06→21:46)
[2021-08-31] MEDS: COMBIVENT RESPIMAT 100-20MCG INHALER 4GM INH SCH ×3 (11:30→19:56)
--- NOTE | 2021-08-31 12:09 | IPNPDOC ---
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 He states he doesn't think he has fallen too many times at home, but appears confused as t o the frequency. He agreed to discuss the possibility of going on Eliquis with his primary care physician once he is discharged. REVIEW OF SYSTEMS: The following is a completed review of systems and has been reviewed. Review of systems otherwise unremarkable. PAIN: Patient self reports no pain EYES: No recent vision changes EARS, NOSE, & THROAT: No throat pain, or dysphagia, or rhinorrhea CARDIOVASCULAR: Denies chest pain or palpitations PULMONARY: Denies shortness of breath GASTROINTESTINAL: Denies constipation/diarrhea GENITOURINARY: no retention MUSCULOSKELETAL: generalized weakness NEUROLOGICAL:+left foot drop and peripheral polyneuropathy, left hand numbness HEMATOLOGICAL: denies easy bruising SKIN: left foot pressure spots PSYCHIATRIC: Unremarkable All other review of systems found to be negative. PHYSICAL EXAMINATION: VITAL SIGNS: Please see below. GENERAL: Pleasant and cooperative. No acute distress. HEENT: PERRL. Extraocular movements intact. Clear conjunctiva CARDIOVASCULAR: Irregular rate and rhythm. No murmurs, rubs, or gallops LUNGS: Clear to auscultation bilaterally. No wheezes. No rhonchi. ABDOMEN: Soft, nontender, nondistended. Positive bowel sounds. Normal active bowel sounds NEUROLOGICAL: Alert and oriented times three. Cranial nerves II through XII grossly intact. Sensation decreased to light touch in stocking pattern decreased sensation to light touch on left hand D1-D4, D5 intact, +thenar wasting (-) babinksi/clonus bilat EXTREMITIES: 5\5 strength bilateral upper extremities. 5\5 strength right lower extremity. 4/5 strength in left hip flexor/knee extension, 0/5 ankle DF, EHL, PF ASSESSMENT:81-year-old M with past medical history of Afib no longer on AC, DM with peripheral polyneuropathy who presents status post sepsis secondary to UTI with encephalopathy PLAN: 1. Rehab- PT/OT advance mobility and ADLs, strengthen/stretch/maintain ROM, patient has AFO on left, ambulating further with RW, room privileges 2. Neuro- peripheral polyneuropathy with left foot drop contributing to mobility impairments -recent encephalopathy due to sepsis, monitor for worsening cognitive function -carpal tunnel syndrome on left- cont splint to be worn at night -refer to neurology outpatient for NCS/EMG 3. Cardiac- Afib with PM, off AC due to frequent falls and recent supra- therapeutic INR, cont co-reg and digoxin-patient can discuss ELiquis as an al ternative with His PMD -CHF- daily weights, fluid restrict, cont diuretics -elevated BPs, have adjusted Imdur dosing- improved 4. Resp- monitor for infection, incentive spirometry -cont flonase, nasal saline drops, claritin for sinuses - CXR negative fo rinfiltrate, patient afebrile, no leucocytosis, cont mucinex 5.-s/p course of Ceftriaxone and Levaquin for Klebsiella UTI, patient unfortunately has had persistent dysuria and retention with 2 failed voiding trials (patient had green removed 08/01 and replaced 08/03, removed on 08/09 and was able to void with intermittent retention and dysuria/penile pain green replaced on 08/11 when one time dose of fluconazole was given and nystatin powder- to groin started for what looked like a fungal infection)- Dr Winter consulted for E faecalis Ucx and she believes symptoms are due to fungal infection, Fluconazole started again for 7 day course extended to 14 days total, will start suppressive fluconazole dosing 150mg q3d as this is a chronic issue- discussed with Dr. Winter and these are her recs- patient will need to have his LFTs monitored while on this med -urology recs appreciated as well, patient started on oxybutynin however he had considerably dry mouth and his urinary symptoms seem to be isolated to the tip of the penis and less likely due to OAB, cont to trial off oxybutynin and cont to assess- green d/c and patient is voiding well - f/u urology as outpatient, he will need cystoscopy -hx of prostate cancer cont Flomax, finasteride, terazosin - f/u urology on d/c, repeat CT in 6 months to monitor left kidney mass 6. GI- cont f/u surgery for possible repeat colonoscopy given hx of colon cancer, no indication per Dr. Dinh for upper GI scope -protonix for ppx -FOBT negative 7. Endo- hx of DM with peripheral polyneuropathy cont insulin sliding scale 8. DVT ppx- TEDs 9. Pain- tylenol prn -right groin/hip flexor spasms (chronic)- cont magnesium and baclofen, resolved 10. Dispo- [facility] 09-01-21 Allergies Coded Allergies: Penicillins (Verified Allergy, Unknown, 03/04/21) anaph Vital Signs Vital Signs Date Time Temp Pulse Resp B/P (MAP) Pulse Ox O2 Delivery O2 Flow Rate FiO2 08/31/21 10:03 139/71 08/31/21 10:03 61 08/31/21 06:00 98.4 19 98 Room Air Laboratory Data Labs 24H Laboratory Tests 2 08/30/21 17:08: Bedside Glucose (Misc Panel) 153H 08/31/21 05:46: Bedside Glucose (Misc Panel) 131H Current Medications Current Medications Current Medications Medications (Trade) Dose Ordered Sig/Malinda Route PRN Reason Start Time Stop Time Status Last Admin Dose Admin Acetaminophen (Tylenol Tab) 650 mg Q4HP PRN PO fever/MILD PAIN (PS 1-4) 07/31/21 15:50 08/29/21 07:47 Albuterol/ Ipratropium (Combivent Respimat 100-20mcg) 1 puff RTID INH 08/18/21 20:00 08/23/21 14:07 Allopurinol (Zyloprim) 300 mg DAILY PO 07/31/21 09:00 08/31/21 10:02 Baclofen (Lioresal) 5 mg DAILY PO 08/22/21 09:00 08/31/21 10:01 Baclofen (Lioresal) 5 mg TIDP PRN GT leg spasm 08/18/21 15:40 08/21/21 14:47 DC 08/21/21 14:28 Bisacodyl (Dulcolax Suppository) 10 mg DAILYPRN PRN [place] CONSTIPATION 07/31/21 15:50 Carbamide Peroxide (Debrox) 5 drop BID AU 08/03/21 21:00 08/07/21 09:01 DC 08/07/21 10:16 Carvedilol (COReg) 3.125 mg BID PO 07/31/21 21:00 08/31/21 10:04 Cyanocobalamin (Vitamin B12) 1,000 mcg DAILY PO 08/01/21 09:00 08/31/21 10:02 Dextrose (Dextrose 50%) 25 ml ASDIRECTED PRN IV SEE LABEL COMMENTS 07/31/21 15:50 08/01/21 10:59 DC Dextrose (Dextrose 50%) 25 ml ASDIRECTED PRN IV SEE LABEL COMMENTS 08/01/21 11:00 Digoxin (Lanoxin) 0.125 mg DAILY PO 08/01/21 09:00 08/31/21 10:03 Docusate Sodium (Colace) 100 mg BID PO 07/31/21 21:00 08/30/21 20:57 Finasteride (Proscar) 5 mg QHS PO 08/02/21 21:00 08/30/21 20:59 Fluconazole (Diflucan Tablet) 100 mg QHS PO 08/14/21 21:00 08/27/21 23:59 DC 08/27/21 20:14 Fluconazole (Diflucan) 150 mg Q3D@09 PO 08/30/21 09:00 08/30/21 12:36 Gabapentin (Neurontin) 100 mg TID PO 08/11/21 11:45 08/31/21 10:02 Glucagon (Glucagon) 1 mg ASDIRECTED PRN SC SEE LABEL COMMENTS 07/31/21 15:50 08/01/21 10:59 DC Glucagon (Glucagon) 1 mg ASDIRECTED PRN SC SEE LABEL COMMENTS 08/01/21 11:00 Glucose (Glucose) 16 GM ASDIRECTED PRN PO SEE LABEL COMMENTS 07/31/21 15:50 08/01/21 10:59 DC Glucose (Glucose) 16 GM ASDIRECTED PRN PO SEE LABEL COMMENTS 08/01/21 11:00 Guaifenesin (Mucinex Tab Er) 600 mg BID PO 08/18/21 21:00 08/31/21 10:02 Home Med (Home Med List Complete!) ASDIRECTED XX 08/15/21 07:35 08/15/21 07:36 DC Hydralazine HCl (Apresoline) 25 mg Q6H PO 08/10/21 18:00 08/11/21 12:37 DC 08/11/21 00:15 Hydrocortisone (Hydrocortisone 2.5% Ointment) left wrist crease BID TOP 08/01/21 09:00 08/07/21 12:18 DC 08/07/21 10:15 Insulin Human Lispro (HumaLOG INSULIN) SEE PROTOCOL TABLE AC OR 08/01/21 12:00 08/10/21 14:54 DC 08/09/21 17:21 Insulin Human Lispro (HumaLOG INSULIN) SEE PROTOCOL TABLE QHS OR 07/31/21 21:00 08/01/21 10:59 DC Insulin Human Lispro (HumaLOG INSULIN) [facility]OCOL [facility] 08/01/21 21:00 08/10/21 14:54 DC Insulin Human Lispro (HumaLOG INSULIN) See Protocol Table AC OR 08/01/21 07:30 08/01/21 10:59 DC 08/01/21 08:50 Iron (Niferex) 150 mg BID PO 07/31/21 21:00 08/31/21 10:02 Isosorbide Mononitrate (Imdur) 30 mg DAILY PO 08/01/21 09:00 08/10/21 14:50 DC 08/10/21 08:48 Isosorbide Mononitrate (Imdur) 60 mg DAILY PO 08/11/21 09:00 08/31/21 10:03 Lactobacillus Acidophilus (Bacid) 1 ea WMHS PO 07/31/21 18:00 08/31/21 10:06 Levofloxacin (Levaquin) 500 mg DAILY@06 PO 08/01/21 06:00 08/04/21 10:21 DC 08/04/21 05:17 Lidocaine HCl (Lidocaine 2% Urojet) FOR Intermittent CATHETERization Q2HP PRN TOP catheterization 08/02/21 16:20 08/11/21 21:07 Loratadine (Claritin) 10 mg DAILY PO 08/03/21 09:00 08/10/21 14:50 DC 08/10/21 08:49 Magnesium Oxide (Mag-Ox) 400 mg BID PO 08/03/21 09:00 08/31/21 10:02 Nystatin (Mycostatin Powder, Nystop) groin/testicles BID TOP 08/11/21 09:00 08/11/21 13:41 DC Nystatin (Mycostatin Powder, Nystop) groin/testicles TID TOP 08/11/21 16:00 08/31/21 10:04 Oxybutynin Chloride (Ditropan) 5 mg BID PO 08/15/21 09:00 08/21/21 14:47 DC 08/21/21 08:16 Pantoprazole Sodium (Protonix) 40 mg DAILY PO 07/31/21 09:00 08/31/21 10:01 Phenazopyridine HCl (Pyridium) 100 mg TID PO 08/02/21 16:15 08/03/21 14:25 DC 08/03/21 08:38 Phenazopyridine HCl (Pyridium) 100 mg TID PO 08/11/21 16:00 08/13/21 09:01 DC 08/13/21 07:48 Polyethylene Glycol (Miralax) 1 pkt DAILY PO 08/04/21 10:20 08/30/21 10:03 Senna (Senokot) 1 tab QHS PO 07/31/21 21:00 08/30/21 20:58 Sodium Chloride ([place] Nasal [place]) 2 spray TID NA 08/03/21 16:00 08/31/21 10:05 Tamsulosin HCl (Flomax) 0.8 mg QHS PO 08/01/21 21:00 08/30/21 20:57 Terazosin HCl (Hytrin) 1 mg QHS PO 08/11/21 21:00 08/30/21 20:58 Torsemide (Demadex) 10 mg DAILY PO 08/01/21 09:00 08/19/21 12:39 DC 08/19/21 08:29 Torsemide (Demadex) 20 mg DAILY PO 08/20/21 09:00 08/31/21 10:06 YVON COELHO MD Aug 31, 2021 12:09
--- NOTE | 2021-08-31 12:09 | IPNPDOC ---
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 REVIEW OF SYSTEMS: The following is a completed review of systems and has been reviewed. Review of systems otherwise unremarkable. PAIN: Patient self reports no pain EYES: No recent vision changes EARS, NOSE, & THROAT: No throat pain, or dysphagia, or rhinorrhea CARDIOVASCULAR: Denies chest pain or palpitations PULMONARY: Denies shortness of breath GASTROINTESTINAL: Denies constipation/diarrhea GENITOURINARY: no retention MUSCULOSKELETAL: generalized weakness NEUROLOGICAL:+left foot drop and peripheral polyneuropathy, left hand numbness HEMATOLOGICAL: denies easy bruising SKIN: left foot pressure spots PSYCHIATRIC: Unremarkable All other review of systems found to be negative. PHYSICAL EXAMINATION: VITAL SIGNS: Please see below. GENERAL: Pleasant and cooperative. No acute distress. HEENT: PERRL. Extraocular movements intact. Clear conjunctiva CARDIOVASCULAR: Irregular rate and rhythm. No murmurs, rubs, or gallops LUNGS: Clear to auscultation bilaterally. No wheezes. No rhonchi. ABDOMEN: Soft, nontender, nondistended. Positive bowel sounds. Normal active bowel sounds NEUROLOGICAL: Alert and oriented times three. Cranial nerves II through XII grossly intact. Sensation decreased to light touch in stocking pattern decreased sensation to light touch on left hand D1-D4, D5 intact, +thenar was ting (-) babinksi/clonus bilat EXTREMITIES: 5\5 strength bilateral upper extremities. 5\5 strength right lower extremity. 4/5 strength in left hip flexor/knee extension, 0/5 ankle DF, EHL, PF ASSESSMENT:81-year-old M with past medical history of Afib no longer on AC, DM with peripheral polyneuropathy who presents status post sepsis secondary to UTI with encephalopathy PLAN: 1. Rehab- PT/OT advance mobility and ADLs, strengthen/stretch/maintain ROM, patient has AFO on left, ambulating further with RW, room privileges 2. Neuro- peripheral polyneuropathy with left foot drop contributing to mobility impairments -recent encephalopathy due to sepsis, monitor for worsening cognitive function -carpal tunnel syndrome on left- cont splint to be worn at night -refer to neurology outpatient for NCS/EMG 3. Cardiac- Afib with PM, off AC due to frequent falls and recent supra- therapeutic INR, cont co-reg and digoxin-patient can discuss ELiquis as an alternative with His PMD -CHF- daily weights, fluid restrict, cont diuretics -elevated BPs, have adjusted Imdur dosing- improved 4. Resp- monitor for infection, incentive spirometry -cont flonase, nasal saline drops, claritin for sinuses - CXR 08-24- negative fo rinfiltrate, patient afebrile, no leucocytosis, cont mucinex 5.-s/p course of Ceftriaxone and Levaquin for Klebsiella UTI, patient unfortunately has had persistent dysuria and retention with 2 failed voiding trials (patient had green removed 08/01 and replaced 08/03, removed on 08/09 and was able to void with intermittent retention and dysuria/penile pain green replaced on 08/11 when one time dose of fluconazole was given and nystatin powder- to groin started for what looked like a fungal infection)- Dr Winter consulted for E faecalis Ucx and she believes symptoms are due to fungal infection, Fluconazole started again for 7 day course extended to 14 days total, will start suppressive fluconazole dosing 150mg q3d as this is a chronic issue- discussed with Dr. Winter and these are her recs- patient will need to have his LFTs monitored while on this med -urology recs appreciated as well, patient started on oxybutynin however he had considerably dry mouth and his urinary symptoms seem to be isolated to the tip of the penis and less likely due to OAB, cont to trial off oxybutynin and cont to assess- green d/c and patient is voiding well - f/u urology as outpatient, he will need cystoscopy -hx of prostate cancer cont Flomax, finasteride, terazosin - f/u urology on d/c, repeat CT in 6 months to monitor left kidney mass 6. GI- cont f/u surgery for possible repeat colonoscopy given hx of colon cancer, no indication per Dr. Dinh for upper GI scope -protonix for ppx -FOBT negative 7. Endo- hx of DM with peripheral polyneuropathy cont insulin sliding scale 8. DVT ppx- TEDs 9. Pain- tylenol prn -right groin/hip flexor spasms (chronic)- cont magnesium and baclofen, resolved 10. Dispo- [facility] 09-01-21 Allergies Coded Allergies: Penicillins (Verified Allergy, Unknown, 03/04/21) anaph Vital Signs Vital Signs Date Time Temp Pulse Resp B/P (MAP) Pulse Ox O2 Delivery O2 Flow Rate FiO2 08/31/21 10:03 139/71 08/31/21 10:03 61 08/31/21 06:00 98.4 19 98 Room Air Laboratory Data Labs 24H Laboratory Tests 2 08/30/21 17:08: Bedside Glucose (Misc Panel) 153H 08/31/21 05:46: Bedside Glucose (Misc Panel) 131H Current Medications Current Medications Current Medications Medications (Trade) Dose Ordered Sig/Malinda Route PRN Reason Start Time Stop Time Status Last Admin Dose Admin Acetaminophen (Tylenol Tab) 650 mg Q4HP PRN PO fever/MILD PAIN (PS 1-4) 07/31/21 15:50 08/29/21 07:47 Albuterol/ Ipratropium (Combivent Respimat 100-20mcg) 1 puff RTID INH 08/18/21 20:00 08/23/21 14:07 Allopurinol (Zyloprim) 300 mg DAILY PO 07/31/21 09:00 08/31/21 10:02 Baclofen (Lioresal) 5 mg DAILY PO 08/22/21 09:00 08/31/21 10:01 Baclofen (Lioresal) 5 mg TIDP PRN GT leg spasm 08/18/21 15:40 08/21/21 14:47 DC 08/21/21 14:28 Bisacodyl (Dulcolax Suppository) 10 mg DAILYPRN PRN [place] CONSTIPATION 07/31/21 15:50 Carbamide Peroxide (Debrox) 5 drop BID AU 08/03/21 21:00 08/07/21 09:01 DC 08/07/21 10:16 Carvedilol (COReg) 3.125 mg BID PO 07/31/21 21:00 08/31/21 10:04 Cyanocobalamin (Vitamin B12) 1,000 mcg DAILY PO 08/01/21 09:00 08/31/21 10:02 Dextrose (Dextrose 50%) 25 ml ASDIRECTED PRN IV SEE LABEL COMMENTS 07/31/21 15:50 08/01/21 10:59 DC Dextrose (Dextrose 50%) 25 ml ASDIRECTED PRN IV SEE LABEL COMMENTS 08/01/21 11:00 Digoxin (Lanoxin) 0.125 mg DAILY PO 08/01/21 09:00 08/31/21 10:03 Docusate Sodium (Colace) 100 mg BID PO 07/31/21 21:00 08/30/21 20:57 Finasteride (Proscar) 5 mg QHS PO 08/02/21 21:00 08/30/21 20:59 Fluconazole (Diflucan Tablet) 100 mg QHS PO 08/14/21 21:00 08/27/21 23:59 DC 08/27/21 20:14 Fluconazole (Diflucan) 150 mg Q3D@09 PO 08/30/21 09:00 08/30/21 12:36 Gabapentin (Neurontin) 100 mg TID PO 08/11/21 11:45 08/31/21 10:02 Glucagon (Glucagon) 1 mg ASDIRECTED PRN SC SEE LABEL COMMENTS 07/31/21 15:50 08/01/21 10:59 DC Glucagon (Glucagon) 1 mg ASDIRECTED PRN SC SEE LABEL COMMENTS 08/01/21 11:00 Glucose (Glucose) 16 GM ASDIRECTED PRN PO SEE LABEL COMMENTS 07/31/21 15:50 08/01/21 10:59 DC Glucose (Glucose) 16 GM ASDIRECTED PRN PO SEE LABEL COMMENTS 08/01/21 11:00 Guaifenesin (Mucinex Tab Er) 600 mg BID PO 08/18/21 21:00 08/31/21 10:02 Home Med (Home Med List Complete!) ASDIRECTED XX 08/15/21 07:35 08/15/21 07:36 DC Hydralazine HCl (Apresoline) 25 mg Q6H PO 08/10/21 18:00 08/11/21 12:37 DC 08/11/21 00:15 Hydrocortisone (Hydrocortisone 2.5% Ointment) left wrist crease BID TOP 08/01/21 09:00 08/07/21 12:18 DC 08/07/21 10:15 Insulin Human Lispro (HumaLOG INSULIN) SEE PROTOCOL TABLE AC SC 08/01/21 12:00 08/10/21 14:54 DC 08/09/21 17:21 Insulin Human Lispro (HumaLOG INSULIN) SEE PROTOCOL TABLE QHS SC 07/31/21 21:00 08/01/21 10:59 DC Insulin Human Lispro (HumaLOG INSULIN) SEE PROTOCOL TABLE QHS SC 08/01/21 21:00 08/10/21 14:54 DC Insulin Human Lispro (HumaLOG INSULIN) See Protocol Table AC TX 08/01/21 07:30 08/01/21 10:59 DC 08/01/21 08:50 Iron (Niferex) 150 mg BID PO 07/31/21 21:00 08/31/21 10:02 Isosorbide Mononitrate (Imdur) 30 mg DAILY PO 08/01/21 09:00 08/10/21 14:50 DC 08/10/21 08:48 Isosorbide Mononitrate (Imdur) 60 mg DAILY PO 08/11/21 09:00 08/31/21 10:03 Lactobacillus Acidophilus (Bacid) 1 ea WMHS PO 07/31/21 18:00 08/31/21 10:06 Levofloxacin (Levaquin) 500 mg DAILY@06 PO 08/01/21 06:00 08/04/21 10:21 DC 08/04/21 05:17 Lidocaine HCl (Lidocaine 2% Urojet) FOR Intermittent CATHETERization Q2HP PRN TOP catheterization 08/02/21 16:20 08/11/21 21:07 Loratadine (Claritin) 10 mg DAILY PO 08/03/21 09:00 08/10/21 14:50 DC 08/10/21 08:49 Magnesium Oxide (Mag-Ox) 400 mg BID PO 08/03/21 09:00 08/31/21 10:02 Nystatin (Mycostatin Powder, Nystop) groin/testicles BID TOP 08/11/21 09:00 08/11/21 13:41 DC Nystatin (Mycostatin Powder, Nystop) groin/testicles TID TOP 08/11/21 16:00 08/31/21 10:04 Oxybutynin Chloride (Ditropan) 5 mg BID PO 08/15/21 09:00 08/21/21 14:47 DC 08/21/21 08:16 Pantoprazole Sodium (Protonix) 40 mg DAILY PO 07/31/21 09:00 08/31/21 10:01 Phenazopyridine HCl (Pyridium) 100 mg TID PO 08/02/21 16:15 08/03/21 14:25 DC 08/03/21 08:38 Phenazopyridine HCl (Pyridium) 100 mg TID PO 08/11/21 16:00 08/13/21 09:01 DC 08/13/21 07:48 Polyethylene Glycol (Miralax) 1 pkt DAILY PO 08/04/21 10:20 08/30/21 10:03 Senna (Senokot) 1 tab QHS PO 07/31/21 21:00 08/30/21 20:58 Sodium Chloride ([place] Nasal [place]) 2 spray TID NA 08/03/21 16:00 08/31/21 10:05 Tamsulosin HCl (Flomax) 0.8 mg QHS PO 08/01/21 21:00 08/30/21 20:57 Terazosin HCl (Hytrin) 1 mg QHS PO 08/11/21 21:00 08/30/21 20:58 Torsemide (Demadex) 10 mg DAILY PO 08/01/21 09:00 08/19/21 12:39 DC 08/19/21 08:29 Torsemide (Demadex) 20 mg DAILY PO 08/20/21 09:00 08/31/21 10:06 YVON COELHO MD Aug 31, 2021 12:09
[2021-08-31] MEDS ORDERED: TORS20TA2 PO (12:20)
[2021-08-31] MEDS ORDERED: TERA1CA PO (12:20)
[2021-08-31] MEDS ORDERED: DIGO0.123 PO (12:20)
[2021-08-31] MEDS ORDERED: ALLO300T2 PO (12:20)
[2021-08-31] MEDS ORDERED: MAGN400T2 PO (12:20)
[2021-08-31] MEDS ORDERED: DIFL50TA PO (12:20)
[2021-08-31] MEDS ORDERED: ISOS1TAB35 PO (12:20)
[2021-08-31] MEDS ORDERED: VITA500T40 PO (12:20)
[2021-08-31] MEDS ORDERED: BACL10TA2 PO (12:20)
[2021-08-31] MEDS ORDERED: FLOM0.4C39 PO (12:20)
[2021-08-31] MEDS ORDERED: FINA5TAB2 PO (12:20)
[2021-08-31] MEDS ORDERED: GABA-1171 PO (12:20)
[2021-08-31] MEDS ORDERED: CARV3.12 PO (12:20)
[2021-08-31] MEDS ORDERED: NYST10006 TOP (12:20)
[2021-08-31 14:00] VITALS: BP 139/74
[2021-08-31 20:00] VITALS: BP 155/81
[2021-08-31 21:46] VITALS: BP 155/81
[2021-08-31] MEDS: TERAZOSIN 1 MG CAP PO SCH (21:46)
[2021-08-31] MEDS: FINASTERIDE 5 MG TAB PO SCH (21:46)
[2021-08-31] MEDS: SENNA 8.6 MG TAB (SENOKOT) PO SCH (21:47)
[2021-08-31] MEDS: TAMSULOSIN 0.4 MG CAP PO SCH (21:47)
[2021-09-01 06:00] VITALS: BP 115/75
[2021-09-01] MEDS: COMBIVENT RESPIMAT 100-20MCG INHALER 4GM INH SCH ×2 (07:31→12:24)
[2021-09-01] MEDS: LACTOBACILLUS ACIDOPHILUS CAP (BACID) PO SCH ×2 (08:00→12:21)
[2021-09-01] MEDS: DOCUSATE SODIUM 100MG CAPSULE PO SCH (09:45)
[2021-09-01] MEDS: CYANOCOBALAMIN 500 MCG TAB PO SCH (09:45)
[2021-09-01] MEDS: TORSEMIDE 10 MG TABLET PO SCH (09:45)
[2021-09-01] MEDS: CARVedilol 3.125 MG TAB PO SCH (09:46)
[2021-09-01] MEDS: allopurinoL 300 MG TAB PO SCH (09:47)
[2021-09-01] MEDS: BACLOFEN 5MG PER 1/2 TABLET PO SCH (09:47)
[2021-09-01] MEDS: ISOSORBIDE MON. (IMDUR) 30 MG XR TAB PO SCH (09:47)
[2021-09-01] MEDS: DIGOXIN 0.125 MG TAB PO SCH (09:47)
[2021-09-01] MEDS: guaiFENesin ER 600 MG TAB PO SCH (09:48)
[2021-09-01] MEDS: MAGNESIUM OXIDE 400MG TAB (MAG-OX) PO SCH (09:48)
[2021-09-01] MEDS: GABAPENTIN 100 MG CAP PO SCH (09:48)
[2021-09-01] MEDS: PANTOPRAZOLE 40MG TAB (PROTONIX) PO SCH (09:48)
[2021-09-01] MEDS: MIRALAX *UNIT DOSE* 17GM PACKET PO SCH (09:48)
[2021-09-01] MEDS: IRON POLYSAC (NIFEREX) 150 MG CAP PO SCH (09:48)
[2021-09-01] MEDS: REMEDY PHYTOPLEX Z-GUARD PASTE 113GM TUBE (FROM STOREROOM PRODUCT) TOP SCH (09:49)
[2021-09-01] MEDS: NYSTATIN 100,000 UNITS/GM TOPICAL PWD 15 GM TOP SCH (09:49)
[2021-09-01] MEDS: SODIUM CHLORIDE NASAL 0.65% SPRAY BTL (OCEAN) SCH (09:49)
[2021-09-01] MEDS ORDERED: PPD DOCUMENTATION ENTRY MISC XX ONE (16:00)
--- NOTE | 2021-09-04 15:39 | PMRDS ---
NAME: GABRIEL ALDRICH [facility] WT ID#: [id number] : [id number] JOB: [id number] SUYAPA: 09/01/2021 ACCT: [id number] DOCTOR: YVON COELHO MD PMR DISCHARGE SUMMARY DATE OF ADMISSION: 07/31/2021 DATE OF DISCHARGE: 09/01/2021 CHIEF COMPLAINT/DISCHARGE DIAGNOSIS: Encephalopathy due to sepsis and peripheral polyneuropathy. HISTORY OF PRESENT ILLNESS: 81-year-old male with past medical history of CKD, hypertension, diabetes type 2, peripheral polyneuropathy and footdrop, hyperlipidemia, colon cancer, hypothyroidism, Afib with pacemaker, prostate cancer, CHF, who fell down the stairs and brought to [facility] ED on 07/25/2021 complaining of weakness and had altered mental status. He was noted to have a supratherapeutic INR and diagnosed with encephalopathy in the setting of sepsis due to UTI and rhabdomyolysis. His urine culture grew Klebsiella and he was maintained on Ceftriaxone. He was noted to be anemic with a negative FOBT. Imaging did reveal left renal mass which per his family is not new and urology was consulted to review and decision was made not to undergo radical nephrectomy but to continue to observe and follow up as an outpatient. He had notable weakness in mobility and ADLs when evaluated by therapy and deemed medically and functionally appropriate for discharge to ARU. PAST MEDICAL HISTORY: As per HPI. HOSPITAL COURSE: The patient was admitted and enrolled in comprehensive PT/OT program. He received 24 hour nursing supervision and weekly team meetings were held to discuss his progress. The patient finished a course of Ceftriaxone and Levaquin for his recent Klebsiella UTI. However, he had persistent dysuria and retention with two failed voiding trials. He was started on oral Fluconazole in addition to Nystatin powder for what was thought to be a yeast infection. Dr. Winter was consulted for this and assisted with overall care. The patient was also started on Terazosin in addition to Proscar and continued on his Flomax. The patient eventually was able to void and his urinary symptoms improved. However, he started to complain of pain at the tip of his penis with urination again and he was put on suppressive Fluconazole. The patient was maintained on insulin sliding scale for his peripheral polyneuropathy due to diabetes and he was started on Baclofen in addition to magnesium for his chronic right groin/hip flexor spasms. He complained of intermittent cough for which he was started on Mucinex with chest x-ray negative for infiltrates and his diuretic was increased due to some pulmonary congestion seen on chest x-ray. The patient made steady ins in therapy. His discharge was delayed due to patient having difficulty managing his [place]. However, the patient eventually did not need [place] and beds were not available at short term rehab. The patient was finally made modified independent from mobility and ADL standpoint making him a good candidate for assisted living. Paper work was submitted to the [facility] and he was discharged there. DISCHARGE MEDICATIONS: As per instructions. FUNCTIONAL HISTORY: On discharge the patient was modified independent from ADL and mobility perspective. Thank you for this referral.
== END 2021-09-01 16:50 | disposition other institution (70) | DRG 74 ==
LOC: M PM&R 18:25
PROVIDERS: ADMIT Physical Medicine & Rehabilitation; ATTEND Physical Medicine & Rehabilitation
DX: E11.42 Type 2 diabetes mellitus with diabetic polyneuropathy (principal); I13.0 Hypertensive heart and chronic kidney disease with heart failure and stage 1 through stage 4 chronic kidney disease, or unspecified chronic kidney disease; M21.372 Foot drop, left foot; E11.22 Type 2 diabetes mellitus with diabetic chronic kidney disease; N18.9 Chronic kidney disease, unspecified; E78.5 Hyperlipidemia, unspecified; Z85.038 Personal history of other malignant neoplasm of large intestine; E03.9 Hypothyroidism, unspecified; Z95.0 Presence of cardiac pacemaker; Z85.46 Personal history of malignant neoplasm of prostate; I50.9 Heart failure, unspecified; N28.89 Other specified disorders of kidney and ureter; Z74.09 Other reduced mobility; Z74.1 Need for assistance with personal care; R20.0 Anesthesia of skin; Z79.899 Other long term (current) drug therapy; G56.02 Carpal tunnel syndrome, left upper limb; Z79.4 Long term (current) use of insulin; Z88.0 Allergy status to penicillin; Z66 Do not resuscitate

== ENCOUNTER → 2021-09-12 | Outpatient (REF) | payer MEDICARE, OTHER ==
[~2021-09-12] MED LIST changes: +BACL10TA2 PO; +DIFL50TA PO; +FINA5TAB2 PO; +FLOM0.4C39 PO; +MAGN400T2 PO; +NYST10006 TOP; +TERA1CA PO
== END ==
LOC: M SMT 13:12
PROVIDERS: ATTEND Urology
DX: Z87.440 Personal history of urinary (tract) infections (principal); Z79.899 Other long term (current) drug therapy
CPT/HCPCS: 51798; 87088; 87186; G0463

== ENCOUNTER → 2021-09-29 | Outpatient (REF) | payer MEDICARE, OTHER ==
[2021-09-29 15:45] LABS: APPEARANCE, URINE CLEAR (CLEAR); BACTERIA, URINE AUTO NEGATIVE (NEGATIVE); BILIRUBIN, URINE AUTO NEGATIVE (NEGATIVE); BLOOD, URINE BLOOD NEGATIVE (NEGATIVE); COLOR, URINE YELLOW (YELLOW); GLUCOSE, URINE (UA) AUTO NEGATIVE (NEGATIVE); KETONE, URINE AUTO NEGATIVE (NEGATIVE); LEUKOCYTE ESTERASE, URINE AUTO NEGATIVE (NEGATIVE); NITRITE, URINE AUTO NEGATIVE (NEGATIVE); PROTEIN, URINE AUTO NEGATIVE (NEGATIVE); RBC, URINE AUTO 1 /HPF (0-3); SPECIFIC GRAVITY URINE AUTO 1.008 (1.002-1.035); SQUAMOUS EPITHELIAL CELL UR AU 0 /HPF (0-6); UROBILINOGEN, URINE AUTO 0.2 mg/dL (0.0-2.0); WBC, URINE AUTO 2 /HPF (0-3)
== END ==
LOC: M SMT 15:13
PROVIDERS: ATTEND Urology
DX: R35.0 Frequency of micturition (principal)

== ENCOUNTER → 2021-10-18 | Outpatient (REF) | payer MEDICARE, OTHER ==
[2021-10-18 18:03] LABS: APPEARANCE, URINE CLEAR (CLEAR); BACTERIA, URINE AUTO NEGATIVE (NEGATIVE); BILIRUBIN, URINE AUTO NEGATIVE (NEGATIVE); BLOOD, URINE BLOOD NEGATIVE (NEGATIVE); COLOR, URINE STRAW (YELLOW); GLUCOSE, URINE (UA) AUTO NEGATIVE (NEGATIVE); KETONE, URINE AUTO NEGATIVE (NEGATIVE); LEUKOCYTE ESTERASE, URINE AUTO NEGATIVE (NEGATIVE); MUCUS, URINE SMALL (NEGATIVE); NITRITE, URINE AUTO NEGATIVE (NEGATIVE); PROTEIN, URINE AUTO NEGATIVE (NEGATIVE); RBC, URINE AUTO 0 /HPF (0-3); SPECIFIC GRAVITY URINE AUTO 1.006 (1.002-1.035); SQUAMOUS EPITHELIAL CELL UR AU 1 /HPF (0-6); UROBILINOGEN, URINE AUTO 0.2 mg/dL (0.0-2.0); WBC, URINE AUTO 0 /HPF (0-3)
== END ==
LOC: M SMT 16:51
PROVIDERS: ATTEND Urology
DX: Z87.440 Personal history of urinary (tract) infections (principal); Z79.899 Other long term (current) drug therapy
CPT/HCPCS: 51798; 81001; 87086; G0463

== ENCOUNTER → 2021-12-27 | Outpatient (CLI) | payer MEDICARE, OTHER ==
[~2021-12-27] MED LIST changes: -LEVO500T3 PO; +LEVO500T4 PO
[2021-12-27 13:09] LABS: HEMATOCRIT 43.1 % (42.0-52.0); HEMOGLOBIN 13.4 g/dl (13.5-17.5); MEAN CORPUSCULAR HEMOGLOBIN 29.8 pg (27.0-33.0); MEAN CORPUSCULAR HGB CONC 31.1 g/dl (32.0-36.5); PLATELET COUNT, AUTOMATED 124 10^3/uL (150-450); RED BLOOD COUNT 4.49 10^6/uL (4.30-6.10); WHITE BLOOD COUNT 13.9 10^3/uL (4.0-10.0)
[2021-12-27 14:56] LABS: ALBUMIN 2.8 GM/DL (3.2-5.2); ALT/SGPT 15 U/L (12-78); BILIRUBIN,TOTAL 0.9 MG/DL (0.2-1.0); BLOOD UREA NITROGEN 28 MG/DL (7-18); CALCIUM LEVEL 9.4 MG/DL (8.8-10.2); CARBON DIOXIDE LEVEL 32 MEQ/L (21-32); CHLORIDE LEVEL 100 MEQ/L (98-107); CHOLESTEROL LEVEL 171 MG/DL (<200); CREATININE FOR GFR 0.96 MG/DL (0.70-1.30); GLOMERULAR FILTRATION RATE > 60.0 (>35); GLUCOSE, FASTING 209 MG/DL (70-100); HDL CHOLESTEROL 50 MG/DL (>40); LDL CHOLESTEROL 106 MG/DL (<100); NON-HDL-C 121 MG/DL; POTASSIUM SERUM 4.8 MEQ/L (3.5-5.1); PROSTATIC SPECIFIC AG MONITOR 0.08 NG/ML (< 4.00); SODIUM LEVEL 136 MEQ/L (136-145); TOTAL PROTEIN 6.6 GM/DL (6.4-8.2); TRIGLYCERIDES LEVEL 75 MG/DL (<150)
[2021-12-27 15:02] LABS: TOTAL 25(OH) VITAMIN D 16.1 NG/ML (30.0-100.0)
[2021-12-27 15:23] LABS: HEMOGLOBIN A1c 8.1 %
== END ==
LOC: M LAB 12:07
PROVIDERS: ATTEND Family Medicine
DX: R53.83 Other fatigue (principal); I10 Essential (primary) hypertension; E11.9 Type 2 diabetes mellitus without complications; Z79.899 Other long term (current) drug therapy; Z85.46 Personal history of malignant neoplasm of prostate; I50.9 Heart failure, unspecified

== ENCOUNTER → 2022-01-08 | Outpatient (CLI) | payer MEDICARE, OTHER | LOC: M LABSMTC 10:05 | PROVIDERS: ATTEND Internal Medicine Cardiovascular Disease | DX: Z20.822 Contact with and (suspected) exposure to COVID-19 (principal) ==

== ENCOUNTER → 2022-01-11 | Outpatient (CLI) | payer MEDICARE, OTHER ==
[2022-01-11 12:47] LABS: BASO # 0.1 10^3/uL (0.0-0.2); BASO % 0.6 % (0.0-1.0); EOS # 0.2 10^3/uL (0.0-0.5); EOS % 1.6 % (0.0-3.0); HEMATOCRIT 46.9 % (42.0-52.0); HEMOGLOBIN 14.3 g/dl (13.5-17.5); LYMPH # 1.5 10^3/uL (1.5-5.0); LYMPH % 15.6 % (24.0-44.0); MEAN CORPUSCULAR HEMOGLOBIN 30.4 pg (27.0-33.0); MEAN CORPUSCULAR HGB CONC 30.5 g/dl (32.0-36.5); MEAN CORPUSCULAR VOLUME 99.6 fl (80.0-96.0); MONO # 1.3 10^3/uL (0.0-0.8); NEUTROPHILS # 6.3 10^3/uL (1.5-8.5); NEUTROPHILS % 65.7 % (36.0-66.0); PLATELET COUNT, AUTOMATED 126 10^3/uL (150-450); RED BLOOD COUNT 4.71 10^6/uL (4.30-6.10); WHITE BLOOD COUNT 9.6 10^3/uL (4.0-10.0)
[2022-01-11 13:15] LABS: BLOOD UREA NITROGEN 33 MG/DL (7-18); CALCIUM LEVEL 9.7 MG/DL (8.8-10.2); CARBON DIOXIDE LEVEL 31 MEQ/L (21-32); CHLORIDE LEVEL 101 MEQ/L (98-107); CREATININE FOR GFR 1.05 MG/DL (0.70-1.30); GLOMERULAR FILTRATION RATE > 60.0 (>35); GLUCOSE, FASTING 240 MG/DL (70-100); SODIUM LEVEL 140 MEQ/L (136-145)
== END ==
LOC: M LAB 10:41
PROVIDERS: ATTEND Internal Medicine Cardiovascular Disease
DX: I35.0 Nonrheumatic aortic (valve) stenosis (principal)

== ENCOUNTER → 2022-02-07 | Outpatient (REF) ==
[~2022-02-07] MED LIST changes: +ACET-907 PO; +ASPI-161 PO; +BACL5TAB2 PO; +BIOF4GEL4 EXT; +CORE3.12 PO; +DESI13CR2 EXT; +DULC10SU2 PR; +ELIQ5TAB PO; +EQ A EXT; +ERGO500029 PO; +FLEEENE12 PR; +FLUC150T9 PO; +GLUC1KIT IM; +ISOS1TAB36 PO; +METF500T13 PO; +MILKSUS3 PO; +PANT40TA29 PO; +TRAM50TA2 PO
[2022-02-07 09:57] LABS: HEMATOCRIT 44.4 % (42.0-52.0); HEMOGLOBIN 13.5 g/dl (13.5-17.5); MEAN CORPUSCULAR HEMOGLOBIN 30.1 pg (27.0-33.0); MEAN CORPUSCULAR HGB CONC 30.4 g/dl (32.0-36.5); MEAN CORPUSCULAR VOLUME 99.1 fl (80.0-96.0); PLATELET COUNT, AUTOMATED 229 10^3/uL (150-450); RED BLOOD COUNT 4.48 10^6/uL (4.30-6.10); WHITE BLOOD COUNT 9.3 10^3/uL (4.0-10.0)
[2022-02-07 10:28] LABS: ALBUMIN 2.6 GM/DL (3.2-5.2); ALT/SGPT 21 U/L (12-78); BILIRUBIN,DIRECT 0.2 MG/DL (0.0-0.2); BILIRUBIN,TOTAL 0.5 MG/DL (0.2-1.0); BLOOD UREA NITROGEN 32 MG/DL (7-18); CALCIUM LEVEL 9.3 MG/DL (8.8-10.2); CARBON DIOXIDE LEVEL 30 MEQ/L (21-32); CHLORIDE LEVEL 102 MEQ/L (98-107); CREATININE FOR GFR 1.13 MG/DL (0.70-1.30); GLOMERULAR FILTRATION RATE > 60.0 (>35); GLUCOSE, FASTING 205 MG/DL (70-100); NT-PRO BNP 2010 PG/ML (<450); SODIUM LEVEL 138 MEQ/L (136-145); TOTAL PROTEIN 6.3 GM/DL (6.4-8.2)
[2022-02-07 10:34] LABS: TOTAL 25(OH) VITAMIN D 23.5 NG/ML (30.0-100.0)
[2022-02-07 10:42] LABS: HEMOGLOBIN A1c 8.4 %
== END ==
PROVIDERS: ATTEND Internal Medicine
DX: I10 Essential (primary) hypertension (principal)

== ENCOUNTER → 2022-02-08 | Outpatient (CLI) | payer MEDICARE, OTHER ==
[~2022-02-08] MED LIST changes: -ACET-907 PO; -ASPI-161 PO; -BACL5TAB2 PO; -BIOF4GEL4 EXT; -CORE3.12 PO; -DESI13CR2 EXT; -DULC10SU2 PR; -ELIQ5TAB PO; -EQ A EXT; -ERGO500029 PO; -FLEEENE12 PR; -FLUC150T9 PO; -GLUC1KIT IM; -ISOS1TAB36 PO; -METF500T13 PO; -MILKSUS3 PO; -PANT40TA29 PO; -TRAM50TA2 PO
== END ==
LOC: M RAD 12:51
PROVIDERS: ATTEND Internal Medicine
DX: M25.551 Pain in right hip (principal); M25.851 Other specified joint disorders, right hip

== ENCOUNTER → 2022-03-05 | Outpatient (CLI) | payer MEDICARE, OTHER | PROVIDERS: ATTEND Internal Medicine | DX: M25.642 Stiffness of left hand, not elsewhere classified (principal); M11.242 Other chondrocalcinosis, left hand; M19.042 Primary osteoarthritis, left hand ==

== ENCOUNTER 2022-03-12 15:36 | Inpatient (IN) | payer MEDICARE, OTHER ==
[~2022-03-12] VITALS: Ht 182.9 cm; Wt 102.1 kg
[~2022-03-12 15:36] MED LIST changes: -ACET-907 PO; -ASPI-161 PO; -BACL5TAB2 PO; -BIOF4GEL4 EXT; -CORE3.12 PO; -DESI13CR2 EXT; -DULC10SU2 PR; -ELIQ5TAB PO; -EQ A EXT; -ERGO500029 PO; -FLEEENE12 PR; -FLUC150T9 PO; -GLUC1KIT IM; -ISOS1TAB36 PO; -METF500T13 PO; -MILKSUS3 PO; -PANT40TA29 PO; -TRAM50TA2 PO
[2022-03-12 17:36] LABS: BASO # 0.1 10^3/uL (0.0-0.2); BASO % 0.7 % (0.0-1.0); EOS # 0.7 10^3/uL (0.0-0.5); EOS % 6.1 % (0.0-3.0); HEMATOCRIT 37.9 % (42.0-52.0); HEMOGLOBIN 12.1 g/dl (13.5-17.5); LYMPH # 1.7 10^3/uL (1.5-5.0); LYMPH % 15.4 % (24.0-44.0); MEAN CORPUSCULAR HEMOGLOBIN 31.2 pg (27.0-33.0); MEAN CORPUSCULAR HGB CONC 31.9 g/dl (32.0-36.5); MEAN CORPUSCULAR VOLUME 97.7 fl (80.0-96.0); MONO % 15.2 % (2.0-8.0); NEUTROPHILS # 6.6 10^3/uL (1.5-8.5); NEUTROPHILS % 58.1 % (36.0-66.0); PLATELET COUNT, AUTOMATED 161 10^3/uL (150-450); RED BLOOD COUNT 3.88 10^6/uL (4.30-6.10); WHITE BLOOD COUNT 11.3 10^3/uL (4.0-10.0)
[2022-03-12 17:55] LABS: BLOOD UREA NITROGEN 34 MG/DL (7-18); CALCIUM LEVEL 9.1 MG/DL (8.8-10.2); CARBON DIOXIDE LEVEL 28 MEQ/L (21-32); CHLORIDE LEVEL 102 MEQ/L (98-107); CREATININE FOR GFR 1.14 MG/DL (0.70-1.30); GLOMERULAR FILTRATION RATE > 60.0 (>35); GLUCOSE, FASTING 179 MG/DL (70-100); POTASSIUM SERUM 4.4 MEQ/L (3.5-5.1); SODIUM LEVEL 137 MEQ/L (136-145)
[2022-03-12 18:04] LABS: INR 1.04; PARTIAL THROMBOPLASTIN TIME 31.9 SECONDS (25.9-37.0)
[2022-03-12 18:08] LABS: MONO # 1.7 10^3/uL (0.0-0.8)
[2022-03-12] MEDS ORDERED: ISOVUE-370 76% 100ML VIAL As Ordered ONE (18:36)
[2022-03-12 20:15] LABS: ALBUMIN 2.8 GM/DL (3.2-5.2); ALT/SGPT 20 U/L (12-78); BILIRUBIN,DIRECT 0.2 MG/DL (0.0-0.2); BILIRUBIN,TOTAL 0.6 MG/DL (0.2-1.0); NT-PRO BNP 2370 PG/ML (<450); TOTAL PROTEIN 6.2 GM/DL (6.4-8.2)
[2022-03-12 21:10] LABS: RSV AMPLIFICATION NEGATIVE (NEGATIVE)
[2022-03-12] MEDS ORDERED: ALLO300T2 PO (23:16)
[2022-03-12] MEDS ORDERED: DIGO0.123 PO (23:16)
[2022-03-12] MEDS ORDERED: ASPI-161 PO (23:16)
[2022-03-12] MEDS ORDERED: BACL5TAB2 PO ×2 (23:16→23:35)
[2022-03-12] MEDS ORDERED: NYST1POW9 TOP (23:35)
[2022-03-12] MEDS ORDERED: TRAM50TA2 PO (23:35)
[2022-03-12] MEDS ORDERED: PANT40TA29 PO (23:35)
[2022-03-12] MEDS ORDERED: FLOM0.4C39 PO (23:35)
[2022-03-12] MEDS ORDERED: FLEEENE12 PR (23:35)
[2022-03-12] MEDS ORDERED: FINA5TAB2 PO (23:35)
[2022-03-12] MEDS ORDERED: BIOF4GEL4 EXT (23:35)
[2022-03-12] MEDS ORDERED: ACET-907 PO (23:35)
[2022-03-12] MEDS ORDERED: DESI13CR2 EXT (23:35)
[2022-03-12] MEDS ORDERED: ISOS1TAB36 PO (23:35)
[2022-03-12] MEDS ORDERED: MILKSUS3 PO (23:35)
[2022-03-12] MEDS ORDERED: TORS20TA2 PO (23:35)
[2022-03-12] MEDS ORDERED: CORE3.12 PO (23:35)
[2022-03-12] MEDS ORDERED: FLUC150T9 PO (23:35)
[2022-03-12] MEDS ORDERED: DULC10SU2 PR (23:35)
[2022-03-12] MEDS ORDERED: EQ A EXT (23:35)
[2022-03-12] MEDS ORDERED: GABA-1171 PO (23:35)
[2022-03-12] MEDS ORDERED: METF500T13 PO (23:35)
[2022-03-12] MEDS ORDERED: ERGO500029 PO (23:35)
[2022-03-12] MEDS ORDERED: GLUC1KIT IM (23:35)
[2022-03-12] MEDS ORDERED: HOME MED LIST COMPLETE! XX SCH (23:40)
[2022-03-12 23:55] LABS: CK-MB VALUE MASS 2.3 NG/ML (<3.6); MB/CK RELATIVE INDEX 4.18 (< OR =4)
[2022-03-13] MEDS ORDERED: MOM 30ML SUSPENSION UDC PO PRN (01:00)
[2022-03-13] MEDS ORDERED: HEPARIN SOD (PORCINE) 5000UNITS/ML 1ML VIAL/SYRINGE IV PRN (01:00)
[2022-03-13] MEDS ORDERED: GLUCOSE 4GM CHEW TABLET PO PRN (01:05)
[2022-03-13] MEDS ORDERED: GLUCAGON INJ 1MG VIAL SC PRN (01:05)
[2022-03-13] MEDS ORDERED: DEXTROSE 50% 50 ML SYRINGE IV PRN (01:05)
[2022-03-13] MEDS: ACETAMINOPHEN TAB 650MG DOSE (2X325MG) PO PRN ×2 (02:54→17:23)
[2022-03-13] MEDS: HEPARIN DRIP 25,000 UNITS in IV 1 EA IV SCH ×2 (03:04→20:30)
[2022-03-13 03:15] LABS: HEMATOCRIT 38.5 % (42.0-52.0); HEMOGLOBIN 12.1 g/dl (13.5-17.5); MEAN CORPUSCULAR HEMOGLOBIN 30.6 pg (27.0-33.0); MEAN CORPUSCULAR HGB CONC 31.4 g/dl (32.0-36.5); MEAN CORPUSCULAR VOLUME 97.5 fl (80.0-96.0); PLATELET COUNT, AUTOMATED 160 10^3/uL (150-450); RED BLOOD COUNT 3.95 10^6/uL (4.30-6.10); WHITE BLOOD COUNT 10.7 10^3/uL (4.0-10.0)
[2022-03-13 04:00] VITALS: BP 128/66
[2022-03-13 06:55] LABS: HEMATOCRIT 38.2 % (42.0-52.0); HEMOGLOBIN 12.3 g/dl (13.5-17.5); MEAN CORPUSCULAR HEMOGLOBIN 31.2 pg (27.0-33.0); MEAN CORPUSCULAR HGB CONC 32.2 g/dl (32.0-36.5); PLATELET COUNT, AUTOMATED 158 10^3/uL (150-450); RED BLOOD COUNT 3.94 10^6/uL (4.30-6.10); WHITE BLOOD COUNT 11.2 10^3/uL (4.0-10.0)
[2022-03-13 07:21] LABS: ALBUMIN 2.7 GM/DL (3.2-5.2); ALT/SGPT 16 U/L (12-78); BILIRUBIN,TOTAL 0.9 MG/DL (0.2-1.0); BLOOD UREA NITROGEN 31 MG/DL (7-18); CALCIUM LEVEL 9.2 MG/DL (8.8-10.2); CARBON DIOXIDE LEVEL 30 MEQ/L (21-32); CHLORIDE LEVEL 103 MEQ/L (98-107); CREATININE FOR GFR 1.06 MG/DL (0.70-1.30); GLOMERULAR FILTRATION RATE > 60.0 (>35); GLUCOSE, FASTING 131 MG/DL (70-100); POTASSIUM SERUM 3.6 MEQ/L (3.5-5.1); SODIUM LEVEL 140 MEQ/L (136-145); TOTAL PROTEIN 6.6 GM/DL (6.4-8.2)
[2022-03-13] MEDS: ASPIRIN 81MG ENTERIC TABLET PO SCH (08:45)
[2022-03-13] MEDS: traMADol 50 MG TAB PO SCH ×2 (08:45→20:04)
[2022-03-13] MEDS: GABAPENTIN 100 MG CAP PO SCH ×3 (08:46→20:04)
[2022-03-13] MEDS: TAMSULOSIN 0.4 MG CAP PO SCH ×2 (08:47→20:03)
[2022-03-13] MEDS: HumaLOG INSULIN (NovoLOG) PER UNIT SC SCH ×3 (08:51→17:19)
[2022-03-13] MEDS: ISOSORBIDE MON. (IMDUR) 60 MG XR TAB PO SCH (08:51)
[2022-03-13] MEDS: DIGOXIN 0.125 MG TAB PO SCH (08:51)
[2022-03-13 08:52] VITALS: BP 139/104
[2022-03-13] MEDS: TORSEMIDE 20 MG TAB PO SCH (08:52)
[2022-03-13] MEDS: PANTOPRAZOLE 40MG TAB (PROTONIX) PO SCH (08:52)
[2022-03-13] MEDS: CARVedilol 3.125 MG TAB PO SCH ×2 (08:52→20:03)
[2022-03-13] MEDS: allopurinoL 300 MG TAB PO SCH (08:52)
[2022-03-13 09:02] VITALS: BP 139/104
[2022-03-13 12:00] VITALS: BP 130/77
[2022-03-13 16:00] VITALS: BP 130/82
[2022-03-13 19:55] VITALS: BP 139/71
[2022-03-13] MEDS ORDERED: FINASTERIDE 5MG TAB PO SCH (21:00)
[2022-03-13] MEDS ORDERED: HumaLOG INSULIN (NovoLOG) PER UNIT SC SCH (21:00)
[2022-03-14] VITALS: BP 139/71
[2022-03-14 03:15] VITALS: BP 119/59
[2022-03-14 07:18] LABS: HEMOGLOBIN 12.1 g/dl (13.5-17.5); MEAN CORPUSCULAR HEMOGLOBIN 30.9 pg (27.0-33.0); MEAN CORPUSCULAR HGB CONC 31.8 g/dl (32.0-36.5); MEAN CORPUSCULAR VOLUME 97.2 fl (80.0-96.0); PLATELET COUNT, AUTOMATED 151 10^3/uL (150-450); RED BLOOD COUNT 3.91 10^6/uL (4.30-6.10); WHITE BLOOD COUNT 9.2 10^3/uL (4.0-10.0)
[2022-03-14] MEDS: HumaLOG INSULIN (NovoLOG) PER UNIT SC SCH ×2 (07:30→11:33)
[2022-03-14 07:35] LABS: BLOOD UREA NITROGEN 26 MG/DL (7-18); CALCIUM LEVEL 8.8 MG/DL (8.8-10.2); CARBON DIOXIDE LEVEL 29 MEQ/L (21-32); CHLORIDE LEVEL 102 MEQ/L (98-107); CREATININE FOR GFR 0.97 MG/DL (0.70-1.30); GLOMERULAR FILTRATION RATE > 60.0 (>35); GLUCOSE, FASTING 146 MG/DL (70-100); MAGNESIUM LEVEL 1.2 MG/DL (1.8-2.4); POTASSIUM SERUM 3.9 MEQ/L (3.5-5.1); SODIUM LEVEL 139 MEQ/L (136-145)
[2022-03-14 07:59] VITALS: BP 151/72
[2022-03-14] MEDS: TAMSULOSIN 0.4 MG CAP PO SCH (09:00)
[2022-03-14] MEDS: traMADol 50 MG TAB PO SCH (09:00)
[2022-03-14] MEDS: ISOSORBIDE MON. (IMDUR) 60 MG XR TAB PO SCH (09:01)
[2022-03-14] MEDS: DIGOXIN 0.125 MG TAB PO SCH (09:01)
[2022-03-14] MEDS ORDERED: APIXABAN 5 MG TAB (ELIQUIS) PO ONE ×2 (09:05→11:50)
[2022-03-14] MEDS: PANTOPRAZOLE 40MG TAB (PROTONIX) PO SCH (09:08)
[2022-03-14] MEDS: ASPIRIN 81MG ENTERIC TABLET PO SCH (09:08)
[2022-03-14] MEDS: CARVedilol 3.125 MG TAB PO SCH (09:09)
[2022-03-14] MEDS: TORSEMIDE 20 MG TAB PO SCH (09:09)
[2022-03-14] MEDS: GABAPENTIN 100 MG CAP PO SCH (09:09)
[2022-03-14] MEDS: allopurinoL 300 MG TAB PO SCH (09:10)
[2022-03-14] MEDS ORDERED: ELIQ5TAB PO (10:43)
[2022-03-14] MEDS ORDERED: MAGNESIUM OXIDE 400MG TAB (MAG-OX) PO ONE (10:55)
[2022-03-14 12:38] VITALS: BP 111/67
[2022-03-14] MEDS ORDERED: APIXABAN 5 MG TAB (ELIQUIS) PO SCH (21:00)
[2022-03-19] MEDS ORDERED: APIXABAN 5 MG TAB (ELIQUIS) PO SCH (09:00)
== END 2022-03-14 13:55 | DRG 176 ==
LOC: M ED 15:36 → M ED INP 03-13 00:58 → M PCU 03-13 04:42
PROVIDERS: ADMIT Family Medicine; ATTEND Family Medicine
DX: I26.99 Other pulmonary embolism without acute cor pulmonale (principal); I82.B12 Acute embolism and thrombosis of left subclavian vein; J98.11 Atelectasis; I13.0 Hypertensive heart and chronic kidney disease with heart failure and stage 1 through stage 4 chronic kidney disease, or unspecified chronic kidney disease; I82.A12 Acute embolism and thrombosis of left axillary vein; I82.622 Acute embolism and thrombosis of deep veins of left upper extremity; Z98.1 Arthrodesis status; I70.0 Atherosclerosis of aorta; M10.9 Gout, unspecified; I48.91 Unspecified atrial fibrillation; E03.9 Hypothyroidism, unspecified; I50.9 Heart failure, unspecified; Z79.82 Long term (current) use of aspirin; Z79.899 Other long term (current) drug therapy; Z88.0 Allergy status to penicillin; Z95.0 Presence of cardiac pacemaker; E78.5 Hyperlipidemia, unspecified; N18.9 Chronic kidney disease, unspecified; Z85.46 Personal history of malignant neoplasm of prostate; Z85.038 Personal history of other malignant neoplasm of large intestine; K21.9 Gastro-esophageal reflux disease without esophagitis; E11.22 Type 2 diabetes mellitus with diabetic chronic kidney disease

== ENCOUNTER → 2022-03-12 | Outpatient (REF) ==
[~2022-03-12] MED LIST changes: +ACET-907 PO; +ASPI-161 PO; +BACL5TAB2 PO; +BIOF4GEL4 EXT; +CORE3.12 PO; +DESI13CR2 EXT; +DULC10SU2 PR; +ELIQ5TAB PO; +EQ A EXT; +ERGO500029 PO; +FLEEENE12 PR; +FLUC150T9 PO; +GLUC1KIT IM; +ISOS1TAB36 PO; +METF500T13 PO; +MILKSUS3 PO; +PANT40TA29 PO; +TRAM50TA2 PO
[2022-03-12 17:39] LABS: HEMATOCRIT 38.9 % (42.0-52.0); HEMOGLOBIN 12.3 g/dl (13.5-17.5); MEAN CORPUSCULAR HEMOGLOBIN 30.8 pg (27.0-33.0); MEAN CORPUSCULAR HGB CONC 31.6 g/dl (32.0-36.5); MEAN CORPUSCULAR VOLUME 97.5 fl (80.0-96.0); PLATELET COUNT, AUTOMATED 182 10^3/uL (150-450); RED BLOOD COUNT 3.99 10^6/uL (4.30-6.10); WHITE BLOOD COUNT 11.3 10^3/uL (4.0-10.0)
[2022-03-12 17:55] LABS: BLOOD UREA NITROGEN 34 MG/DL (7-18); C REACTIVE PROTEIN QUANTITATIV 7.08 MG/DL (0.00-0.30); CARBON DIOXIDE LEVEL 27 MEQ/L (21-32); CHLORIDE LEVEL 102 MEQ/L (98-107); CREATININE FOR GFR 1.03 MG/DL (0.70-1.30); GLOMERULAR FILTRATION RATE > 60.0 (>35); GLUCOSE, FASTING 170 MG/DL (70-100); POTASSIUM SERUM 4.1 MEQ/L (3.5-5.1); SODIUM LEVEL 137 MEQ/L (136-145); URIC ACID 5.7 MG/DL (3.5-7.2)
[2022-03-12 18:44] LABS: ERYTHROCYTE SEDIMENTATION RATE 39 mm/hr (0-20)
== END ==
PROVIDERS: ATTEND Internal Medicine
DX: R60.9 Edema, unspecified (principal)

== ENCOUNTER → 2022-03-15 | Outpatient (REF) ==
[~2022-03-15] MED LIST changes: +ACET-907 PO; +ASPI-161 PO; +BACL5TAB2 PO; +BIOF4GEL4 EXT; +CORE3.12 PO; +DESI13CR2 EXT; +DULC10SU2 PR; +ELIQ5TAB PO; +EQ A EXT; +ERGO500029 PO; +FLEEENE12 PR; +FLUC150T9 PO; +GLUC1KIT IM; +ISOS1TAB36 PO; +METF500T13 PO; +MILKSUS3 PO; +PANT40TA29 PO; +TRAM50TA2 PO
[2022-03-15 14:39] LABS: HEMOGLOBIN 12.7 g/dl (13.5-17.5); MEAN CORPUSCULAR HEMOGLOBIN 31.7 pg (27.0-33.0); MEAN CORPUSCULAR HGB CONC 32.6 g/dl (32.0-36.5); MEAN CORPUSCULAR VOLUME 97.3 fl (80.0-96.0); PLATELET COUNT, AUTOMATED 172 10^3/uL (150-450); RED BLOOD COUNT 4.01 10^6/uL (4.30-6.10); WHITE BLOOD COUNT 10.8 10^3/uL (4.0-10.0)
[2022-03-15 15:16] LABS: HEMOGLOBIN A1c 7.7 %
[2022-03-15 15:25] LABS: BLOOD UREA NITROGEN 27 MG/DL (7-18); CARBON DIOXIDE LEVEL 27 MEQ/L (21-32); CHLORIDE LEVEL 100 MEQ/L (98-107); CREATININE FOR GFR 1.12 MG/DL (0.70-1.30); GLOMERULAR FILTRATION RATE > 60.0 (>35); GLUCOSE, FASTING 172 MG/DL (70-100); NT-PRO BNP 1623 PG/ML (<450); SODIUM LEVEL 134 MEQ/L (136-145)
== END ==
PROVIDERS: ATTEND Internal Medicine
DX: E11.9 Type 2 diabetes mellitus without complications (principal)

== ENCOUNTER → 2022-03-21 | Outpatient (REF) | payer MEDICARE, OTHER ==
[2022-03-21 12:01] LABS: HEMATOCRIT 38.1 % (42.0-52.0); HEMOGLOBIN 11.7 g/dl (13.5-17.5); MEAN CORPUSCULAR HEMOGLOBIN 30.2 pg (27.0-33.0); MEAN CORPUSCULAR HGB CONC 30.7 g/dl (32.0-36.5); MEAN CORPUSCULAR VOLUME 98.4 fl (80.0-96.0); PLATELET COUNT, AUTOMATED 187 10^3/uL (150-450); RED BLOOD COUNT 3.87 10^6/uL (4.30-6.10); WHITE BLOOD COUNT 8.9 10^3/uL (4.0-10.0)
[2022-03-21 12:33] LABS: BLOOD UREA NITROGEN 30 MG/DL (7-18); CALCIUM LEVEL 9.3 MG/DL (8.8-10.2); CARBON DIOXIDE LEVEL 28 MEQ/L (21-32); CHLORIDE LEVEL 104 MEQ/L (98-107); CREATININE FOR GFR 1.22 MG/DL (0.70-1.30); GLOMERULAR FILTRATION RATE > 60.0 (>35); GLUCOSE, FASTING 217 MG/DL (70-100); NT-PRO BNP 1584 PG/ML (<450); POTASSIUM SERUM 3.8 MEQ/L (3.5-5.1); SODIUM LEVEL 138 MEQ/L (136-145)
== END ==
PROVIDERS: ATTEND Internal Medicine
DX: I82.90 Acute embolism and thrombosis of unspecified vein (principal); I26.99 Other pulmonary embolism without acute cor pulmonale; I48.91 Unspecified atrial fibrillation; Z79.899 Other long term (current) drug therapy

== ENCOUNTER → 2022-03-28 | Outpatient (REF) | payer MEDICARE, OTHER ==
[2022-03-28 11:15] LABS: HEMATOCRIT 39.3 % (42.0-52.0); HEMOGLOBIN 12.3 g/dl (13.5-17.5); MEAN CORPUSCULAR HEMOGLOBIN 30.8 pg (27.0-33.0); MEAN CORPUSCULAR HGB CONC 31.3 g/dl (32.0-36.5); MEAN CORPUSCULAR VOLUME 98.3 fl (80.0-96.0); PLATELET COUNT, AUTOMATED 176 10^3/uL (150-450); WHITE BLOOD COUNT 9.4 10^3/uL (4.0-10.0)
[2022-03-28 11:48] LABS: BLOOD UREA NITROGEN 32 MG/DL (7-18); CREATININE FOR GFR 1.17 MG/DL (0.70-1.30); GLOMERULAR FILTRATION RATE > 60.0 (>35); GLUCOSE, FASTING 161 MG/DL (70-100)
[2022-03-28 11:49] LABS: CALCIUM LEVEL 9.3 MG/DL (8.8-10.2); CARBON DIOXIDE LEVEL 29 MEQ/L (21-32); CHLORIDE LEVEL 103 MEQ/L (98-107); NT-PRO BNP 1525 PG/ML (<450); POTASSIUM SERUM 3.9 MEQ/L (3.5-5.1); SODIUM LEVEL 138 MEQ/L (136-145)
== END ==
PROVIDERS: ATTEND Internal Medicine
DX: I26.99 Other pulmonary embolism without acute cor pulmonale (principal); I82.409 Acute embolism and thrombosis of unspecified deep veins of unspecified lower extremity; I48.91 Unspecified atrial fibrillation

== ENCOUNTER → 2022-04-04 | Outpatient (REF) | payer MEDICARE, OTHER ==
[2022-04-04 13:09] LABS: HEMATOCRIT 37.6 % (42.0-52.0); HEMOGLOBIN 11.5 g/dl (13.5-17.5); MEAN CORPUSCULAR HEMOGLOBIN 30.5 pg (27.0-33.0); MEAN CORPUSCULAR HGB CONC 30.6 g/dl (32.0-36.5); MEAN CORPUSCULAR VOLUME 99.7 fl (80.0-96.0); PLATELET COUNT, AUTOMATED 158 10^3/uL (150-450); RED BLOOD COUNT 3.77 10^6/uL (4.30-6.10); WHITE BLOOD COUNT 8.4 10^3/uL (4.0-10.0)
[2022-04-04 13:57] LABS: BLOOD UREA NITROGEN 29 MG/DL (7-18); CALCIUM LEVEL 9.8 MG/DL (8.8-10.2); CARBON DIOXIDE LEVEL 26 MEQ/L (21-32); CHLORIDE LEVEL 104 MEQ/L (98-107); CREATININE FOR GFR 1.02 MG/DL (0.70-1.30); GLOMERULAR FILTRATION RATE > 60.0 (>35); GLUCOSE, FASTING 185 MG/DL (70-100); NT-PRO BNP 1980 PG/ML (<450); SODIUM LEVEL 140 MEQ/L (136-145)
== END ==
PROVIDERS: ATTEND Internal Medicine
DX: I82.90 Acute embolism and thrombosis of unspecified vein (principal)

== ENCOUNTER → 2022-04-09 | Outpatient (CLI) | payer MEDICARE, OTHER | PROVIDERS: ATTEND Internal Medicine | DX: K59.00 Constipation, unspecified (principal) ==

== ENCOUNTER → 2022-04-11 | Outpatient (REF) | payer MEDICARE, OTHER ==
[2022-04-11 10:40] LABS: HEMATOCRIT 37.7 % (42.0-52.0); HEMOGLOBIN 11.7 g/dl (13.5-17.5); PLATELET COUNT, AUTOMATED 153 10^3/uL (150-450); RED BLOOD COUNT 3.77 10^6/uL (4.30-6.10); WHITE BLOOD COUNT 8.9 10^3/uL (4.0-10.0)
[2022-04-11 11:09] LABS: BLOOD UREA NITROGEN 27 MG/DL (7-18); CALCIUM LEVEL 9.1 MG/DL (8.8-10.2); CARBON DIOXIDE LEVEL 28 MEQ/L (21-32); CHLORIDE LEVEL 103 MEQ/L (98-107); GLOMERULAR FILTRATION RATE > 60.0 (>35); GLUCOSE, FASTING 180 MG/DL (70-100); POTASSIUM SERUM 3.7 MEQ/L (3.5-5.1); SODIUM LEVEL 138 MEQ/L (136-145)
== END ==
PROVIDERS: ATTEND Internal Medicine
DX: I82.90 Acute embolism and thrombosis of unspecified vein (principal); I26.99 Other pulmonary embolism without acute cor pulmonale; I48.91 Unspecified atrial fibrillation

== ENCOUNTER → 2022-04-13 | Outpatient (REF) | payer MEDICARE, OTHER | PROVIDERS: ATTEND Physician Assistant | DX: Z01.818 Encounter for other preprocedural examination (principal); Z20.822 Contact with and (suspected) exposure to COVID-19 ==

== ENCOUNTER → 2022-05-02 | Outpatient (REF) | payer MEDICARE, OTHER | PROVIDERS: ATTEND Internal Medicine | DX: R82.998 Other abnormal findings in urine (principal) ==

== ENCOUNTER → 2022-05-02 | Outpatient (REF) | payer MEDICARE, OTHER ==
[2022-05-02 12:20] LABS: HEMATOCRIT 40.5 % (42.0-52.0); HEMOGLOBIN 12.2 g/dl (13.5-17.5); MEAN CORPUSCULAR HEMOGLOBIN 30.7 pg (27.0-33.0); MEAN CORPUSCULAR HGB CONC 30.1 g/dl (32.0-36.5); MEAN CORPUSCULAR VOLUME 101.8 fl (80.0-96.0); PLATELET COUNT, AUTOMATED 146 10^3/uL (150-450); RED BLOOD COUNT 3.98 10^6/uL (4.30-6.10); WHITE BLOOD COUNT 8.3 10^3/uL (4.0-10.0)
[2022-05-02 12:47] LABS: CALCIUM LEVEL 9.8 MG/DL (8.8-10.2); CREATININE FOR GFR 1.26 MG/DL (0.70-1.30); GLOMERULAR FILTRATION RATE 58.5 (>35)
== END ==
PROVIDERS: ATTEND Internal Medicine
DX: I82.90 Acute embolism and thrombosis of unspecified vein (principal); I26.99 Other pulmonary embolism without acute cor pulmonale; I48.91 Unspecified atrial fibrillation

== ENCOUNTER → 2022-05-23 | Outpatient (REF) | payer MEDICARE, OTHER ==
[~2022-05-23] MED LIST changes: +ACUL0.5S OS; +GABA-282 PO; +MIRA3350 PO; +MOM30SS2 PO; +OCUF0.25 OS; +PRED1SUS2 OS; +SENN-80 PO
[2022-05-23 11:24] LABS: HEMATOCRIT 39.3 % (42.0-52.0); HEMOGLOBIN 12.1 g/dl (13.5-17.5); MEAN CORPUSCULAR HEMOGLOBIN 31.7 pg (27.0-33.0); MEAN CORPUSCULAR HGB CONC 30.8 g/dl (32.0-36.5); MEAN CORPUSCULAR VOLUME 102.9 fl (80.0-96.0); PLATELET COUNT, AUTOMATED 161 10^3/uL (150-450); RED BLOOD COUNT 3.82 10^6/uL (4.30-6.10); WHITE BLOOD COUNT 8.5 10^3/uL (4.0-10.0)
[2022-05-23 12:02] LABS: BLOOD UREA NITROGEN 30 MG/DL (7-18); CALCIUM LEVEL 9.4 MG/DL (8.8-10.2); CARBON DIOXIDE LEVEL 26 MEQ/L (21-32); CHLORIDE LEVEL 103 MEQ/L (98-107); CREATININE FOR GFR 1.18 MG/DL (0.70-1.30); GLOMERULAR FILTRATION RATE > 60.0 (>35); GLUCOSE, FASTING 173 MG/DL (70-100); NT-PRO BNP 1742 PG/ML (<450); POTASSIUM SERUM 3.9 MEQ/L (3.5-5.1); SODIUM LEVEL 139 MEQ/L (136-145)
== END ==
PROVIDERS: ATTEND Internal Medicine
DX: I82.90 Acute embolism and thrombosis of unspecified vein (principal); I48.91 Unspecified atrial fibrillation; I26.99 Other pulmonary embolism without acute cor pulmonale

== ENCOUNTER → 2022-05-24 | Outpatient (REF) | payer MEDICARE, OTHER ==
[2022-05-24 14:57] LABS: HEMATOCRIT 40.1 % (42.0-52.0); HEMOGLOBIN 12.1 g/dl (13.5-17.5); MEAN CORPUSCULAR HEMOGLOBIN 30.8 pg (27.0-33.0); MEAN CORPUSCULAR HGB CONC 30.2 g/dl (32.0-36.5); PLATELET COUNT, AUTOMATED 165 10^3/uL (150-450); RED BLOOD COUNT 3.93 10^6/uL (4.30-6.10); WHITE BLOOD COUNT 8.2 10^3/uL (4.0-10.0)
[2022-05-24 15:14] LABS: BLOOD UREA NITROGEN 28 MG/DL (7-18); C REACTIVE PROTEIN QUANTITATIV 2.86 MG/DL (0.00-0.30); CALCIUM LEVEL 8.9 MG/DL (8.8-10.2); CARBON DIOXIDE LEVEL 26 MEQ/L (21-32); CHLORIDE LEVEL 104 MEQ/L (98-107); CREATININE FOR GFR 1.09 MG/DL (0.70-1.30); GLOMERULAR FILTRATION RATE > 60.0 (>35); GLUCOSE, FASTING 193 MG/DL (70-100); SODIUM LEVEL 139 MEQ/L (136-145); URIC ACID 6.3 MG/DL (3.5-7.2)
[2022-05-24 15:19] LABS: ERYTHROCYTE SEDIMENTATION RATE 30 mm/hr (0-20)
== END ==
PROVIDERS: ATTEND Internal Medicine
DX: M25.561 Pain in right knee (principal)

== ENCOUNTER → 2022-05-25 | Outpatient (CLI) | payer MEDICARE, OTHER ==
[~2022-05-25] MED LIST changes: -ACUL0.5S OS; -GABA-282 PO; -MIRA3350 PO; -MOM30SS2 PO; -OCUF0.25 OS; -PRED1SUS2 OS; -SENN-80 PO
== END ==
LOC: M PLAIMG 12:10
PROVIDERS: ATTEND Internal Medicine
DX: M25.561 Pain in right knee (principal); M17.11 Unilateral primary osteoarthritis, right knee; M25.461 Effusion, right knee; M79.89 Other specified soft tissue disorders

== ENCOUNTER → 2022-05-30 | Outpatient (REF) | payer MEDICARE, OTHER ==
[~2022-05-30] MED LIST changes: +ACUL0.5S OS; +GABA-282 PO; +MIRA3350 PO; +MOM30SS2 PO; +OCUF0.25 OS; +PRED1SUS2 OS; +SENN-80 PO
[2022-05-30 11:07] LABS: HEMATOCRIT 39.8 % (42.0-52.0); HEMOGLOBIN 12.3 g/dl (13.5-17.5); MEAN CORPUSCULAR HEMOGLOBIN 31.5 pg (27.0-33.0); MEAN CORPUSCULAR HGB CONC 30.9 g/dl (32.0-36.5); MEAN CORPUSCULAR VOLUME 102.1 fl (80.0-96.0); PLATELET COUNT, AUTOMATED 147 10^3/uL (150-450); WHITE BLOOD COUNT 7.7 10^3/uL (4.0-10.0)
[2022-05-30 11:33] LABS: CALCIUM LEVEL 9.1 MG/DL (8.8-10.2); CREATININE FOR GFR 1.52 MG/DL (0.70-1.30); GLOMERULAR FILTRATION RATE 47.1 (>35); POTASSIUM SERUM 4.3 MEQ/L (3.5-5.1)
== END ==
PROVIDERS: ATTEND Internal Medicine
DX: I82.90 Acute embolism and thrombosis of unspecified vein (principal); I26.99 Other pulmonary embolism without acute cor pulmonale

== ENCOUNTER → 2022-06-01 | Outpatient (REF) | payer MEDICARE, OTHER | PROVIDERS: ATTEND Internal Medicine | DX: Z01.812 Encounter for preprocedural laboratory examination (principal); Z20.822 Contact with and (suspected) exposure to COVID-19 ==

== ENCOUNTER 2022-06-03 18:37 | Emergency (ER) | payer MEDICARE, OTHER ==
[~2022-06-03 18:37] MED LIST changes: -ACUL0.5S OS; -GABA-282 PO; -MIRA3350 PO; -MOM30SS2 PO; -OCUF0.25 OS; -PRED1SUS2 OS; -SENN-80 PO
[2022-06-03] MEDS ORDERED: GABA-282 PO (19:45)
[2022-06-03] MEDS ORDERED: MIRA3350 PO (19:45)
[2022-06-03] MEDS ORDERED: SENN-80 PO (19:45)
[2022-06-03] MEDS ORDERED: ELIQ5TAB PO (19:53)
[2022-06-03] MEDS ORDERED: GABA-1171 PO (19:53)
[2022-06-03] MEDS ORDERED: PRED1SUS2 OS (20:00)
[2022-06-03] MEDS ORDERED: OCUF0.25 OS (20:00)
[2022-06-03] MEDS ORDERED: ACUL0.5S OS (20:00)
[2022-06-03] MEDS ORDERED: BACL10TA2 PO (20:08)
[2022-06-03] MEDS ORDERED: MOM30SS2 PO (20:08)
[2022-06-03] MEDS ORDERED: DULC10SU2 PR (20:08)
[2022-06-03] MEDS ORDERED: FLEEENE12 PR (20:08)
[2022-06-03] MEDS ORDERED: HOME MED LIST COMPLETE! XX SCH (20:15)
[2022-06-03 20:42] LABS: BASO % 0.4 % (0.0-1.0); EOS # 0.7 10^3/uL (0.0-0.5); EOS % 8.3 % (0.0-3.0); HEMOGLOBIN 12.2 g/dl (13.5-17.5); LYMPH # 1.5 10^3/uL (1.5-5.0); LYMPH % 18.8 % (24.0-44.0); MEAN CORPUSCULAR HEMOGLOBIN 31.7 pg (27.0-33.0); MEAN CORPUSCULAR HGB CONC 31.3 g/dl (32.0-36.5); MEAN CORPUSCULAR VOLUME 101.3 fl (80.0-96.0); MONO # 1.1 10^3/uL (0.0-0.8); NEUTROPHILS # 4.6 10^3/uL (1.5-8.5); NEUTROPHILS % 57.5 % (36.0-66.0); PLATELET COUNT, AUTOMATED 149 10^3/uL (150-450); RED BLOOD COUNT 3.85 10^6/uL (4.30-6.10)
[2022-06-03 20:54] LABS: BLOOD UREA NITROGEN 26 MG/DL (7-18); CALCIUM LEVEL 9.7 MG/DL (8.8-10.2); CARBON DIOXIDE LEVEL 29 MEQ/L (21-32); CHLORIDE LEVEL 106 MEQ/L (98-107); GLOMERULAR FILTRATION RATE > 60.0 (>35); GLUCOSE, FASTING 146 MG/DL (70-100); POTASSIUM SERUM 4.8 MEQ/L (3.5-5.1); SODIUM LEVEL 139 MEQ/L (136-145)
[2022-06-03] MEDS ORDERED: ISOVUE-370 76% 100ML VIAL As Ordered ONE (21:03)
[2022-06-03] MEDS ORDERED: CARVedilol 3.125 MG TAB PO ONE (22:00)
[2022-06-03] MEDS ORDERED: amLODIPine 5 MG TAB PO ONE (23:15)
[2022-06-03 23:16] VITALS: BP 200/94
[2022-06-03 23:51] VITALS: BP 184/89
== END 2022-06-04 00:16 | disposition home or self-care (01) ==
LOC: M ED 18:37
DX: M25.461 Effusion, right knee (principal); K40.90 Unilateral inguinal hernia, without obstruction or gangrene, not specified as recurrent; I82.411 Acute embolism and thrombosis of right femoral vein; I82.431 Acute embolism and thrombosis of right popliteal vein; I48.91 Unspecified atrial fibrillation; I50.9 Heart failure, unspecified; E11.9 Type 2 diabetes mellitus without complications; I10 Essential (primary) hypertension; E03.9 Hypothyroidism, unspecified; Z86.711 Personal history of pulmonary embolism; Z86.718 Personal history of other venous thrombosis and embolism; Z85.46 Personal history of malignant neoplasm of prostate; Z85.048 Personal history of other malignant neoplasm of rectum, rectosigmoid junction, and anus; N28.1 Cyst of kidney, acquired; K80.20 Calculus of gallbladder without cholecystitis without obstruction; R16.0 Hepatomegaly, not elsewhere classified; Z79.84 Long term (current) use of oral hypoglycemic drugs; Z79.891 Long term (current) use of opiate analgesic; Z79.899 Other long term (current) drug therapy; Z88.0 Allergy status to penicillin
CPT/HCPCS: 73564; 74177; 80048; 85025; 93971; 99285; Q9967

== ENCOUNTER → 2022-06-05 | Outpatient (REF) | payer MEDICARE, OTHER ==
[~2022-06-05] MED LIST changes: +ACUL0.5S OS; +GABA-282 PO; +MIRA3350 PO; +MOM30SS2 PO; +OCUF0.25 OS; +PRED1SUS2 OS; +SENN-80 PO
[2022-06-05 17:07] LABS: HEMATOCRIT 42.2 % (42.0-52.0); HEMOGLOBIN 13.2 g/dl (13.5-17.5); MEAN CORPUSCULAR HGB CONC 31.3 g/dl (32.0-36.5); MEAN CORPUSCULAR VOLUME 102.2 fl (80.0-96.0); PLATELET COUNT, AUTOMATED 158 10^3/uL (150-450); RED BLOOD COUNT 4.13 10^6/uL (4.30-6.10); WHITE BLOOD COUNT 8.9 10^3/uL (4.0-10.0)
[2022-06-05 17:34] LABS: BLOOD UREA NITROGEN 20 MG/DL (7-18); CALCIUM LEVEL 9.9 MG/DL (8.8-10.2); CARBON DIOXIDE LEVEL 24 MEQ/L (21-32); CHLORIDE LEVEL 105 MEQ/L (98-107); CREATININE FOR GFR 1.06 MG/DL (0.70-1.30); GLOMERULAR FILTRATION RATE > 60.0 (>35); GLUCOSE, FASTING 221 MG/DL (70-100); NT-PRO BNP 3624 PG/ML (<450); POTASSIUM SERUM 4.3 MEQ/L (3.5-5.1); SODIUM LEVEL 137 MEQ/L (136-145)
== END ==
PROVIDERS: ATTEND Internal Medicine
DX: N17.9 Acute kidney failure, unspecified (principal)

== ENCOUNTER → 2022-06-06 | Outpatient (REF) | payer MEDICARE, OTHER ==
[2022-06-06 14:15] LABS: BLOOD UREA NITROGEN 26 MG/DL (7-18); CALCIUM LEVEL 9.7 MG/DL (8.8-10.2); CARBON DIOXIDE LEVEL 27 MEQ/L (21-32); CHLORIDE LEVEL 106 MEQ/L (98-107); CREATININE FOR GFR 1.12 MG/DL (0.70-1.30); GLOMERULAR FILTRATION RATE > 60.0 (>35); GLUCOSE, FASTING 142 MG/DL (70-100); POTASSIUM SERUM 4.3 MEQ/L (3.5-5.1); SODIUM LEVEL 138 MEQ/L (136-145)
== END ==
PROVIDERS: ATTEND Internal Medicine
DX: N17.9 Acute kidney failure, unspecified (principal)

== ENCOUNTER → 2022-07-04 | Outpatient (REF) | payer MEDICARE, OTHER ==
[~2022-07-04] MED LIST changes: +LEVO1TAB39 PO; -LEVO500T4 PO
[2022-07-04 15:12] LABS: HEMATOCRIT 44.8 % (42.0-52.0); HEMOGLOBIN 14.1 g/dl (13.5-17.5); MEAN CORPUSCULAR HEMOGLOBIN 32.3 pg (27.0-33.0); MEAN CORPUSCULAR HGB CONC 31.5 g/dl (32.0-36.5); MEAN CORPUSCULAR VOLUME 102.8 fl (80.0-96.0); PLATELET COUNT, AUTOMATED 106 10^3/uL (150-450); RED BLOOD COUNT 4.36 10^6/uL (4.30-6.10)
[2022-07-04 15:55] LABS: BLOOD UREA NITROGEN 35 MG/DL (7-18); CALCIUM LEVEL 9.5 MG/DL (8.8-10.2); CARBON DIOXIDE LEVEL 28 MEQ/L (21-32); CHLORIDE LEVEL 103 MEQ/L (98-107); CREATININE FOR GFR 1.19 MG/DL (0.70-1.30); GLOMERULAR FILTRATION RATE > 60.0 (>35); GLUCOSE, FASTING 178 MG/DL (70-100); NT-PRO BNP 2340 PG/ML (<450); POTASSIUM SERUM 3.8 MEQ/L (3.5-5.1); SODIUM LEVEL 140 MEQ/L (136-145)
== END ==
PROVIDERS: ATTEND Internal Medicine
DX: I50.9 Heart failure, unspecified (principal)

== ENCOUNTER → 2022-07-04 | Outpatient (CLI) | payer MEDICARE, OTHER | LOC: M PLALAB 12:16 | PROVIDERS: ATTEND Internal Medicine | DX: I51.7 Cardiomegaly (principal); I50.9 Heart failure, unspecified ==

== ENCOUNTER → 2022-08-20 | Outpatient (REF) | payer MEDICARE, OTHER ==
[2022-08-20 10:36] LABS: HEMATOCRIT 39.4 % (42.0-52.0); HEMOGLOBIN 12.1 g/dl (13.5-17.5); MEAN CORPUSCULAR HEMOGLOBIN 31.9 pg (27.0-33.0); MEAN CORPUSCULAR HGB CONC 30.7 g/dl (32.0-36.5); PLATELET COUNT, AUTOMATED 156 10^3/uL (150-450); RED BLOOD COUNT 3.79 10^6/uL (4.30-6.10)
[2022-08-20 12:29] LABS: CALCIUM LEVEL 9.3 MG/DL (8.8-10.2); CREATININE FOR GFR 1.25 MG/DL (0.70-1.30); GLOMERULAR FILTRATION RATE 58.9 (>35); POTASSIUM SERUM 3.7 MEQ/L (3.5-5.1); THYROID STIMULATING HORMONE 2.74 uIU/ML (0.358-3.740)
[2022-08-20 12:34] LABS: TOTAL 25(OH) VITAMIN D 59.1 NG/ML (30.0-100.0)
[2022-08-20 12:35] LABS: HEMOGLOBIN A1c 7.6 %
== END ==
PROVIDERS: ATTEND Internal Medicine
DX: I48.91 Unspecified atrial fibrillation (principal); Z79.899 Other long term (current) drug therapy

== ENCOUNTER → 2022-08-27 | Outpatient (REF) | payer MEDICARE, OTHER ==
[2022-08-27 10:53] LABS: BASO # 0.1 10^3/uL (0.0-0.2); BASO % 0.8 % (0.0-1.0); EOS # 0.5 10^3/uL (0.0-0.5); EOS % 5.8 % (0.0-3.0); HEMATOCRIT 36.4 % (42.0-52.0); HEMOGLOBIN 11.5 g/dl (13.5-17.5); LYMPH # 1.3 10^3/uL (1.5-5.0); LYMPH % 14.7 % (24.0-44.0); MEAN CORPUSCULAR HEMOGLOBIN 32.6 pg (27.0-33.0); MEAN CORPUSCULAR HGB CONC 31.6 g/dl (32.0-36.5); MEAN CORPUSCULAR VOLUME 103.1 fl (80.0-96.0); MONO % 11.6 % (2.0-8.0); NEUTROPHILS # 5.8 10^3/uL (1.5-8.5); NEUTROPHILS % 64.1 % (36.0-66.0); PLATELET COUNT, AUTOMATED 157 10^3/uL (150-450); RED BLOOD COUNT 3.53 10^6/uL (4.30-6.10)
[2022-08-27 11:58] LABS: ALBUMIN 2.9 GM/DL (3.2-5.2); BILIRUBIN,DIRECT 0.2 MG/DL (0.0-0.2); BILIRUBIN,TOTAL 0.4 MG/DL (0.2-1.0); CALCIUM LEVEL 9.2 MG/DL (8.8-10.2); CREATININE FOR GFR 1.23 MG/DL (0.70-1.30); POTASSIUM SERUM 3.7 MEQ/L (3.5-5.1); THYROID STIMULATING HORMONE 2.32 uIU/ML (0.358-3.740); THYROXINE (T4) 4.1 UG/DL (4.5-12.0); TOTAL PROTEIN 6.2 GM/DL (6.4-8.2)
== END ==
PROVIDERS: ATTEND Internal Medicine
DX: R63.5 Abnormal weight gain (principal)

== ENCOUNTER → 2022-09-10 | Outpatient (CLI) | payer MEDICARE, OTHER | PROVIDERS: ATTEND Internal Medicine | DX: M25.561 Pain in right knee (principal); M17.11 Unilateral primary osteoarthritis, right knee; M25.461 Effusion, right knee; I73.9 Peripheral vascular disease, unspecified ==

== ENCOUNTER → 2022-09-12 | Outpatient (REF) ==
[2022-09-12 12:17] LABS: HEMOGLOBIN A1c 7.8 %
[2022-09-12 12:46] LABS: CALCIUM LEVEL 9.6 MG/DL (8.8-10.2); CREATININE FOR GFR 1.27 MG/DL (0.70-1.30); GLOMERULAR FILTRATION RATE 57.8 (>35); POTASSIUM SERUM 3.8 MEQ/L (3.5-5.1)
== END ==
PROVIDERS: ATTEND Internal Medicine
DX: M25.569 Pain in unspecified knee (principal)

== ENCOUNTER → 2022-09-14 | Outpatient (REF) | payer MEDICARE, OTHER ==
[2022-09-14 11:52] LABS: HEMATOCRIT 38.1 % (42.0-52.0); HEMOGLOBIN 11.9 g/dl (13.5-17.5); MEAN CORPUSCULAR HEMOGLOBIN 32.4 pg (27.0-33.0); MEAN CORPUSCULAR HGB CONC 31.2 g/dl (32.0-36.5); MEAN CORPUSCULAR VOLUME 103.8 fl (80.0-96.0); PLATELET COUNT, AUTOMATED 170 10^3/uL (150-450); RED BLOOD COUNT 3.67 10^6/uL (4.30-6.10); WHITE BLOOD COUNT 11.9 10^3/uL (4.0-10.0)
[2022-09-14 12:28] LABS: ERYTHROCYTE SEDIMENTATION RATE 49 mm/hr (0-20)
[2022-09-14 12:51] LABS: C REACTIVE PROTEIN QUANTITATIV 3.42 MG/DL (0.00-0.30); CALCIUM LEVEL 9.4 MG/DL (8.8-10.2); CREATININE FOR GFR 1.24 MG/DL (0.70-1.30); GLOMERULAR FILTRATION RATE 59.4 (>35); POTASSIUM SERUM 3.9 MEQ/L (3.5-5.1); URIC ACID 6.9 MG/DL (3.5-7.2)
== END ==
PROVIDERS: ATTEND Internal Medicine
DX: M25.461 Effusion, right knee (principal)

== ENCOUNTER → 2022-09-17 | Outpatient (REF) | payer MEDICARE, OTHER ==
[2022-09-17 10:30] LABS: HEMATOCRIT 37.6 % (42.0-52.0); HEMOGLOBIN 11.5 g/dl (13.5-17.5); MEAN CORPUSCULAR HEMOGLOBIN 32.5 pg (27.0-33.0); MEAN CORPUSCULAR HGB CONC 30.6 g/dl (32.0-36.5); MEAN CORPUSCULAR VOLUME 106.2 fl (80.0-96.0); PLATELET COUNT, AUTOMATED 164 10^3/uL (150-450); RED BLOOD COUNT 3.54 10^6/uL (4.30-6.10); WHITE BLOOD COUNT 10.1 10^3/uL (4.0-10.0)
[2022-09-17 11:17] LABS: BLOOD UREA NITROGEN 30 MG/DL (7-18); CALCIUM LEVEL 9.2 MG/DL (8.8-10.2); CARBON DIOXIDE LEVEL 29 MEQ/L (21-32); CHLORIDE LEVEL 103 MEQ/L (98-107); CREATININE FOR GFR 1.18 MG/DL (0.70-1.30); GLOMERULAR FILTRATION RATE > 60.0 (>35); GLUCOSE, FASTING 218 MG/DL (70-100); NT-PRO BNP 2920 PG/ML (<450); POTASSIUM SERUM 3.7 MEQ/L (3.5-5.1); SODIUM LEVEL 140 MEQ/L (136-145)
== END ==
PROVIDERS: ATTEND Internal Medicine
DX: I48.91 Unspecified atrial fibrillation (principal); I26.99 Other pulmonary embolism without acute cor pulmonale; I82.90 Acute embolism and thrombosis of unspecified vein

== ENCOUNTER → 2022-09-27 | Outpatient (REF) | payer MEDICARE, OTHER ==
[~2022-09-27] MED LIST changes: +CEFT1INJ5 IJ; +ECOT81TA5 PO; +LINE1TAB6 PO; +MELA5CAP2 PO; +POLYOPD OU; +SERT25TA21 PO
[2022-09-27 13:41] LABS: HEMATOCRIT 38.6 % (42.0-52.0); HEMOGLOBIN 12.1 g/dl (13.5-17.5); MEAN CORPUSCULAR HEMOGLOBIN 32.5 pg (27.0-33.0); MEAN CORPUSCULAR HGB CONC 31.3 g/dl (32.0-36.5); MEAN CORPUSCULAR VOLUME 103.8 fl (80.0-96.0); PLATELET COUNT, AUTOMATED 160 10^3/uL (150-450); RED BLOOD COUNT 3.72 10^6/uL (4.30-6.10); WHITE BLOOD COUNT 20.4 10^3/uL (4.0-10.0)
[2022-09-27 14:41] LABS: CALCIUM LEVEL 9.1 MG/DL (8.8-10.2); CREATININE FOR GFR 1.51 MG/DL (0.70-1.30); GLOMERULAR FILTRATION RATE 47.3 (>35); POTASSIUM SERUM 4.4 MEQ/L (3.5-5.1); URIC ACID 6.7 MG/DL (3.5-7.2)
[2022-09-27 14:42] LABS: C REACTIVE PROTEIN QUANTITATIV 20.9 MG/DL (0.00-0.30)
[2022-09-27 15:07] LABS: ERYTHROCYTE SEDIMENTATION RATE 50 mm/hr (0-20)
== END ==
PROVIDERS: ATTEND Internal Medicine
DX: M79.662 Pain in left lower leg (principal)

== ENCOUNTER 2022-09-28 14:56 | Inpatient (IN) | payer MEDICARE, OTHER ==
[~2022-09-28] VITALS: Ht 182.9 cm; Wt 108.2 kg
[~2022-09-28 14:56] MED LIST changes: -CEFT1INJ5 IJ; -ECOT81TA5 PO; -LINE1TAB6 PO; -MELA5CAP2 PO; -POLYOPD OU; -SERT25TA21 PO
[2022-09-28 16:06] LABS: BASO % 0.1 % (0.0-1.0); EOS % 0.1 % (0.0-3.0); HEMATOCRIT 36.3 % (42.0-52.0); HEMOGLOBIN 11.3 g/dl (13.5-17.5); LYMPH # 0.9 10^3/uL (1.5-5.0); LYMPH % 4.8 % (24.0-44.0); MEAN CORPUSCULAR HEMOGLOBIN 32.2 pg (27.0-33.0); MEAN CORPUSCULAR HGB CONC 31.1 g/dl (32.0-36.5); MEAN CORPUSCULAR VOLUME 103.4 fl (80.0-96.0); MONO # 1.1 10^3/uL (0.0-0.8); MONO % 6.1 % (2.0-8.0); NEUTROPHILS # 15.4 10^3/uL (1.5-8.5); NEUTROPHILS % 85.1 % (36.0-66.0); PLATELET COUNT, AUTOMATED 147 10^3/uL (150-450); RED BLOOD COUNT 3.51 10^6/uL (4.30-6.10); WHITE BLOOD COUNT 18.1 10^3/uL (4.0-10.0)
[2022-09-28 16:29] LABS: ERYTHROCYTE SEDIMENTATION RATE 70 mm/hr (0-20)
[2022-09-28 16:38] LABS: RSV AMPLIFICATION NEGATIVE (NEGATIVE)
[2022-09-28 16:46] LABS: ALBUMIN 2.4 GM/DL (3.2-5.2); BILIRUBIN,DIRECT 0.3 MG/DL (0.0-0.2); BILIRUBIN,TOTAL 0.8 MG/DL (0.2-1.0); CREATININE FOR GFR 1.39 MG/DL (0.70-1.30); GLOMERULAR FILTRATION RATE 52.1 (>35); POTASSIUM SERUM 4.2 MEQ/L (3.5-5.1)
[2022-09-28] MEDS ORDERED: VANCOMYCIN HCL 2,000 MG in D5W 500 ML IV ONE (17:05)
[2022-09-28] MEDS ORDERED: VANCOMYCIN HCL 1,000 MG, VIAL MATE ADAPTER 1 EACH in NS 250 ML IV ONE ×2 (17:30→18:30)
[2022-09-28] MEDS ORDERED: ECOT81TA5 PO (17:55)
[2022-09-28] MEDS ORDERED: POLYOPD OU (20:40)
[2022-09-28] MEDS ORDERED: SERT25TA21 PO (20:40)
[2022-09-28] MEDS ORDERED: CEFT1INJ5 IJ (20:40)
[2022-09-28] MEDS ORDERED: MELA5CAP2 PO (20:46)
[2022-09-28] MEDS ORDERED: NYST1POW9 TOP (20:46)
[2022-09-28] MEDS ORDERED: HOME MED LIST COMPLETE! XX SCH (20:50)
[2022-09-28] MEDS: INSULIN LISPRO (NovoLOG) PER UNIT SC SCH (21:00)
[2022-09-28] MEDS ORDERED: DEXTROSE 50% 50 ML SYRINGE IV PRN (21:40)
[2022-09-28] MEDS ORDERED: MOM 30ML SUSPENSION UDC PO PRN (21:40)
[2022-09-28] MEDS ORDERED: GLUCAGON INJ 1MG VIAL SC PRN (21:40)
[2022-09-28] MEDS ORDERED: VANCOMYCIN HCL 1,000 MG, VIAL MATE ADAPTER 1 EACH in NS 250 ML IV SCH (21:40)
[2022-09-28] MEDS ORDERED: BISACODYL 10 MG SUPP PR PRN (21:40)
[2022-09-28] MEDS ORDERED: GLUCOSE 4GM CHEW TABLET PO PRN (21:40)
[2022-09-28] MEDS: FINASTERIDE 5MG TAB PO SCH (22:55)
[2022-09-28] MEDS: GABAPENTIN 300 MG CAP PO SCH (22:55)
[2022-09-29 00:09] VITALS: BP 133/93
[2022-09-29] MEDS: ACETAMINOPHEN TAB 650MG DOSE (2X325MG) PO PRN (00:55)
[2022-09-29 05:48] VITALS: BP 154/93
[2022-09-29 06:53] LABS: HEMATOCRIT 33.9 % (42.0-52.0); HEMOGLOBIN 10.8 g/dl (13.5-17.5); MEAN CORPUSCULAR HEMOGLOBIN 32.5 pg (27.0-33.0); MEAN CORPUSCULAR HGB CONC 31.9 g/dl (32.0-36.5); MEAN CORPUSCULAR VOLUME 102.1 fl (80.0-96.0); PLATELET COUNT, AUTOMATED 126 10^3/uL (150-450); RED BLOOD COUNT 3.32 10^6/uL (4.30-6.10); WHITE BLOOD COUNT 17.5 10^3/uL (4.0-10.0)
[2022-09-29 07:34] LABS: ALBUMIN 2.4 GM/DL (3.2-5.2); ALT/SGPT 16 U/L (12-78); BILIRUBIN,TOTAL 0.8 MG/DL (0.2-1.0); BLOOD UREA NITROGEN 44 MG/DL (7-18); CARBON DIOXIDE LEVEL 27 MEQ/L (21-32); CHLORIDE LEVEL 98 MEQ/L (98-107); CREATININE FOR GFR 1.14 MG/DL (0.70-1.30); GLOMERULAR FILTRATION RATE > 60.0 (>35); GLUCOSE, FASTING 171 MG/DL (70-100); POTASSIUM SERUM 4.2 MEQ/L (3.5-5.1); SODIUM LEVEL 133 MEQ/L (136-145); TOTAL PROTEIN 6.2 GM/DL (6.4-8.2)
[2022-09-29] MEDS: GABAPENTIN 100 MG CAP PO SCH ×2 (08:32→13:25)
[2022-09-29] MEDS: TAMSULOSIN 0.4 MG CAP PO SCH ×2 (08:32→21:16)
[2022-09-29] MEDS: DOCUSATE SODIUM 100MG CAPSULE PO SCH ×2 (08:32→21:16)
[2022-09-29] MEDS: allopurinoL 300 MG TAB PO SCH (08:32)
[2022-09-29] MEDS: APIXABAN 5 MG TAB (ELIQUIS) PO SCH ×2 (08:32→21:16)
[2022-09-29] MEDS: PANTOPRAZOLE 40MG TAB (PROTONIX) PO SCH (08:32)
[2022-09-29] MEDS: INSULIN LISPRO (NovoLOG) PER UNIT SC SCH ×4 (08:32→21:00)
[2022-09-29] MEDS: traMADol 50 MG TAB PO SCH ×2 (08:32→21:16)
[2022-09-29] MEDS: ASPIRIN 81MG ENTERIC TABLET PO SCH (08:32)
[2022-09-29] MEDS: SERTRALINE HCL 25 MG TABLET PO SCH (08:32)
[2022-09-29] MEDS: CARVedilol 3.125 MG TAB PO SCH ×2 (08:33→21:18)
[2022-09-29] MEDS: ISOSORBIDE MON. (IMDUR) 60MG XR TAB PO SCH (08:34)
[2022-09-29] MEDS: DIGOXIN 0.125 MG TAB PO SCH (08:34)
[2022-09-29] MEDS: POLYVINYL ALCOHOL OPHTH SOLN 15 ML(LIQUITEARS) OU SCH ×2 (08:35→21:19)
[2022-09-29] MEDS: VANCOMYCIN HCL 750 MG, VIAL MATE ADAPTER 1 EACH in D5W 250 ML IV SCH ×2 (13:25→14:28)
[2022-09-29 14:00] VITALS: BP 140/89
[2022-09-29 21:00] VITALS: BP 144/89
[2022-09-29] MEDS: GABAPENTIN 300 MG CAP PO SCH (21:16)
[2022-09-29] MEDS: FINASTERIDE 5MG TAB PO SCH (21:16)
[2022-09-30] MEDS: ACETAMINOPHEN TAB 650MG DOSE (2X325MG) PO PRN (01:31)
[2022-09-30 05:50] VITALS: BP 155/92
[2022-09-30 06:10] LABS: HEMATOCRIT 35.3 % (42.0-52.0); HEMOGLOBIN 11.1 g/dl (13.5-17.5); MEAN CORPUSCULAR HEMOGLOBIN 32.2 pg (27.0-33.0); MEAN CORPUSCULAR HGB CONC 31.4 g/dl (32.0-36.5); MEAN CORPUSCULAR VOLUME 102.3 fl (80.0-96.0); PLATELET COUNT, AUTOMATED 146 10^3/uL (150-450); RED BLOOD COUNT 3.45 10^6/uL (4.30-6.10); WHITE BLOOD COUNT 16.2 10^3/uL (4.0-10.0)
[2022-09-30 06:40] LABS: BLOOD UREA NITROGEN 37 MG/DL (7-18); CARBON DIOXIDE LEVEL 28 MEQ/L (21-32); CHLORIDE LEVEL 98 MEQ/L (98-107); CREATININE FOR GFR 1.03 MG/DL (0.70-1.30); GLOMERULAR FILTRATION RATE > 60.0 (>35); GLUCOSE, FASTING 185 MG/DL (70-100); POTASSIUM SERUM 4.3 MEQ/L (3.5-5.1); SODIUM LEVEL 132 MEQ/L (136-145)
[2022-09-30 06:41] LABS: ALBUMIN 2.3 GM/DL (3.2-5.2); ALT/SGPT 18 U/L (12-78); BILIRUBIN,TOTAL 0.9 MG/DL (0.2-1.0); MAGNESIUM LEVEL 1.6 MG/DL (1.8-2.4); TOTAL PROTEIN 6.2 GM/DL (6.4-8.2)
[2022-09-30] MEDS ORDERED: MAGNESIUM OXIDE 400MG TAB (MAG-OX) PO ONE (09:00)
[2022-09-30] MEDS: INSULIN LISPRO (NovoLOG) PER UNIT SC SCH ×4 (09:12→20:25)
[2022-09-30] MEDS: APIXABAN 5 MG TAB (ELIQUIS) PO SCH ×2 (09:13→21:48)
[2022-09-30] MEDS: allopurinoL 300 MG TAB PO SCH (09:13)
[2022-09-30] MEDS: SERTRALINE HCL 25 MG TABLET PO SCH (09:13)
[2022-09-30] MEDS: ASPIRIN 81MG ENTERIC TABLET PO SCH (09:13)
[2022-09-30] MEDS: GABAPENTIN 100 MG CAP PO SCH ×2 (09:13→13:01)
[2022-09-30] MEDS: TAMSULOSIN 0.4 MG CAP PO SCH ×2 (09:13→21:48)
[2022-09-30] MEDS: PANTOPRAZOLE 40MG TAB (PROTONIX) PO SCH (09:13)
[2022-09-30] MEDS: DOCUSATE SODIUM 100MG CAPSULE PO SCH ×2 (09:13→21:48)
[2022-09-30] MEDS: CARVedilol 3.125 MG TAB PO SCH ×2 (09:14→21:51)
[2022-09-30] MEDS: DIGOXIN 0.125 MG TAB PO SCH (09:14)
[2022-09-30] MEDS: traMADol 50 MG TAB PO SCH ×2 (09:14→21:50)
[2022-09-30] MEDS: ISOSORBIDE MON. (IMDUR) 60MG XR TAB PO SCH (09:15)
[2022-09-30] MEDS: POLYVINYL ALCOHOL OPHTH SOLN 15 ML(LIQUITEARS) OU SCH ×2 (09:15→21:53)
[2022-09-30] MEDS: VANCOMYCIN HCL 750 MG, VIAL MATE ADAPTER 1 EACH in D5W 250 ML IV SCH ×2 (13:01→14:15)
[2022-09-30 14:00] VITALS: BP 124/81
[2022-09-30 20:02] VITALS: BP 125/87
[2022-09-30] MEDS: FINASTERIDE 5MG TAB PO SCH (21:48)
[2022-09-30] MEDS: GABAPENTIN 300 MG CAP PO SCH (21:53)
[2022-10-01 05:59] VITALS: BP 153/77
[2022-10-01 06:40] LABS: HEMATOCRIT 35.4 % (42.0-52.0); HEMOGLOBIN 11.1 g/dl (13.5-17.5); MEAN CORPUSCULAR HEMOGLOBIN 32.1 pg (27.0-33.0); MEAN CORPUSCULAR HGB CONC 31.4 g/dl (32.0-36.5); MEAN CORPUSCULAR VOLUME 102.3 fl (80.0-96.0); PLATELET COUNT, AUTOMATED 146 10^3/uL (150-450); RED BLOOD COUNT 3.46 10^6/uL (4.30-6.10)
[2022-10-01 07:20] LABS: ALBUMIN 2.2 GM/DL (3.2-5.2); ALT/SGPT 27 U/L (12-78); BILIRUBIN,TOTAL 1.5 MG/DL (0.2-1.0); BLOOD UREA NITROGEN 42 MG/DL (7-18); CALCIUM LEVEL 9.2 MG/DL (8.8-10.2); CARBON DIOXIDE LEVEL 26 MEQ/L (21-32); CHLORIDE LEVEL 99 MEQ/L (98-107); CREATININE FOR GFR 1.08 MG/DL (0.70-1.30); GLOMERULAR FILTRATION RATE > 60.0 (>35); GLUCOSE, FASTING 186 MG/DL (70-100); MAGNESIUM LEVEL 1.6 MG/DL (1.8-2.4); SODIUM LEVEL 135 MEQ/L (136-145); TOTAL PROTEIN 5.9 GM/DL (6.4-8.2)
[2022-10-01] MEDS ORDERED: MAGNESIUM OXIDE 400MG TAB (MAG-OX) PO ONE (07:35)
[2022-10-01] MEDS: GABAPENTIN 100 MG CAP PO SCH ×2 (08:23→12:32)
[2022-10-01] MEDS: MIRALAX *UNIT DOSE* 17GM PACKET PO SCH (08:23)
[2022-10-01] MEDS: DOCUSATE SODIUM 100MG CAPSULE PO SCH ×2 (08:24→21:07)
[2022-10-01] MEDS: APIXABAN 5 MG TAB (ELIQUIS) PO SCH ×2 (08:24→21:06)
[2022-10-01] MEDS: ASPIRIN 81MG ENTERIC TABLET PO SCH (08:25)
[2022-10-01] MEDS: traMADol 50 MG TAB PO SCH ×2 (08:25→21:08)
[2022-10-01] MEDS: VANCOMYCIN HCL 750 MG, VIAL MATE ADAPTER 1 EACH in D5W 250 ML IV SCH ×2 (08:26→10:20)
[2022-10-01] MEDS: SERTRALINE HCL 25 MG TABLET PO SCH (08:26)
[2022-10-01] MEDS: DIGOXIN 0.125 MG TAB PO SCH (08:27)
[2022-10-01] MEDS: PANTOPRAZOLE 40MG TAB (PROTONIX) PO SCH (08:29)
[2022-10-01] MEDS: allopurinoL 300 MG TAB PO SCH (08:29)
[2022-10-01] MEDS: TAMSULOSIN 0.4 MG CAP PO SCH ×2 (08:29→21:07)
[2022-10-01] MEDS: CARVedilol 3.125 MG TAB PO SCH ×2 (08:30→21:07)
[2022-10-01] MEDS: ISOSORBIDE MON. (IMDUR) 60MG XR TAB PO SCH (08:30)
[2022-10-01] MEDS ORDERED: FLUCONAZOLE 100 MG TAB PO SCH (09:00)
[2022-10-01] MEDS: INSULIN LISPRO (NovoLOG) PER UNIT SC SCH ×4 (09:49→21:00)
[2022-10-01] MEDS: POLYVINYL ALCOHOL OPHTH SOLN 15 ML(LIQUITEARS) OU SCH ×2 (09:49→21:08)
[2022-10-01 14:18] VITALS: BP 158/98
[2022-10-01] MEDS ORDERED: predniSONE 20 MG TAB PO SCH (15:15)
[2022-10-01] MEDS: predniSONE 20 MG TAB PO SCH (17:43)
[2022-10-01 20:30] VITALS: BP 149/82
[2022-10-01] MEDS: GABAPENTIN 300 MG CAP PO SCH (21:08)
[2022-10-01] MEDS: FINASTERIDE 5MG TAB PO SCH (21:08)
[2022-10-02 04:20] VITALS: BP 139/91
[2022-10-02 08:05] VITALS: BP 141/89
[2022-10-02] MEDS: predniSONE 20 MG TAB PO SCH (08:34)
[2022-10-02] MEDS: allopurinoL 300 MG TAB PO SCH (08:34)
[2022-10-02] MEDS: ASPIRIN 81MG ENTERIC TABLET PO SCH (08:34)
[2022-10-02] MEDS: PANTOPRAZOLE 40MG TAB (PROTONIX) PO SCH (08:34)
[2022-10-02] MEDS: DOCUSATE SODIUM 100MG CAPSULE PO SCH ×2 (08:34→20:44)
[2022-10-02] MEDS: GABAPENTIN 100 MG CAP PO SCH ×2 (08:34→12:14)
[2022-10-02] MEDS: SERTRALINE HCL 25 MG TABLET PO SCH (08:34)
[2022-10-02] MEDS: APIXABAN 5 MG TAB (ELIQUIS) PO SCH ×2 (08:34→20:46)
[2022-10-02] MEDS: TAMSULOSIN 0.4 MG CAP PO SCH ×2 (08:34→20:44)
[2022-10-02] MEDS: INSULIN LISPRO (NovoLOG) PER UNIT SC SCH ×4 (08:34→20:44)
[2022-10-02] MEDS: CARVedilol 3.125 MG TAB PO SCH ×2 (08:37→20:45)
[2022-10-02] MEDS: traMADol 50 MG TAB PO SCH ×2 (08:37→20:45)
[2022-10-02] MEDS: VANCOMYCIN HCL 750 MG, VIAL MATE ADAPTER 1 EACH in D5W 250 ML IV SCH ×2 (08:38→10:00)
[2022-10-02 08:55] LABS: HEMATOCRIT 33.9 % (42.0-52.0); HEMOGLOBIN 10.7 g/dl (13.5-17.5); MEAN CORPUSCULAR HEMOGLOBIN 32.7 pg (27.0-33.0); MEAN CORPUSCULAR HGB CONC 31.6 g/dl (32.0-36.5); MEAN CORPUSCULAR VOLUME 103.7 fl (80.0-96.0); PLATELET COUNT, AUTOMATED 144 10^3/uL (150-450); RED BLOOD COUNT 3.27 10^6/uL (4.30-6.10); WHITE BLOOD COUNT 14.6 10^3/uL (4.0-10.0)
[2022-10-02] MEDS: DIGOXIN 0.125 MG TAB PO SCH (09:22)
[2022-10-02] MEDS: ISOSORBIDE MON. (IMDUR) 60MG XR TAB PO SCH (09:22)
[2022-10-02 09:35] LABS: ALT/SGPT 25 U/L (12-78); BILIRUBIN,TOTAL 0.9 MG/DL (0.2-1.0); BLOOD UREA NITROGEN 43 MG/DL (7-18); CALCIUM LEVEL 9.5 MG/DL (8.8-10.2); CARBON DIOXIDE LEVEL 23 MEQ/L (21-32); CHLORIDE LEVEL 101 MEQ/L (98-107); CREATININE FOR GFR 1.04 MG/DL (0.70-1.30); GLOMERULAR FILTRATION RATE > 60.0 (>35); GLUCOSE, FASTING 291 MG/DL (70-100); POTASSIUM SERUM 4.5 MEQ/L (3.5-5.1); SODIUM LEVEL 133 MEQ/L (136-145); TOTAL PROTEIN 5.7 GM/DL (6.4-8.2); VANCOMYCIN LEVEL TROUGH 10.4 UG/ML (10.0-20.0)
[2022-10-02] MEDS: POLYVINYL ALCOHOL OPHTH SOLN 15 ML(LIQUITEARS) OU SCH ×2 (10:00→20:46)
[2022-10-02 14:00] VITALS: BP_SYST 134; BP_SYST 139; BP_DIAS 84; BP_DIAS 95
[2022-10-02] MEDS: LINEZOLID 600MG TABLET (ZYVOX) PO SCH (20:44)
[2022-10-02] MEDS: GABAPENTIN 300 MG CAP PO SCH (20:44)
[2022-10-02] MEDS: FINASTERIDE 5MG TAB PO SCH (20:45)
[2022-10-02 21:00] VITALS: BP 146/93
[2022-10-03 05:00] VITALS: BP 150/93
[2022-10-03 06:16] LABS: HEMATOCRIT 33.1 % (42.0-52.0); HEMOGLOBIN 10.3 g/dl (13.5-17.5); MEAN CORPUSCULAR HEMOGLOBIN 32.3 pg (27.0-33.0); MEAN CORPUSCULAR HGB CONC 31.1 g/dl (32.0-36.5); MEAN CORPUSCULAR VOLUME 103.8 fl (80.0-96.0); PLATELET COUNT, AUTOMATED 173 10^3/uL (150-450); RED BLOOD COUNT 3.19 10^6/uL (4.30-6.10); WHITE BLOOD COUNT 13.9 10^3/uL (4.0-10.0)
[2022-10-03 07:01] LABS: ALT/SGPT 32 U/L (12-78); BILIRUBIN,TOTAL 0.6 MG/DL (0.2-1.0); BLOOD UREA NITROGEN 46 MG/DL (7-18); CALCIUM LEVEL 9.7 MG/DL (8.8-10.2); CARBON DIOXIDE LEVEL 26 MEQ/L (21-32); CHLORIDE LEVEL 102 MEQ/L (98-107); CREATININE FOR GFR 0.92 MG/DL (0.70-1.30); GLOMERULAR FILTRATION RATE > 60.0 (>35); GLUCOSE, FASTING 222 MG/DL (70-100); POTASSIUM SERUM 4.7 MEQ/L (3.5-5.1); SODIUM LEVEL 135 MEQ/L (136-145); TOTAL PROTEIN 5.5 GM/DL (6.4-8.2)
[2022-10-03] MEDS: LEVEMIR (INSULIN DETEMIR) 1 UNITS/0.01ML SC SCH (08:19)
[2022-10-03] MEDS: INSULIN LISPRO (NovoLOG) PER UNIT SC SCH ×4 (08:19→20:42)
[2022-10-03 08:53] VITALS: BP 144/78
[2022-10-03 10:13] LABS: HEMOGLOBIN A1c 7.8 %
[2022-10-03] MEDS ORDERED: KETOROLAC 30 MG/ML 1ML VIAL IV ONE (11:05)
[2022-10-03] MEDS ORDERED: BISACODYL 5 MG TAB PO ONE (11:10)
[2022-10-03] MEDS: ASPIRIN 81MG ENTERIC TABLET PO SCH (11:52)
[2022-10-03] MEDS: DOCUSATE SODIUM 100MG CAPSULE PO SCH ×2 (11:52→20:38)
[2022-10-03] MEDS: PANTOPRAZOLE 40MG TAB (PROTONIX) PO SCH (11:53)
[2022-10-03] MEDS: allopurinoL 300 MG TAB PO SCH (11:53)
[2022-10-03] MEDS: traMADol 50 MG TAB PO SCH ×2 (11:55→20:40)
[2022-10-03] MEDS: predniSONE 20 MG TAB PO SCH (11:56)
[2022-10-03] MEDS: CARVedilol 3.125 MG TAB PO SCH ×2 (11:58→20:41)
[2022-10-03] MEDS: TAMSULOSIN 0.4 MG CAP PO SCH ×2 (11:58→20:38)
[2022-10-03] MEDS: ISOSORBIDE MON. (IMDUR) 60MG XR TAB PO SCH (11:59)
[2022-10-03] MEDS: APIXABAN 5 MG TAB (ELIQUIS) PO SCH ×2 (11:59→20:39)
[2022-10-03] MEDS: DIGOXIN 0.125 MG TAB PO SCH (11:59)
[2022-10-03] MEDS: LINEZOLID 600MG TABLET (ZYVOX) PO SCH ×2 (12:00→20:38)
[2022-10-03] MEDS: MOM 30ML SUSPENSION UDC PO SCH (12:01)
[2022-10-03] MEDS: MIRALAX *UNIT DOSE* 17GM PACKET PO SCH (12:01)
[2022-10-03] MEDS: POLYVINYL ALCOHOL OPHTH SOLN 15 ML(LIQUITEARS) OU SCH ×2 (12:02→20:42)
[2022-10-03] MEDS: SERTRALINE HCL 25 MG TABLET PO SCH (12:03)
[2022-10-03] MEDS: GABAPENTIN 100 MG CAP PO SCH ×2 (12:29→12:59)
[2022-10-03 13:35] VITALS: BP 154/100
[2022-10-03 16:00] VITALS: BP 130/85
[2022-10-03] MEDS: FINASTERIDE 5MG TAB PO SCH (20:38)
[2022-10-03] MEDS: GABAPENTIN 300 MG CAP PO SCH (20:39)
[2022-10-03 21:10] VITALS: BP 132/86
[2022-10-04 06:00] VITALS: BP 144/90
[2022-10-04 07:37] LABS: HEMATOCRIT 34.3 % (42.0-52.0); HEMOGLOBIN 10.5 g/dl (13.5-17.5); MEAN CORPUSCULAR HEMOGLOBIN 32.3 pg (27.0-33.0); MEAN CORPUSCULAR HGB CONC 30.6 g/dl (32.0-36.5); MEAN CORPUSCULAR VOLUME 105.5 fl (80.0-96.0); PLATELET COUNT, AUTOMATED 193 10^3/uL (150-450); RED BLOOD COUNT 3.25 10^6/uL (4.30-6.10); WHITE BLOOD COUNT 12.1 10^3/uL (4.0-10.0)
[2022-10-04 08:00] VITALS: BP 145/90
[2022-10-04 08:21] LABS: ALT/SGPT 37 U/L (12-78); BILIRUBIN,TOTAL 0.6 MG/DL (0.2-1.0); BLOOD UREA NITROGEN 56 MG/DL (7-18); CALCIUM LEVEL 9.7 MG/DL (8.8-10.2); CARBON DIOXIDE LEVEL 25 MEQ/L (21-32); CHLORIDE LEVEL 103 MEQ/L (98-107); CREATININE FOR GFR 1.09 MG/DL (0.70-1.30); GLOMERULAR FILTRATION RATE > 60.0 (>35); GLUCOSE, FASTING 210 MG/DL (70-100); MAGNESIUM LEVEL 2.2 MG/DL (1.8-2.4); POTASSIUM SERUM 5.2 MEQ/L (3.5-5.1); SODIUM LEVEL 134 MEQ/L (136-145); TOTAL PROTEIN 5.6 GM/DL (6.4-8.2)
[2022-10-04] MEDS: GABAPENTIN 100 MG CAP PO SCH (08:43)
[2022-10-04] MEDS: INSULIN LISPRO (NovoLOG) PER UNIT SC SCH (08:44)
[2022-10-04] MEDS ORDERED: LINE1TAB6 PO (10:53)
[2022-10-04] MEDS: LEVEMIR (INSULIN DETEMIR) 1 UNITS/0.01ML SC SCH (11:18)
[2022-10-04] MEDS: PANTOPRAZOLE 40MG TAB (PROTONIX) PO SCH (11:18)
[2022-10-04] MEDS: TAMSULOSIN 0.4 MG CAP PO SCH (11:18)
[2022-10-04 11:19] VITALS: BP 145/90
[2022-10-04] MEDS: ASPIRIN 81MG ENTERIC TABLET PO SCH (11:19)
[2022-10-04] MEDS: CARVedilol 3.125 MG TAB PO SCH (11:19)
[2022-10-04] MEDS: APIXABAN 5 MG TAB (ELIQUIS) PO SCH (11:19)
[2022-10-04] MEDS: SERTRALINE HCL 25 MG TABLET PO SCH (11:19)
[2022-10-04] MEDS: allopurinoL 300 MG TAB PO SCH (11:19)
[2022-10-04] MEDS: ISOSORBIDE MON. (IMDUR) 60MG XR TAB PO SCH (11:20)
[2022-10-04 11:22] VITALS: BP 145/90
[2022-10-04] MEDS: traMADol 50 MG TAB PO SCH (11:22)
[2022-10-04] MEDS: POLYVINYL ALCOHOL OPHTH SOLN 15 ML(LIQUITEARS) OU SCH (11:23)
[2022-10-04] MEDS: DIGOXIN 0.125 MG TAB PO SCH (11:23)
[2022-10-04] MEDS: MOM 30ML SUSPENSION UDC PO SCH (11:23)
[2022-10-04] MEDS: LINEZOLID 600MG TABLET (ZYVOX) PO SCH (11:23)
== END 2022-10-04 12:15 | DRG 603 ==
LOC: M ED 14:56 → M ED INP 21:23 → M MSPAV 09-29 00:08
PROVIDERS: ADMIT Family Medicine; ATTEND Internal Medicine Nephrology
DX: L03.116 Cellulitis of left lower limb (principal); I13.0 Hypertensive heart and chronic kidney disease with heart failure and stage 1 through stage 4 chronic kidney disease, or unspecified chronic kidney disease; I50.32 Chronic diastolic (congestive) heart failure; D72.829 Elevated white blood cell count, unspecified; E11.22 Type 2 diabetes mellitus with diabetic chronic kidney disease; N18.9 Chronic kidney disease, unspecified; E03.9 Hypothyroidism, unspecified; I48.91 Unspecified atrial fibrillation; Z95.0 Presence of cardiac pacemaker; M10.9 Gout, unspecified; N40.0 Benign prostatic hyperplasia without lower urinary tract symptoms; Z85.46 Personal history of malignant neoplasm of prostate; K21.9 Gastro-esophageal reflux disease without esophagitis; F32.A Depression, unspecified; K59.09 Other constipation; M21.379 Foot drop, unspecified foot; M19.011 Primary osteoarthritis, right shoulder; Z86.711 Personal history of pulmonary embolism; Z86.718 Personal history of other venous thrombosis and embolism; Z79.01 Long term (current) use of anticoagulants; Z79.82 Long term (current) use of aspirin; Z79.84 Long term (current) use of oral hypoglycemic drugs; Z79.899 Other long term (current) drug therapy; Z88.0 Allergy status to penicillin; Z20.822 Contact with and (suspected) exposure to COVID-19; E11.42 Type 2 diabetes mellitus with diabetic polyneuropathy; E78.5 Hyperlipidemia, unspecified; I27.20 Pulmonary hypertension, unspecified; I08.0 Rheumatic disorders of both mitral and aortic valves; Z96.642 Presence of left artificial hip joint; K80.20 Calculus of gallbladder without cholecystitis without obstruction; K44.9 Diaphragmatic hernia without obstruction or gangrene; M16.11 Unilateral primary osteoarthritis, right hip; E83.42 Hypomagnesemia

== ENCOUNTER → 2022-09-28 | Outpatient (REF) | payer MEDICARE, OTHER | PROVIDERS: ATTEND Internal Medicine | DX: R05.8 Other specified cough (principal) ==

== ENCOUNTER → 2022-09-28 | Outpatient (CLI) | payer MEDICARE, OTHER | LOC: M RAD 11:37 | PROVIDERS: ATTEND Internal Medicine | DX: L03.116 Cellulitis of left lower limb (principal); R05.9 Cough, unspecified; M25.511 Pain in right shoulder; I51.7 Cardiomegaly; Z95.0 Presence of cardiac pacemaker; M19.011 Primary osteoarthritis, right shoulder; M19.012 Primary osteoarthritis, left shoulder ==

== ENCOUNTER → 2022-09-28 | Outpatient (REF) | payer MEDICARE, OTHER ==
[2022-09-28 10:59] LABS: HEMATOCRIT 38.9 % (42.0-52.0); HEMOGLOBIN 12.2 g/dl (13.5-17.5); MEAN CORPUSCULAR HEMOGLOBIN 32.5 pg (27.0-33.0); MEAN CORPUSCULAR HGB CONC 31.4 g/dl (32.0-36.5); MEAN CORPUSCULAR VOLUME 103.7 fl (80.0-96.0); PLATELET COUNT, AUTOMATED 159 10^3/uL (150-450); RED BLOOD COUNT 3.75 10^6/uL (4.30-6.10); WHITE BLOOD COUNT 19.9 10^3/uL (4.0-10.0)
[2022-09-28 11:46] LABS: C REACTIVE PROTEIN QUANTITATIV 38.5 MG/DL (0.00-0.30); CREATININE FOR GFR 1.47 MG/DL (0.70-1.30); GLOMERULAR FILTRATION RATE 48.8 (>35); POTASSIUM SERUM 4.2 MEQ/L (3.5-5.1)
[2022-09-28 11:50] LABS: ERYTHROCYTE SEDIMENTATION RATE 70 mm/hr (0-20)
== END ==
PROVIDERS: ATTEND Internal Medicine
DX: M79.662 Pain in left lower leg (principal)

== ENCOUNTER → 2022-10-05 | Outpatient (REF) ==
[~2022-10-05] MED LIST changes: +CEFT1INJ5 IJ; +ECOT81TA5 PO; +LINE1TAB6 PO; +MELA5CAP2 PO; +POLYOPD OU; +SERT25TA21 PO
== END ==
PROVIDERS: ATTEND Internal Medicine
DX: L03.90 Cellulitis, unspecified (principal)

== ENCOUNTER → 2022-10-10 | Outpatient (REF) ==
[2022-10-10 10:10] LABS: HEMATOCRIT 37.4 % (42.0-52.0); HEMOGLOBIN 11.5 g/dl (13.5-17.5); MEAN CORPUSCULAR HEMOGLOBIN 31.9 pg (27.0-33.0); MEAN CORPUSCULAR HGB CONC 30.7 g/dl (32.0-36.5); MEAN CORPUSCULAR VOLUME 103.9 fl (80.0-96.0); PLATELET COUNT, AUTOMATED 266 10^3/uL (150-450); WHITE BLOOD COUNT 10.6 10^3/uL (4.0-10.0)
[2022-10-10 11:14] LABS: ERYTHROCYTE SEDIMENTATION RATE 70 mm/hr (0-20)
[2022-10-10 11:16] LABS: BLOOD UREA NITROGEN 41 MG/DL (7-18); C REACTIVE PROTEIN QUANTITATIV 7.57 MG/DL (0.00-0.30); CALCIUM LEVEL 10.2 MG/DL (8.8-10.2); CARBON DIOXIDE LEVEL 26 MEQ/L (21-32); CHLORIDE LEVEL 102 MEQ/L (98-107); CREATININE FOR GFR 0.94 MG/DL (0.70-1.30); GLOMERULAR FILTRATION RATE > 60.0 (>35); GLUCOSE, FASTING 130 MG/DL (70-100); POTASSIUM SERUM 4.8 MEQ/L (3.5-5.1); SODIUM LEVEL 137 MEQ/L (136-145)
== END ==
PROVIDERS: ATTEND Internal Medicine
DX: L03.90 Cellulitis, unspecified (principal)

== ENCOUNTER → 2022-10-15 | Outpatient (REF) | payer MEDICARE, OTHER ==
[2022-10-15 11:41] LABS: HEMATOCRIT 35.1 % (42.0-52.0); MEAN CORPUSCULAR HEMOGLOBIN 31.7 pg (27.0-33.0); MEAN CORPUSCULAR HGB CONC 31.3 g/dl (32.0-36.5); MEAN CORPUSCULAR VOLUME 101.2 fl (80.0-96.0); PLATELET COUNT, AUTOMATED 225 10^3/uL (150-450); RED BLOOD COUNT 3.47 10^6/uL (4.30-6.10); WHITE BLOOD COUNT 15.2 10^3/uL (4.0-10.0)
[2022-10-15 12:19] LABS: BLOOD UREA NITROGEN 42 MG/DL (7-18); CALCIUM LEVEL 9.7 MG/DL (8.8-10.2); CARBON DIOXIDE LEVEL 25 MEQ/L (21-32); CHLORIDE LEVEL 99 MEQ/L (98-107); CREATININE FOR GFR 1.14 MG/DL (0.70-1.30); GLOMERULAR FILTRATION RATE > 60.0 (>35); GLUCOSE, FASTING 234 MG/DL (70-100); NT-PRO BNP 3585 PG/ML (<450); SODIUM LEVEL 135 MEQ/L (136-145)
== END ==
PROVIDERS: ATTEND Internal Medicine
DX: I48.91 Unspecified atrial fibrillation (principal); I26.99 Other pulmonary embolism without acute cor pulmonale; I82.90 Acute embolism and thrombosis of unspecified vein

== ENCOUNTER → 2022-10-17 | Outpatient (REF) | payer MEDICARE, OTHER ==
[2022-10-17 15:58] LABS: HEMATOCRIT 41.3 % (42.0-52.0); HEMOGLOBIN 12.6 g/dl (13.5-17.5); MEAN CORPUSCULAR HEMOGLOBIN 31.3 pg (27.0-33.0); MEAN CORPUSCULAR HGB CONC 30.5 g/dl (32.0-36.5); MEAN CORPUSCULAR VOLUME 102.7 fl (80.0-96.0); PLATELET COUNT, AUTOMATED 210 10^3/uL (150-450); RED BLOOD COUNT 4.02 10^6/uL (4.30-6.10); WHITE BLOOD COUNT 15.1 10^3/uL (4.0-10.0)
[2022-10-17 17:18] LABS: BLOOD UREA NITROGEN 42 MG/DL (9-23); CALCIUM LEVEL 9.6 MG/DL (8.3-10.6); CARBON DIOXIDE LEVEL 26 MMOL/L (20-31); CHLORIDE LEVEL 97 MMOL/L (98-107); CREATININE FOR GFR 0.84 MG/DL (0.70-1.30); GLOMERULAR FILTRATION RATE > 60.0 (>35); GLUCOSE, FASTING 141 MG/DL (74-106); POTASSIUM SERUM 4.7 MMOL/L (3.5-5.1); SODIUM LEVEL 136 MMOL/L (136-145)
== END ==
PROVIDERS: ATTEND Internal Medicine
DX: D72.829 Elevated white blood cell count, unspecified (principal)

== ENCOUNTER → 2022-10-19 | Outpatient (REF) ==
[2022-10-19 14:43] LABS: HEMATOCRIT 38.4 % (42.0-52.0); HEMOGLOBIN 11.9 g/dl (13.5-17.5); MEAN CORPUSCULAR HEMOGLOBIN 31.1 pg (27.0-33.0); MEAN CORPUSCULAR VOLUME 100.3 fl (80.0-96.0); PLATELET COUNT, AUTOMATED 170 10^3/uL (150-450); RED BLOOD COUNT 3.83 10^6/uL (4.30-6.10); WHITE BLOOD COUNT 14.3 10^3/uL (4.0-10.0)
[2022-10-19 15:19] LABS: LYMPHOCYTES 9 % (16-44); MONOCYTES 6 % (0-5); NEUTROPHILS 81 % (28-66)
[2022-10-19 15:21] LABS: PLATELET ESTIMATE NORMAL (NORMAL); POLYCHROMASIA 1+
[2022-10-19 15:50] LABS: BLOOD UREA NITROGEN 38 MG/DL (9-23); CALCIUM LEVEL 9.7 MG/DL (8.3-10.6); CARBON DIOXIDE LEVEL 26 MMOL/L (20-31); CHLORIDE LEVEL 97 MMOL/L (98-107); GLOMERULAR FILTRATION RATE > 60.0 (>35); GLUCOSE, FASTING 251 MG/DL (74-106); POTASSIUM SERUM 5.2 MMOL/L (3.5-5.1); SODIUM LEVEL 134 MMOL/L (136-145)
[2022-10-19 16:24] LABS: ERYTHROCYTE SEDIMENTATION RATE 47 mm/hr (0-20)
== END ==
PROVIDERS: ATTEND Internal Medicine
DX: D72.829 Elevated white blood cell count, unspecified (principal)

== ENCOUNTER → 2022-10-22 | Outpatient (REF) ==
[2022-10-22 10:08] LABS: BASO % 0.3 % (0.0-1.0); EOS # 0.2 10^3/uL (0.0-0.5); EOS % 1.4 % (0.0-3.0); HEMOGLOBIN 11.4 g/dl (13.5-17.5); LYMPH # 1.6 10^3/uL (1.5-5.0); LYMPH % 13.4 % (24.0-44.0); MEAN CORPUSCULAR HEMOGLOBIN 30.9 pg (27.0-33.0); MONO % 8.4 % (2.0-8.0); NEUTROPHILS # 8.3 10^3/uL (1.5-8.5); NEUTROPHILS % 71.7 % (36.0-66.0); PLATELET COUNT, AUTOMATED 159 10^3/uL (150-450); RED BLOOD COUNT 3.69 10^6/uL (4.30-6.10); WHITE BLOOD COUNT 11.6 10^3/uL (4.0-10.0)
[2022-10-22 10:32] LABS: ERYTHROCYTE SEDIMENTATION RATE 43 mm/hr (0-20)
[2022-10-22 10:34] LABS: BLOOD UREA NITROGEN 35 MG/DL (9-23); CALCIUM LEVEL 8.7 MG/DL (8.3-10.6); CARBON DIOXIDE LEVEL 30 MMOL/L (20-31); CHLORIDE LEVEL 99 MMOL/L (98-107); CREATININE FOR GFR 0.88 MG/DL (0.70-1.30); GLOMERULAR FILTRATION RATE > 60.0 (>35); GLUCOSE, FASTING 162 MG/DL (74-106); POTASSIUM SERUM 4.3 MMOL/L (3.5-5.1); SODIUM LEVEL 137 MMOL/L (136-145)
== END ==
PROVIDERS: ATTEND Internal Medicine
DX: D72.829 Elevated white blood cell count, unspecified (principal)

== ENCOUNTER → 2022-11-19 | Outpatient (REF) | payer MEDICARE, OTHER | PROVIDERS: ATTEND Internal Medicine | DX: I51.7 Cardiomegaly (principal); Z95.0 Presence of cardiac pacemaker; R09.89 Other specified symptoms and signs involving the circulatory and respiratory systems ==

== ENCOUNTER → 2022-11-19 | Outpatient (REF) | payer MEDICARE, OTHER | PROVIDERS: ATTEND Physician Assistant | DX: R05.9 Cough, unspecified (principal) ==

== ENCOUNTER → 2022-11-20 | Outpatient (REF) | payer MEDICARE, OTHER ==
[2022-11-20 18:05] LABS: HEMATOCRIT 40.2 % (42.0-52.0); HEMOGLOBIN 12.1 g/dl (13.5-17.5); MEAN CORPUSCULAR HEMOGLOBIN 31.4 pg (27.0-33.0); MEAN CORPUSCULAR HGB CONC 30.1 g/dl (32.0-36.5); MEAN CORPUSCULAR VOLUME 104.4 fl (80.0-96.0); PLATELET COUNT, AUTOMATED 173 10^3/uL (150-450); RED BLOOD COUNT 3.85 10^6/uL (4.30-6.10); WHITE BLOOD COUNT 9.2 10^3/uL (4.0-10.0)
[2022-11-20 18:27] LABS: BLOOD UREA NITROGEN 32 MG/DL (9-23); CALCIUM LEVEL 9.3 MG/DL (8.3-10.6); CARBON DIOXIDE LEVEL 26 MMOL/L (20-31); CHLORIDE LEVEL 100 MMOL/L (98-107); CREATININE FOR GFR 0.81 MG/DL (0.70-1.30); GLOMERULAR FILTRATION RATE > 60.0 (>35); GLUCOSE, FASTING 198 MG/DL (74-106); POTASSIUM SERUM 4.6 MMOL/L (3.5-5.1); SODIUM LEVEL 139 MMOL/L (136-145)
== END ==
PROVIDERS: ATTEND Physician Assistant
DX: J10.1 Influenza due to other identified influenza virus with other respiratory manifestations (principal)

== ENCOUNTER → 2022-11-27 | Outpatient (REF) | payer MEDICARE, OTHER | PROVIDERS: ATTEND Internal Medicine | DX: I51.7 Cardiomegaly (principal); Z95.0 Presence of cardiac pacemaker ==

== ENCOUNTER → 2022-12-14 | Outpatient (CLI) | payer MEDICARE, OTHER | LOC: M RAD 14:19 | PROVIDERS: ATTEND Internal Medicine | DX: M47.812 Spondylosis without myelopathy or radiculopathy, cervical region (principal); M62.81 Muscle weakness (generalized) ==

== ENCOUNTER → 2022-12-24 | Outpatient (REF) | payer MEDICARE, OTHER ==
[2022-12-24 17:47] LABS: HEMATOCRIT 38.2 % (42.0-52.0); HEMOGLOBIN 11.7 g/dl (13.5-17.5); MEAN CORPUSCULAR HEMOGLOBIN 32.4 pg (27.0-33.0); MEAN CORPUSCULAR HGB CONC 30.6 g/dl (32.0-36.5); MEAN CORPUSCULAR VOLUME 105.8 fl (80.0-96.0); PLATELET COUNT, AUTOMATED 148 10^3/uL (150-450); RED BLOOD COUNT 3.61 10^6/uL (4.30-6.10); WHITE BLOOD COUNT 10.2 10^3/uL (4.0-10.0)
[2022-12-24 18:11] LABS: ALBUMIN 3.1 G/DL (3.2-5.2); ALKALINE PHOSPHATASE 87 U/L (46-116); ALT/SGPT 25 U/L (7.0-40); AST/SGOT 19 U/L (<34); BILIRUBIN,DIRECT 0.2 MG/DL (<0.4); BILIRUBIN,TOTAL 0.5 MG/DL (0.3-1.2); BLOOD UREA NITROGEN 30 MG/DL (9-23); CARBON DIOXIDE LEVEL 28 MMOL/L (20-31); CHLORIDE LEVEL 102 MMOL/L (98-107); CREATININE FOR GFR 0.92 MG/DL (0.70-1.30); GLOMERULAR FILTRATION RATE > 60.0 (>35); GLUCOSE, FASTING 134 MG/DL (74-106); POTASSIUM SERUM 4.3 MMOL/L (3.5-5.1); SODIUM LEVEL 140 MMOL/L (136-145); TOTAL PROTEIN 6.3 G/DL (5.7-8.2)
[2022-12-24 18:14] LABS: THYROID STIMULATING HORMONE 4.273 uIU/ML (0.55-4.78)
== END ==
PROVIDERS: ATTEND Physician Assistant
DX: R41.0 Disorientation, unspecified (principal)

== ENCOUNTER → 2022-12-28 | Outpatient (CLI) | payer MEDICARE, OTHER | LOC: M RAD 11:50 | PROVIDERS: ATTEND Physician Assistant | DX: R68.89 Other general symptoms and signs (principal); L89.622 Pressure ulcer of left heel, stage 2; I70.203 Unspecified atherosclerosis of native arteries of extremities, bilateral legs ==

== ENCOUNTER → 2023-01-02 | Outpatient (REF) | payer MEDICARE, OTHER ==
[2023-01-02 11:31] LABS: HEMATOCRIT 39.1 % (42.0-52.0); HEMOGLOBIN 11.7 g/dl (13.5-17.5); MEAN CORPUSCULAR HEMOGLOBIN 31.9 pg (27.0-33.0); MEAN CORPUSCULAR HGB CONC 29.9 g/dl (32.0-36.5); MEAN CORPUSCULAR VOLUME 106.5 fl (80.0-96.0); PLATELET COUNT, AUTOMATED 135 10^3/uL (150-450); RED BLOOD COUNT 3.67 10^6/uL (4.30-6.10); WHITE BLOOD COUNT 8.9 10^3/uL (4.0-10.0)
[2023-01-02 12:07] LABS: ALBUMIN 3.3 G/DL (3.2-5.2); ALKALINE PHOSPHATASE 87 U/L (46-116); ALT/SGPT 28 U/L (7.0-40); AST/SGOT 19 U/L (<34); BILIRUBIN,TOTAL 0.5 MG/DL (0.3-1.2); BLOOD UREA NITROGEN 33 MG/DL (9-23); CALCIUM LEVEL 9.2 MG/DL (8.3-10.6); CARBON DIOXIDE LEVEL 25 MMOL/L (20-31); CHLORIDE LEVEL 103 MMOL/L (98-107); CREATININE FOR GFR 0.91 MG/DL (0.70-1.30); GLOMERULAR FILTRATION RATE > 60.0 (>35); GLUCOSE, FASTING 227 MG/DL (74-106); POTASSIUM SERUM 3.9 MMOL/L (3.5-5.1); SODIUM LEVEL 139 MMOL/L (136-145); TOTAL PROTEIN 6.3 G/DL (5.7-8.2)
[2023-01-02 12:37] LABS: ERYTHROCYTE SEDIMENTATION RATE 68 mm/hr (0-20)
== END ==
PROVIDERS: ATTEND Internal Medicine
DX: N18.9 Chronic kidney disease, unspecified (principal)

== ENCOUNTER → 2023-01-07 | Outpatient (REF) | payer MEDICARE, OTHER ==
[2023-01-07 10:34] LABS: HEMATOCRIT 40.5 % (42.0-52.0); HEMOGLOBIN 12.2 g/dl (13.5-17.5); MEAN CORPUSCULAR HEMOGLOBIN 32.4 pg (27.0-33.0); MEAN CORPUSCULAR HGB CONC 30.1 g/dl (32.0-36.5); MEAN CORPUSCULAR VOLUME 107.7 fl (80.0-96.0); PLATELET COUNT, AUTOMATED 145 10^3/uL (150-450); RED BLOOD COUNT 3.76 10^6/uL (4.30-6.10); WHITE BLOOD COUNT 9.7 10^3/uL (4.0-10.0)
[2023-01-07 11:19] LABS: ERYTHROCYTE SEDIMENTATION RATE 115 mm/hr (0-20)
== END ==
PROVIDERS: ATTEND Internal Medicine
DX: L03.90 Cellulitis, unspecified (principal)

== ENCOUNTER → 2023-01-09 | Outpatient (REF) | payer MEDICARE, OTHER ==
[2023-01-09 11:23] LABS: HEMATOCRIT 39.5 % (42.0-52.0); HEMOGLOBIN 12.1 g/dl (13.5-17.5); MEAN CORPUSCULAR HEMOGLOBIN 32.3 pg (27.0-33.0); MEAN CORPUSCULAR HGB CONC 30.6 g/dl (32.0-36.5); MEAN CORPUSCULAR VOLUME 105.3 fl (80.0-96.0); PLATELET COUNT, AUTOMATED 151 10^3/uL (150-450); RED BLOOD COUNT 3.75 10^6/uL (4.30-6.10); WHITE BLOOD COUNT 9.6 10^3/uL (4.0-10.0)
[2023-01-09 11:54] LABS: ERYTHROCYTE SEDIMENTATION RATE 98 mm/hr (0-20)
[2023-01-09 11:56] LABS: ALBUMIN 3.3 G/DL (3.2-5.2); ALKALINE PHOSPHATASE 95 U/L (46-116); ALT/SGPT 22 U/L (7.0-40); AST/SGOT 17 U/L (<34); BILIRUBIN,TOTAL 0.6 MG/DL (0.3-1.2); BLOOD UREA NITROGEN 38 MG/DL (9-23); CALCIUM LEVEL 9.7 MG/DL (8.3-10.6); CARBON DIOXIDE LEVEL 24 MMOL/L (20-31); CHLORIDE LEVEL 99 MMOL/L (98-107); GLOMERULAR FILTRATION RATE > 60.0 (>35); GLUCOSE, FASTING 429 MG/DL (74-106); POTASSIUM SERUM 4.6 MMOL/L (3.5-5.1); SODIUM LEVEL 134 MMOL/L (136-145); TOTAL PROTEIN 6.6 G/DL (5.7-8.2)
== END ==
PROVIDERS: ATTEND Internal Medicine
DX: N18.9 Chronic kidney disease, unspecified (principal)

== ENCOUNTER → 2023-01-14 | Outpatient (REF) | payer MEDICARE, OTHER ==
[2023-01-14 10:56] LABS: HEMOGLOBIN 12.6 g/dl (13.5-17.5); MEAN CORPUSCULAR HEMOGLOBIN 32.6 pg (27.0-33.0); MEAN CORPUSCULAR HGB CONC 31.5 g/dl (32.0-36.5); MEAN CORPUSCULAR VOLUME 103.4 fl (80.0-96.0); PLATELET COUNT, AUTOMATED 151 10^3/uL (150-450); RED BLOOD COUNT 3.87 10^6/uL (4.30-6.10); WHITE BLOOD COUNT 11.4 10^3/uL (4.0-10.0)
[2023-01-14 11:09] LABS: ERYTHROCYTE SEDIMENTATION RATE 38 mm/hr (0-20)
== END ==
PROVIDERS: ATTEND Internal Medicine
DX: L03.90 Cellulitis, unspecified (principal)

== ENCOUNTER → 2023-01-21 | Outpatient (REF) | payer MEDICARE, OTHER ==
[2023-01-21 10:00] LABS: HEMATOCRIT 43.7 % (42.0-52.0); HEMOGLOBIN 13.1 g/dl (13.5-17.5); MEAN CORPUSCULAR HEMOGLOBIN 31.5 pg (27.0-33.0); PLATELET COUNT, AUTOMATED 112 10^3/uL (150-450); RED BLOOD COUNT 4.16 10^6/uL (4.30-6.10); WHITE BLOOD COUNT 11.5 10^3/uL (4.0-10.0)
[2023-01-21 10:15] LABS: HEMOGLOBIN A1c 8.1 % (4.0-6.0)
[2023-01-21 11:04] LABS: BILIRUBIN,DIRECT 0.1 MG/DL (<0.4); BILIRUBIN,TOTAL 0.4 MG/DL (0.3-1.2); THYROID STIMULATING HORMONE 3.472 uIU/ML (0.55-4.78); TOTAL PROTEIN 5.8 G/DL (5.7-8.2)
== END ==
PROVIDERS: ATTEND Internal Medicine
DX: N18.9 Chronic kidney disease, unspecified (principal); Z79.899 Other long term (current) drug therapy

== ENCOUNTER → 2023-01-29 | Outpatient (POV) | payer MEDICARE, OTHER ==
[~2023-01-29] VITALS: Ht 188 cm; Wt 105.0 kg
[2023-01-29 10:30] VITALS: BP 158/78
== END ==
LOC: M IRPOV 10:21
PROVIDERS: ATTEND Radiology Diagnostic Radiology
DX: E11.622 Type 2 diabetes mellitus with other skin ulcer (principal); L97.429 Non-pressure chronic ulcer of left heel and midfoot with unspecified severity; L97.529 Non-pressure chronic ulcer of other part of left foot with unspecified severity; I10 Essential (primary) hypertension; I48.91 Unspecified atrial fibrillation; E78.5 Hyperlipidemia, unspecified; Z79.01 Long term (current) use of anticoagulants; Z79.82 Long term (current) use of aspirin; Z79.84 Long term (current) use of oral hypoglycemic drugs; Z79.899 Other long term (current) drug therapy; Z86.711 Personal history of pulmonary embolism; Z88.0 Allergy status to penicillin; Z95.0 Presence of cardiac pacemaker; Z96.7 Presence of other bone and tendon implants

== ENCOUNTER → 2023-02-14 | Outpatient (REF) | payer MEDICARE, OTHER | PROVIDERS: ATTEND Internal Medicine | DX: Z01.812 Encounter for preprocedural laboratory examination (principal); Z20.822 Contact with and (suspected) exposure to COVID-19 ==

== ENCOUNTER 2023-02-18 06:44 | Outpatient (CLI) | payer MEDICARE, OTHER ==
[2023-02-18] MEDS ORDERED: diphenhydrAMINE 50MG/ML VIAL As Ordered ONE (07:28)
[2023-02-18] MEDS ORDERED: HEPARIN 1,000UNITS/ML 10ML VIAL (FOR RADIOLOGY & DIALYSIS ONLY) As Ordered ONE (07:28)
[2023-02-18] MEDS ORDERED: LIDOCAINE 1% MDV 20ML VIAL As Ordered ONE (07:28)
[2023-02-18] MEDS ORDERED: ISOVUE-300 61% 100ML VIAL As Ordered ONE ×2 (07:28→08:07)
[2023-02-18] MEDS ORDERED: MIDAZOLAM INJ 2MG/2ML VIAL As Ordered ONE (07:28)
[2023-02-18] MEDS ORDERED: fentaNYL 100 MCG/2 ML INJECTION As Ordered ONE (07:28)
[2023-02-18] MEDS ORDERED: NS 1,000 ML IV SCH (07:50)
[2023-02-18] MEDS ORDERED: hydrALAZINE 20MG/ML 1ML VIAL As Ordered ONE ×2 (08:35→09:11)
[2023-02-18] MEDS ORDERED: PERCOCET 5MG/325MG TAB As Ordered ONE ×2 (11:06→11:26)
[2023-02-18] MEDS ORDERED: ONDANSETRON 4MG 2ML VIAL IV PRN (11:25)
[2023-02-18] MEDS ORDERED: PERCOCET 5MG/325MG TAB PO PRN (11:25)
[2023-02-18 15:15] VITALS: BP 147/82
== END 2023-02-18 08:44 ==
LOC: M IRPRO 06:44
PROVIDERS: ATTEND Radiology Diagnostic Radiology
DX: I70.92 Chronic total occlusion of artery of the extremities (principal)

== ENCOUNTER 2023-02-20 19:23 | Inpatient (IN) | payer MEDICARE, OTHER ==
[~2023-02-20] VITALS: Ht 180.3 cm; Wt 102.6 kg
[2023-02-20] MEDS ORDERED: NS 1,000 ML IV ONE ×2 (19:40→22:25)
[2023-02-20] MEDS ORDERED: ACETAMINOPHEN TAB 650MG DOSE (2X325MG) PO ONE (19:40)
[2023-02-20] MEDS ORDERED: MORPHINE 4 MG/ML 1ML VIAL IV ONE ×2 (19:40→23:25)
[2023-02-20 20:02] LABS: VENOUS BASE EXCESS -0.4 (-2.0-2.0); VENOUS HCO3 25.1 MEQ/L (23.0-27.0); VENOUS PARTIAL PRESSURE CO2 44.8 mmHg (38.0-50.0); VENOUS PARTIAL PRESSURE O2 41.3 mmHg (30.0-50.0); VENOUS PH 7.367 UNITS (7.330-7.430); VENOUS STANDARD HCO3 23.7 MEQ/L; VENOUS TOTAL CO2 26.5 MEQ/L (24.0-28.0)
[2023-02-20 20:25] LABS: BASO # 0.1 10^3/uL (0.0-0.2); BASO % 0.5 % (0.0-1.0); EOS # 0.2 10^3/uL (0.0-0.5); EOS % 1.2 % (0.0-3.0); HEMATOCRIT 37.4 % (42.0-52.0); HEMOGLOBIN 11.6 g/dl (13.5-17.5); LYMPH # 1.1 10^3/uL (1.5-5.0); LYMPH % 8.4 % (24.0-44.0); MONO # 1.3 10^3/uL (0.0-0.8); MONO % 10.6 % (2.0-8.0); NEUTROPHILS # 9.6 10^3/uL (1.5-8.5); NEUTROPHILS % 76.9 % (36.0-66.0); PLATELET COUNT, AUTOMATED 136 10^3/uL (150-450); RED BLOOD COUNT 3.63 10^6/uL (4.30-6.10); WHITE BLOOD COUNT 12.5 10^3/uL (4.0-10.0)
[2023-02-20 20:33] LABS: INR 1.21; PROTHROMBIN TIME 15.6 SECONDS (12.5-14.5)
[2023-02-20 20:34] LABS: AMYLASE 45 U/L (30-118); PARTIAL THROMBOPLASTIN TIME 32.3 SECONDS (24.8-34.2)
[2023-02-20 20:35] LABS: ALBUMIN 2.8 G/DL (3.2-5.2); ALKALINE PHOSPHATASE 85 U/L (46-116); ALT/SGPT 18 U/L (7.0-40); AST/SGOT 12 U/L (<34); BILIRUBIN,DIRECT 0.2 MG/DL (<0.4); BILIRUBIN,TOTAL 0.6 MG/DL (0.3-1.2); BLOOD UREA NITROGEN 48 MG/DL (9-23); CARBON DIOXIDE LEVEL 29 MMOL/L (20-31); CHLORIDE LEVEL 101 MMOL/L (98-107); CPK CREATINE PHOSPHOKINASE 45 U/L (46-171); CREATININE FOR GFR 0.93 MG/DL (0.70-1.30); GLOMERULAR FILTRATION RATE > 60.0 (>35); GLUCOSE, FASTING 246 MG/DL (74-106); MB/CK RELATIVE INDEX 4.44 (< OR =4); POTASSIUM SERUM 4.5 MMOL/L (3.5-5.1); SODIUM LEVEL 136 MMOL/L (136-145); TOTAL PROTEIN 5.6 G/DL (5.7-8.2)
[2023-02-20 20:48] LABS: RSV AMPLIFICATION NEGATIVE (NEGATIVE)
[2023-02-20 22:12] LABS: APPEARANCE, URINE CLOUDY (CLEAR); BACTERIA, URINE AUTO 2+ (NEGATIVE); BILIRUBIN, URINE AUTO NEGATIVE (NEGATIVE); BLOOD, URINE BLOOD 2+ (NEGATIVE); COLOR, URINE RED (YELLOW); GLUCOSE, URINE (UA) AUTO 1+ mg/dL (NEGATIVE); KETONE, URINE AUTO NEGATIVE (NEGATIVE); LEUKOCYTE ESTERASE, URINE AUTO 3+ (NEGATIVE); MUCUS, URINE SMALL (NEGATIVE); NITRITE, URINE AUTO NEGATIVE (NEGATIVE); PROTEIN, URINE AUTO 3+ mg/dL (NEGATIVE); RBC, URINE AUTO TNTC /HPF (0-3); SPECIFIC GRAVITY URINE AUTO 1.014 (1.002-1.035); SQUAMOUS EPITHELIAL CELL UR AU 0 /HPF (0-6); UROBILINOGEN, URINE AUTO 0.2 mg/dL (0.0-2.0); WBC, URINE AUTO TNTC /HPF (0-3)
[2023-02-20] MEDS ORDERED: LevoFLOXacin IV 750 MG in IV 1 EA IV ONE (22:25)
[2023-02-20] MEDS ORDERED: MIRA1POW3 PO (23:14)
[2023-02-20] MEDS ORDERED: SENN8.6T28 PO (23:14)
[2023-02-20] MEDS ORDERED: DESI13CR2 TOP (23:14)
[2023-02-20] MEDS ORDERED: SILV1CRE60 TOP (23:14)
[2023-02-20] MEDS ORDERED: FLUC150T9 PO (23:14)
[2023-02-20] MEDS ORDERED: AQUAOIN12 TOP (23:14)
[2023-02-20] MEDS ORDERED: TORS20TA2 PO (23:14)
[2023-02-20] MEDS ORDERED: ASPI81TA27 PO (23:14)
[2023-02-20] MEDS ORDERED: NS 1,000 ML IV SCH (23:35)
[2023-02-20] MEDS ORDERED: NS 500 ML IV ONE (23:35)
[2023-02-20] MEDS ORDERED: SERT50TA29 PO (23:44)
[2023-02-20] MEDS ORDERED: GLUC1KIT IM (23:44)
[2023-02-20] MEDS ORDERED: JUVEPOW4 PO (23:44)
[2023-02-20] MEDS ORDERED: HOME MED LIST COMPLETE! XX SCH (23:55)
[2023-02-21] MEDS ORDERED: DEXTROSE 50% 50ML SYRINGE IV PRN (00:45)
[2023-02-21] MEDS ORDERED: GLUCAGON INJ 1MG VIAL SC PRN (00:45)
[2023-02-21] MEDS ORDERED: GLUCOSE 4GM CHEW TABLET PO PRN (00:45)
[2023-02-21] MEDS ORDERED: ALBUTEROL SULFATE 2.5MG/0.5ML INH NEB SOLN NEB PRN (00:45)
[2023-02-21] MEDS ORDERED: UNRESOLVED CLARIFICATION ENTRY XX STA (01:10)
[2023-02-21] MEDS ORDERED: AZTREONAM 1 GM in D5W MINI-BAG PLUS 50 ML IV ONE (01:10)
[2023-02-21] MEDS ORDERED: BISACODYL 10MG SUPP PR PRN (01:35)
[2023-02-21] MEDS: IPRATROPIUM 0.5MG/ALBUTEROL 2.5MG INH SOL UD 3ML (DUONEB) NEB SCH ×4 (01:35→20:28)
[2023-02-21] MEDS: FINASTERIDE 5MG TAB PO SCH ×2 (02:08→20:18)
[2023-02-21] MEDS: CARVedilol 3.125 MG TAB PO SCH ×3 (02:35→20:17)
[2023-02-21] MEDS: HYDROMORPHONE HCL 0.5 MG/ 0.5 ML SYRINGE IV PRN ×2 (02:45→11:46)
[2023-02-21 08:17] LABS: BLOOD UREA NITROGEN 42 MG/DL (9-23); CALCIUM LEVEL 8.9 MG/DL (8.3-10.6); CARBON DIOXIDE LEVEL 28 MMOL/L (20-31); CHLORIDE LEVEL 106 MMOL/L (98-107); CREATININE FOR GFR 0.87 MG/DL (0.70-1.30); GLOMERULAR FILTRATION RATE > 60.0 (>35); GLUCOSE, FASTING 182 MG/DL (74-106); POTASSIUM SERUM 4.5 MMOL/L (3.5-5.1); SODIUM LEVEL 140 MMOL/L (136-145)
[2023-02-21] MEDS: ASPIRIN 81MG ENTERIC TABLET PO SCH (08:29)
[2023-02-21] MEDS: GABAPENTIN 100 MG CAP PO SCH ×2 (08:29→13:58)
[2023-02-21] MEDS: allopurinoL 300 MG TAB PO SCH (08:30)
[2023-02-21] MEDS: ISOSORBIDE MON. (IMDUR) 60MG XR TAB PO SCH (08:30)
[2023-02-21] MEDS: APIXABAN 5 MG TAB (ELIQUIS) PO SCH (08:31)
[2023-02-21] MEDS: SERTRALINE HCL 50 MG TAB PO SCH (08:31)
[2023-02-21] MEDS: TAMSULOSIN 0.4 MG CAP PO SCH ×2 (08:31→20:18)
[2023-02-21] MEDS: DIGOXIN 0.125 MG TAB PO SCH (08:32)
[2023-02-21] MEDS: PANTOPRAZOLE 40MG TAB (PROTONIX) PO SCH (08:32)
[2023-02-21] MEDS: ZINC OXIDE 30.6% CREAM 92GM TUBE (SECURA EPC) TOP SCH (09:00)
[2023-02-21] MEDS: SANTYL OINT 30GM TOP SCH (09:00)
[2023-02-21] MEDS: POLYVINYL ALCOHOL OPHTH SOLN 15ML (LIQUITEARS) OU SCH ×3 (09:00→20:28)
[2023-02-21] MEDS ORDERED: AZTREONAM 1 GM in D5W MINI-BAG PLUS 50 ML IV SCH (10:00)
[2023-02-21] MEDS: INSULIN LISPRO (NovoLOG) PER UNIT SC SCH ×4 (12:00→20:28)
[2023-02-21] MEDS ORDERED: CEFEPIME HCL 1 GM in D5W MINI-BAG PLUS 50 ML IV SCH (13:40)
[2023-02-21] MEDS ORDERED: VANCOMYCIN HCL 1,000 MG, VIAL MATE ADAPTER 1 EACH in D5W 250 ML IV ONE (14:00)
[2023-02-21 15:28] LABS: C REACTIVE PROTEIN QUANTITATIV 16.9 MG/DL (<1.0)
[2023-02-21] MEDS ORDERED: MORPHINE 2 MG/ML 1ML VIAL IV STA (16:05)
[2023-02-21] MEDS ORDERED: PERCOCET 5MG/325MG TAB PO ONE (16:25)
[2023-02-21] MEDS ORDERED: PERCOCET 5MG/325MG TAB PO PRN (16:25)
[2023-02-21] MEDS: CEFEPIME HCL 2 GM in D5W MINI-BAG PLUS 50 ML IV SCH (16:27)
[2023-02-21 16:52] VITALS: BP 158/97
[2023-02-21 17:31] LABS: MAGNESIUM LEVEL 1.1 MG/DL (1.8-2.4)
[2023-02-21 18:00] VITALS: BP 167/100
[2023-02-21] MEDS: MAG SULF 1GM/100ML (MAG RUN) 1 GM in IV 1 EA IV SCH ×3 (18:14→21:24)
[2023-02-21] MEDS ORDERED: MAGNESIUM OXIDE 400MG TAB (MAG-OX) PO ONE (19:00)
[2023-02-21 20:00] VITALS: BP 169/81
[2023-02-21] MEDS: NYSTATIN 100,000 UNITS/GM TOPICAL PWD 15GM TOP SCH (20:19)
[2023-02-21] MEDS: SENNA 8.6 MG TAB (SENOKOT) PO SCH (20:19)
[2023-02-21] MEDS ORDERED: GABAPENTIN 300 MG CAP PO SCH (21:00)
[2023-02-21] MEDS: ACETAMINOPHEN TAB 650MG DOSE (2X325MG) PO PRN (22:13)
[2023-02-21] MEDS: VANCOMYCIN HCL 1,000 MG, VIAL MATE ADAPTER 1 EACH in D5W 250 ML IV SCH (23:09)
[2023-02-22] VITALS (9 sets, daily range): BP systolic 90–137; BP diastolic 50–104
[2023-02-22] MEDS: CEFEPIME HCL 2 GM in D5W MINI-BAG PLUS 50 ML IV SCH ×3 (01:07→16:12)
[2023-02-22 01:27] LABS: ABG HCO3 21.8 MEQ/L (22.0-26.0); ABG O2 SATURATION 95.7 % (95.0-99.0); ABG PARTIAL PRESSURE CO2 37.8 mmHg (35.0-45.0); ABG PARTIAL PRESSURE O2 81.8 mmHg (75.0-100.0); ABG TOTAL CO2 22.9 MEQ/L (23.0-31.0); ABG pH (ARTERIAL) 7.378 UNITS (7.350-7.450)
[2023-02-22] MEDS: IPRATROPIUM 0.5MG/ALBUTEROL 2.5MG INH SOL UD 3ML (DUONEB) NEB SCH ×4 (02:41→19:46)
[2023-02-22] MEDS: INSULIN LISPRO (NovoLOG) PER UNIT SC SCH ×4 (07:30→20:43)
[2023-02-22 08:07] LABS: BASO % 0.1 % (0.0-1.0); EOS # 0.1 10^3/uL (0.0-0.5); EOS % 0.7 % (0.0-3.0); HEMATOCRIT 38.2 % (42.0-52.0); HEMOGLOBIN 11.6 g/dl (13.5-17.5); LYMPH # 0.2 10^3/uL (1.5-5.0); LYMPH % 1.4 % (24.0-44.0); MEAN CORPUSCULAR HEMOGLOBIN 31.6 pg (27.0-33.0); MEAN CORPUSCULAR HGB CONC 30.4 g/dl (32.0-36.5); MEAN CORPUSCULAR VOLUME 104.1 fl (80.0-96.0); MONO # 0.7 10^3/uL (0.0-0.8); MONO % 4.8 % (2.0-8.0); NEUTROPHILS # 12.7 10^3/uL (1.5-8.5); NEUTROPHILS % 91.8 % (36.0-66.0); PLATELET COUNT, AUTOMATED 138 10^3/uL (150-450); RED BLOOD COUNT 3.67 10^6/uL (4.30-6.10); WHITE BLOOD COUNT 13.8 10^3/uL (4.0-10.0)
[2023-02-22 08:28] LABS: ALBUMIN 2.5 G/DL (3.2-5.2); ALKALINE PHOSPHATASE 63 U/L (46-116); ALT/SGPT 16 U/L (7.0-40); AST/SGOT 15 U/L (<34); BILIRUBIN,TOTAL 1.1 MG/DL (0.3-1.2); BLOOD UREA NITROGEN 35 MG/DL (9-23); CALCIUM LEVEL 9.2 MG/DL (8.3-10.6); CARBON DIOXIDE LEVEL 26 MMOL/L (20-31); CHLORIDE LEVEL 103 MMOL/L (98-107); CREATININE FOR GFR 1.07 MG/DL (0.70-1.30); GLOMERULAR FILTRATION RATE > 60.0 (>35); GLUCOSE, FASTING 169 MG/DL (74-106); MAGNESIUM LEVEL 1.7 MG/DL (1.8-2.4); POTASSIUM SERUM 4.6 MMOL/L (3.5-5.1); SODIUM LEVEL 137 MMOL/L (136-145); TOTAL PROTEIN 5.5 G/DL (5.7-8.2)
[2023-02-22] MEDS ORDERED: ISOVUE-370 76% 100ML VIAL As Ordered ONE (08:31)
[2023-02-22] MEDS: ISOSORBIDE MON. (IMDUR) 60MG XR TAB PO SCH (09:36)
[2023-02-22] MEDS: DIGOXIN 0.125 MG TAB PO SCH (09:36)
[2023-02-22] MEDS: TAMSULOSIN 0.4 MG CAP PO SCH ×2 (09:36→20:55)
[2023-02-22] MEDS: PANTOPRAZOLE 40MG TAB (PROTONIX) PO SCH (09:36)
[2023-02-22] MEDS: SERTRALINE HCL 50 MG TAB PO SCH (09:36)
[2023-02-22] MEDS: ASPIRIN 81MG ENTERIC TABLET PO SCH (09:37)
[2023-02-22] MEDS: SANTYL OINT 30GM TOP SCH (09:37)
[2023-02-22] MEDS: ACETAMINOPHEN TAB 650MG DOSE (2X325MG) PO PRN ×3 (09:37→19:44)
[2023-02-22] MEDS: ZINC OXIDE 30.6% CREAM 92GM TUBE (SECURA EPC) TOP SCH (09:37)
[2023-02-22] MEDS: allopurinoL 300 MG TAB PO SCH (09:37)
[2023-02-22] MEDS: CARVedilol 3.125 MG TAB PO SCH ×2 (09:37→20:48)
[2023-02-22] MEDS: VANCOMYCIN HCL 1,000 MG, VIAL MATE ADAPTER 1 EACH in D5W 250 ML IV SCH ×2 (09:38→19:44)
[2023-02-22] MEDS: NYSTATIN 100,000 UNITS/GM TOPICAL PWD 15GM TOP SCH ×2 (09:38→20:57)
[2023-02-22] MEDS: POLYVINYL ALCOHOL OPHTH SOLN 15ML (LIQUITEARS) OU SCH ×3 (09:38→20:55)
[2023-02-22] MEDS ORDERED: HEPARIN SOD (PORCINE) 5000UNITS/ML 1ML VIAL/SYRINGE SQ SCH (12:05)
[2023-02-22] MEDS: MAG SULF 1GM/100ML (MAG RUN) 1 GM in IV 1 EA IV SCH ×3 (13:25→15:39)
[2023-02-22] MEDS: SENNA 8.6 MG TAB (SENOKOT) PO SCH (20:55)
[2023-02-22] MEDS: FINASTERIDE 5MG TAB PO SCH (20:55)
[2023-02-22] MEDS: APIXABAN 5 MG TAB (ELIQUIS) PO SCH (21:36)
[2023-02-23] VITALS: BP 97/57
[2023-02-23] MEDS: ACETAMINOPHEN TAB 650MG DOSE (2X325MG) PO PRN ×3 (00:11→14:13)
[2023-02-23] MEDS: CEFEPIME HCL 2 GM in D5W MINI-BAG PLUS 50 ML IV SCH ×3 (00:11→20:18)
[2023-02-23] MEDS: IPRATROPIUM 0.5MG/ALBUTEROL 2.5MG INH SOL UD 3ML (DUONEB) NEB SCH ×4 (01:24→20:36)
[2023-02-23 04:00] VITALS: BP 115/72
[2023-02-23 07:31] LABS: BASO % 0.3 % (0.0-1.0); EOS # 0.3 10^3/uL (0.0-0.5); EOS % 2.3 % (0.0-3.0); HEMATOCRIT 35.4 % (42.0-52.0); HEMOGLOBIN 10.8 g/dl (13.5-17.5); LYMPH # 0.4 10^3/uL (1.5-5.0); LYMPH % 2.8 % (24.0-44.0); MEAN CORPUSCULAR HEMOGLOBIN 31.5 pg (27.0-33.0); MEAN CORPUSCULAR HGB CONC 30.5 g/dl (32.0-36.5); MEAN CORPUSCULAR VOLUME 103.2 fl (80.0-96.0); MONO # 1.2 10^3/uL (0.0-0.8); MONO % 8.9 % (2.0-8.0); NEUTROPHILS # 11.2 10^3/uL (1.5-8.5); NEUTROPHILS % 84.3 % (36.0-66.0); PLATELET COUNT, AUTOMATED 117 10^3/uL (150-450); RED BLOOD COUNT 3.43 10^6/uL (4.30-6.10); WHITE BLOOD COUNT 13.2 10^3/uL (4.0-10.0)
[2023-02-23 07:57] LABS: C REACTIVE PROTEIN QUANTITATIV 29.5 MG/DL (<1.0)
[2023-02-23 08:00] VITALS: BP 134/85
[2023-02-23 08:14] LABS: ALBUMIN 2.3 G/DL (3.2-5.2); BILIRUBIN,TOTAL 0.7 MG/DL (0.3-1.2); CREATININE FOR GFR 1.64 MG/DL (0.70-1.30); MAGNESIUM LEVEL 2.2 MG/DL (1.8-2.4); POTASSIUM SERUM 4.3 MMOL/L (3.5-5.1); TOTAL PROTEIN 5.3 G/DL (5.7-8.2)
[2023-02-23] MEDS: INSULIN LISPRO (NovoLOG) PER UNIT SC SCH ×4 (08:44→20:00)
[2023-02-23] MEDS: CARVedilol 3.125 MG TAB PO SCH ×2 (08:52→20:19)
[2023-02-23] MEDS: SERTRALINE HCL 50 MG TAB PO SCH (08:52)
[2023-02-23] MEDS: APIXABAN 5 MG TAB (ELIQUIS) PO SCH ×2 (08:52→20:19)
[2023-02-23] MEDS: allopurinoL 300 MG TAB PO SCH (08:52)
[2023-02-23] MEDS: TAMSULOSIN 0.4 MG CAP PO SCH ×2 (08:52→20:19)
[2023-02-23] MEDS: PANTOPRAZOLE 40MG TAB (PROTONIX) PO SCH (08:53)
[2023-02-23] MEDS: POLYVINYL ALCOHOL OPHTH SOLN 15ML (LIQUITEARS) OU SCH ×3 (08:53→20:19)
[2023-02-23] MEDS: ASPIRIN 81MG ENTERIC TABLET PO SCH (08:53)
[2023-02-23] MEDS: ISOSORBIDE MON. (IMDUR) 60MG XR TAB PO SCH (08:53)
[2023-02-23] MEDS: SANTYL OINT 30GM TOP SCH (08:53)
[2023-02-23] MEDS: DIGOXIN 0.125 MG TAB PO SCH (08:53)
[2023-02-23] MEDS: ZINC OXIDE 30.6% CREAM 92GM TUBE (SECURA EPC) TOP SCH (08:54)
[2023-02-23] MEDS: NYSTATIN 100,000 UNITS/GM TOPICAL PWD 15GM TOP SCH ×2 (08:54→20:20)
[2023-02-23] MEDS: NS 1,000 ML IV SCH ×2 (09:21→23:03)
[2023-02-23 09:57] LABS: PERCENT SATURATION 5.5 % (19.7-50.0)
[2023-02-23 09:59] LABS: FERRITIN 898.2 NG/ML (10.5-307.3)
[2023-02-23 10:01] LABS: FOLATE 11.6 NG/ML (>5.4)
[2023-02-23 12:00] VITALS: BP 121/54
[2023-02-23] MEDS: VANCOMYCIN HCL 750 MG, VIAL MATE ADAPTER 1 EACH in D5W 250 ML IV SCH (14:12)
[2023-02-23] MEDS ORDERED: VANCOMYCIN HCL 500 MG in D5W MINI-BAG PLUS 100 ML IV SCH (15:00)
[2023-02-23 16:00] VITALS: BP 110/68
[2023-02-23 20:00] VITALS: BP 126/71
[2023-02-23] MEDS: FINASTERIDE 5MG TAB PO SCH (20:19)
[2023-02-23] MEDS: SENNA 8.6 MG TAB (SENOKOT) PO SCH (20:19)
[2023-02-24] VITALS: BP 102/50
[2023-02-24] MEDS: IPRATROPIUM 0.5MG/ALBUTEROL 2.5MG INH SOL UD 3ML (DUONEB) NEB SCH ×4 (02:22→19:29)
[2023-02-24 04:00] VITALS: BP 118/62
[2023-02-24 04:45] LABS: BASO % 0.2 % (0.0-1.0); EOS # 0.3 10^3/uL (0.0-0.5); EOS % 3.1 % (0.0-3.0); HEMATOCRIT 32.5 % (42.0-52.0); HEMOGLOBIN 10.3 g/dl (13.5-17.5); LYMPH # 0.5 10^3/uL (1.5-5.0); LYMPH % 5.3 % (24.0-44.0); MEAN CORPUSCULAR HEMOGLOBIN 31.8 pg (27.0-33.0); MEAN CORPUSCULAR HGB CONC 31.7 g/dl (32.0-36.5); MEAN CORPUSCULAR VOLUME 100.3 fl (80.0-96.0); MONO # 1.1 10^3/uL (0.0-0.8); MONO % 11.9 % (2.0-8.0); NEUTROPHILS # 7.3 10^3/uL (1.5-8.5); NEUTROPHILS % 77.8 % (36.0-66.0); PLATELET COUNT, AUTOMATED 111 10^3/uL (150-450); RED BLOOD COUNT 3.24 10^6/uL (4.30-6.10); WHITE BLOOD COUNT 9.4 10^3/uL (4.0-10.0)
[2023-02-24 05:11] LABS: ALBUMIN 2.1 G/DL (3.2-5.2); BILIRUBIN,TOTAL 0.7 MG/DL (0.3-1.2); CALCIUM LEVEL 9.2 MG/DL (8.3-10.6); CREATININE FOR GFR 1.68 MG/DL (0.70-1.30); GLOMERULAR FILTRATION RATE 41.9 (>35); MAGNESIUM LEVEL 2.2 MG/DL (1.8-2.4); POTASSIUM SERUM 4.2 MMOL/L (3.5-5.1); TOTAL PROTEIN 5.1 G/DL (5.7-8.2)
[2023-02-24 08:00] VITALS: BP 144/96
[2023-02-24] MEDS: CEFEPIME HCL 2 GM in D5W MINI-BAG PLUS 50 ML IV SCH ×2 (08:07→20:27)
[2023-02-24] MEDS: INSULIN LISPRO (NovoLOG) PER UNIT SC SCH ×4 (08:08→20:27)
[2023-02-24] MEDS: ACETAMINOPHEN TAB 650MG DOSE (2X325MG) PO PRN ×2 (09:13→23:42)
[2023-02-24] MEDS: GABAPENTIN 100 MG CAP PO SCH ×2 (09:13→20:19)
[2023-02-24] MEDS: SERTRALINE HCL 50 MG TAB PO SCH (09:13)
[2023-02-24] MEDS: ASPIRIN 81MG ENTERIC TABLET PO SCH (09:13)
[2023-02-24] MEDS: DICLOFENAC EPOLAMINE 1.3% PATCH TOP SCH ×2 (09:13→20:22)
[2023-02-24] MEDS: ISOSORBIDE MON. (IMDUR) 60MG XR TAB PO SCH (09:14)
[2023-02-24] MEDS: PANTOPRAZOLE 40MG TAB (PROTONIX) PO SCH (09:14)
[2023-02-24] MEDS: CARVedilol 3.125 MG TAB PO SCH ×2 (09:14→20:18)
[2023-02-24] MEDS: allopurinoL 300 MG TAB PO SCH (09:14)
[2023-02-24] MEDS: APIXABAN 5 MG TAB (ELIQUIS) PO SCH ×2 (09:14→20:17)
[2023-02-24] MEDS: ZINC OXIDE 30.6% CREAM 92GM TUBE (SECURA EPC) TOP SCH (09:15)
[2023-02-24] MEDS: DIGOXIN 0.125 MG TAB PO SCH (09:15)
[2023-02-24] MEDS: POLYVINYL ALCOHOL OPHTH SOLN 15ML (LIQUITEARS) OU SCH ×3 (09:15→20:36)
[2023-02-24] MEDS: TAMSULOSIN 0.4 MG CAP PO SCH ×2 (09:15→20:18)
[2023-02-24] MEDS: NYSTATIN 100,000 UNITS/GM TOPICAL PWD 15GM TOP SCH ×2 (09:15→20:38)
[2023-02-24] MEDS: SANTYL OINT 30GM TOP SCH (09:16)
[2023-02-24] MEDS: VANCOMYCIN HCL 750 MG, VIAL MATE ADAPTER 1 EACH in D5W 250 ML IV SCH (13:23)
[2023-02-24 15:00] VITALS: BP 137/90
[2023-02-24 17:16] LABS: HEMATOCRIT 32.4 % (42.0-52.0); HEMOGLOBIN 10.1 g/dl (13.5-17.5)
[2023-02-24 18:00] VITALS: BP 140/81
[2023-02-24 20:00] VITALS: BP 148/88
[2023-02-24] MEDS: FINASTERIDE 5MG TAB PO SCH (20:18)
[2023-02-24] MEDS: SENNA 8.6 MG TAB (SENOKOT) PO SCH (20:19)
[2023-02-24] MEDS ORDERED: VANCOMYCIN HCL 750 MG, VIAL MATE ADAPTER 1 EACH in D5W 250 ML IV SCH (22:00)
[2023-02-25] MEDS: IPRATROPIUM 0.5MG/ALBUTEROL 2.5MG INH SOL UD 3ML (DUONEB) NEB SCH ×4 (01:12→20:02)
[2023-02-25 05:45] VITALS: BP 150/90
[2023-02-25 06:03] LABS: BASO % 0.5 % (0.0-1.0); EOS # 0.2 10^3/uL (0.0-0.5); EOS % 2.9 % (0.0-3.0); HEMATOCRIT 32.1 % (42.0-52.0); HEMOGLOBIN 10.2 g/dl (13.5-17.5); LYMPH # 0.7 10^3/uL (1.5-5.0); LYMPH % 8.3 % (24.0-44.0); MEAN CORPUSCULAR HEMOGLOBIN 31.5 pg (27.0-33.0); MEAN CORPUSCULAR HGB CONC 31.8 g/dl (32.0-36.5); MEAN CORPUSCULAR VOLUME 99.1 fl (80.0-96.0); MONO # 1.1 10^3/uL (0.0-0.8); MONO % 12.8 % (2.0-8.0); NEUTROPHILS # 6.1 10^3/uL (1.5-8.5); NEUTROPHILS % 73.3 % (36.0-66.0); PLATELET COUNT, AUTOMATED 120 10^3/uL (150-450); RED BLOOD COUNT 3.24 10^6/uL (4.30-6.10); WHITE BLOOD COUNT 8.3 10^3/uL (4.0-10.0)
[2023-02-25 06:33] LABS: ALBUMIN 2.3 G/DL (3.2-5.2); BILIRUBIN,TOTAL 0.8 MG/DL (0.3-1.2); CREATININE FOR GFR 1.3 MG/DL (0.70-1.30); GLOMERULAR FILTRATION RATE 56.3 (>35); POTASSIUM SERUM 4.6 MMOL/L (3.5-5.1); TOTAL PROTEIN 5.4 G/DL (5.7-8.2)
[2023-02-25] MEDS: allopurinoL 300 MG TAB PO SCH (09:25)
[2023-02-25] MEDS: ISOSORBIDE MON. (IMDUR) 60MG XR TAB PO SCH (09:25)
[2023-02-25] MEDS: ASPIRIN 81MG ENTERIC TABLET PO SCH (09:25)
[2023-02-25] MEDS: GABAPENTIN 100 MG CAP PO SCH ×2 (09:26→21:04)
[2023-02-25] MEDS: APIXABAN 5 MG TAB (ELIQUIS) PO SCH ×2 (09:26→21:04)
[2023-02-25] MEDS: PANTOPRAZOLE 40MG TAB (PROTONIX) PO SCH (09:26)
[2023-02-25] MEDS: DIGOXIN 0.125 MG TAB PO SCH (09:26)
[2023-02-25] MEDS: CARVedilol 3.125 MG TAB PO SCH ×2 (09:26→21:03)
[2023-02-25] MEDS: SERTRALINE HCL 50 MG TAB PO SCH (09:27)
[2023-02-25] MEDS: DICLOFENAC EPOLAMINE 1.3% PATCH TOP SCH ×2 (09:27→21:03)
[2023-02-25] MEDS: TAMSULOSIN 0.4 MG CAP PO SCH ×2 (09:27→21:03)
[2023-02-25] MEDS: CEFEPIME HCL 2 GM in D5W MINI-BAG PLUS 50 ML IV SCH (09:27)
[2023-02-25] MEDS: INSULIN LISPRO (NovoLOG) PER UNIT SC SCH ×4 (09:27→20:57)
[2023-02-25] MEDS: NYSTATIN 100,000 UNITS/GM TOPICAL PWD 15GM TOP SCH ×2 (09:28→21:04)
[2023-02-25] MEDS: POLYVINYL ALCOHOL OPHTH SOLN 15ML (LIQUITEARS) OU SCH ×3 (09:28→21:04)
[2023-02-25] MEDS: ZINC OXIDE 30.6% CREAM 92GM TUBE (SECURA EPC) TOP SCH (09:29)
[2023-02-25] MEDS: SANTYL OINT 30GM TOP SCH (09:29)
[2023-02-25 14:00] VITALS: BP 157/80
[2023-02-25] MEDS ORDERED: VANCOMYCIN HCL 750 MG, VIAL MATE ADAPTER 1 EACH in D5W 250 ML IV SCH (15:00)
[2023-02-25] MEDS: VANCOMYCIN HCL 1,000 MG, VIAL MATE ADAPTER 1 EACH in D5W 250 ML IV SCH (15:28)
[2023-02-25 18:00] VITALS: BP 130/60
[2023-02-25] MEDS ORDERED: OLANZapine 2.5MG TABLET PO ONE (18:15)
[2023-02-25 20:44] VITALS: BP 150/88
[2023-02-25 21:03] VITALS: BP 150/88
[2023-02-25] MEDS: SENNA 8.6 MG TAB (SENOKOT) PO SCH (21:03)
[2023-02-25] MEDS: FINASTERIDE 5MG TAB PO SCH (21:04)
[2023-02-26] VITALS (7 sets, daily range): BP systolic 136–164; BP diastolic 58–98
[2023-02-26] MEDS: IPRATROPIUM 0.5MG/ALBUTEROL 2.5MG INH SOL UD 3ML (DUONEB) NEB SCH ×4 (02:00→19:26)
[2023-02-26 06:06] LABS: BASO # 0.1 10^3/uL (0.0-0.2); BASO % 0.8 % (0.0-1.0); EOS # 0.3 10^3/uL (0.0-0.5); EOS % 2.8 % (0.0-3.0); HEMATOCRIT 33.7 % (42.0-52.0); HEMOGLOBIN 10.4 g/dl (13.5-17.5); LYMPH # 0.9 10^3/uL (1.5-5.0); LYMPH % 9.7 % (24.0-44.0); MEAN CORPUSCULAR HEMOGLOBIN 31.5 pg (27.0-33.0); MEAN CORPUSCULAR HGB CONC 30.9 g/dl (32.0-36.5); MEAN CORPUSCULAR VOLUME 102.1 fl (80.0-96.0); MONO # 1.3 10^3/uL (0.0-0.8); MONO % 14.2 % (2.0-8.0); NEUTROPHILS # 6.1 10^3/uL (1.5-8.5); NEUTROPHILS % 68.5 % (36.0-66.0); PLATELET COUNT, AUTOMATED 141 10^3/uL (150-450)
[2023-02-26 06:38] LABS: ALBUMIN 2.3 G/DL (3.2-5.2); ALKALINE PHOSPHATASE 73 U/L (46-116); ALT/SGPT 19 U/L (7.0-40); AST/SGOT 18 U/L (<34); BILIRUBIN,TOTAL 0.9 MG/DL (0.3-1.2); BLOOD UREA NITROGEN 35 MG/DL (9-23); CALCIUM LEVEL 10.2 MG/DL (8.3-10.6); CARBON DIOXIDE LEVEL 22 MMOL/L (20-31); CHLORIDE LEVEL 107 MMOL/L (98-107); CREATININE FOR GFR 1.13 MG/DL (0.70-1.30); GLOMERULAR FILTRATION RATE > 60.0 (>35); GLUCOSE, FASTING 105 MG/DL (74-106); MAGNESIUM LEVEL 1.8 MG/DL (1.8-2.4); POTASSIUM SERUM 4.6 MMOL/L (3.5-5.1); SODIUM LEVEL 139 MMOL/L (136-145); TOTAL PROTEIN 5.5 G/DL (5.7-8.2)
[2023-02-26] MEDS: INSULIN LISPRO (NovoLOG) PER UNIT SC SCH ×4 (07:30→21:00)
[2023-02-26 10:56] LABS: C REACTIVE PROTEIN QUANTITATIV 15.9 MG/DL (<1.0)
[2023-02-26] MEDS ORDERED: ISOVUE-370 76% 100ML VIAL As Ordered ONE (11:27)
[2023-02-26] MEDS: POLYVINYL ALCOHOL OPHTH SOLN 15ML (LIQUITEARS) OU SCH ×4 (14:06→21:20)
[2023-02-26] MEDS: CARVedilol 3.125 MG TAB PO SCH ×3 (14:33→21:19)
[2023-02-26] MEDS: APIXABAN 5 MG TAB (ELIQUIS) PO SCH ×3 (14:33→21:19)
[2023-02-26] MEDS: TAMSULOSIN 0.4 MG CAP PO SCH ×3 (14:34→21:19)
[2023-02-26] MEDS: GABAPENTIN 100 MG CAP PO SCH ×3 (14:35→21:19)
[2023-02-26] MEDS: DICLOFENAC EPOLAMINE 1.3% PATCH TOP SCH ×3 (14:36→21:20)
[2023-02-26] MEDS ORDERED: CETACAINE SPRAY 5GM As Ordered ONE (14:58)
[2023-02-26] MEDS ORDERED: KETAMINE HCL 200MG/20ML VIAL As Ordered ONE (14:59)
[2023-02-26] MEDS ORDERED: LIDOCAINE 2% 100MG/5ML SDV (FOR ANES.) As Ordered ONE (15:00)
[2023-02-26] MEDS ORDERED: propofoL 200 MG/20 ML VIAL As Ordered ONE (15:00)
[2023-02-26] MEDS ORDERED: LABETALOL 100MG/20ML VIAL As Ordered ONE (15:19)
[2023-02-26] MEDS ORDERED: LR 1,000 ML IV SCH (15:25)
[2023-02-26] MEDS ORDERED: ONDANSETRON 4MG 2ML VIAL IV PRN ×2 (15:25→15:35)
[2023-02-26] MEDS ORDERED: fentaNYL 100 MCG/2 ML INJECTION IV PRN ×2 (15:25→15:35)
[2023-02-26] MEDS ORDERED: oxyCODONE 5MG TAB PO PRN (15:35)
[2023-02-26] MEDS: ASPIRIN 81MG ENTERIC TABLET PO SCH (16:16)
[2023-02-26] MEDS: ISOSORBIDE MON. (IMDUR) 60MG XR TAB PO SCH (16:16)
[2023-02-26] MEDS: SERTRALINE HCL 50 MG TAB PO SCH (16:17)
[2023-02-26] MEDS: PANTOPRAZOLE 40MG TAB (PROTONIX) PO SCH (16:17)
[2023-02-26] MEDS: DIGOXIN 0.125 MG TAB PO SCH (16:17)
[2023-02-26] MEDS: allopurinoL 300 MG TAB PO SCH (16:17)
[2023-02-26] MEDS: NYSTATIN 100,000 UNITS/GM TOPICAL PWD 15GM TOP SCH ×3 (16:18→21:20)
[2023-02-26] MEDS: SANTYL OINT 30GM TOP SCH (16:38)
[2023-02-26] MEDS: ZINC OXIDE 30.6% CREAM 92GM TUBE (SECURA EPC) TOP SCH (16:39)
[2023-02-26] MEDS: VANCOMYCIN HCL 1,000 MG, VIAL MATE ADAPTER 1 EACH in D5W 250 ML IV SCH (16:51)
[2023-02-26] MEDS: SENNA 8.6 MG TAB (SENOKOT) PO SCH ×2 (21:00→21:20)
[2023-02-26] MEDS: FINASTERIDE 5MG TAB PO SCH ×2 (21:00→21:20)
[2023-02-27 01:13] VITALS: BP 160/100
[2023-02-27] MEDS: IPRATROPIUM 0.5MG/ALBUTEROL 2.5MG INH SOL UD 3ML (DUONEB) NEB SCH ×3 (03:16→14:45)
[2023-02-27 05:50] VITALS: BP 108/51
[2023-02-27] MEDS: INSULIN LISPRO (NovoLOG) PER UNIT SC SCH (07:30)
[2023-02-27] MEDS: DIGOXIN 0.125 MG TAB PO SCH (09:00)
[2023-02-27] MEDS: allopurinoL 300 MG TAB PO SCH (09:00)
[2023-02-27] MEDS: PANTOPRAZOLE 40MG TAB (PROTONIX) PO SCH (09:00)
[2023-02-27] MEDS: APIXABAN 5 MG TAB (ELIQUIS) PO SCH (09:00)
[2023-02-27] MEDS: GABAPENTIN 100 MG CAP PO SCH (09:00)
[2023-02-27] MEDS: SANTYL OINT 30GM TOP SCH (09:00)
[2023-02-27] MEDS: ZINC OXIDE 30.6% CREAM 92GM TUBE (SECURA EPC) TOP SCH (09:00)
[2023-02-27] MEDS: NYSTATIN 100,000 UNITS/GM TOPICAL PWD 15GM TOP SCH (09:00)
[2023-02-27] MEDS: DICLOFENAC EPOLAMINE 1.3% PATCH TOP SCH (09:00)
[2023-02-27] MEDS: TAMSULOSIN 0.4 MG CAP PO SCH (09:00)
[2023-02-27] MEDS: SERTRALINE HCL 50 MG TAB PO SCH (09:00)
[2023-02-27] MEDS: CARVedilol 3.125 MG TAB PO SCH (09:00)
[2023-02-27] MEDS: ISOSORBIDE MON. (IMDUR) 60MG XR TAB PO SCH (09:00)
[2023-02-27] MEDS: ASPIRIN 81MG ENTERIC TABLET PO SCH (09:00)
[2023-02-27] MEDS: POLYVINYL ALCOHOL OPHTH SOLN 15ML (LIQUITEARS) OU SCH ×2 (09:00→16:00)
[2023-02-27] MEDS ORDERED: GLUCAGON INJ 1MG VIAL SC PRN (09:50)
[2023-02-27] MEDS ORDERED: GLUCOSE 4GM CHEW TABLET PO PRN (09:50)
[2023-02-27] MEDS ORDERED: DEXTROSE 50% 50ML SYRINGE IV PRN (09:50)
[2023-02-27 10:00] VITALS: BP 138/66
[2023-02-27 10:59] LABS: HEMATOCRIT 36.8 % (42.0-52.0); HEMOGLOBIN 11.4 g/dl (13.5-17.5); MEAN CORPUSCULAR HEMOGLOBIN 31.6 pg (27.0-33.0); MEAN CORPUSCULAR VOLUME 101.9 fl (80.0-96.0); PLATELET COUNT, AUTOMATED 174 10^3/uL (150-450); RED BLOOD COUNT 3.61 10^6/uL (4.30-6.10); WHITE BLOOD COUNT 10.6 10^3/uL (4.0-10.0)
[2023-02-27 11:29] LABS: ALBUMIN 2.6 G/DL (3.2-5.2); ALKALINE PHOSPHATASE 83 U/L (46-116); ALT/SGPT 20 U/L (7.0-40); AST/SGOT 12 U/L (<34); BILIRUBIN,TOTAL 0.8 MG/DL (0.3-1.2); BLOOD UREA NITROGEN 32 MG/DL (9-23); CARBON DIOXIDE LEVEL 20 MMOL/L (20-31); CHLORIDE LEVEL 110 MMOL/L (98-107); CREATININE FOR GFR 0.98 MG/DL (0.70-1.30); GLOMERULAR FILTRATION RATE > 60.0 (>35); GLUCOSE, FASTING 166 MG/DL (74-106); POTASSIUM SERUM 4.7 MMOL/L (3.5-5.1); SODIUM LEVEL 142 MMOL/L (136-145); TOTAL PROTEIN 5.9 G/DL (5.7-8.2)
[2023-02-27] MEDS ORDERED: INSULIN LISPRO (NovoLOG) PER UNIT SC SCH (12:00)
[2023-02-27 12:27] LABS: ANISOCYTOSIS 1+; ATYPICAL LYMPH 2 % (0-5); LYMPHOCYTES 11 % (16-44); MONOCYTES 14 % (0-5); MYELOCYTES 3 % (0-0); NEUTROPHILS 70 % (28-66); PLATELET ESTIMATE NORMAL (NORMAL); POIKILOCYTOSIS 1+; POLYCHROMASIA 1+
[2023-02-27 14:00] VITALS: BP 184/116
[2023-02-27] MEDS: VANCOMYCIN HCL 1,000 MG, VIAL MATE ADAPTER 1 EACH in D5W 250 ML IV SCH (14:00)
[2023-02-27] MEDS ORDERED: HYOSCYAMINE SULFATE 0.125 MG SUBL TABLET PO PRN (17:35)
[2023-02-27] MEDS ORDERED: ACETAMINOPHEN TAB 650MG DOSE (2X325MG) PO PRN (17:35)
[2023-02-27] MEDS ORDERED: ONDANSETRON 4MG 2ML VIAL IV PRN (17:35)
[2023-02-27] MEDS ORDERED: LORazepam 1 MG TAB PO PRN (17:35)
[2023-02-27] MEDS ORDERED: LORazepam 2 MG/ML 1ML VIAL IV PRN (17:35)
[2023-02-27] MEDS ORDERED: MORPHINE 2 MG/ML 1ML VIAL IV PRN (17:35)
[2023-02-27] MEDS ORDERED: SCOPOLAMINE 1MG TRANSDERMAL PATCH TOP PRN (17:35)
[2023-02-27] MEDS ORDERED: BISACODYL 10MG SUPP PR PRN (17:35)
[2023-02-27] MEDS ORDERED: ACETAMINOPHEN 650MG SUPP PR PRN (17:35)
[2023-02-27] MEDS ORDERED: ONDANSETRON 4MG ORAL DISINTEGRATING TAB PO PRN (17:35)
[2023-02-27] MEDS ORDERED: FLEET ENEMA PR PRN (17:35)
[2023-02-27] MEDS ORDERED: POLYVINYL ALCOHOL OPHTH SOLN 15ML (LIQUITEARS) OU PRN (18:15)
[2023-02-27] MEDS: MORPHINE 10MG/0.5ML ORAL CONCENTRATE SOLUTION U/D SL PRN ×2 (18:24→20:32)
[2023-02-27] MEDS: LORazepam 1 MG TAB SL PRN ×2 (19:00→22:00)
[2023-02-27] MEDS ORDERED: IPRATROPIUM 0.5MG/ALBUTEROL 2.5MG INH SOL UD 3ML (DUONEB) NEB PRN (20:15)
[2023-02-27] MEDS ORDERED: NYSTATIN 100,000 UNITS/GM TOPICAL PWD 15GM TOP PRN (20:15)
[2023-02-27] MEDS ORDERED: ZINC OXIDE 30.6% CREAM 92GM TUBE (SECURA EPC) TOP PRN (20:15)
[2023-02-27] MEDS ORDERED: SANTYL OINT 30GM TOP PRN (20:15)
[2023-02-28] MEDS: MORPHINE 10MG/0.5ML ORAL CONCENTRATE SOLUTION U/D SL PRN ×5 (02:01→20:37)
[2023-02-28] MEDS: LORazepam 1 MG TAB SL PRN ×3 (02:02→20:37)
[2023-03-01] MEDS: LORazepam 1 MG TAB SL PRN ×2 (06:25→10:15)
[2023-03-01] MEDS: MORPHINE 10MG/0.5ML ORAL CONCENTRATE SOLUTION U/D SL PRN (06:33)
[2023-03-01] MEDS: ATROPINE SULFATE 1% OPHTH SOLN 2ML BTL SL PRN ×2 (06:45→10:14)
[2023-03-01] MEDS ORDERED: MORPHINE SULF IN 0.9% NACL 100 MG in IV 1 EA IV SCH ×2 (09:00)
== END 2023-03-01 13:02 | disposition expired | DRG 871 ==
LOC: M ED 19:23 → EDBD 19:23 → EEVIPCON 23:35 → M ED INP 23:35 → ENRESERV 02-21 15:16 → M ICU 02-21 16:45 → M MSPAV 02-24 14:58 → UNDODISIN 03-01 14:04
PROVIDERS: ADMIT Internal Medicine; ATTEND Internal Medicine
PROC: 0HBNXZX Excision of Left Foot Skin, External Approach, Diagnostic (ICD-10-PCS; 2023-02-21)
PROC: B246ZZZ Ultrasonography of Right and Left Heart (ICD-10-PCS; principal; 2023-02-27)
DX: A41.02 Sepsis due to Methicillin resistant Staphylococcus aureus (principal); G93.41 Metabolic encephalopathy; L89.624 Pressure ulcer of left heel, stage 4; I21.A1 Myocardial infarction type 2; N12 Tubulo-interstitial nephritis, not specified as acute or chronic; N17.9 Acute kidney failure, unspecified; M86.9 Osteomyelitis, unspecified; L03.116 Cellulitis of left lower limb; I50.22 Chronic systolic (congestive) heart failure; I16.9 Hypertensive crisis, unspecified; D62 Acute posthemorrhagic anemia; Z66 Do not resuscitate; E11.51 Type 2 diabetes mellitus with diabetic peripheral angiopathy without gangrene; E11.621 Type 2 diabetes mellitus with foot ulcer; E11.42 Type 2 diabetes mellitus with diabetic polyneuropathy; I11.0 Hypertensive heart disease with heart failure; I73.9 Peripheral vascular disease, unspecified; I46.9 Cardiac arrest, cause unspecified; M10.9 Gout, unspecified; F32.A Depression, unspecified; E11.69 Type 2 diabetes mellitus with other specified complication; I48.91 Unspecified atrial fibrillation; R65.20 Severe sepsis without septic shock; Z79.01 Long term (current) use of anticoagulants; Z79.84 Long term (current) use of oral hypoglycemic drugs; Z79.899 Other long term (current) drug therapy; Z88.0 Allergy status to penicillin; Z95.0 Presence of cardiac pacemaker; Z90.49 Acquired absence of other specified parts of digestive tract; Z20.822 Contact with and (suspected) exposure to COVID-19; I49.5 Sick sinus syndrome